=== PATIENT | male | born 1955 | race Asian ===

== ENCOUNTER 2020-09-02 06:19 | Outpatient (REF) | payer BC, SELFPAY | END 2020-09-02 06:20 | disposition home or self-care (01) | LOC: HO.LAB 06:19 | PROVIDERS: Visit Provider Internal Medicine | DX: Z20.828 Contact with and (suspected) exposure to other viral communicable diseases (principal) | CPT/HCPCS: 87635 ==

== ENCOUNTER 2020-09-13 12:48 | Outpatient (REF) | payer BC, SELFPAY | END 2020-09-13 12:49 | disposition home or self-care (01) | LOC: HO.HMGCLDS 12:48 | PROVIDERS: PCP Internal Medicine; Visit Provider Internal Medicine | DX: Z20.828 Contact with and (suspected) exposure to other viral communicable diseases (principal) | CPT/HCPCS: 87635 ==

== ENCOUNTER → 2021-05-01 13:12 | Outpatient (BNVA) | payer BC, SELFPAY | PROVIDERS: PCP Internal Medicine; Visit Provider Physician Assistant ==

== ENCOUNTER 2021-07-17 09:31 | Day surgery (SDC) | payer OTHER, BC, SELFPAY ==
--- NOTE | 2021-07-14 09:14 | HO.ANESPROP2 ---
HPI - Anesthesia Eval Consult details Narrative: 65yo M for Colonoscopy PMFSH Active Problems Active Problems: All Active Problems (Updated 07/11/21 @ 14:26 by Dafne Loja RN) Encounter for screening colonoscopy (Acute) Adenomatous colon polyp (Acute) Past Medical History Medical History Adenomatous colon polyp COVID-19 vaccine series completed Family History Family History Mother Colon cancer Surgical History Surgical History H/O colonoscopy Hx of rotator cuff surgery Social History Social History Household Members Other:: lives with Alcohol intake: current Alcohol intake frequency: holidays/special occasions only Patient Tobacco Use Status: Never used Tobacco Current occupational status: employed Meds Allergies Allergy/AdvReac Type Severity Reaction Status Date / Time No Known Allergies Allergy Verified 07/17/21 10:10 [No Known Allergies*] Exam Exam Date and Time: July 14, 2021 0914 Height,Weight and Vital Signs: Height 5 ft 6 in Assessment and Plan Assessment Anesthesia Assessment: Chart Reviewed
[2021-07-17 10:01] VITALS: BP 155/78; PULSE 48; RESP 16; TEMP 36.4; O2SAT 98
[2021-07-17 10:07] VITALS: BMI 21.7
--- NOTE | 2021-07-17 10:22 | MHC.SHP ---
Pre-Procedural Eval Section A Date of Service: 07/17/21 Section B Chief Complaint: Adenomatous colon polyp, Screening Details of Present Illness: mother with colon cancer Relevant Family History (Specify if Yes): Yes Relevant Social History: None Present Medications: see Short Stay Collaborative assessment Medical History: Significant History (Adenomatous colon polyp) History of Previous Operations: Relevant previous surgery/procedure and date(s) (H/O colonoscopy Hx of rotator cuff surgery) Allergies: Allergies Allergy/AdvReac Type Severity Reaction Status Date / Time No Known Allergies Allergy Verified 07/17/21 10:10 [No Known Allergies*] Review of Systems Sugical H&P ROS: Negative: Constitution, Cardiovascular, Respiratory, Neurological, Psychiatric, Hem-Onc, Allergic/Immunologic, Gastrointestinal, Genitourinary, Musculoskeletal, Integumentary, Endocrine and Eyes/Ears/Nose/Throat Exam Surgical H&P Exam: Normal: HEENT, Normal: Heart, Normal: Lungs, Normal: Extremities, Normal: Abdomen, Normal: Skin and Normal: Neurological Plan Diagnosis/Plan: Unchanged I have reviewed the history and physical and performed a pertinent physical examination on my patient. No changes have occurred unless specified.
[2021-07-17] MEDS: Lactated Ringers 1,000 ML 50 ML IVCONT (10:41)
--- NOTE | 2021-07-17 11:15 | P.BOP_ITS ---
Brief Operative Note Date of Service: 07/17/21 Pre-op diagnosis: colon screening Post-op diagnosis: same Procedure: see op note Surgeon: Janice Ramires MD Anesthesia: MAC Was an Adjunct Business Instructor used for this Procedure?: No Estimated blood loss (mL): 0 Condition: stable Disposition: PACU
--- NOTE | 2021-07-17 11:15 | W.PM.OPN ---
Operative Note Operative Note Date of Service: 07/17/21 Narrative: Operative Information Procedure Description: Colonoscopy COLONOSCOPY Instrument: Olympus variable stiffness pediatric scope 190L Colonoscopy Monitoring: Vital signs and clinical assessment, continuous EKG monitoring, Pulse oximetry, Carbon Dioxide monitoring and blood pressure monitoring were done throughout the procedure. Colon withdrawal time was 10 minutes. Procedure: The patient was placed in the left lateral decubitis position and pre-procedure medications were administered. After a digital rectal examination of the ano-rectum, the video colonoscope was inserted into the rectum and advanced through the colon to the cecum/TI. The colonoscope was slowly withdrawn in a retrograde panoramic fashion and the colon mucosa was carefully examined including a retroflexed view of the rectum. Findings and interventions are described below. Procedure Difficulty: Findings: Terminal Ileum-normal Cecum:normal Ascending Colon: x 3 sessile polyps 4-8 mm removed with forceps, few diverticula noted. Transverse Colon -x 1 sessile polyp 8-10 mm removed with cold snare, x 2 sessile polyps 2-3 mm removed with forceps Descending Colon:normal Sigmoid Colon: 7-8 mm sessile polyp removed with forceps Rectum: Retroflexion with small internal hemorrhoids, grade I Anorectum - normal Colon preparation: [place] Bowel Preparation Scale Right colon; 2 Transverse colon: 3 Left colon; 3 (0 = Unprepared colon segment with mucosa not seen due to solid stool that cannot be cleared. 1 = Portion of mucosa of the colon segment seen, but other areas of the colon segment not well seen due to staining, residual stool and/or opaque liquid. 2 = Minor amount of residual staining, small fragments of stool and/or opaque liquid, but mucosa of colon segment seen well. 3 = Entire mucosa of colon segment seen well with no residual staining, small fragments of stool or opaque liquid) Impression and Post Procedure Diagnosis: polyps internal hemorrhoids diverticular disease Plan: High fiber diet leaflet Avoid straining at stool, epsom salts and sitz bath, anusol supps or cream Repeat Colonoscopy in 3-5 years due to polyp burden or earlier if clinically indicated Above findings were reviewed with the patient and relevant handouts were provided if indicated.
--- NOTE | 2021-07-17 11:27 | HO.ANESPROP2 ---
PENDING SALE TO [facility] Active Problems Active Problems: All Active Problems (Updated 07/11/21 @ 14:26 by Dafne Loja RN) Encounter for screening colonoscopy (Acute) Adenomatous colon polyp (Acute) Past Medical History Medical History Adenomatous colon polyp COVID-19 vaccine series completed Family History Family History Mother Colon cancer Family history of problems with anesthesia: No Surgical History Surgical History H/O colonoscopy Hx of rotator cuff surgery History of Problems with Anesthesia: No Social History Social History Household Members Other:: lives with Alcohol intake: current Alcohol intake frequency: holidays/special occasions only Patient Tobacco Use Status: Never used Tobacco Use of substances other than those prescribed or required for medical reasons: No Are you DNR?: No Advance Directives: No Advance Directives Information Provided: No Advance Directives on File: No Recently lost weight without trying: No Eating poorly because of decreased appetite: No Nutrition Risks: No Nutritional Risk Current occupational status: employed Meds Allergies Allergy/AdvReac Type Severity Reaction Status Date / Time No Known Allergies Allergy Verified 07/17/21 10:10 [No Known Allergies*] Active Medications: Current Medications Generic Name Dose Route Start Last Admin Trade Name Freq PRN Reason Stop Dose Admin Lactated Ringer's 1,000 mls @ 50 mls/hr 07/17/21 10:45 07/17/21 10:41 Lr IVCONT 50 mls/hr .Q20H MARIA VICTORIA Administration Lactated Ringer's 1,000 mls @ 100 mls/hr 07/17/21 10:45 Lr IVCONT .Q10H MARIA VICTORIA Exam Exam Date and Time: July 17, 2021 1127 Height,Weight and Vital Signs: Height 5 ft 6 in Weight 61.235 kg Last Vital Signs Temp 97.6 F 07/17/21 10:01 Pulse 48 L 07/17/21 10:01 Resp 16 07/17/21 10:01 BP 155/78 H 07/17/21 10:01 Pulse Ox 98 07/17/21 10:01 Airway Mallampati Class: II TM Dist: >3cm Neck ROM: Full Assessment and Plan Assessment Anesthesia Assessment: Anesthesia Plan Discussed and Chart Reviewed Final Anesthetic Review Family History of Problems with Anesthesia: No History of Problems with Anesthesia: No NPO: Yes ASA Class: II Final Preanesthetic Review: No Changes in Pt Med Stat, Meds/Allgs Chart Reviewed, Consent Obtained/Reviewed and Anes Risks/Benef Reviewed Patient Risk: Low Procedure Risk: Low Assessment/Block/Sedation in SS: Assess/Block/Sedation-SS Anesthetic Plan Anesthetic Plan: MAC: Disposition: Standard PACU
[2021-07-17 11:59] VITALS: BP 134/78; PULSE 59; RESP 16; TEMP 37.2; O2SAT 99
[2021-07-17 12:13] VITALS: BP 152/71; PULSE 71; RESP 18; TEMP 36.9; O2SAT 98
--- NOTE | 2021-07-17 12:30 | HO.POSTANES ---
Post Anesthesia Evaluation Post Anesthesia Evaluation Vital Signs: Vital Signs Temp Pulse Resp BP Pulse Ox 07/17/21 12:13 98.4 F 71 18 152/71 H 98 07/17/21 11:59 98.9 F 59 16 134/78 99 07/17/21 10:01 97.6 F 48 L 16 155/78 H 98 Anesthesia: Monitored and TIVA Mental Status: Awake Pain Control: Satisfactory Nausea/Vomiting: None Hydration: Adequate Anesthesia-Related Issues: No Anes. Related Issues
== END 2021-07-17 12:44 | disposition home or self-care (01) ==
PROVIDERS: PCP Internal Medicine; Visit Provider Internal Medicine Gastroenterology
PROC: 0DJD8ZZ Inspection of Lower Intestinal Tract, Via Natural or Artificial Opening Endoscopic (ICD-10-PCS; CPT 45378; principal; 2021-07-17 11:20)
DX: Z12.11 Encounter for screening for malignant neoplasm of colon (principal); Z86.010 Personal history of colon polyps; Z80.0 Family history of malignant neoplasm of digestive organs; D12.2 Benign neoplasm of ascending colon; K63.5 Polyp of colon; K57.30 Diverticulosis of large intestine without perforation or abscess without bleeding; K64.0 First degree hemorrhoids
CPT/HCPCS: 45385; 45380; 88305

== ENCOUNTER → 2021-08-07 10:18 | Outpatient (BNVA) | payer OTHER, BC, SELFPAY | PROVIDERS: PCP Internal Medicine; Visit Provider Physician Assistant ==

== ENCOUNTER → 2023-03-28 13:51 | Outpatient (BNVA) | payer OTHER, BC, SELFPAY | PROVIDERS: PCP Internal Medicine; Visit Provider Internal Medicine | DX: I48.0 Paroxysmal atrial fibrillation (principal); I10 Essential (primary) hypertension; F11.90 Opioid use, unspecified, uncomplicated | CPT/HCPCS: 93005; 99202 ==

== ENCOUNTER → 2023-04-25 07:59 | Outpatient (REF) | payer OTHER, BC, SELFPAY ==
--- NOTE | 2023-04-25 08:02 | HM_ITS ---
Conclusion: 1. Patient was monitored for total period of 2 days and 22 hours 2. Baseline was normal sinus rhythm with average heart of 65 beats per minute 3. No significant pauses greater than 2.5 seconds noted 4. Frequent PACs with total burden of 1.6%, with 10 short runs of SVT with fastest at 146 beats per minute and longest at 8 beats 5. Frequent PVCs with total burden of 2.6% with 1 nonsustained VT of 4 beats at 138 beats per minute 6. Patient marked the recorder 18 times without reporting any symptoms correlating with isolated PVCs MTDD
--- NOTE | 2023-04-25 08:02 | CA_ITS ---
Transthoracic Echocardiogram Patient (Last, First, Middle): Gunnar Posada, Gender: Male Date of : 1955 Age: 67 Procedure Date: 04/25/2023 Procedure Type: Transthoracic Echocardiogram Location: OP Height: 167.64 cm Weight: 62.6 kg BSA: 1.71 m2 Heart Rate: bpm BP: 132 / 80 mmHg Wellness Health Coach: MAGALI Referring MD: Amos Valdes MD Endless Belt Finisher: Isidro Regan MD Symptoms: I48.0 - Paroxysmal atrial fibrillation Study Quality: Adequate ECG Rhythm: Sinus Conclusions: - 1. Normal LV systolic function with grade 1 diastolic dysfunction 2. Mildly dilated left atrium 3. Normal cardiac valvular Dopplers 4. Normal RV systolic pressure 5. No gross pericardial effusion Findings Left Ventricle Normal left ventricular size, thickness, and systolic function. The visually estimated ejection fraction is between 60-65%. Spectral Doppler is indicative of an impaired relaxation filling pattern. E/E prime ratio is <8, consistent with normal filling pressures. Evidence suggests grade I (mild) diastolic dysfunction. Peak GLS is -20.6%, within normal limits Right Ventricle Normal right ventricular cavity size and systolic function. Atria The left atrium is mildly dilated. There is a mobile atrial septum noted. Interatrial shunt cannot be excluded. The right atrium is likely dilated. Aortic Valve Normal aortic valve structure and function. There is no aortic valve stenosis. There is no aortic valve regurgitation. Mitral Valve Normal mitral valve structure and function. There is trace mitral valve regurgitation. There is no mitral valve stenosis. Pulmonic Valve The pulmonic valve is likely normal. Tricuspid Valve Normal tricuspid valve structure. There is trace tricuspid valve regurgitation. The right ventricular systolic pressure is normal. The right ventricular systolic pressure is 20 mmHg. Normal right atrial pressure. There is no evidence of pulmonary hypertension. Great Vessels All visible segments of the aorta are normal in size. The pulmonary artery was not well visualized. Venous The inferior vena cava is normal in size and collapses greater than 50% with inspiration. Pericardium/Pleural There is no evidence of pericardial effusion. Prior Study Comparison No prior study available for comparison. Measurements 2D Linear Measurements IVSd: 1.04 0.6-0.9/0.6-1.0 cm LVIDd: 4.65 3.9-5.3/4.2-5.9 cm LVIDd Index: 2.72 2.4-3.2/2.2-3.1 cm/m2 LVIDs: 3.23 2.0-3.6 cm LVPWd: 1.00 0.7-1.1 cm LA Diam: 3.60 2.7-3.8/3.0-4.0 cm LAIDs Index: 2.11 1.5-2.3 cm/m2 LV Mass: 206.41 67-162/88-224 g LV Mass Index: 120.71 43-95/49-115 g/m2 LVOT Diam: 2.10 3.0+(-)1.3 cm 2D Systolic Function EF 4C: 61.30 >55% EF 2C: 64.20 >55% EF BiP: 63.40 >55% Mitral Valve MV Pk E: 0.73 MV PK A: 0.70 MV Decel Time: 268.00 E/A: 1.00 E'Lateral: 10.30 E'Medial: 7.72 E/E' Med: 9.40 E/E' Lat: 7.10 PHT: 78.00 MVA PHT: 2.82 Decel [place]: 2.72 Aortic Valve AoV Pk Jose Alfredo: 1.29 AoV Mn Jose Alfredo: 0.92 AoV VTI: 0.34 AoV Pk Grad: 7.00 Aov Mn Grad: 4.00 KRISTYN Cont.VTI: 2.66 LVOT LVOT Pk Jose Alfredo: 1.12 LVOT Mn Jose Alfredo: 0.68 LVOT VTI: 0.26 LVOT Pk Grad: 5.00 LVOT Mn Grad: 2.00 LVOT Diam: 2.10 LVOT Area: 3.46 Diastolic Function MV Pk E: 0.73 MV Pk A: 0.70 E/A: 1.00 E'Medial: 7.72 E/E' Med: 9.40 E' Laterial: 10.30 E/E' Lat: 7.10 Right Ventricle TAPSE (mm): 2.67 TVS' Jose Alfredo: 12.90 Tricuspid Valve TR Pk Jose Alfredo: 2.07 TR Pk Grad: 17.00 RA Press: 3.00 RVSP: 20.00 Great Vessels Aorta Sinus of Valsalva: 3.25 2.0-3.[address] [place]: 2.57 1.7-3.4 cm Ao Asc: 3.30 2.1-3.4 cm Updated in Other Vendor System with Status of Final Isidro Regan MD electronically signed on 04/25/2023 4:32:11 PM with status of Final
== END ==
LOC: HO.CARD 07:59
PROVIDERS: PCP Internal Medicine; Visit Provider Internal Medicine
DX: I48.0 Paroxysmal atrial fibrillation (principal)
CPT/HCPCS: 93242; 93306; 93356

== ENCOUNTER 2023-06-25 14:56 | Outpatient (AMB) | payer OTHER, BC, SELFPAY ==
[2023-06-25 15:02] VITALS: BP 132/90; PULSE 55; BMI 22.8
--- NOTE | 2023-06-25 15:02 | A.OFFVIS_ITS ---
Intake Vital Signs 06/25/23 15:02 Height 5 ft 6 in Weight 141 lb 1.533 oz BMI 22.8 BP 132/90 H Blood Pressure Location Lt brachial Position Sitting Pulse 55 Intake Visit Reasons: follow up after holter Intake Note: follow up after holter Doctor Of Naturopathic Medicine Required: No Allergies No Known Allergies [No Known Allergies*] Allergy (Verified 06/25/23 15:06) Medication List - Last Reconciled 06/25/23 by Kanika Nguyen NP-C apixaban (Eliquis) 5 mg PO BID metoprolol tartrate 12.5 mg PO BID HPI follow up after holter HPI Details Gunnar is a 67-year-old male with past medical history of hypertension, alcoho use with new or finding of paroxysmal atrial fibrillation who recently underwent an echocardiogram and Holter monitor for further evaluation. He now presents for follow-up. Today he reports that at times he will feel palpitations with his heart but he is unclear if it is the AFib or not. He [facility]. He is not sure if he has had shortness of breath like that since then. He describes a squeezing type sensation in his left chest that occurs at various times. He is having difficulty describing this sensation but states that if he is doing exertional activity he just pushes through it and then the symptom will improve. Tells me that he just did a 7 [place] hike [place] and tolerated it without chest discomfort but does admit to some shortness of breath and lightheadedness. 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 He denies any limitations to his physical ability. He has been taking his meds as directed and denies any significant bleeding issues. He has a history of having multiple nose fractures in the past and has some mild epistaxis at times which is not unusual. [facility] Medical History Adenomatous colon polyp Alcohol use disorder COVID-19 vaccine series completed Essential hypertension Surgical History H/O colonoscopy Hx of rotator cuff surgery Family History Mother Colon cancer Social History Household Members Other:: lives with Alcohol intake: current Alcohol intake frequency: holidays/special occasions only Patient Tobacco Use Status: Never used Tobacco Current occupational status: employed Review of Systems Const All systems reviewed & are unremarkable except as noted in HPI and below ENT Reports dizziness Card Details: Squeezing type sensation in chest Denies chest pain, Denies chest pain at rest, Denies chest pain with activity, Denies rapid heart rate, Denies pedal edema, Denies edema, Denies leg edema, Denies lightheadedness, Denies palpitations, Denies dyspnea, Reports dyspnea on exertion and Denies orthopnea Resp Denies cough, Denies dyspnea and Reports dyspnea on exertion GI Denies hematochezia and Denies change in stool character Musc Denies abnormal gait, Reports limited range of motion, Reports muscle cramps, Denies muscle weakness, Denies numbness, Denies radiating pain into limb, Denies stiffness and Denies tingling Neuro Denies abnormal gait, Reports dizziness, Denies numbness and Denies tingling Endo Denies palpitations Physical Exam Vital Signs: Last Vital Signs Pulse 55 06/25/23 15:02 BP 132/90 H 06/25/23 15:02 BMI result Body Mass Index 22.8 Const General: cooperative, healthy appearing, comfortable and no acute distress Orientation/consciousness: patient oriented x3 Neck Neck: Yes normal visual inspection and Yes no JVD Resp Effort & Inspection: normal respiratory effort Auscultation: clear to auscultation bilaterally, no crackles, no rales, no rhonchi and no wheezes Cardio Jugular venous distension: no JVD Rate: regular rate Rhythm: regular rhythm Heart sounds: S1 normal heart sound present, S2 normal heart sound present, no gallops, no murmurs and no rubs Neuro General: patient oriented x3 Extrem General: Yes normal to inspection Psych Appearance: grossly normal Mental Status: mental status grossly normal Speech and movement: Normal speech and movement present Assessment & Plan Assessment & Plan (1) PAF (paroxysmal atrial fibrillation): Code(s): I48.0 - Paroxysmal atrial fibrillation Plan: Newer finding of atrial fibrillation on EKG at the [place] where he went for vikki rtness of breath. He was started on low-dose metoprolol and Eliquis. He was then seen in consultation here 03/2023. EKG at that time showed sinus bradycardia. Echocardiogram was done 04/25/2023 showing normal EF, grade 1 diastolic dysfunction, mild left atrial dilation, normal valves. A Holter monitor was done on 04/25 for 3 days showing sinus rhythm with average heart rate 65, frequent PACs 1.6% of time, brief SVT, longest 8 beats, frequent PVCs, 2.6% of time, brief an SVT, longest 4 beats. He did have symptoms marked which correlated with isolated PVCs. Pulse is regular on examination today. He is unclear if he has had recurrent AFib since the initial diagnosis. His heart rate runs on the slower side. Will hold on further titration of his metoprolol. Continue Eliquis without interruption. Diagnosis of paroxysmal atrial fibrillation discussed with him, stroke risk with AFib, need for medical management all reviewed. He describes a squeezing type sensation in his left chest which occurs periodically and seems more during activity. Will further evaluate his cardiac condition with a nuclear stress test to assess for ischemia. If he is in atrial fibrillation that day can change to a pharmacological study. Reviewed with him and he states understanding. Plan to call him with results. Cardiology office visit in 3 months for re-evaluation and will be sooner if stress test is abnormal. (2) Essential hypertension: Code(s): I10 - Essential (primary) hypertension Plan: Adequately controlled at present. Continue low-dose metoprolol. Will be further evaluated during stress test (3) Alcohol use disorder: Code(s): F10.90 - Alcohol use, unspecified, uncomplicated Plan: Patient has been informed that alcohol can increase his tendency to have atrial fibrillation. Reduction/cessation recommended. (4) Chest discomfort: Code(s): R07.89 - Other chest pain Orders: Orders CA stress test Today I48.0 - Paroxysmal atrial fibrillation, R07.89 - Other chest pain NM cardiolite stress test Today I48.0 - Paroxysmal atrial fibrillation, R07.89 - Other chest pain Coding Level of Care Code Est Pt Level 4 (47800) Diagnoses PAF (paroxysmal atrial fibrillation) I48.0 Essential hypertension I10 Alcohol use disorder F10.90 Chest discomfort R07.89 Time Spent (min) 28 Comment Chart review, documentation, interview, assessment
== END 2023-06-25 15:36 | disposition home or self-care (01) ==
PROVIDERS: PCP Internal Medicine; Referring Provider Internal Medicine; Visit Provider Nurse Practitioner Family
DX: I48.0 Paroxysmal atrial fibrillation (principal); I10 Essential (primary) hypertension; F10.90 Alcohol use, unspecified, uncomplicated; R07.89 Other chest pain
CPT/HCPCS: 99214

== ENCOUNTER → 2023-06-25 14:56 | Outpatient (BNVA) | payer OTHER, BC, SELFPAY | PROVIDERS: PCP Internal Medicine; Referring Provider Internal Medicine; Visit Provider Nurse Practitioner Family | DX: I48.0 Paroxysmal atrial fibrillation (principal); I10 Essential (primary) hypertension; R07.89 Other chest pain; F10.90 Alcohol use, unspecified, uncomplicated | CPT/HCPCS: 99212 ==

== ENCOUNTER → 2023-08-06 08:26 | Outpatient (REF) | payer OTHER, BC, SELFPAY ==
--- NOTE | ~2023-08-06 | NM_ITS ---
Exercise Myocardial perfusion study Indication: Chest pain with prior history of atrial fibrillation to evaluate for myocardial ischemia Technique: The patient was brought in for an exercise perfusion study on 08/06/2023. Patient performed exercise as per Yoan protocol and was injected 25 mCi of sestamibi was given intravenously one target HR was achieved. Images were obtained using the SPECT gamma camera interlaced with the gating device. Images were obtained in supine position. Resting perfusion study was performed on 08/12/2023. Patient was administered 25 mCi of sestamibi intravenously at rest. Images were then obtained in supine position. Images obtained with and without CT attenuation. Total DLP 74 mGy-cm Images were processed with the software and compared side to side in short axis, horizontal long axis and vertical long axis views. Findings: The stress perfusion study showed mildly to moderately reduced uptake in the basal inferior wall and minimally reduced uptake in the mid inferior wall of the LV myocardium. Remainder of the LV myocardium is normally perfused. Attenuation corrected images show normal uptake of radiotracer in all segments of LV myocardium. The gated study shows normal LV systolic function with calculated LVEF of 63%. LV cavity is normal in size. The gated study shows normal systolic wall thickening and contraction of all segments. There is no transient ischemic dilation. Resting study shows no change in perfusion pattern compared. Gating at rest reveals normal systolic wall motion with ejection fraction at 65%. The findings are consistent with normal myocardial perfusion. NM/NM cardiolite stress test Impression: 1. Normal myocardial perfusion 2. Gated LVEF is 63% 3. Transient ischemic dilatation not present Stress EKG is negative for ischemia
--- NOTE | 2023-08-06 08:29 | CA_ITS ---
Acquisition Time: 2023-08-06 08:38:12 Total Exercise Time: 00:14:00 Test Indications: abn ekg Medications: Protocol: ARABELLA Max HR: 139 BPM 90% of Pred: 153 BPM Max BP: 178/078 mmHG Max Work Load: 17.2 METS Exercise stress test exercise 14 min of Arabella protocol briefly achieving 90% MPHR and 15.5 METs, without anginal symptoms, with isolated PVCs and PACs, ventricular cuplet, with normotensive response to exercise, without EKG changes. Nuclear images pending. Test reviewed with Dr. Damian. Referred By: Kanika Nguyen Overread By: JASMYN BROWN
== END ==
LOC: HO.CARD 08:26
PROVIDERS: PCP Internal Medicine; Visit Provider Nurse Practitioner Family
DX: R07.89 Other chest pain (principal); I48.0 Paroxysmal atrial fibrillation
CPT/HCPCS: 78452; 93017; A9500

== ENCOUNTER → 2023-08-06 08:29 | Outpatient (BNV) | payer OTHER, BC, SELFPAY | PROVIDERS: PCP Internal Medicine; Visit Provider Internal Medicine | DX: I48.0 Paroxysmal atrial fibrillation (principal); R94.31 Abnormal electrocardiogram [ECG] [EKG] | CPT/HCPCS: 78452; 93016; 93018 ==

== ENCOUNTER 2024-08-28 10:56 | Emergency (ER) | payer OTHER, BC, SELFPAY ==
--- NOTE | ~2024-08-28 | XR_ITS ---
EXAMINATION: XR CHEST CLINICAL INFORMATION: Cough. Malaise. COMPARISON: None available. TECHNIQUE: 2 views of the chest (PA and lateral). FINDINGS: The lungs are well expanded. Nonspecific 1 cm opacity overlying the right midlung. There also appears to be a region of consolidation within the medial aspect of the right middle lobe. No additional focal consolidative process. No evidence of pleural effusion, pulmonary edema, or pneumothorax. The cardiomediastinal silhouette is within normal limits. No acute osseous abnormalities. XR/XR chest 2V IMPRESSION: 1. Focal consolidation within the medial aspect of the right middle lobe suspicious for pneumonia in the appropriate clinical setting. 2. Nonspecific 1 cm opacity overlying the right midlung. If clinically indicated, this may be better characterized with CT follow-up. Alternatively, follow-up radiograph after treatment may establish persistence/resolution of this abnormality. Electronically signed by: Tj Ramon DO 08/28/2024 02:26 PM EDT
[2024-08-28 10:57] VITALS: BP 143/76; PULSE 83; RESP 16; TEMP 37; O2SAT 98; BMI 22.1
[2024-08-28 11:13] LABS: MANUAL DIFF FLAG NO
[2024-08-28 11:15] LABS: Basophils Absolute Auto 0.1 X10*3/uL (0.0-0.2); Basophils Percent Auto 0.6 % (0-2); Eosinophils Absolute Auto 0.1 X10*3/uL (0.0-0.4); Eosinophils Percent Auto 1.1 % (0-4); Hematocrit 40.6 % (42.0-52.0); Hemoglobin 14.5 g/dl (14.0-18.0); Imm Gran Abs Auto 0.02 X10*3/uL (0.00-0.03); Imm Gran Pct Auto 0.2 % (0.0-0.4); Lymphocytes Absolute Auto 1.3 X10*3/uL (1.2-4.9); Lymphocytes Percent Auto 15.9 % (20-40); Mean Corpuscular HGB Conc 35.7 g/dl (31.0-36.0); Mean Corpuscular Hemoglobin 33.5 pg (27.0-33.0); Mean Corpuscular Volume 93.8 fL (80.0-98.0); Monocytes Absolute Auto 1.3 X10*3/uL (0.1-1.2); Monocytes Percent Auto 16.1 % (2-11); Neutrophils Absolute Auto 5.3 x10*3/uL (2.0-8.3); Neutrophils Percent Auto 66.1 % (45-73); Platelet Count 262 X10*3/uL (160-400); Red Blood Count 4.33 X10*6/uL (4.60-5.80); Red Cell Distribution Width 12.3 % (11.0-16.0); White Blood Count 8.1 X10*3/uL (4.8-10.8)
[2024-08-28 11:27] LABS: Anion Gap 11 (12-20); Blood Urea Nitrogen 9 mg/dL (9-16); Calcium 9.2 mg/dL (8.4-10.2); Carbon Dioxide 27 mmol/L (22-29); Chloride 101 mmol/L (96-108); Creatinine Clr Calc Pharmacy 72.2; Estimated Glomerular Filt Rate > 60; Glucose Random 126 mg/dL (60-115); Potassium 3.8 mmol/L (3.3-5.1); Sodium 135 mmol/L (135-145)
--- NOTE | 2024-08-28 11:51 | ED.GENADULT ---
HPI - General Adult General Chief complaint: General Medical Stated complaint: Black stool, chest congestion, headache History of Present Illness HPI narrative: LWCT Related Data Home Medications ?Medication ?Instructions ?Recorded ?Confirmed apixaban 5 mg tablet (Eliquis) 5 mg PO BID 03/28/23 06/25/23 metoprolol tartrate 25 mg tablet 12.5 mg PO BID 03/28/23 06/25/23 Allergies Allergy/AdvReac Type Severity Reaction Status Date / Time No Known Allergies Allergy Verified 08/28/24 10:58 [No Known Allergies*] [facility] Past Medical History Medical History Adenomatous colon polyp Alcohol use disorder COVID-19 vaccine series completed Essential hypertension Surgical History H/O colonoscopy Hx of rotator cuff surgery Family History Family History Mother Colon cancer Social History Social History Household Members Other:: lives with Alcohol intake: current Alcohol intake frequency: holidays/special occasions only Patient Tobacco Use Status: Never used Tobacco Advance Directives: No Advance Directives Information Provided: Yes Do you have a plan to hurt others: No Plan Current occupational status: employed Physical Exam ED Vital Signs: Vital Signs - 24 hr 08/28/24 10:57 Temperature 98.6 F Pulse Rate 83 Respiratory Rate 16 Blood Pressure 143/76 H Pulse Oximetry 98 Oxygen Delivery Method Room Air BMI result Body Mass Index 22.1 Course Course Course Narrative: This is an RME performed by Yodit Loredo CNP: Additional HPI, ROS, PE not included below will be deferred to primary provider. Patient is a 68-year-old male who presents to the emergency department for evaluation. He states that 5 days ago he was experiencing stomach upset, he took Pepto-Bismol for this, he has subsequently been experiencing black stools, he is not certain whether this began after taking the Pepto-Bismol or before. He is also experiencing malaise, body aches, intermittent headaches, chest congestion with a productive cough. Admits to a history of COPD but states he is not on any inhalers for this. He denies associated fevers or chills. He takes Eliquis for AFib and has been compliant Plan: Labs, serologies, XR Medical Decision Making Lab Data 08/28/24 11:06 08/28/24 11:06 Labs: Lab Results 08/28/24 Range/Units 11:06 WBC 8.1 (4.8-10.8) X10*3/uL RBC 4.33 L (4.60-5.80) X10*6/uL Hgb 14.5 (14.0-18.0) g/dl Hct 40.6 L (42.0-52.0) % MCV 93.8 (80.0-98.0) fL MCH 33.5 H (27.0-33.0) pg MCHC 35.7 (31.0-36.0) g/dl RDW 12.3 (11.0-16.0) % Plt Count 262 (160-400) X10*3/uL MPV 9.0 L (9.4-12.4) fL Immature Gran % (Auto) 0.2 (0.0-0.4) % Neut % (Auto) 66.1 (45-73) % Lymph % (Auto) 15.9 L (20-40) % [place] % (Auto) 16.1 H (2-11) % Eos % (Auto) 1.1 (0-4) % Baso % (Auto) 0.6 (0-2) % Lymph # (Auto) 1.3 (1.2-4.9) X10*3/uL [place] # (Auto) 1.3 H (0.1-1.2) X10*3/uL Eos # (Auto) 0.1 (0.0-0.4) X10*3/uL Baso # (Auto) 0.1 (0.0-0.2) X10*3/uL Abs Immat Gran (auto) 0.02 (0.00-0.03) X10*3/uL Absolute Neuts (auto) 5.3 (2.0-8.3) x10*3/uL Absolute Nucleated RBC 0.000 (0.0-0.012) X10*3/uL Nucleated RBC % (auto) 0.0 (0.0-0.2) /100WBC Sodium 135 (135-145) mmol/L Potassium 3.8 (3.3-5.1) mmol/L Chloride 101 (96-108) mmol/L Carbon Dioxide 27 (22-29) mmol/L Anion Gap 11 L (12-20) BUN 9 (9-16) mg/dL Creatinine 0.86 (0.5-1.4) mg/dL Estim Creat Clear Calc 72.2 Estimated GFR > 60 Random Glucose 126 H (60-115) mg/dL Calcium 9.2 (8.4-10.2) mg/dL Total Bilirubin 0.3 (0.0-1.0) mg/dL Direct Bilirubin 0.1 (0.0-0.5) mg/dL AST 20 (5-37) U/L ALT 13 (0-40) U/L Alkaline Phosphatase 85 (39-117) U/L Total Protein 7.2 (6.5-8.0) g/dL Albumin 3.8 (3.5-5.0) g/dL Lipase 47 (8-78) U/L Influenza Type A (PCR) NEGATIVE (Negative) Influenza Type B (PCR) NEGATIVE (Negative) RSV RNA Qual (PCR) NEGATIVE (Negative) SARS-CoV-2 RNA (RT-PCR) NEGATIVE (Negative) Discharge Plan Discharge Clinical Impression: Myalgia, Complaint of melena Patient Disposition: Left W/O Completing Treatment Prescriptions: No Action Eliquis 5 mg tablet 5 mg PO BID metoprolol tartrate 25 mg tablet 12.5 mg PO BID Discharge Date/Time: 08/28/24 14:33
[2024-08-28 12:10] LABS: Alanine Aminotransferase 13 U/L (0-40); Albumin Level 3.8 g/dL (3.5-5.0); Alkaline Phosphatase 85 U/L (39-117); Aspartate Amino Transferase 20 U/L (5-37); Bilirubin Direct 0.1 mg/dL (0.0-0.5); Bilirubin Total 0.3 mg/dL (0.0-1.0); Lipase 47 U/L (8-78); Total Protein 7.2 g/dL (6.5-8.0)
[2024-08-28 12:14] LABS: Influenza A PCR NEGATIVE (Negative); Influenza B PCR NEGATIVE (Negative); Resp Syncy Virus RNA Qual PCR NEGATIVE (Negative); SARS COV2 PCR INHOUSE NEGATIVE (Negative)
== END 2024-08-28 14:33 | disposition left against medical advice (07) ==
PROVIDERS: Physician Assistant Medical; Emergency Provider Emergency Medicine; PCP Internal Medicine
DX: R51.9 Headache, unspecified (principal); R53.81 Other malaise; R05.9 Cough, unspecified; I10 Essential (primary) hypertension; I48.0 Paroxysmal atrial fibrillation; Z79.01 Long term (current) use of anticoagulants; Z79.899 Other long term (current) drug therapy; Z03.818 Encounter for observation for suspected exposure to other biological agents ruled out
CPT/HCPCS: 0241U; 71046; 80048; 80076; 83690; 85025; 99281; 99283

== ENCOUNTER 2024-11-09 10:52 | Outpatient (AMB) | payer OTHER, BC, SELFPAY ==
--- OUTSIDE RECORDS SUMMARY | 2024-11-09 10:55 | XMS_ITS ---
Author Name [facility] [place] [facility] [place] Address [address] [place] [address] Care Team Providers Care Web Designer Name Role Phone LAVERN ETIENNE Primary Care Provider Unavailabl e Insurance Providers: All historical and current Section Date Range: From patient's date of to the date document was created. This section includes the names of all active insurance providers for the patient. Insurance Provider Type of Coverage Plan Name Start of Policy Coverage End of Policy Coverage Group Number Member ID Insurance Provider's Telephone Number Policy Colin's Name Patient's Relationship to Policy Colin ANTHEM BCBS [place] FEDERAL PREFERRED PROVIDER ORGANIZAT ION (PPO) STAND CONSUELO SELF + ONE Aug 13, 2020 [id number] [phone] SUGRUE,TO DD PATIENT ANTHEM BCBS CT FEDERAL PREFERRED PROVIDER ORGANIZAT ION (PPO) STAND CONSUELO SELF Nov 18, 2007 [id number] [phone] SUGRUE,TO DD PATIENT ANTHEM BCBS CT FEDERAL PREFERRED PROVIDER ORGANIZAT ION (PPO) STAND CONSUELO FAMIL Y Nov 30, 2000 105 [id number] [phone] SUGRUE,TO DD PATIENT BCBS [place] FEP PREFERRED PROVIDER ORGANIZAT ION (PPO) STAND CONSUELO SELF PLUS 1 Aug 13, 2020 106 [id number] SUGRUE,TO DD PATIENT [place] PREFERRED PROVIDER ORGANIZAT ION (PPO) STAND CONSUELO FAMIL Y Nov 30, 2000 105 [id number] [phone] SUGRUE,TO DD PATIENT [place] PREFERRED PROVIDER ORGANIZAT ION (PPO) STAND CONSUELO SELF+ ONE Aug 13, 2020 106 [id number] [phone] SUGRUE,TO DD PATIENT [place] PREFERRED PROVIDER ORGANIZAT ION (PPO) STAND CONSUELO FAMIL Y Nov 30, 2000 105 [id number] SUGRUE,TO DD PATIENT [place] DENTAL DENTAL INSURANCE STAND CONSUELO Aug 13, 2020 [id number] [phone] SUGRUE,TO DD PATIENT [place] FEP BCBS PRESCRIPT ION CAREM ARK FEPRX PLAN Aug 13, 2020 [id number] [phone] SUGRUE,TO DD PATIENT [place] FEPRX PLAN PRESCRIPT ION BCBS FEP Nov 18, 2010 [id number] SUGRUE,TO DD PATIENT [place] FEPRX PLAN PRESCRIPT ION CAREM ARK FEPRX Nov 18, 2010 [id number] SUGRUE,TO DD PATIENT [place] FEPRX PLAN PRESCRIPT ION BCBS FEP Nov 18, 2007 [id number] SUGRUE,TO DD PATIENT CAREMARK-F EP BCBS PRESCRIPT ION FEP CAREM ARK Nov 18, 2010 [id number] [phone] [place],TO DD PATIENT MEDICARE (WNR) MEDICARE (M) PART A Sep 18, 2020 PART A [id number] SUGKATEE,TO DD PATIENT MEDICARE (WNR) MEDICARE (M) PART A Sep 18, 2020 PART A [id number] [phone] SUGRUE,TO DD PATIENT MEDICARE (WNR) MEDICARE (M) PART A Sep 18, 2020 PART A [id number] [phone] [place],TO DD PATIENT [facility] DFEC WORKERS' COMPENSAT ION INSURANCE WORKE R'S COMP April 01, 2018 WORKER' S COMP [id number] ADAMA RAYGOZA DD PATIENT Selected Encounter This section includes the information on record at [place] for the Encounter. Date/Time Encounter Type Encounter Description Reason Pro vider Source Sep 18, 2024 01:26 PM Outpatient Encounter TELEPHONE MH IHE Encounter Template Text not used by [place] Plan of Treatment: Future Appointments (+ 6 months) and Future Tests (+/- 45 days) The Plan of Treatment section includes future care activities for the patient from all [place] treatmentfacilities. This section includes future appointments and future orders which are active, pending or scheduled. Future Appointments This section includes appointments that were scheduled to occur 6 months from the date of the Encounter, up to a maximum of 20 appointments. The data comes from all [place] treatment facilities. Appointment Date/Time Appointment Type Appointme nt Facility Name Nov 09, 2024 11:00 AM [facility] Nov 26, 2024 08:30 AM [facility] Feb 03, 2025 01:30 PM AMBULAT[facility] - [facility] Social History: Smoking Status (Most current) and Tobacco Use (All prior to encounter date) This section includes the most current, and the historical, smoking and tobacco- related health factors from the [place] facility where the Encounter took place. Current Smoking Status This section includes the most current smoking, or tobacco-related health factor, from the [place] facility where the Encounter took place. Date/Time Current Smoking Status Comment [facility] michelle May 26, 2024 02:00 PM VA-TOBACCO [facility] Tobacco Use History This section includes a history of the smoking, or tobacco-related health factors, that were collected on or before the date of the Encounter. The data comes from the [place] facility where the Encounter took place. Date/Time Smoking Status/Tobac co Use Comment Facility May 26, 2024 02:00 PM VA-TOBACCO QUIT 5 TO < 15 [facility] [place] [facility] March 20, 2023 03:00 PM VA-TOBACCO FORMER USER [facility] March 20, 2023 03:00 PM VA-TOBACCO QUIT 5 TO < 15 YRS [facility] [place] [facility] March 19, 2022 03:00 PM VA-TOBACCO FORMER USER [facility] [place] [facility] March 19, 2022 03:00 PM VA-TOBACCO QUIT 5 TO < 15 YRS [facility] [place] [facility] Feb 07, 2021 11:00 AM VA-TOBACCO FORMER USER [facility] [place] [facility] Feb 07, 2021 11:00 AM VA-TOBACCO QUIT 5 TO < 15 YRS [facility] [place] [facility] Feb 02, 2020 03:19 PM VA-TOBACCO FORMER USER [facility] [place] [facility] Feb 02, 2020 03:19 PM VA-TOBACCO QUIT 5 TO < 15 YRS [facility] [place] [facility] Sep 03, 2018 11:07 AM VA-TOBACCO NEVER USED [facility] [place] [facility] Oct 24, 2017 02:40 PM QUIT TOBACCO USE 1-7 YEARS AGO PT QUIT 2 YRS AGO [facility] [place] [facility] Nov 23, 2016 11:14 AM LIFETIME NON-TOBACCO USER [place] [facility] [place] [facility] Nov 23, 2016 11:14 AM QUIT TOBACCO USE 1-7 YEARS AGO [facility] [place] [facility] May 11, 2016 04:46 PM QUIT TOBACCO USE 1-7 YEARS AGO [facility] [place] [facility] Dec 09, 2015 09:56 AM V1-PT DECLINES [facility] [place] [facility] Dec 09, 2015 09:56 AM V1-PT THINKING ABOUT QUIT TOBACCO USE [facility] [place] [facility] May 25, 2015 01:26 PM QUIT TOBACCO USE IN PAST YEAR [facility] [place] [facility] Oct 05, 2014 01:34 PM V1-PT DECLINES TOBACCO CESSATION MEDS [facility] [place] [facility] Oct 05, 2014 01:34 PM V1-PT THINKING ABOUT QUIT TOBACCO USE [facility] [place] [facility] Aug 17, 2014 09:30 AM CURRENT SMOKER trys to reduce smoking [place] [facility] [place] [facility] Aug 17, 2014 09:30 AM V1-PT DECLINES REF TO TOBACCO CESS PRGM [facility] [place] [facility] Aug 17, 2014 09:30 AM V1-PT DECLINES TOBACCO CESSATION MEDS [facility] [place] [place] [facility] Aug 17, 2014 09:30 AM V1-PT THINKING ABOUT QUIT TOBACCO USE [facility] [place] [facility] Oct 31, 2012 12:52 PM QUIT TOBACCO USE 1-7 YEARS AGO [facility] [place] [facility] Nov 30, 2011 11:15 AM QUIT TOBACCO USE 1-7 YEARS AGO [facility] [place] [facility] Nov 21, 2010 10:56 AM QUIT TOBACCO USE [facility]ST [facility] Feb 02, 2010 10:09 AM CURRENT SMOKER 3 per day [place] [facility] Jan 13, 2010 12:22 PM V1-PT DECLINES REF TO TOBACCO CESS PR[facility] Jan 13, 2010 12:22 PM V1-PT DECLINES TOBACCO CESSATION MEDS [facility] Jan 13, 2010 12:22 PM V1-PT THINKING ABOUT QUIT [facility]ACCO [facility] [place] [facility] Aug 02, 2009 12:04 PM V1-PT DECLINES REF TO TOBACCO CESS PRGM [facility] Aug 02, 2009 12:04 PM V1-PT DECLINES TOBACCO CESSATION MEDS [facility] Aug 02, 2009 12:04 PM V1-PT THINKING ABOUT QUIT TOBACCO USE [facility] [place] [facility] Mar 04, 2009 09:03 AM CURRENT SMOKER 1 or 2 ppd [facility] [place] [facility] Feb 22, 2009 12:06 PM V1-PT DECLINES REF TO TOBACCO CESS PR[facility] [place] [facility] Feb 22, 2009 12:06 PM V1-PT READY TO QUIT TOBACCO USE [facility] [place] [facility] Sep 02, 2008 02:00 PM V1-PT DECLINES TOBACCO CESSATION MEDS [facility] Sep 02, 2008 02:00 PM V1-PT THINKING ABOUT QUIT TOBACCO USE [facility] [place] [facility] April 01, 2008 11:27 AM QUIT TOBACCO USE IN PAST YEAR [facility] Feb 26, 2008 04:05 PM V1-PT DECLINES TOBACCO CESSATION MEDS [facility] Feb 26, 2008 04:05 PM V1-PT NOT INTERESTED IN QUIT TOBACCO USE [facility] Nov 14, 2007 02:46 PM CURRENT SMOKER 3 cigarrettes a week/30 years [facility] Encounter Notes: All associated encounter notes This section contains the clinical notes associated to the Encounter. Date/Time Encounter Note(s) Provider Source Sep 18, 2024 01:26 PM MENTAL HEALTH NOTE : LOCAL TITLE: [facility] CC ASSIGNMENT STANDARD TITLE: MENTAL HEALTH NOTE DATE OF NOTE: SEP 18, 2024@13:26 ENTRY DATE: SEP 18, 2024@13:26:42 AUTHOR: JOVAN MERRILL COSIGNER: MARIANA MARTI URGENCY: STATUS: COMPLETED Mental Health Hop Weigher Assignment Unassignment The [place] no longer requires an TC assignment. The is being unassigned from: MHTC: MH Treatment Team: QUETA Puente MH Hop Weigher: BEATRIZ ANDRADE Office Phone: Analog Pager: Digital Pager: The unassignment of the TC was discussed with the , who verbally concurred with the unassignment. Information on next steps in the 's care was provided to the . [place] is being unassigned from an TC due to the following reason: [place] has been disengaged from [facility] mental health care for a period greater than two years and/or has failed to respond to mandated scheduling efforts. /marisa/ Jovan Garcia. FLORENCIA Merrill [facility] Surgical Services Tech Signed: 09/18/2024 13:26 /marisa/ MARIANA MARTI [facility] BEHAVIORAL HEALTH Cosigned: 09/18/2024 13:49 JOVAN MERRILL [facility]
--- OUTSIDE RECORDS SUMMARY | 2024-11-09 10:55 | XMS_ITS ---
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 Name Role Phone LAVERN ETIENNE Primary Care [...] SELF + ONE Aug 13, [phone] [id number] [phone] SUGRUE,TO DD PATIENT ANTHEM BCBS CT FEDERAL PREFERRED PROVIDER ORGANIZAT ION (PPO) STAND CONSUELO SELF Nov 18, 2007 [id number] [phone] SUGRUE,TO DD PATIENT ANTHEM BCBS CT FEDERAL PREFERRED PROVIDER ORGANIZAT ION (PPO) STAND CONSUELO FAMIL Y Nov 30, 2000 105 [id number] [phone] SUGRUE,TO DD PATIENT BCBS [place] FEP PREFERRED PROVIDER ORGANIZAT ION (PPO) STAND CONSUELO SELF PLUS 1 Aug 13, 2020 106 [id number] SUGRUE,TO DD PATIENT BCBS [place] FEP PREFERRED PROVIDER ORGANIZAT ION (PPO) STAND CONSUELO FAMIL Y Nov 30, 2000 105 [id number] [phone] SUGRUE,TO DD PATIENT [place] FEP PREFERRED PROVIDER ORGANIZAT ION (PPO) STAND CONSUELO SELF+ ONE Aug 13, 2020 106 [id number] [phone] SUGRUE,TO DD PATIENT [place] FEP PREFERRED PROVIDER ORGANIZAT ION (PPO) STAND CONSUELO FAMIL Y Nov 30, 2000 105 [id number] SUGRUE,TO DD PATIENT [place] FEP DENTAL DENTAL INSURANCE STAND CONSUELO Aug 13, 2020 [phone] [id number] [phone] SUGRUE,TO DD PATIENT CAREMARK FEP BCBS PRESCRIPT ION CAREM ARK FEPRX PLAN Aug 13, 2020 [id number] [phone] SUGRUE,TO DD PATIENT [place] FEPRX PLAN PRESCRIPT ION BCBS FEP Nov 18, 2010 [id number] SUGRUE,TO DD PATIENT [place] FEPRX PLAN PRESCRIPT ION CAREM ARK FEPRX Nov 18, 2010 [id number] SUGRUE,TO DD PATIENT [place] FEPRX PLAN PRESCRIPT ION BCBS FEP Nov 18, 2007 [id number] SUGRUE,TO DD PATIENT CAREMARK-F EP BCBS PRESCRIPT ION FEP CAREM ARK Nov 18, 2010 [id number] [phone] [place],TO DD PATIENT MEDICARE (WNR) MEDICARE (M) PART A Sep 18, 2020 PART A [id number] [phone] [place],TO DD PATIENT MEDICARE (WNR) MEDICARE (M) PART A Sep 18, 2020 PART A [id number] SUGRUE,TO DD PATIENT MEDICARE (WNR) MEDICARE (M) PART A Sep 18, 2020 PART A [id number] [phone] SUGKATEE,TO DD PATIENT [facility] DFEC WORKERS' COMPENSAT ION INSURANCE WORKE R'S COMP April 01, 2018 WORKER' S COMP [id number] ADAMA RAYGOZA DD PATIENT Selected Encounter This section includes the information on record at [place] for the Encounter. Date/Time Encounter Type Encounter Description Reason Pro vider Source Oct 06, 2024 04:25 PM Outpatient Encounter COMMUNITY CARE CONSULT IHE Encounter Template Text not used by [place] Plan of Treatment: Future Appointments (+ 6 months) and Future Tests (+/- 45 days) The Plan of Treatment section includes future care activities for the patient [facility] [place] [facility] This section includes future appointments and future orders which are active, pending or scheduled. Future Appointments This section includes appointments that were scheduled to occur 6 months from the date of the Encounter, up to a maximum of 20 appointments. The data comes from all [place] treatment facilities. Appointment Date/Time Appointment Type Appointme nt Facility Name Nov 09, 2024 11:00 AM AM[facility]ORY - NONE [place] [facility] Nov 26, 2024 08:30 AM [facility] - [facility]ICINE [facility] Feb 03, 2025 01:30 PM [facility]UL[facility] - [facility] Social History: Smoking Status (Most current) and Tobacco Use (All prior to encounter date) This section includes the most current, and the historical, smoking and tobacco- related health factors from the [place] facility where the Encounter took place. Current Smoking Status This section includes the most current smoking, or tobacco-related health factor, from the [place] facility where the Encounter took place. Date/Time Current Smoking Status Comment Mariluz martinez May 26, 2024 02:00 PM VA-TOBACCO [facility] Tobacco Use History This section includes a history of the smoking, or tobacco-related health factors, that were collected on or before the date of the Encounter. The data comes from the [place] facility where the Encounter took place. Date/Time Smoking Status/Tobac co Use Comment Facility May 26, 2024 02:00 PM VA-TOBACCO QUIT 5 TO < 15 YRS [place] [facility] [place] [facility] March 20, 2023 03:00 PM VA-TOBACCO FORMER USER [place] [facility] March 20, 2023 03:00 PM VA-TOBACCO QUIT 5 TO < 15 YRS [facility] [place] [facility] March 19, 2022 03:00 PM VA-TOBACCO FORMER USER [facility] [place] [facility] March 19, 2022 03:00 PM VA-TOBACCO QUIT 5 TO < 15 YRS [facility] [place] [facility] Feb 07, 2021 11:00 AM VA-TOBACCO FORMER USER [facility] [place] [facility] Feb 07, 2021 11:00 AM VA-TOBACCO QUIT 5 TO < 15 YRS [facility] [place] [facility] Feb 02, 2020 03:19 PM VA-TOBACCO FORMER USER [facility] [place] [facility] Feb 02, 2020 03:19 PM VA-TOBACCO QUIT 5 TO < 15 YRS [facility] [place] [facility] Sep 03, 2018 11:07 AM VA-TOBACCO NEVER USED [facility] [place] [facility] Oct 24, 2017 02:40 PM QUIT TOBACCO USE 1-7 YEARS AGO PT QUIT 2 YRS AGO [facility] [place] [facility] Nov 23, 2016 11:14 AM LIFETIME NON-TOBACCO USER [facility] [place] [facility] Nov 23, 2016 11:14 AM QUIT TOBACCO USE 1-7 YEARS AGO [facility] [place] [facility] May 11, 2016 04:46 PM QUIT TOBACCO USE 1-7 YEARS AGO [facility] [place] [facility] Dec 09, 2015 09:56 AM V1-PT DECLINES REF TO TOBACCO CESS PRGM [place] [facility] [place] [facility] Dec 09, 2015 09:56 AM V1-PT THINKING ABOUT QUIT TOBACCO USE [facility] [place] [facility] May 25, 2015 01:26 PM QUIT TOBACCO USE IN PAST YEAR [facility] [place] [facility] Oct 05, 2014 01:34 PM V1-PT DECLINES TOBACCO CESSATION MEDS [facility] [place] [facility] Oct 05, 2014 01:34 PM V1-PT THINKING ABOUT QUIT TOBACCO USE [facility] [place] [facility] Aug 17, 2014 09:30 AM CURRENT SMOKER trys to reduce smoking [place] [facility] [place] [facility] Aug 17, 2014 09:30 AM V1-PT DECLINES REF TO TOBACCO CESS PRGM [facility] [place] [facility] Aug 17, 2014 09:30 AM V1-PT DECLINES TOBACCO CESSATION MEDS [facility] [place] [facility] Aug 17, 2014 09:30 AM V1-PT THINKING ABOUT QUIT TOBACCO USE [facility] [place] [facility] Oct 31, 2012 12:52 PM QUIT TOBACCO USE 1-7 YEARS AGO [facility] [place] [facility] Nov 30, 2011 11:15 AM QUIT TOBACCO USE 1-7 YEARS AGO [facility] [place] [facility] Nov 21, 2010 10:56 AM QUIT TOBACCO USE IN PAST YEAR [place] [facility] [place] [facility] Feb 02, 2010 10:09 AM CURRENT SMOKER 3 per day [place] [facility] [place] [facility] Jan 13, 2010 12:22 PM V1-PT DECLINES [facility] Jan 13, 2010 12:22 PM V1-PT DECLINES TOBACCO CESSATION MEDS [facility] [place] [facility] Jan 13, 2010 12:22 PM V1-PT THINKING ABOUT QUIT [facility]ACCO [facility] [place] [facility] Aug 02, 2009 12:04 PM V1-PT DECLINES REF TO TOBACCO CESS [facility] [place] [facility] Aug 02, 2009 12:04 PM V1-PT DECLINES TOBACCO CESSATION MEDS [facility] Aug 02, 2009 12:04 PM V1-PT THINKING ABOUT QUIT TOBACCO USE [facility] [place] [facility] Mar 04, 2009 09:03 AM CURRENT SMOKER 1 or 2 ppd [facility] [place] [facility] Feb 22, 2009 12:06 PM V1-PT DECLINES REF TO TOBACCO CESS PRGM [facility] [place] [facility] Feb 22, 2009 12:06 PM V1-PT READY TO QUIT TOBACCO USE [facility] [place] [facility] Sep 02, 2008 02:00 PM V1-PT DECLINES TOBACCO CESSATION MEDS [facility] [place] [facility] Sep 02, 2008 02:00 PM V1-PT THINKING ABOUT QUIT TOBACCO USE [facility] [place] [facility] April 01, 2008 11:27 AM QUIT [facility] Feb 26, 2008 04:05 PM V1-PT DECLINES TOBACCO CESSATION MEDS [facility] Feb 26, 2008 04:05 PM V1-PT NOT INTERESTED IN QUIT TOBACCO USE [facility] Nov 14, 2007 02:46 PM CURRENT SMOKER 3 cigarrettes a week/30 years [facility] Encounter Notes: All associated encounter notes This section contains the clinical notes associated to the Encounter. Date/Time Encounter Note(s) Provider Source Oct 06, 2024 04:25 PM NONVA NOTE: [facility] TITLE: [facility] CARE COORD PLAN STANDARD TITLE: NONVA NOTE DATE OF NOTE: OCT 06, 2024@16:25 ENTRY DATE: OCT 06, 2024@16:25:17 AUTHOR: NEY SWEENEY EXP COSIGNER: URGENCY: STATUS: COMPLETED Emergency Notification Intake Date Presenting to the Facility: Aug Method of Contact: Notified from ECR worklist Notification ID: [id number] [facility] Referral #: [id number] [facility] Name: Hospital: [facility] Address: City: [place] State: [place] Zip Code: Phone : [facility] Facility Point of Contact: Name: Phone: Chief complaint: k92.1, r09.89 Primary Diagnosis: [id number] - Melena Disposition Discharged Date of discharge: Aug Discharge to Comment: ER Only /marisa/ NEY PELAYO Signed: 10/06/2024 16:28 Receipt Acknowledged By: * AWAITING SIGNATURE * CRISTIAN LINDA * AWAITING SIGNATURE * VIKTORIA BEAR * AWAITING SIGNATURE * MARK PARRA * AWAITING SIGNATURE * ELIZABETH BERRY DAWN MARIE [place]
--- OUTSIDE RECORDS SUMMARY | 2024-11-09 10:55 | XMS_ITS | Encounter Summary ---
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 Name Role Phone HIPOLITO HARDING Primary Care Provider Unavailabl e Insurance Providers: [...] SELF + ONE Aug 13, 2020 106 [id number] [phone] SUGRUE,TO DD PATIENT ANTHEM BCBS CT FEDERAL PREFERRED PROVIDER ORGANIZAT ION (PPO) STAND CONSUELO SELF Nov 18, 2007 [id number] [phone] SUGRUE,TO DD PATIENT ANTHEM BCBS CT FEDERAL PREFERRED PROVIDER ORGANIZAT ION (PPO) STAND CONSUELO FAMIL Y Nov 30, 2000 105 [id number] [phone] SUGRUE,TO DD PATIENT BCBS [place] FEP PREFERRED PROVIDER ORGANIZAT ION (PPO) STAND CONSUELO SELF PLUS 1 Aug 13, 2020 106 [id number] SUGRUE,TO DD PATIENT [place]BS [place] PREFERRED PROVIDER ORGANIZAT ION (PPO) STAND CONSUELO FAMIL Y Nov 30, 2000 105 [id number] SUGRUE,TO DD PATIENT [place] PREFERRED PROVIDER ORGANIZAT ION (PPO) STAND CONSUELO SELF+ ONE Aug 13, 2020 106 [id number] SUGRUE,TO DD PATIENT [place] PREFERRED PROVIDER ORGANIZAT ION (PPO) STAND CONSUELO FAMIL Y Nov 30, 2000 105 [id number] SUGRUE,TO DD PATIENT [place] DENTAL DENTAL INSURANCE STAND CONSUELO Aug 13, 2020 DENTAL [id number] SUGRUE,TO DD PATIENT [place] FEP BCBS PRESCRIPT ION CAREM ARK FEPRX PLAN Aug 13, 2020 [id number] SUGRUE,TO DD PATIENT [place] FEPRX PLAN PRESCRIPT ION BCBS FEP Nov 18, 2010 [id number] SUGRUE,TO DD PATIENT CAR[place]ARK FEPRX PLAN PRESCRIPT ION CAREM ARK FEPRX Nov 18, 2010 [id number] SUGRUE,TO DD PATIENT [place] FEPRX PLAN PRESCRIPT ION BCBS FEP Nov 18, 2007 [id number] SUGRUE,TO DD PATIENT CAREMARK-F EP BCBS PRESCRIPT ION FEP CAREM ARK Nov 18, 2010 [id number] SUGRUE,TO DD PATIENT MEDICARE (WNR) MEDICARE (M) PART A Sep 18, 2020 PART A [id number] SUGRUE,TO DD PATIENT MEDICARE (WNR) MEDICARE (M) PART A Sep 18, 2020 PART A [id number] SUGRUE,TO DD PATIENT MEDICARE (WNR) MEDICARE (M) PART A Sep 18, 2020 PART A [id number] SUGRUE,TO DD PATIENT US DEPART OF LABOR MED DFEC 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 Date/Time Encounter Type Encounter Description Reason Provider Source May 26, 2024 02:00 PM OFFICE O/P EST LOW 20 MIN PRIMARY CARE/MEDICINE ICD-10-CM L72.3 Sebaceous cyst HIPOLITO HARDING IH Encounter Template Text not used by ID Assessments - Encounter Diagnoses This section includes the primary and secondary diagnoses documented for the Encounter. Date/Time Primary/Secondary Diagnosis Diagnosis Name Provider Source Oct 10, 2024 06:26 AM PRIMARY Sebaceous cyst HIPOLITO HARDING [facility] Oct 10, 2024 06:26 AM SECONDARY Encounter for immunization [facility]ITO [facility]ARDING [facility] Plan of Treatment: Future Appointments (+ 6 months) and Future Tests (+/- 45 days) The Plan of Treatment section includes future care activities for the patient from all [facility]. This section includes future appointments and future orders which are active, pending or scheduled. Future Appointments This section includes appointments that were scheduled to occur 6 months from the date of the Encounter, up to a maximum of 20 appointments. The data comes from all [facility] facilities. Appointment Date/Time Appointment Type Appointme nt Facility Name Jun 25, 2024 09:30 AM AMBULATORY - MEDICINE ID [facility] [place] [facility] Jul 01, 2024 08:30 AM AMBULATORY - NONE ID [facility] [place] [facility] Sep 10, 2024 04:30 PM AMBULATORY - NONE ID [facility] [place] [facility] Nov 09, 2024 11:00 AM AMBULATORY - NONE ID [facility] [place] [facility] Nov 26, 2024 08:30 AM AMBULATORY - MEDICINE ID [facility] Active, Pending, and Scheduled Orders This section includes a listing of several types of active, pending, and scheduled orders, including clinic medications orders, diagnostic test orders, procedure orders and consult orders; where the start date of the order is 45 days before the date of the Encounter or 45 days after the date of theEncounter. The data comes from all ID treatment facilities. Test Date/Time Test Type Test Details Facility Name May 26, 2024 02:25 PM Consult Order COMMUNITY CARE-COLONOSCOPY SURVEILLANCE Cons [facility] Jul 04, 2024 12:00 AM Laboratory - Chemistry Order LIVER FUNCTION BLOOD (SST-SERUM) [facility] Jul 04, 2024 12:00 AM Laboratory - Chemistry Order BASIC METABOLIC PANEL (fasting) BLOOD (SST-SERUM) [facility] Jul 04, 2024 12:00 AM Laboratory - Chemistry Order LIPID PANEL FASTING BLOOD (SST-SERUM) [facility] Jul 04, 2024 12:00 AM Laboratory - Chemistry Order TSH BLOOD (SST-SERUM) [facility] Jul 04, 2024 12:00 AM Laboratory - Chemistry Order PSA BLOOD (SST-SERUM) [facility] Jul 04, 2024 12:00 AM Laboratory - Chemistry Order URINALYSIS CLEAN CATCH URINE [facility] Jul 04, 2024 12:00 AM Laboratory - Chemistry Order CBC AND DIFF (AUTO) BLOOD (LAV-BLOOD) [facility] Vital Signs: All taken on the encounter date This section contains inpatient and outpatient Vital Signs collected on the date of the Encounter. Date/Time Temperature Pulse Blood Pressure Respiratory Rate SP02 Pain Height Weight Body Mass Index Source May 26, 2024 01:56 PM 98.7 67 138/82 16 97 0 66.5 138 22 [facility] Immunizations: All administered on the encounter date This section contains immunizations associated to the Encounter. Immunization Series Date Issued Reaction Comments COVID-19 (MODERNA), MRNA, LN P-S, PF, 50 MCG/0.5 ML (AGES 12+ YEARS) 6 May 26, 2024 Social History: Smoking Status (Most current) and Tobacco Use (All prior to encounter date) This section includes the most current, and the historical, smoking and tobacco- related health factors from the ID facility where the Encounter took place. Current Smoking Status This section includes the most current smoking, or tobacco-related health factor, from the ID facility where the Encounter took place. Date/Time Current Smoking Status Comment Mariluz martinez May 26, 2024 02:00 PM VA-TOBACCO FORMER USER ID [facility] [place] [facility] Tobacco Use History This section includes a history of the smoking, or tobacco-related health factors, that were collected on or before the date of the Encounter. The data comes from the ID facility where the Encounter took place. Date/Time Smoking Status/Tobac co Use Comment [facility] May 26, 2024 02:00 PM VA-TOBACCO QUIT 5 TO < 15 YRS [facility] [place] [facility] March 20, 2023 03:00 PM VA-TOBACCO FORMER USER [facility] [place] [facility] March 20, 2023 03:00 PM VA-TOBACCO QUIT 5 TO < 15 YRS ID [facility] [place] [facility] March 19, 2022 03:00 PM VA-TOBACCO FORMER USER ID [facility] [place] [facility] March 19, 2022 03:00 PM VA-TOBACCO QUIT 5 TO < 15 YRS ID [facility] [place] [facility] Feb 07, 2021 11:00 AM VA-TOBACCO FORMER USER ID [facility] [place] [facility] Feb 07, 2021 11:00 AM VA-TOBACCO QUIT 5 TO < 15 YRS ID [facility] [place] [facility] Feb 02, 2020 03:19 PM VA-TOBACCO FORMER USER [facility] [place] [facility] Feb 02, 2020 03:19 PM VA-TOBACCO QUIT 5 TO < 15 YRS ID [facility] [place] [facility] Sep 03, 2018 11:07 AM VA-TOBACCO NEVER USED ID [facility] [place] [facility] Oct 24, 2017 02:40 PM QUIT TOBACCO USE 1-7 YEARS AGO PT QUIT 2 YRS AGO [facility] [place] [facility] Nov 23, 2016 11:14 AM LIFETIME NON-TOBACCO USER [facility] [place] [facility] Nov 23, 2016 11:14 AM QUIT TOBACCO USE 1-7 YEARS AGO [facility] [place] [facility] May 11, 2016 04:46 PM QUIT TOBACCO USE 1-7 YEARS AGO [facility] [place] [facility] Dec 09, 2015 09:56 AM V1-PT DECLINES REF TO TOBACCO CESS PRGM [facility] [place] [facility] Dec 09, 2015 09:56 AM V1-PT THINKING ABOUT QUIT TOBACCO USE [facility] [place] [facility] May 25, 2015 01:26 PM QUIT TOBACCO USE IN PAST YEAR [facility] [place] [facility] Oct 05, 2014 01:34 PM V1-PT DECLINES TOBACCO CESSATION MEDS [facility] [place] [facility] Oct 05, 2014 01:34 PM V1-PT THINKING ABOUT QUIT TOBACCO USE [facility] [place] [facility] Aug 17, 2014 09:30 AM CURRENT SMOKER trys to reduce smoking [facility] [place] [facility] Aug 17, 2014 09:30 AM V1-PT DECLINES REF TO TOBACCO CESS PRGM [facility] [place] [facility] Aug 17, 2014 09:30 AM V1-PT DECLINES TOBACCO CESSATION MEDS [facility] Aug 17, 2014 09:30 AM V1-PT THINKING ABOUT QUIT TOBACCO USE [facility] [place] [facility] Oct 31, 2012 12:52 PM QUIT TOBACCO USE 1-7 YEARS AGO [facility] [place] [facility] Nov 30, 2011 11:15 AM QUIT TOBACCO USE 1-7 YEARS AGO [facility] [place] [facility] Nov 21, 2010 10:56 AM QUIT TOBACCO USE IN PAST YEAR [facility] [place] [facility] Feb 02, 2010 10:09 AM CURRENT SMOKER 3 per day [facility] [place] [facility] Jan 13, 2010 12:22 PM V1-PT DECLINES REF TO TOBACCO CESS PRGM [facility] [place] [facility] Jan 13, 2010 12:22 PM V1-PT DECLINES TOBACCO CESSATION MEDS [facility] [place] [facility] Jan 13, 2010 12:22 PM V1-PT THINKING ABOUT QUIT TOBACCO USE [facility] [place] [facility] Aug 02, 2009 12:04 PM V1-PT DECLINES REF TO TOBACCO CESS PRGM ID [facility]TR [facility] [place] [facility] Aug 02, 2009 12:04 PM V1-PT DECLINES TOBACCO CESSATION MEDS [facility] [place] [facility] Aug 02, 2009 12:04 PM V1-PT THINKING ABOUT QUIT TOBACCO USE [facility] Mar 04, 2009 09:03 AM CURRENT SMOKER 1 or 2 ppd [facility] Feb 22, 2009 12:06 PM V1-PT DECLINES REF TO TOBACCO CESS PRGM [facility] Feb 22, 2009 12:06 PM V1-PT READY TO QUIT TOBACCO USE [facility] Sep 02, 2008 02:00 PM V1-PT DECLINES TOBACCO CESSATION MEDS [facility] Sep 02, 2008 02:00 PM V1-PT THINKING ABOUT QUIT TOBACCO USE [facility] April 01, 2008 11:27 AM QUIT TOBACCO USE IN PAST YEAR [facility] Feb 26, 2008 04:05 PM V1-PT DECLINES TOBACCO CESSATION MEDS [facility] Feb 26, 2008 04:05 PM V1-PT NOT INTERESTED IN QUIT TOBACCO USE [facility] Nov 14, 2007 02:46 PM CURRENT SMOKER 3 cigarrettes a week/30 years [facility] Encounter Notes: All associated encounter notes This section contains the clinical notes associated to the Encounter. Date/Time Encounter Note(s) Provider Source May 26, 2024 02:16 PM LETTERS: LOCAL TITLE: PATIENT LETTER (T) STANDARD TITLE: LETTERS DATE OF NOTE: MAY 26, 2024@14:16 ENTRY DATE: MAY 26, 2024@14:16:36 AUTHOR: HIPOLITO HARDING EXP COSIGNER: URGENCY: STATUS: COMPLETED DEPARTMENT OF [facility] Toll Free Number Primary Care Telephone Assistance can be reached at extension [phone] [facility] scheduling can be reached at extension [phone] [facility] scheduling can be reached at ext [phone] ELEAZAR RAYGOZA [address], [place], [address] May 26, 2024 To whom it may concern, This patient is presently under my medical care. For medical reasons, he will require time off from work. Please contact me if you have questions. Respectfully, Hipolito Harding MD Sincerely, Your Primary Care Team [facility] [address] [place] [address] [place] [address] [phone] [facility] [address] [place] [address] [place] [address] [phone] [facility] [address] [facility] [place] [address] [place] [address] [phone] HIPOLITO HARDING [facility] [place] [facility] May 26, 2024 02:12 PM PHYSICIAN NOTE: LOCAL TITLE: MD NOTE STANDARD TITLE: PHYSICIAN NOTE DATE OF NOTE: MAY 26, 2024@14:12 ENTRY DATE: MAY 26, 2024@14:12:55 AUTHOR: HIPOLITO HARDING EXP COSIGNER: URGENCY: STATUS: COMPLETED Patient Name: ELEAZAR RAYGOZA VITALS: Patient temperature: 98.7 F [37.1 C] (05/26/2024 13:56) Blood pressure: 138/82 (05/26/2024 13:56) Patient height: 66.5 in [168.9 cm] (05/26/2024 13:56) Patient weight: 138 lb [62.60 kg] (05/26/2024 13:56) Patient BMI: BMI: 22.0 Patient pulse: 67 (05/26/2024 13:56) Patient respiration: 16 (05/26/2024 13:56) Patient Pulse Oximetry: 97% (05/26/2024 13:56) Pain Ratin (05/26/2024 13:56) Active VA Medications: Active Outpatient Medications (including Supplies): Active Outpatient Medications Status 1) APIXABAN 5MG TAB TAKE ONE TABLET BY MOUTH EVERY 12 ACTIVE HOURS FOR PREVENTION OF BLOOD CLOTS 2) METOPROLOL TARTRATE 25MG TAB TAKE ONE-HALF TABLET BY ACTIVE MOUTH TWICE DAILY FOR BLOOD PRESSURE/HEART 3) SILDENAFIL CITRATE 100MG TAB TAKE ONE TABLET BY MOUTH ACTIVE NEEDED TAKE 1 HOUR PRIOR TO SEXUAL ACTIVITY Active Non-VA Medications Status 1) Non-VA ROBERT CAP/TAB 1 CAPSULE BY MOUTH ONCE DAILY ACTIVE 2) Non-VA MULTIVITAMIN/MINERALS CAP/TAB 1 TABLET BY ACTIVE MOUTH ONCE DAILY 3) Non-VA OTHER CAP/TAB CREATINE POWDER (OTC) BY MOUTH ACTIVE 4) Non-VA OTHER CAP/TAB TESTOSTERONE SUPPLEMENT BY MOUTH ACTIVE 5) Non-VA RESOURCE BENEPROTEIN POWDER,ORAL OTC BY MOUTH ACTIVE 8 Total Medications Remote Medications: No Active 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 There is no pain, numbness, bleeding or discharge Physical examination Well-developed well-nourished male in no acute distress 1 x 1 cm sebaceous cyst posterior cervical spine without erythema 05-15-2024 no-show labs Assessment and plan: 1. Sebaceous cyst does not require surgical removal Plan: Follow Follow-up 6 months clinic visit and lab Follow-up Pos Alcohol : Patient's AUDIT-C score was greater than or equal to 5; brief alcohol intervention is indicated. Shared concern that the patient may be drinking at unhealthy levels known to increase his/her risk of alcohol related health problems. Specifically the following were reviewed: High blood pressure, heart disease, liver disease, seizures, injury, medication interactions, depression, anxiety, insomnia, bleeding from the stomach, stroke, dementia, cancers The patient was advised/informed to drink within safe limits, which are no more than 2 drinks per day on average and no more than 4 drinks on any one day AND no more than 14 drinks per week. Will discuss again at next visit. The patient declines referral for alcohol use assessment or treatment at this time. Plan: rescreen annually. Medication Reconciliation: Outpatient: Has the patient been taking medications as documented in the EMLR? YES: The patient has been taking medications as documented in the EMLR. Essential Medication List for Review used to complete this medication reconciliation. INCLUDED IN THIS LIST: Alphabetical list of active outpatient prescriptions dispensed from this ID (local) and dispensed from another VA or DoD facility (remote) as well as inpatient orders (local, pending and active), local clinic medications, locally documented non-VA medications, and local prescriptions that have or been discontinued in the past 90 days. - All changes in medications, including all non-VA/Herbal/OTC medications were entered into CPRS. - If there were any medications the patient should no longer take, they were discontinued. - The patient/caregiver was instructed to update this list, discard old lists, and take this list to the next appointment, whether with a VA or non-VA provider. Follow Up Colonoscopy: Colonoscopy is due based on information available to this reminder. Colonoscopy consult has been ordered. See orders tab for details. /marisa/ Hipolito Harding MD Staff Physician Signed: 05/26/2024 14:31 HIPOLITO HARDING [facility] [place] [facility] May 26, 2024 02:00 PM PREVENTIVE MEDICIN E NURSING NOTE: LOCAL TITLE: CLINICAL REMINDERS/NURSING STANDARD TITLE: PREVENTIVE MEDICINE NURSING NOTE DATE OF NOTE: MAY 26, 2024@14:00 ENTRY DATE: MAY 26, 2024@14:00:28 AUTHOR: SKYLA PARR EXP COSIGNER: URGENCY: STATUS: COMPLETED CLINICAL REMINDERS/NURSING Has ADDENDA Advance Directive Screen MH AD: Patient has an up-to-date Advance Directive at an outside, non-va facility and was asked to forward a copy to his/her clinician. Comment: this was given the paperwork to return upon completion Depression Screening: Perform PHQ-2 A PHQ-2 screen was performed. The score was 2 which is a negative screen for depression. Over the past two weeks, how often have you been bothered by the following problems? 1. Little interest or pleasure in doing things Several days 2. Feeling down, depressed, or hopeless Several days Tobacco Use Screening: The patient is a former tobacco user. The patient quit five to less than fifteen years ago. Alcohol Use Screen (AUDIT-C): Alcohol Screen: SCREEN FOR ALCOHOL (AUDIT-C) An alcohol screening test (AUDIT-C) was positive (score=8). 1. How often did you have a drink containing alcohol in the past year? Consider a drink to be a 12 ounce can or bottle of regular beer, 8 ounces of malt liquor, a 5 ounce glass of table wine, or a 1.5 ounce shot of liquor (like scotch, gin, or vodka). Two to three times per week 2. How many drinks containing alcohol did you have on a typical day when you were drinking in the past year? Five or six drinks 3. How often did you have six or more drinks on one occasion in the past year? Weekly /marisa/ SKYLA PARR LPN LPN Signed: 05/26/2024 14:06 05/26/2024 ADDENDUM STATUS: COMPLETED COVID-19 Immunization: Moderna Monovalent (Spikevax) Administered: COVID-19 (MODERNA), MRNA, LNP-S, PF, 50 MCG/0.5 ML (AGES 12+ YEARS) Date Administered: May 26, 2024 14:00 Series: Series 6 Director Health: [employer] Lot: [id number] Exp Date: Sep 20, 2024 [facility]: [id number] Admin Route/Site: INTRAMUSCULAR/RIGHT DELTOID Dosage: 0.5mL Vaccine Information Statement(s): COVID-19 MRNA VACCINE (12+ YRS) VACCINE VIS Sep 05, 2023 ([facility]) Order By: Policy Administered By: Skyla Parr Vaccine administered without complications. /marisa/ SKYLA PARR LPN LPN Signed: 05/26/2024 14:29 SKYLA PARR [facility]
--- OUTSIDE RECORDS SUMMARY | 2024-11-09 10:55 | XMS_ITS | Encounter Summary ---
Author Name [facility] [place] [facility] [place] [facility] [facility] [place] Address [address] [place] [address] Care Team Providers Care Radiosonde Specialist Name Role Phone HIPOLITO HARDING Primary Care [...] SELF + ONE Aug 13, 2020 106 [id number] [phone] SUGRUE,TO DD PATIENT ANTHEM BCBS CT FEDERAL PREFERRED PROVIDER ORGANIZAT ION (PPO) STAND CONSUELO SELF Nov 18, 2007 104 [id number] [phone] SUGRUE,TO DD PATIENT ANTHEM BCBS CT FEDERAL PREFERRED PROVIDER ORGANIZAT ION (PPO) STAND CONSUELO FAMIL Y Nov 30, 2000 105 [id number] [phone] SUGRUE,TO DD PATIENT BCBS [place] FEP PREFERRED PROVIDER ORGANIZAT ION (PPO) STAND CONSUELO SELF PLUS 1 Aug 13, 2020 106 [id number] SUGRUE,TO DD PATIENT [place]BS [place] F[place] PREFERRED PROVIDER ORGANIZAT ION (PPO) STAND CONSUELO FAMIL Y Nov 30, 2000 105 [id number] [phone] SUGRUE,TO DD PATIENT [place] PREFERRED PROVIDER ORGANIZAT ION (PPO) STAND CONSUELO SELF+ ONE Aug 13, 2020 106 [id number] SUGRUE,TO DD PATIENT [place] PREFERRED PROVIDER ORGANIZAT ION (PPO) STAND CONSUELO FAMIL Y Nov 30, 2000 105 [id number] SUGRUE,TO DD PATIENT [place] F[place] DENTAL DENTAL INSURANCE STAND CONSUELO Aug 13, 2020 DENTAL [id number] [phone] SUGRUE,TO DD PATIENT CAREMARK FEP BCBS PRESCRIPT ION CAREM ARK FEPRX PLAN Aug 13, 2020 [id number] [phone] SUGRUE,TO DD PATIENT [place] FEPRX PLAN PRESCRIPT ION BCBS FEP Nov 18, 2010 [id number] SUGRUE,TO DD PATIENT CAR[place]ARK FEPRX PLAN PRESCRIPT ION CAREM ARK FEPRX Nov 18, 2010 [id number] SUGRUE,TO DD PATIENT [place] FEPRX PLAN PRESCRIPT ION BCBS FEP Nov 18, 2007 [id number] SUGRUE,TO DD PATIENT CAREMARK-F EP BCBS PRESCRIPT ION FEP CAREM ARK Nov 18, 2010 [id number] [phone] SUGKATEE,TO DD PATIENT MEDICARE (WNR) MEDICARE (M) PART A Sep 18, 2020 PART A [id number] [phone] SUGKATEE,TO DD PATIENT MEDICARE (WNR) MEDICARE (M) PART A Sep 18, 2020 PART A [id number] [phone] SUGRUE,TO DD PATIENT MEDICARE (WNR) MEDICARE (M) PART A Sep 18, 2020 PART A [id number] [phone] SUGKATEE,TO DD PATIENT [facility]MERLY [facility] DFEC WORKERS' COMPENSAT ION INSURANCE WORKE R'S COMP April 01, 2018 WORKER' S COMP [id number] ADAMA RAYGOZA DD PATIENT Selected Encounter This section includes the information on record at [place] for the Encounter. Date/Time Encounter Type Encounter Description Reason Provider Source Sep 10, 2024 04:30 PM Outpatient Encounter TELEPHONE TRIAGE ICD-10-CM M25.561 Pain in right knee ROSLYN GOMEZ IHE Encounter Template Text not used by [place] Assessments - Encounter Diagnoses This section includes the primary and secondary diagnoses documented for the Encounter. Date/Time Primary/Secondary Diagnosis Diagnosis Name Provider Source Sep 10, 2024 04:30 PM PRIMARY Pain in right knee MARIANGEL GOMEZA Carley [facility] Sep 10, 2024 04:30 PM SECONDARY Pain in left knee ROSLYN GOMEZ [facility] Plan of Treatment: Future Appointments (+ 6 months) and Future Tests (+/- 45 days) The Plan of Treatment section includes future care activities for the patient from all [place] treatmentfacilities. This section includes future appointments and future orders which are active, pending or scheduled. Future Appointments This section includes appointments that were scheduled to occur 6 months from the date of the Encounter, up to a maximum of 20 appointments. The data comes from all [place] treatment facilities. Appointment Date/Time Appointment Type Appointme nt Facility Name Nov 09, 2024 11:00 AM [facility] Nov 26, 2024 08:30 AM AMBULATORY - MEDICINE [facility] Feb 03, 2025 01:30 PM AMBULATORY - MEDICINE [facility] Social History: Smoking Status (Most current) and Tobacco Use (All prior to encounter date) This section includes the most current, and the historical, smoking and tobacco- related health factors from the [place] facility where the Encounter took place. Current Smoking Status This section includes the most current smoking, or tobacco-related health factor, from the [place] facility where the Encounter took place. Date/Time Current Smoking Status Comment Mariluz aguilera May 26, 2024 02:00 PM VA-TOBACCO FORMER USER [facility] Tobacco Use History This section includes a history of the smoking, or tobacco-related health factors, that were collected on or before the date of the Encounter. The data comes from the [place] facility where the Encounter took place. Date/Time Smoking Status/Tobac co Use Comment Facility May 26, 2024 02:00 PM VA-TOBACCO QUIT 5 TO < 15 YRS [facility] [place] [facility] March 20, 2023 03:00 PM VA-TOBACCO FORMER USER [facility] [place] [facility] March 20, 2023 03:00 PM VA-TOBACCO QUIT 5 TO < 15 YRS [facility] [place] [facility] March 19, 2022 03:00 PM VA-TOBACCO FORMER USER [facility] [place] [facility] March 19, 2022 03:00 PM VA-TOBACCO QUIT 5 TO < 15 YRS [facility] [place] [facility] Feb 07, 2021 11:00 AM VA-TOBACCO FORMER USER [facility] [place] [facility] Feb 07, 2021 11:00 AM VA-TOBACCO QUIT 5 TO < 15 YRS [facility] [place] [facility] Feb 02, 2020 03:19 PM VA-TOBACCO FORMER USER [facility] [place] [facility] Feb 02, 2020 03:19 PM VA-TOBACCO QUIT 5 TO < 15 YRS [facility] [place] [facility] Sep 03, 2018 11:07 AM VA-TOBACCO NEVER USED [facility] [place] [facility] Oct 24, 2017 02:40 PM QUIT TOBACCO USE 1-7 YEARS AGO PT QUIT 2 YRS AGO [facility] [place] [facility] Nov 23, 2016 11:14 AM LIFETIME NON-TOBACCO USER [facility] [place] [facility] Nov 23, 2016 11:14 AM QUIT TOBACCO USE 1-7 YEARS AGO [facility] [place] [facility] May 11, 2016 04:46 PM QUIT TOBACCO USE 1-7 YEARS AGO [facility] [place] [facility] Dec 09, 2015 09:56 AM V1-PT DECLINES REF TO TOBACCO CESS PRGM [facility] [place] [facility] Dec 09, 2015 09:56 AM V1-PT THINKING ABOUT QUIT TOBACCO USE [facility] [place] [facility] May 25, 2015 01:26 PM QUIT TOBACCO USE IN PAST YEAR [facility] [place] [place] [facility] Oct 05, 2014 01:34 PM V1-PT DECLINES TOBACCO CESSATION MEDS [facility] [place] [facility] Oct 05, 2014 01:34 PM V1-PT THINKING ABOUT QUIT TOBACCO USE [facility] [place] [facility] Aug 17, 2014 09:30 AM CURRENT SMOKER trys to reduce smoking [facility] [place] [facility] Aug 17, 2014 09:30 AM V1-PT DECLINES REF TO TOBACCO CESS PRGM [facility] [place] [facility] Aug 17, 2014 09:30 AM V1-PT DECLINES TOBACCO CESSATION MEDS [facility] [place] [facility] Aug 17, 2014 09:30 AM V1-PT THINKING ABOUT QUIT TOBACCO USE [facility] [place] [facility] Oct 31, 2012 12:52 PM QUIT TOBACCO USE 1-7 YEARS AGO [facility] [place] [facility] Nov 30, 2011 11:15 AM QUIT TOBACCO USE 1-7 YEARS AGO [facility] [place] [facility] Nov 21, 2010 10:56 AM QUIT TOBACCO USE IN PAST YEAR [facility] [place] [facility] Feb 02, 2010 10:09 AM CURRENT SMOKER 3 per day [facility] [place] [facility] Jan 13, 2010 12:22 PM V1-PT DECLINES REF TO TOBACCO CESS PRGM [facility] Jan 13, 2010 12:22 PM V1-PT DECLINES TOBACCO CESSATION MEDS [facility] [place] [place] [facility] Jan 13, 2010 12:22 PM V1-PT THINKING ABOUT QUIT [facility]AC[facility] [place] [facility] Aug 02, 2009 12:04 PM V1-PT DECLINES REF TO TOBACCO CESS PRGM [facility] [place] [facility] Aug 02, 2009 12:04 PM V1-PT DECLINES TOBACCO CESSATION MEDS [facility] [place] [facility] Aug 02, 2009 12:04 PM V1-PT THINKING ABOUT QUIT TOBACCO USE [facility] [place] [facility] Mar 04, 2009 09:03 AM CURRENT SMOKER 1 or 2 ppd [facility] [place] [facility] Feb 22, 2009 12:06 PM V1-PT DECLINES REF TO TOBACCO CESS PRGM [facility] Feb 22, 2009 12:06 PM V1-PT READY TO QUIT TOBACCO USE [facility] Sep 02, 2008 02:00 PM V1-PT DECLINES TOBACCO CESSATION MEDS [facility] MIGDALIAN [facility] Sep 02, 2008 02:00 PM V1-PT THINKING ABOUT QUIT TOBACCO [facility] April 01, 2008 11:27 AM QUIT TOBACCO USE IN PAST YEAR [facility] Feb 26, 2008 04:05 PM V1-PT DECLINES TOBACCO CESSATION MEDS [facility] MIGDALIAN [facility] Feb 26, 2008 04:05 PM V1-PT NOT INTERESTED IN QUIT TOBACCO USE [facility] Nov 14, 2007 02:46 PM CURRENT SMOKER 3 cigarrettes a week/30 years [facility] Encounter Notes: All associated encounter notes This section contains the clinical notes associated to the Encounter. Date/Time Encounter Note(s) Provider Source Sep 10, 2024 04:30 PM TELEHEALTH NOTE: LOCAL TITLE: TELE EMERGENCY CARE NOTE STANDARD TITLE: TELEHEALTH NOTE DATE OF NOTE: SEP 10, 2024@16:30 ENTRY DATE: SEP 10, 2024@16:30:46 AUTHOR: ROSYLN GOMEZ COSIGNER: URGENCY: STATUS: COMPLETED This is a tele-emergency care visit to address acute/urgent issues. Definitive care on chronic medical issues will be deferred to routine Primary Care appointment/provider. Consult Origin: Referral from the Clinical Contact Center/Call Center Type of Visit: Phone Visit: Visit conducted by telephone. Location/emergency number confirmed. Emergency contact information was obtained as follows: Patient's current address [address] [place] [id number] Patient's Phone Number:PATIENT PHONE - PHONE NUMBER [CELLULAR] - Primary NOK: CATHERINE RAYGOZA Relation: EXTENDED FAMILY M [address] [place], [place] [address] Secondary NOK: LUCHO RAYGOZA Relation: SISTER PLACIDO MUNIZ [place], [place] [address] CHIEF COMPLAINT: bilateral knee pain Subjective: L knee sore x 6 weeks inside of knee, swelling at times, not currently swollen. R knee sore x 6 weeks top/front- knee cap and on both sides of the knee. Not OTC medications at this time. Bending and stretching, light weigth excercies at the gym I go to - 5x per week, I have been doing the same workout for 15 years. Occupation is [employer] I walk alot, I have just been tolerating it Heat, bengay and cannibus rub - they all help - they don' t fix it but they make it more tolerable. Rates pain 6-7/10 aching constant pain Denies recent injuries or trauma Denies hx of knee injuries or surgeries Medications: blood thinner x 5 years, A-fib ACTIVE PROBLEMS: Code Description L30.9 Chronic dermatitis ([facility] [id number]) L72.3 Sebaceous cyst of skin ([facility] [id number]) Z79.01 Long-term current use of anticoagulant ([facility] [id number]) I48.91 Atrial fibrillation ([facility] [id number]) Z63.0 Partner relationship problem ([facility] [id number]) E78.00 Hypercholesterolemia ([facility] [id number]) G47.09 Insomnia ([facility] [id number]) R69. Deviated nasal septum ([facility] [id number]) I10. HTN - Hypertension ([facility] [id number]) F10.10 Alcohol Abuse ([facility] [id number]) R41.9 Cognitive disorder ([facility] [id number]) F31.75 Bipolar disorder in remission ([facility] [id number]) 473.9 Chronic sinusitis (ICD-9-CM 473.9) 840.4 Rotator cuff (capsule) sprain or strain (ICD-9-CM 840.4) F43.20 Adjustment disorder ([facility] [id number]) 302.72 Erectile Dysfunction (ICD-9-CM 302.72) 305.1 TOBACCO USE DISORDER (ICD-9-CM 305.1) ALLERGIES/ADR: Patient has answered NKA Active Outpatient Medications (including Supplies): SILDENAFIL CITRATE 100MG TAB TAKE ONE TABLET BY MOUTH ACTIVE NEEDED TAKE 1 HOUR PRIOR TO SEXUAL ACTIVITY Non-VA ROBERT CAP/TAB 1 CAPSULE BY MOUTH ONCE DAILY ACTIVE Non-VA MULTIVITAMIN/MINERALS CAP/TAB 1 TABLET BY MOUTH ACTIVE ONCE DAILY Non-VA OTHER CAP/TAB CREATINE POWDER (OTC) BY MOUTH ACTIVE Non-VA OTHER CAP/TAB TESTOSTERONE SUPPLEMENT BY MOUTH ACTIVE Non-VA RESOURCE BENEPROTEIN POWDER,ORAL OTC BY MOUTH ACTIVE Current medications reviewed with patient/caregiver and reconciliation of medications related to today's visit completed, including non-VA medications and discrepancies, if identified, were addressed. Medication changes and the importance of medication management were reviewed with the patient/caregiver today based on individual needs. Patient/caregiver acknowledged understanding of instructions as stated. Objective: Telephone: Unable to perform complete physical exam due to nature of tele-health visit. No active distress noted during encounter. Speaking in full, clear and complete sentences without having to stop to catch breath. No wheezing or shortness of breath noted during encounter. AO, recent memory intact, answering questions appropriately. Demonstrates good judgement and insight. MSK: Pt denies limited ROM, pain with ROM in both knees, denies swelling at this time, discoloration, redness, drainage, open wounds, deformity of either knee Reason for Referral: Musculoskeletal Assessment/Impression: Bilateral knee pain x 6 weeks. Pt utilizing heat, bengay and cannibus rub with temporary relief of symptoms. 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 Symptoms have not impacted workout other than to notice knee pain can be noticable but he completes work and recreational tasks despite symptoms. Plan: -Acetominophen 650mg every 6 hours for pain relief as needed, reviewed and discussed pros/cons and side effects with pt verbalizing understanding. -Discussed the importance of avoiding NSAIDS including but not limted to Motrin, advil, ibuprofen and aspirin due to taking Eliquis for A-Fib, pt verbalized understanding. -Continue current stretching and excercise regimen. -F/U with CCC or PCP in 4 weeks in pain does not improve, can consider physical therapy if symptoms do not improve. Issue resolved with Tele Urgent Care appointment Time spent in telephone/video visit: /es/ ROSLYN GOMEZ Signed: 09/10/2024 16:52 Receipt Acknowledged By: 09/11/2024 13:19 /es/ Ange Ruiz RN, BSN Primary Care 09/10/2024 16:53 /es/ Hipolito Harding MD Staff Physician ROSLYN GOMEZ [facility]
--- OUTSIDE RECORDS SUMMARY | 2024-11-09 10:55 | XMS_ITS | Encounter Summary ---
Author Name [facility] [facility] [place] Address [address] [place] [address] Care Team Providers Care Card Grinder Name Role Phone HIPOLITO HARDING Primary Care [...] SELF + ONE Aug 13, 2020 106 [id number] [phone] SUGRUE,TO DD PATIENT ANTHEM BCBS CT FEDERAL PREFERRED PROVIDER ORGANIZAT ION (PPO) STAND CONSUELO SELF Nov 18, 2007 104 [id number] [phone] SUGRUE,TO DD PATIENT ANTHEM BCBS CT FEDERAL PREFERRED PROVIDER ORGANIZAT ION (PPO) STAND CONSUELO FAMIL Y Nov 30, 2000 105 [id number] [phone] SUGRUE,TO DD PATIENT BCBS [place] FEP PREFERRED PROVIDER ORGANIZAT ION (PPO) STAND CONSUELO SELF PLUS 1 Aug 13, 2020 106 [id number] SUGRUE,TO DD PATIENT BCBS [place] F[place] PREFERRED PROVIDER ORGANIZAT ION (PPO) STAND CONSUELO FAMIL Y Nov 30, 2000 105 [id number] SUGRUE,TO DD PATIENT [place] PREFERRED PROVIDER ORGANIZAT ION (PPO) STAND CONSUELO SELF+ ONE Aug 13, 2020 106 [id number] SUGRUE,TO DD PATIENT [place] F[place] PREFERRED PROVIDER ORGANIZAT ION (PPO) STAND CONSUELO FAMIL Y Nov 30, 2000 105 [id number] SUGRUE,TO DD PATIENT [place] DENTAL DENTAL INSURANCE STAND CONSUELO Aug 13, 2020 DENTAL [id number] SUGRUE,TO DD PATIENT CAREMARK FEP BCBS PRESCRIPT ION CAREM ARK FEPRX PLAN Aug 13, 2020 [id number] SUGRUE,TO DD PATIENT [place] FEPRX PLAN PRESCRIPT ION BCBS FEP Nov 18, 2010 [id number] SUGRUE,TO DD PATIENT CAREMARK FEPRX PLAN PRESCRIPT ION CAREM ARK FEPRX Nov 18, 2010 [id number] SUGRUE,TO DD PATIENT [place] FEPRX PLAN PRESCRIPT ION BCBS FEP Nov 18, 2007 [id number] SUGRUE,TO DD PATIENT CAREMARK-F EP BCBS PRESCRIPT ION FEP CAREM ARK Nov 18, 2010 [id number] SUGRUE,TO DD PATIENT MEDICARE (WNR) MEDICARE (M) PART A Sep 18, 2020 PART A [id number] [phone] SUGRUE,TO DD PATIENT MEDICARE (WNR) MEDICARE (M) PART A Sep 18, 2020 PART A [id number] SUGRUE,TO DD PATIENT MEDICARE (WNR) MEDICARE (M) PART A Sep 18, 2020 PART A [id number] [phone] SUGRUE,TO DD PATIENT US DEPART OF LABOR MED DFEC WORKERS' COMPENSAT ION INSURANCE WORKE R'S COMP April 01, 2018 WORKER' S COMP [id number] ADAMA RAYGOZA DD PATIENT Selected Encounter This section includes the information on record at [place] for the Encounter. Date/Time Encounter Type Encounter Description Reason Pro vider Source Sep 12, 2024 09:49 AM Outpatient Encounter ADMIN PAT ACTIVTIES (MASNONCT) IHE Encounter Template Text not used by [place] Plan of Treatment: Future Appointments (+ 6 months) and Future Tests (+/- 45 days) The Plan of Treatment section includes future care activities for the patient from all [place] treatmentfacilities. This section includes future appointments and future orders which are active, pending or scheduled. Future Appointments This section includes appointments that were scheduled to occur 6 months from the date of the Encounter, up to a maximum of 20 appointments. The data comes from all [place] treatment facilities. Appointment Date/Time Appointment Type Appointme nt Facility Name Nov 09, 2024 11:00 AM [facility] Nov 26, 2024 08:30 AM [facility] Feb 03, 2025 01:30 PM [facility] Social History: Smoking Status (Most current) and Tobacco Use (All prior to encounter date) This section includes the most current, and the historical, smoking and tobacco- related health factors from the [place] facility where the Encounter took place. Current Smoking Status This section includes the most current smoking, or tobacco-related health factor, from the [place] facility where the Encounter took place. Date/Time Current Smoking Status Comment [facility] May 26, 2024 02:00 PM VA-TOBACCO [facility] Tobacco Use History This section includes a history of the smoking, or tobacco-related health factors, that were collected on or before the date of the Encounter. The data comes from the [place] facility where the Encounter took place. Date/Time Smoking Status/Tobac co Use Comment Facility May 26, 2024 02:00 PM [place]-TOBACCO QUIT 5 TO < 15 YRS [facility] March 20, 2023 03:00 PM VA-TOBACCO [facility] March 20, 2023 03:00 PM VA-TOBACCO QUIT 5 TO < 15 YRS [facility] [place] [facility] March 19, 2022 03:00 PM VA-TOBACCO FORMER USER [facility] [place] [place] [facility] March 19, 2022 03:00 PM VA-TOBACCO QUIT 5 TO < 15 YRS [facility] [place] [facility] Feb 07, 2021 11:00 AM VA-TOBACCO FORMER USER [facility] [place] [place] [facility] Feb 07, 2021 11:00 AM VA-TOBACCO QUIT 5 TO < 15 YRS [facility] [place] [facility] Feb 02, 2020 03:19 PM VA-TOBACCO FORMER USER [facility] [place] [facility] Feb 02, 2020 03:19 PM VA-TOBACCO QUIT 5 TO < 15 YRS [facility] [facility] Sep 03, 2018 11:07 AM VA-TOBACCO NEVER USED [place] [facility] [place] [facility] Oct 24, 2017 02:40 PM QUIT TOBACCO USE 1-7 YEARS AGO PT QUIT 2 YRS AGO [facility] [place] [place] [facility] Nov 23, 2016 11:14 AM LIFETIME NON-TOBACCO USER [place] [facility] [place] [facility] Nov 23, 2016 11:14 AM QUIT TOBACCO USE 1-7 YEARS AGO [facility] [place] [facility] May 11, 2016 04:46 PM QUIT TOBACCO USE 1-7 YEARS AGO [facility] [place] [facility] Dec 09, 2015 09:56 AM V1-PT DECLINES REF TO TOBACCO CESS PRGM [place] [facility] [place] [facility] Dec 09, 2015 09:56 AM V1-PT THINKING ABOUT QUIT TOBACCO USE [facility] [place] [facility] May 25, 2015 01:26 PM QUIT TOBACCO USE IN PAST YEAR [place] [facility] [place] [facility] Oct 05, 2014 01:34 PM V1-PT DECLINES TOBACCO CESSATION MEDS [facility] [place] [facility] Oct 05, 2014 01:34 PM V1-PT THINKING ABOUT QUIT TOBACCO USE [facility] [place] [facility] Aug 17, 2014 09:30 AM CURRENT SMOKER trys to reduce smoking [place] [facility] [place] [facility] Aug 17, 2014 09:30 AM V1-PT DECLINES REF TO TOBACCO CESS PRGM [facility] [place] [facility] Aug 17, 2014 09:30 AM V1-PT DECLINES TOBACCO CESSATION MEDS [facility] [place] [facility] Aug 17, 2014 09:30 AM V1-PT THINKING ABOUT QUIT TOBACCO USE [facility] [place] [facility] Oct 31, 2012 12:52 PM QUIT TOBACCO USE 1-7 YEARS AGO [facility] [place] [facility] Nov 30, 2011 11:15 AM QUIT TOBACCO USE 1-7 YEARS AGO [facility] [place] [facility] Nov 21, 2010 10:56 AM QUIT TOBACCO USE IN PAST YEAR [facility] [place] [facility] Feb 02, 2010 10:09 AM CURRENT SMOKER 3 per day [facility] [facility] Jan 13, 2010 12:22 PM V1-PT DECLINES REF TO TOBACCO CESS PRGM [place] [facility] [place] [facility] Jan 13, 2010 12:22 PM V1-PT DECLINES TOBACCO CESSATION MEDS [facility] [place] [facility] Jan 13, 2010 12:22 PM V1-PT THINKING ABOUT QUIT [facility]ACCO [facility] [place] [facility] Aug 02, 2009 12:04 PM V1-PT DECLINES REF TO TOBACCO CESS PRGM [facility] [place] [facility] Aug 02, 2009 12:04 PM V1-PT DECLINES TOBACCO CESSATION MEDS [facility] [place] [facility] Aug 02, 2009 12:04 PM V1-PT THINKING ABOUT QUIT TOBACCO USE [facility] [place] [facility] Mar 04, 2009 09:03 AM CURRENT SMOKER 1 or 2 ppd [facility] [facility] Feb 22, 2009 12:06 PM V1-PT DECLINES REF TO TOBACCO CESS PRGM [place] [facility] [place] [facility] Feb 22, 2009 12:06 PM V1-PT READY TO QUIT TOBACCO USE [facility] [place] [facility] Sep 02, 2008 02:00 PM V1-PT DECLINES TOBACCO CESSATION MEDS [facility] [place] [facility] Sep 02, 2008 02:00 PM V1-PT THINKING ABOUT QUIT TOBACCO USE [facility] [place] [facility] April 01, 2008 11:27 AM QUIT TOBACCO USE IN PAST YEAR [facility] Feb 26, 2008 04:05 PM V1-PT DECLINES TOBACCO CESSATION MEDS [facility] Feb 26, 2008 04:05 PM V1-PT NOT INTERESTED IN QUIT TOBACCO USE [facility] Nov 14, 2007 02:46 PM CURRENT SMOKER 3 cigarrettes a week/30 years [facility] Encounter Notes: All associated encounter notes This section contains the clinical notes associated to the Encounter. Date/Time Encounter Note(s) Provider Source Sep 12, 2024 09:49 AM ADMINISTRATIVE NOT E: LOCAL TITLE: CCC: SCHEDULING ADMINISTRATION STANDARD TITLE: ADMINISTRATIVE NOTE DATE OF NOTE: SEP 12, 2024@09:49 ENTRY DATE: SEP 12, 2024@09:49:30 AUTHOR: JEFERSON AN EXP COSIGNER: URGENCY: STATUS: COMPLETED CCC: SCHEDULING ADMINISTRATION Has ADDENDA DEMOGRAPHICS VERIFIED OTHER: PATIENT CALLED AND IS ASKING PACT MD TO PLACE NEW SCRIPTS FOR HIS MEDS THAT . PLEASE PLACE FOR MAILING: SILDENAFIL CITRATE 100MG TABS APIXABAN 5MG TABS METROPROLOL TARTRATE 25MG TABS PATIENT IS COMPLETELY OUT OF MEDICATIONS /marisa/ JEFERSON AN [facility] AMSA Signed: 09/12/2024 09:51 Receipt Acknowledged By: 09/14/2024 08:05 /marisa/ Ange Ruiz RN, BSN Primary Care 09/12/2024 16:51 /marisa/ Hipolito Harding MD Staff Physician 09/12/2024 ADDENDUM STATUS: COMPLETED Done. /marisa/ Hipolito Harding MD Staff Physician Signed: 09/12/2024 16:51 JEFERSON AN [facility]
--- OUTSIDE RECORDS SUMMARY | 2024-11-09 10:55 | XMS_ITS | Encounter Summary ---
Author Name [facility] [place] [facility] [place] Address [address] [place] [address] Care Team Providers Care Polysom Tech Name Role Phone LAVERN ETIENNE Primary Care [...] SELF + ONE Aug 13, [phone] [id number] [phone] SUGRUE,TO DD PATIENT ANTHEM BCBS CT FEDERAL PREFERRED PROVIDER ORGANIZAT ION (PPO) STAND CONSUELO SELF Nov 18, 2007 104 [id number] [phone] SUGRUE,TO DD PATIENT ANTHEM BCBS CT FEDERAL PREFERRED PROVIDER ORGANIZAT ION (PPO) STAND CONSUELO FAMIL Y Nov 30, 2000 105 [id number] [phone] SUGRUE,TO DD PATIENT BCBS [place] F[place] PREFERRED PROVIDER ORGANIZAT ION (PPO) STAND CONSUELO SELF PLUS 1 Aug 13, 2020 106 [id number] SUGRUE,TO DD PATIENT BCBS [place] FEP PREFERRED PROVIDER ORGANIZAT ION (PPO) STAND CONSUELO FAMIL Y Nov 30, 2000 105 [id number] [phone] SUGRUE,TO DD PATIENT [place] PREFERRED PROVIDER ORGANIZAT ION (PPO) STAND CONSUELO SELF+ ONE Aug 13, 2020 106 [id number] SUGRUE,TO DD PATIENT [place] PREFERRED PROVIDER ORGANIZAT ION (PPO) STAND CONSUELO FAMIL Y Nov 30, 2000 105 [id number] SUGRUE,TO DD PATIENT [place] DENTAL DENTAL INSURANCE STAND CONSUELO Aug 13, 2020 DENTAL [id number] SUGRUE,TO DD PATIENT [place] FEP BCBS PRESCRIPT ION CAREM ARK FEPRX PLAN Aug 13, 2020 [id number] SUGRUE,TO DD PATIENT [place] FEPRX PLAN PRESCRIPT ION BCBS FEP Nov 18, 2010 [id number] SUGRUE,TO DD PATIENT [place] FEPRX PLAN PRESCRIPT ION CAREM ARK FEPRX Nov 18, 2010 [id number] SUGRUE,TO DD PATIENT [place] FEPRX PLAN PRESCRIPT ION BCBS FEP Nov 18, 2007 [id number] SUGRUE,TO DD PATIENT CAREMARK-F EP BCBS PRESCRIPT ION FEP CAREM ARK Nov 18, 2010 [id number] SUGKATEE,TO DD PATIENT MEDICARE (WNR) MEDICARE (M) PART A Sep 18, 2020 PART A [id number] [phone] SUGRUE,TO DD PATIENT MEDICARE (WNR) MEDICARE (M) PART A Sep 18, 2020 PART A [id number] [phone] SUGRUE,TO DD PATIENT MEDICARE (WNR) MEDICARE (M) PART A Sep 18, 2020 PART A [id number] SUGKATEE,TO DD PATIENT [facility] DFEC WORKERS' COMPENSAT ION INSURANCE WORKE R'S COMP April 01, 2018 WORKER' S COMP [id number] ADAMA RAYGOZA DD PATIENT Selected Encounter This section includes the information on record at [place] for the Encounter. Date/Time Encounter Type Encounter Description Reason Pro vider Source Sep 30, 2024 08:12 AM Outpatient Encounter TELEPHONE TRIAGE IHE Encounter Template Text not used by [place] Plan of Treatment: Future Appointments (+ 6 months) and Future Tests (+/- 45 days) The Plan of Treatment section includes future care activities for the patient from all [place] treatmentfacilities. This section includes future appointments and future orders which are active, pending or scheduled. Future Appointments This section includes appointments that were scheduled to occur 6 months from the date of the Encounter, up to a maximum of 20 appointments. The data comes from all [place] treatment facilities. Appointment Date/Time Appointment Type Appointme nt Facility Name Nov 09, 2024 11:00 AM [facility] Nov 26, 2024 08:30 AM AMBULATORY - MEDICINE [facility] Feb 03, 2025 01:30 PM AMBULATORY - MEDICINE [facility] Social History: Smoking Status (Most current) and Tobacco Use (All prior to encounter date) This section includes the most current, and the historical, smoking and tobacco- related health factors from the [place] facility where the Encounter took place. Current Smoking Status This section includes the most current smoking, or tobacco-related health factor, from the [place] facility where the Encounter took place. Date/Time Current Smoking Status Comment [facility] michelle May 26, 2024 02:00 PM VA-TOBACCO [facility] Tobacco Use History This section includes a history of the smoking, or tobacco-related health factors, that were collected on or before the date of the Encounter. The data comes from the [place] facility where the Encounter took place. Date/Time Smoking Status/Tobac co Use Comment Facility May 26, 2024 02:00 PM VA-TOBACCO QUIT 5 TO < 15 YRS [facility] [place] [facility] March 20, 2023 03:00 PM VA-TOBACCO [facility] March 20, 2023 03:00 PM VA-TOBACCO QUIT 5 TO < 15 YRS [facility] [place] [place] [facility] March 19, 2022 03:00 PM VA-TOBACCO FORMER USER [facility] [place] [facility] March 19, 2022 03:00 PM VA-TOBACCO QUIT 5 TO < 15 YRS [facility] [place] [facility] Feb 07, 2021 11:00 AM VA-TOBACCO FORMER USER [facility] [place] [facility] Feb 07, 2021 11:00 AM VA-TOBACCO QUIT 5 TO < 15 YRS [facility] [place] [facility] Feb 02, 2020 03:19 PM VA-TOBACCO FORMER USER [facility] [place] [facility] Feb 02, 2020 03:19 PM VA-TOBACCO QUIT 5 TO < 15 YRS [facility] [place] [facility] Sep 03, 2018 11:07 AM VA-TOBACCO NEVER USED [facility] [place] [facility] Oct 24, 2017 02:40 PM QUIT TOBACCO USE 1-7 YEARS AGO PT QUIT 2 YRS AGO [facility] [place] [facility] Nov 23, 2016 11:14 AM LIFETIME NON-TOBACCO USER [place] [facility] [place] [facility] Nov 23, 2016 11:14 AM QUIT TOBACCO USE 1-7 YEARS AGO [facility] [place] [facility] May 11, 2016 04:46 PM QUIT TOBACCO USE 1-7 YEARS AGO [facility] [place] [facility] Dec 09, 2015 09:56 AM V1-PT DECLINES [facility] [facility] Dec 09, 2015 09:56 AM V1-PT THINKING ABOUT QUIT TOBACCO USE [facility] [place] [facility] May 25, 2015 01:26 PM QUIT TOBACCO USE IN PAST YEAR [facility] [place] [facility] Oct 05, 2014 01:34 PM V1-PT DECLINES TOBACCO CESSATION MEDS [facility] [place] [facility] Oct 05, 2014 01:34 PM V1-PT THINKING ABOUT QUIT TOBACCO USE [facility] [place] [facility] Aug 17, 2014 09:30 AM CURRENT SMOKER trys to reduce smoking [place] [facility] [place] [facility] Aug 17, 2014 09:30 AM V1-PT DECLINES REF TO TOBACCO CESS PRGM [facility] [place] [facility] Aug 17, 2014 09:30 AM V1-PT DECLINES TOBACCO CESSATION MEDS [facility] [place] [facility] Aug 17, 2014 09:30 AM V1-PT THINKING ABOUT QUIT TOBACCO USE [facility] [place] [facility] Oct 31, 2012 12:52 PM QUIT TOBACCO USE 1-7 YEARS AGO [facility] [place] [facility] Nov 30, 2011 11:15 AM QUIT TOBACCO USE 1-7 YEARS AGO [facility] [place] [facility] Nov 21, 2010 10:56 AM QUIT TOBACCO USE [facility] PAST [facility] Feb 02, 2010 10:09 AM CURRENT SMOKER 3 per day [place] [facility] [facility] Jan 13, 2010 12:22 PM V1-PT DECLINES REF TO TOBACCO CESS PRGM [facility] Jan 13, 2010 12:22 PM V1-PT DECLINES TOBACCO CESSATION MEDS [facility] Jan 13, 2010 12:22 PM V1-PT THINKING ABOUT QUIT [facility]ACCO [facility] [place] [facility] Aug 02, 2009 12:04 PM V1-PT DECLINES REF TO TOBACCO CESS PRGM [facility] Aug 02, 2009 12:04 PM V1-PT DECLINES TOBACCO CESSATION MEDS [facility] Aug 02, 2009 12:04 PM V1-PT THINKING ABOUT QUIT [facility]ACCO [facility] [place] [facility] Mar 04, 2009 09:03 AM CURRENT SMOKER 1 or 2 ppd [facility] [place] [facility] Feb 22, 2009 12:06 PM V1-PT DECLINES REF TO TOBACCO CESS PRGM [facility] [place] [facility] Feb 22, 2009 12:06 PM V1-PT READY TO QUIT TOBACCO USE [facility] [place] [facility] Sep 02, 2008 02:00 PM V1-PT DECLINES TOBACCO CESSATION MEDS [facility] Sep 02, 2008 02:00 PM V1-PT THINKING ABOUT QUIT TOBACCO USE [facility] [place] [facility] April 01, 2008 11:27 AM QUIT TOBACCO USE IN PAST YEAR [facility] Feb 26, 2008 04:05 PM V1-PT DECLINES TOBACCO CESSATION MEDS [facility] Feb 26, 2008 04:05 PM V1-PT NOT INTERESTED IN QUIT TOBACCO USE [facility] Nov 14, 2007 02:46 PM CURRENT SMOKER 3 cigarrettes a week/30 years [facility] Encounter Notes: All associated encounter notes This section contains the clinical notes associated to the Encounter. Date/Time Encounter Note(s) Provider Source Sep 30, 2024 08:13 AM RN PROGRESS NOTE: LOCAL TITLE: CCC: CLINICAL TRIAGE STANDARD TITLE: RN PROGRESS NOTE DATE OF NOTE: SEP 30, 2024@08:13:02 ENTRY DATE: SEP 30, 2024@08:13:02 AUTHOR: GUSTAVO LOCO EXP COSIGNER: URGENCY: STATUS: COMPLETED CCC: CLINICAL TRIAGE Has ADDENDA Patient Demographics Patient Name: ELEAZAR ROCHE JARET Patient Primary Address: [address] [place] [id number] Patient Primary Phone: [phone] Patient : 1955 Patient Age: 68 Caller/Recipient Relation to Patient: Self Emergency Contact: CATHERINE RAYGOZA Nursing Plan and Disposition Other course(s) of action Generated msg to PACT/Provider Provided guidance for worsening symptoms: *Caller/Patient* advised to call facilities [place] Clinical Contact Center or seek immediate medical attention for new or worsening symptoms Nurse Summary Nurse Summary: reports cough x 2 days. Denies SOB, CP. Triage explained/offered - vet politely declined. He states his granddaughter dx with whooping cough, given abx. He is with her daily, wondering if he should be on abx as well. Vet requests a return call to discuss. Advised of [facility] triage , available 10/06. Clinical Contact Center Codes Clinic/Location: V1 CWM PHONE CCC RN IMPORTANT: This note was created by [facility] staff. Please do not alert the staff member by adding them as a signer for future communications. Alerts are not monitored by this user. /marisa/ Gustavo Loco RN VISN 1 [facility] RN Signed: 09/30/2024 08:13 Receipt Acknowledged By: 10/01/2024 08:20 /marisa/ Ange Ruiz RN, BSN Primary Care 10/01/2024 10:32 /marisa/ CRISTIAN PARR LPN LPN 10/01/2024 ADDENDUM STATUS: COMPLETED spoke with , offered sick call. his tdap is up to date. He states he is not SOB and his cough isn't that bad. He will treat at home and if not better in a few days he will come to sik call. /marisa/ Ange Ruiz RN, BSN Primary Care Signed: 10/01/2024 08:19 GUSTAVO LOCO [facility]
--- OUTSIDE RECORDS SUMMARY | 2024-11-09 10:55 | XMS_ITS | Encounter Summary ---
Author Name [facility] [place] [facility] [place] [facility] [facility] [place] Address [address] [place] [address] Care Team Providers Care Shake Out Worker Name Role Phone LAVERN ETIENNE Primary Care [...] SELF + ONE Aug 13, [phone] [id number] [phone] SUGRUE,TO DD PATIENT ANTHEM BCBS CT FEDERAL PREFERRED PROVIDER ORGANIZAT ION (PPO) STAND CONSUELO SELF Nov 18, 2007 [id number] [phone] SUGRUE,TO DD PATIENT ANTHEM BCBS CT FEDERAL PREFERRED PROVIDER ORGANIZAT ION (PPO) STAND CONSUELO FAMIL Y Nov 30, 2000 105 [id number] [phone] SUGRUE,TO DD PATIENT [place] FEP PREFERRED PROVIDER ORGANIZAT ION (PPO) STAND CONSUELO SELF PLUS 1 Aug 13, 2020 [id number] SUGRUE,TO DD PATIENT [place] F[place] PREFERRED PROVIDER ORGANIZAT ION (PPO) STAND CONSUELO FAMIL Y Nov 30, 2000 105 [id number] [phone] SUGRUE,TO DD PATIENT [place] F[place] PREFERRED PROVIDER ORGANIZAT ION (PPO) STAND CONSUELO SELF+ ONE Aug 13, 2020 106 [id number] SUGRUE,TO DD PATIENT [place] F[place] PREFERRED PROVIDER ORGANIZAT ION (PPO) STAND CONSUELO FAMIL Y Nov 30, 2000 105 [id number] SUGRUE,TO DD PATIENT [place] FEP DENTAL DENTAL INSURANCE STAND CONSUELO Aug 13, 2020 DENTAL [id number] SUGRUE,TO DD PATIENT [place] FEP BCBS PRESCRIPT ION CAREM ARK FEPRX PLAN Aug 13, 2020 [id number] SUGRUE,TO DD PATIENT [place] FEPRX PLAN PRESCRIPT ION BCBS FEP Nov 18, 2010 [id number] SUGRUE,TO DD PATIENT [place] FEPRX PLAN PRESCRIPT ION CAREM ARK FEPRX Nov 18, 2010 [id number] SUGRUE,TO DD PATIENT [place] FEPRX PLAN PRESCRIPT ION BCBS FEP Nov 18, 2007 [id number] SUGRUE,TO DD PATIENT CAR[place]ARK-F EP BCBS PRESCRIPT ION FEP CAREM ARK Nov 18, 2010 [id number] SUGKATEE,TO DD PATIENT MEDICARE (WNR) MEDICARE (M) PART A Sep 18, 2020 PART A [id number] SUGRUE,TO DD PATIENT MEDICARE (WNR) MEDICARE (M) PART A Sep 18, 2020 PART A [id number] [phone] SUGRUE,TO DD PATIENT MEDICARE (WNR) MEDICARE (M) PART A Sep 18, 2020 PART A [id number] SUGRUE,TO DD PATIENT [facility] DFEC WORKERS' COMPENSAT ION INSURANCE WORKE R'S COMP April 01, 2018 WORKER' S COMP [id number] [phone] ADAMA RAYGOZA DD PATIENT Selected Encounter This section includes the information on record at [place] for the Encounter. Date/Time Encounter Type Encounter Description Reason Provider Source Jul 01, 2024 06:01 PM Outpatient Encounter DERMATOLOGY ICD-10-CM L82.1 Other seborrheic keratosis DEBORA JANSEN Wilner Encounter Template Text not used by [place] Assessments - Encounter Diagnoses This section includes the primary and secondary diagnoses documented for the Encounter. Date/Time Primary/Secondary Diagnosis Diagnosis Name Provider Source Jul 01, 2024 06:07 PM PRIMARY Other seborrheic keratosis [facility]DERJITDEBORA MOSESE [facility] Plan of Treatment: Future Appointments (+ 6 months) and Future Tests (+/- 45 days) The Plan of Treatment section includes future care activities for the patient from all [place] treatmentfacilities. This section includes future appointments and future orders which are active, pending or scheduled. Future Appointments This section includes appointments that were scheduled to occur 6 months from the date of the Encounter, up to a maximum of 20 appointments. The data comes from all [place] treatment facilities. Appointment Date/Time Appointment Type Appointme nt Facility Name Sep 10, 2024 04:30 PM AMBULATORY - NONE [facility] Nov 09, 2024 11:00 AM AMBULATORY - NONE [facility] Nov 26, 2024 08:30 AM AMBULATORY - MEDICINE [facility] Active, Pending, and Scheduled Orders This section includes a listing of several types of active, pending, and scheduled orders, including clinic medications orders, diagnostic test orders, procedure orders and consult orders; where the start date of the order is 45 days before the date of the Encounter or 45 days after the date of theEncounter. The data comes from all [place] treatment [facility]. Test Date/Time Test Type Test Details Facility Name May 26, 2024 02:25 PM Consult Order [facility]ONOSCOPY [facility] Cons Amplifier Mechanic's Choice [facility] Jul 04, 2024 12:00 AM Laboratory - Chemistry Order BASIC METABOLIC PANEL (fasting) BLOOD (SST-SERUM) SP [facility] Jul 04, 2024 12:00 AM Laboratory - Chemistry Order LIVER FUNCTION BLOOD (SST-SERUM) [facility] Jul 04, 2024 12:00 AM Laboratory - Chemistry Order LIPID PANEL FASTING BLOOD (SST-SERUM) [facility] Jul 04, 2024 12:00 AM Laboratory - Chemistry Order TSH BLOOD (SST-SERUM) [facility] Jul 04, 2024 12:00 AM Laboratory - Chemistry Order PSA BLOOD (SST-SERUM) [facility] Jul 04, 2024 12:00 AM Laboratory - Chemistry Order URINALYSIS CLEAN CATCH URINE [facility] Jul 04, 2024 12:00 AM Laboratory - Chemistry Order CBC AND DIFF (AUTO) BLOOD (LAV-BLOOD) [facility] Encounter Notes: All associated encounter notes This section contains the clinical notes associated to the Encounter. Date/Time Encounter Note(s) Provider Source Jul 01, 2024 06:01 PM TELEIMAGING REPORT : LOCAL TITLE: CONSULT-TELEDERMATOLOGY IMAGING REPORT STANDARD TITLE: TELEIMAGING REPORT DATE OF NOTE: JUL 01, 2024@18:01 ENTRY DATE: JUL 01, 2024@18:02:15 AUTHOR: DEBORA JANSEN EXP COSIGNER: URGENCY: STATUS: COMPLETED HISTORY: 68-year-old male with no history of skin cancer, no family history of melanoma with unknown duration of lesion of the scalp, lesion of the left wrist for as long as he can remember and unknown lesion of the head/neck. No previous biopsies or treatment of any of these lesions. OVERALL CONSULT/IMAGE QUALITY: Satisfactory with suggestions for improvement in Focus EXAM: Skin type II male witha) 0.5 cm dumont/brown waxy stuck on papule of the vertex scalpb) oblong 0.8 x 0.4 cm dumont waxy verrucous papule of the left wristc) waxy stuck on 1.5 x 2 cm brown papule of the vertex scalp IMPRESSION BASED ON IMAGES AND INFORMATION REVIEWED: PROBLEM A: Diagnosis: Seborrheic Keratosis PROBLEM B: Diagnosis: Seborrheic Keratosis PROBLEM C: Diagnosis: Seborrheic Keratosis RECOMMENDATIONS FOR REFERRING PROVIDER: PROBLEM A: Other recommendations: No treatment required benign lesion PROBLEM B: Skin Care recommendations: Benign no treatment required PROBLEM C: Additional Information: Benign no treatment required RECOMMENDED FOLLOW-UP: Follow up not required Cumulative time of review and management: 5 minutes or more /marisa/ Debora Jansen MD Dermatology Signed: 07/01/2024 18:07 DEBORA JANSEN [facility]
--- OUTSIDE RECORDS SUMMARY | 2024-11-09 10:55 | XMS_ITS | Continuity of Care Document ---
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 It does not include entries that were removed or entered in error. Problem Status Onset Date Problem Type Date of Resolution Comments Source Chronic dermatitis Active 2023 Condition Jun 25, 2024 Entered By: LAVERN ETIENNE Comment: Referred to dermatology [facility] Sebaceous cyst of skin Active 2023 Condition May 26, 2024 Entered By: LAVERN ETIENNE Comment: On his back [facility] [place] Atrial fibrillation Active 2022 Condition March 20, 2023 Entered By: LAVERN ETIENNE Comment: treated with anticoagulation [facility] Hypercholesterolemia (SCT 17263405) Active 2021 Condition March 19, 2022 Entered By: LAVERN ETIENNE Comment: treated with diet education [facility] Deviated nasal septum Active 2018 Condition Mar 06, 2019 Entered By: LAVERN ETIENNE Comment: referred for surgery [facility] HTN - Hypertension (SCT 23964592) Active 2017 Condition Sep 03, 2018 Entered By: LAVERN ETIENNE Comment: [facility] with [facility] Chronic sinusitis (ICD-9-CM 473.9) Active 2008 Condition [facility] Erectile Dysfunction Active 2006 Condition [facility] Rotator cuff (capsule) sprain or strain (ICD-9-CM 840.4) Active 2006 Condition [facility] Adjustment disorder (SNOMED CT 65473213) Active Condition Sep 16, 2008 Entered By: JUAN F NEW Comment: ReviewedMay 10, 2009 Entered By: JUAN F NEW Comment: ReviewedDec 11, 2011 Entered By: JUAN F NEW Comment: ReviewedMay 15, 2013 Entered By: JUAN F NEW Comment: ReviewedFeb 08, 2017 Entered By: JUAN F NEW Comment: Reviewed [facility] Alcohol Abuse (SCT 48572432) Active Condition [facility] Bipolar disorder in remission (SNOMED CT 63513628) Active Condition May 12, 2010 Entered By: JUAN F NEW Comment: ReviewedDec 11, 2011 Entered By: JUAN F NEW Comment: ReviewedMay 15, 2013 Entered By: JUAN F NEW Comment: ReviewedMay 11, 2016 Entered By: JOB WESTFALL MD Comment: updateFeb 08, 2017 Entered By: JUAN F NEW Comment: Reviewed [facility] Cognitive disorder Active Condition [facility] Deviated nasal septum (ICD-9-CM 470.) Active Condition [facility] Hypertrophy of nasal turbinates (ICD-9-CM 478.0) Active Condition [facility] Insomnia (SNOMED CT 003489122) Active Condition [facility] Long-term current use of anticoagulant Active Condition [facility] 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 Condition [facility] Partner relationship problem Active Condition [facility] TOBACCO USE DISORDER Active Condition May 15, 2013 Entered By: JUAN F NEW Comment: Reviewed [place] DEPRESSIVE DISORDER NEC Inactive Condition 09/11/2001 [place] Diagnosis: ICD-10-CM M25.561 Pain in right knee Active Diagnosis [facility] Diagnosis: ICD-10-CM L82.1 Other seborrheic keratosis Active Diagnosis [facility] Diagnosis: ICD-10-CM Z13.89 Encounter for screening for other disorder Active Diagnosis [facility] Diagnosis: ICD-10-CM L30.9 Dermatitis, unspecified Active Diagnosis [facility] Diagnosis: ICD-10-CM L72.3 Sebaceous cyst Active Diagnosis [facility] Diagnosis: ICD-10-CM Z46.0 Encounter for fit/adjst of spectacles and contact lenses Active Diagnosis [facility] Diagnosis: ICD-10-CM H25.813 Combined forms of age-related cataract, bilateral Active Diagnosis [facility] Diagnosis: ICD-10-CM Z23 Encounter for immunization Active Diagnosis [facility] Diagnosis: ICD-10-CM I10 Essential (primary) hypertension Active Diagnosis [facility] Diagnosis: ICD-10-CM I48.91 Unspecified atrial fibrillation Active Diagnosis [facility] Medications Combined list of outpatient medications from Department of Defense and Veterans Affairs facilities.Medications provided include 1) outpatient medications from the last 15 months, and 2) patient-reported medications. Medication Details Route Status Patient Instructions Prescription Expires Prescription Number Last Dispense Date Ordering Provider Order Date Order Qty Source APIXABAN 5MG TAB TAKE ONE TABLET BY MOUTH EVERY 12 HOURS FOR PREVENTI ON OF BLOOD CLOTS ORAL ACTIVE 09/13/2025 [id number] ANGELICA ETIENNE 2023 [facility] APIXABAN 5MG TAB TAKE ONE TABLET BY MOUTH EVERY 12 HOURS FOR PREVENTI ON OF BLOOD CLOTS ORAL DISCONT INUED 08/21/2024 [id number] 4 ANGELICA ETIENNE 2022 180 [facility] APIXABAN 5MG TAB TAKE ONE TABLET BY MOUTH EVERY 12 HOURS ORAL DISCONT INUED 03/20/2024 [id number] ANGELICA ETIENNE 2022 60 [facility] ROBERT CAP/TAB TAKE 1 CAPSULE BY MOUTH ONCE DAILY ORAL ACTIVE TWAN SAINI 2022 [facility] METOPROLOL TARTRATE 25MG TAB TAKE ONE-HALF TABLET BY MOUTH TWICE DAILY FOR BLOOD PRESSURE /HEART ORAL ACTIVE 09/13/2025 [id number] 4 [facility]NE 2023 [facility] METOPROLOL TARTRATE 25MG TAB TAKE ONE-HALF TABLET BY MOUTH TWICE DAILY FOR BLOOD PRESSURE /HEART ORAL DISCONT INUED 08/21/2024 [id number] ANGELICA ETIENNE D 2022 90 [facility] MULTIVITAMI NS W/MINERALS TAB TAKE ONE TABLET BY MOUTH ONCE DAILY ORAL ACTIVE TWAN SAINI A 2022 [place] OTHER CAP/TAB TAKE TESTOSTE JOSIE SUPPLEME NT BY MOUTH ORAL ACTIVE [facility]YN VASQUEZ [facility] RESOURCE BENEPROTEIN POWDER,ORAL TAKE OTC BY MOUTH ORAL ACTIVE [facility]OLYN VASQUEZ [facility] SILDENAFIL CITRATE 100MG TAB TAKE ONE TABLET BY MOUTH NEEDED TAKE 1 HOUR PRIOR TO SEXUAL ACTIVITY ORAL SUSPEND ED 09/13/2025 [id number] 5 ANGELICA ETIENNE D 2023 18 [facility] SILDENAFIL CITRATE 100MG TAB TAKE ONE TABLET BY MOUTH NEEDED TAKE 1 HOUR PRIOR TO SEXUAL ACTIVITY ORAL DISCONT INUED 09/11/2024 [id number] 4 ANGELICA ETIENNE D 2022 6 [facility] SILDENAFIL CITRATE 100MG TAB TAKE ONE TABLET BY MOUTH NEEDED TAKE 1 HOUR PRIOR TO SEXUAL ACTIVITY ORAL DISCONT INUED 10/18/2023 [id number] ANGELICA ETIENNE D 2021 6 [facility] Immunizations Combined list of available immunizations from the Department of Defense and Veterans Affairs facilities. Immunization Series Date Given Administered By Site Reaction Lot Number CVX Code Drug Heat Regulator Status Comments Source COVID-19 (MODERNA), MRNA, LNP-S, PF, 50 MCG/0.5 ML (AGES 12+ YEARS) 6 2023 TIMMY PARR RIGHT DELTO ID [id number] 312 complet ed [facility] RSV, BIVALENT, PROTEIN SUBUNIT RSVPREF, DILUENT RECONSTITUTED , 0.5 ML, PF 1 2023 TRISHA SCOTT E RIGHT DELTO ID [id number] 305 complet ed [facility] COVID-19 (MODERNA), MRNA, LNP-S, PF, 50 MCG/0.5 ML (AGES 12+ YEARS) 1 2023 TRISHA SCOTTER E LEFT DELTO ID [id number] 312 complet ed [facility] INFLUENZA, HIGH-DOSE, QUADRIVALENT 2023 TRISHA SCOTT E LEFT DELTO ID [id number] 197 complet ed [facility] PNEUMOCOCCAL CONJUGATE PCV20, POLYSACCHARID E [id number] CONJUGATE, ADJUVANT, PF 2022 CAROLA WAGNER M LEFT GLUTE US MEDIU S [id number] 216 complet ed [facility] INFLUENZA VACCINE, QUADRIVALENT, ADJUVANTED 2021 205 complet ed [facility] COVID-19 (MODERNA), MRNA, LNP-S, PF, 100 MCG/0.5ML DOSE OR 50 MCG/0.25ML DOSE 4 2021 207 complet ed MOD; [id number]; 2 [facility] COVID-19 (MODERNA), MRNA, LNP-S, PF, 100 MCG OR 50 MCG DOSE 3 2020 207 complet ed MOD; [id number]; 2 [facility] INFLUENZA VACCINE, QUADRIVALENT, ADJUVANTED 2020 205 complet ed [facility] ZOSTER RECOMBINANT 2 2020 187 complet ed [facility] PNEUMOCOCCAL POLYSACCHARID E PPV23 2020 33 complet ed [facility] ZOSTER RECOMBINANT 1 2020 187 complet ed [facility] COVID-19 (PFIZER), MRNA, LNP-S, PF, 30 MCG/0.3 ML DOSE 2 2020 208 complet ed PFR; [id number]; 1 [facility] COVID-19 (FlipGive), MRNA, LNP-S, PF, 30 MCG/0.3 ML DOSE 1 2020 208 complet ed PFR; [id number]; 1 [facility] INFLUENZA, UNSPECIFIED FORMULATION 2019 88 complet ed [facility] INFLUENZA, SEASONAL, INJECTABLE 2017 141 complet ed [facility] TD(ADULT) UNSPECIFIED FORMULATION 2017 139 complet ed [facility] FLU,3 YRS (HISTORICAL) 2016 88 complet ed [facility] ZOSTER (SHINGLES) (HISTORICAL) 2015 121 complet ed Proximal Right Arm [facility] FLU,3 YRS (HISTORICAL) 2015 88 complet ed [facility] FLU,3 YRS (HISTORICAL) 2014 88 complet ed [facility] FLU,3 YRS (HISTORICAL) 2013 88 complet ed Site: Left Deltoid [facility] FLU,3 YRS (HISTORICAL) 2012 88 complet ed [facility] FLU,3 YRS (HISTORICAL) 2010 88 complet ed [facility] FLU,3 YRS (HISTORICAL) 2010 88 complet ed [facility] NOVEL INFLUENZA-H1N 1-09, ALL FORMULATIONS 2009 128 complet ed [facility] FLU,3 YRS (HISTORICAL) 2008 88 complet ed [facility] FLU,3 YRS (HISTORICAL) 2007 88 complet ed Site: Left Deltoid (posterio r) [facility] PNEUMOCOCCAL, UNSPECIFIED FORMULATION 2007 109 complet ed [facility] TDAP 2007 115 complet ed Left Deltoid (anterior ) [facility] Results Combined list of recent chemistry, hematology and other laboratory results from Department of Defense and Veterans Affairs, ranging from 15 months to all on record, depending upon the facility. Order Name Results Value Reference Range Date Interpretation Specimen Comments Source TSH THYROTROPI N [UNITS/VOL UME] IN SERUM OR PLASMA 1.19 u[IU]/mL 0.35 - 5.00 01/13 Specimen Type: SERUM No comment entered. Ordering Provider: OLYA ETIENNE Report Released Date/Time: Jan 05, 2024 05:10 PM Reporting Lab: [facility] [place] [facility] [address] [facility] [address] Performing Lab: [facility] [place] [address] [address] [facility] [facility] PSA PROSTATE SPECIFIC AG [MASS/VOLU ME] IN SERUM OR PLASMA 1.21 ng/mL 0.00 - 4.00 01/13 Specimen Type: SERUM No comment entered. Ordering Provider: OLYA ETIENNE Report Released Date/Time: Jan 05, 2024 05:10 PM Reporting Lab: [facility] [place] [facility] [address] [facility] [address] Performing Lab: [facility] [place] [facility] [address] [facility] [address] [facility] [place] [facility] LIVER FUNCTION PROTEIN [MASS/VOLU ME] IN SERUM OR PLASMA 6.9 g/dL 6.0 - 8.3 01/13 Specimen Type: SERUM No comment entered. Ordering Provider: OLYA ETIENNE Report Released Date/Time: Jan 05, 2024 05:10 PM Reporting Lab: [facility] [place] [facility] [address] [facility] [address] Performing Lab: [facility] [place] [address] [address] [facility] [place] [facility] LIVER FUNCTION ALBUMIN [MASS/VOLU ME] IN SERUM OR PLASMA 3.8 g/dL 3.5 - 5.0 01/13 Specimen Type: SERUM No comment entered. Ordering Provider: OLYA ETIENNE Report Released Date/Time: Jan 05, 2024 05:10 PM Reporting Lab: [facility] [place] [facility] [address] [facility] [address] Performing Lab: [facility] [place] [facility] [address] [facility] [address] [facility] [place] [facility] LIVER FUNCTION ALKALINE PHOSPHATAS E [ENZYMATIC ACTIVITY/V OLUME] IN SERUM OR PLASMA 68 U/L 40 - 150 01/13 Specimen Type: SERUM No comment entered. Ordering Provider: OLYA ETIENNE Report Released Date/Time: Jan 05, 2024 05:10 PM Reporting Lab: [facility] [place] [address] [address] Performing Lab: [facility] [place] [address] [address] [facility] LIVER FUNCTION ASPARTATE AMINOTRANS FERASE [ENZYMATIC ACTIVITY/V OLUME] IN SERUM OR PLASMA 22 U/L 5 - 34 01/13 Specimen Type: SERUM No comment entered. Ordering Provider: OLYA ETIENNE Report Released Date/Time: Jan 05, 2024 05:10 PM Reporting Lab: [facility] [place] [address] [address] Performing Lab: [facility] [place] [address] [address] [facility] LIVER FUNCTION ALANINE AMINOTRANS FERASE [ENZYMATIC ACTIVITY/V OLUME] IN SERUM OR PLASMA 20 U/L 01/13 Specimen Type: SERUM No comment entered. Ordering Provider: OLYA ETIENNE Report Released Date/Time: Jan 05, 2024 05:10 PM Reporting Lab: [facility] [place] [address] [address] Performing Lab: [facility] [address] [facility] [address] [facility] LIVER FUNCTION BILIRUBIN. TOTAL [MASS/VOLU ME] IN SERUM OR PLASMA 0.7 mg/dL 0.2 - 1.2 01/13 Specimen Type: SERUM No comment entered. Ordering Provider: OLYA ETIENNE Report Released Date/Time: Jan 05, 2024 05:10 PM Reporting Lab: [facility] [place] [place] [facility] [address] [facility] [address] Performing Lab: [facility] [place] [place] [facility] [address] [facility] [address] [facility] [place] LIPID PANEL FASTING CHOLESTERO L [MASS/VOLU ME] IN SERUM OR PLASMA 191 mg/dL 01/13 Specimen Type: SERUM No comment entered. Ordering Provider: OLYA ETIENNE Report Released Date/Time: Jan 05, 2024 05:10 PM Reporting Lab: [facility] [place] [place] [facility] [address] [facility] [address] Performing Lab: [facility] [place] [place] [facility] [address] [facility] [address] [facility] [place] [facility] LIPID PANEL FASTING TRIGLYCERI DE [MASS/VOLU ME] IN SERUM OR PLASMA 49 mg/dL 0 - 150 01/13 Specimen Type: SERUM No comment entered. Ordering Provider: OLYA ETIENNE Report Released Date/Time: Jan 05, 2024 05:10 PM Reporting Lab: [facility] [place] [facility] [address] [facility] [address] Performing Lab: [facility] [place] [facility] [address] [facility] [address] [facility] [place] [facility] LIPID PANEL FASTING CHOLESTERO L IN LDL [MASS/VOLU ME] IN SERUM OR PLASMA BY CALCULATIO N 96 mg/dL 0 - 129 01/13 Specimen Type: SERUM No comment entered. Ordering Provider: OLYA ETIENNE Report Released Date/Time: Jan 05, 2024 05:10 PM Reporting Lab: [facility] [place] [facility] [address] [facility] [address] Performing Lab: [facility] [place] [facility] [address] [facility] [address] [facility] LIPID PANEL FASTING CHOLESTERO L.TOTAL/CH OLESTEROL IN HDL [MASS RATIO] IN SERUM OR PLASMA 2.2 01/13 Specimen Type: SERUM No comment entered. Ordering Provider: OLYA ETIENNE Report Released Date/Time: Jan 05, 2024 05:10 PM Reporting Lab: [facility] [place] [facility] [address] [facility] [address] Performing Lab: [facility] [address] [facility] [address] [facility] LIPID PANEL FASTING CHOLESTERO L IN HDL [MASS/VOLU ME] IN SERUM OR PLASMA 85 mg/dL 40 - 60 01/13 H Specimen Type: SERUM No comment entered. Ordering Provider: OLYA ETIENNE Report Released Date/Time: Jan 05, 2024 05:10 PM Reporting Lab: [facility] [place] [place] [facility] [address] [facility] [address] Performing Lab: [facility] [address] [facility] [address] [facility] BASIC METABOLI C PANEL (fasting ) UREA NITROGEN [MASS/VOLU ME] IN SERUM OR PLASMA 12 mg/dL 7 - 25 01/13 Specimen Type: SERUM No comment entered. Ordering Provider: OLYA ETIENNE Report Released Date/Time: Jan 05, 2024 05:10 PM Reporting Lab: [facility] [place] [facility] [address] [facility] [address] Performing Lab: [facility] [place] [facility] [address] [facility] [address] [facility] BASIC METABOLI C PANEL (fasting ) GLUCOSE [MASS/VOLU ME] IN SERUM OR PLASMA 104 mg/dL 65 - 100 01/13 H Specimen Type: SERUM No comment entered. Ordering Provider: OLYA ETIENNE Report Released Date/Time: Jan 05, 2024 05:10 PM Reporting Lab: [facility] [place] [facility] [address] [facility] [address] Performing Lab: [facility] [place] [facility] [address] [facility] [address] [facility] [place] [facility] BASIC METABOLI C PANEL (fasting ) SODIUM [MOLES/VOL UME] IN SERUM OR PLASMA 139 mmol/L 135 - 145 01/13 Specimen Type: SERUM No comment entered. Ordering Provider: OLYA ETIENNE Report Released Date/Time: Jan 05, 2024 05:10 PM Reporting Lab: [facility] [place] [facility] [address] [facility] [address] Performing Lab: [facility] [place] [facility] [address] [facility] [address] [facility] [place] [facility] BASIC METABOLI C PANEL (fasting ) POTASSIUM [MOLES/VOL UME] IN SERUM OR PLASMA 4.1 mmol/L 3.5 - 5.0 01/13 Specimen Type: SERUM No comment entered. Ordering Provider: OLYA ETIENNE Report Released Date/Time: Jan 05, 2024 05:10 PM Reporting Lab: [facility] [place] [facility] [address] [facility] [address] Performing Lab: [facility] [place] [facility] [address] [facility] [address] [facility] [place] [facility] BASIC METABOLI C PANEL (fasting ) CHLORIDE [MOLES/VOL UME] IN SERUM OR PLASMA 104 mmol/L 100 - 110 01/13 Specimen Type: SERUM No comment entered. Ordering Provider: OLYA ETIENNE Report Released Date/Time: Jan 05, 2024 05:10 PM Reporting Lab: [facility] [place] [facility] [address] [facility] [address] Performing Lab: [facility] [place] [facility] [address] [facility] [address] [facility] [place] [facility] BASIC METABOLI C PANEL (fasting ) CARBON DIOXIDE, TOTAL [MOLES/VOL UME] IN SERUM OR PLASMA 27 meq/L 20 - 30 01/13 Specimen Type: SERUM No comment entered. Ordering Provider: OLYA ETIENNE Report Released Date/Time: Jan 05, 2024 05:10 PM Reporting Lab: [facility] [address] [address] Performing Lab: [facility] [address] [address] [facility] BASIC METABOLI C PANEL (fasting ) CREATININE [MASS/VOLU ME] IN SERUM OR PLASMA 0.77 mg/dL 0.50 - 1.40 01/13 Specimen Type: SERUM No comment entered. Ordering Provider: OLYA ETIENNE Report Released Date/Time: Jan 05, 2024 05:10 PM Reporting Lab: [address] [address] Performing Lab: [address] [address] [employer] BASIC METABOLI C PANEL (fasting ) GLOMERULAR FILTRATION RATE/1.73 SQ M.PREDICTE D [VOLUME RATE/AREA] IN SERUM, PLASMA OR BLOOD BY CREATININE -BASED FORMULA (CKD-EPI 2020) >90mL/mi n 60 01/13 Specimen Type: SERUM No comment entered. Ordering Provider: OLYA ETIENNE Report Released Date/Time: Jan 05, 2024 05:10 PM Reporting Lab: [facility] [address] [address] Performing Lab: [facility] [address] [address] [employer] CBC AND DIFF (AUTO) LEUKOCYTES [#/VOLUME] IN BLOOD BY AUTOMATED COUNT 3.71 10*3/uL 4.50 - 11.00 01/13 L Specimen Type: BLOOD No comment entered. Ordering Provider: OLYA ETIENNE Report Released Date/Time: Jan 05, 2024 05:10 PM Reporting Lab: [facility] [place] [facility] [address] [facility] [address] Performing Lab: [facility] [place] [facility] [address] [facility] [address] [facility] CBC AND DIFF (AUTO) ERYTHROCYT ES [#/VOLUME] IN BLOOD BY AUTOMATED COUNT 4.24 10*6/uL 4.23 - 5.66 01/13 Specimen Type: BLOOD No comment entered. Ordering Provider: OLYA ETIENNE Report Released Date/Time: Jan 05, 2024 05:10 PM Reporting Lab: [facility] [place] [facility] [address] [facility] [address] Performing Lab: [facility] [place] [facility] [address] [facility] [address] [facility] [place] [facility] CBC AND DIFF (AUTO) HEMOGLOBIN [MASS/VOLU ME] IN BLOOD 13.8 g/dL 12.8 - 17 01/13 Specimen Type: BLOOD No comment entered. Ordering Provider: OLYA ETIENNE Report Released Date/Time: Jan 05, 2024 05:10 PM Reporting Lab: [facility] [place] [facility] [address] [facility] [address] Performing Lab: [facility] [place] [facility] [address] [facility] [address] [facility] [place] [facility] CBC AND DIFF (AUTO) HEMATOCRIT [VOLUME FRACTION] OF BLOOD BY AUTOMATED COUNT 39.9 39.2 - 50.4 01/13 Specimen Type: BLOOD No comment entered. Ordering Provider: OLYA ETIENNE Report Released Date/Time: Jan 05, 2024 05:10 PM Reporting Lab: [facility] [place] [facility] [address] [facility] [address] Performing Lab: [facility] [place] [facility] [address] [facility] [address] [facility] [place] [facility] CBC AND DIFF (AUTO) MCV [ENTITIC VOLUME] BY AUTOMATED COUNT 94.1 fL 82 - 99 01/13 Specimen Type: BLOOD No comment entered. Ordering Provider: OLYA ETIENNE Report Released Date/Time: Jan 05, 2024 05:10 PM Reporting Lab: [facility] [place] [facility] [address] [facility] [address] Performing Lab: [facility] [place] [facility] [address] [facility] [address] [facility] [place] [facility] CBC AND DIFF (AUTO) MCHC [MASS/VOLU ME] BY AUTOMATED COUNT 34.6 g/dL 30.8 - 35.1 01/13 Specimen Type: BLOOD No comment entered. Ordering Provider: OLYA ETIENNE Report Released Date/Time: Jan 05, 2024 05:10 PM Reporting Lab: [facility] [place] [facility] [address] [facility] [address] Performing Lab: [facility] [place] [facility] [address] [facility] [address] [facility] CBC AND DIFF (AUTO) PLATELETS [#/VOLUME] IN BLOOD BY AUTOMATED COUNT 247 10*3/uL 140 - 360 01/13 Specimen Type: BLOOD No comment entered. Ordering Provider: OLYA ETIENNE Report Released Date/Time: Jan 05, 2024 05:10 PM Reporting Lab: [facility] [place] [facility] [address] [facility] [address] Performing Lab: [facility] [place] [facility] [address] [facility] [address] [facility] CBC AND DIFF (AUTO) ERYTHROCYT E DISTRIBUTI ON WIDTH [RATIO] BY AUTOMATED COUNT 12.4 12.0 - 16.0 01/13 Specimen Type: BLOOD No comment entered. Ordering Provider: OLYA ETIENNE Report Released Date/Time: Jan 05, 2024 05:10 PM Reporting Lab: [facility] [place] [facility] [address] [facility] [address] Performing Lab: [facility] [place] [facility] [address] [facility] [address] [facility] CBC AND DIFF (AUTO) MONOCYTES [#/VOLUME] IN BLOOD BY AUTOMATED COUNT 0.55 10*3/uL 0.30 - 1.10 01/13 Specimen Type: BLOOD No comment entered. Ordering Provider: OLYA ETIENNE Report Released Date/Time: Jan 05, 2024 05:10 PM Reporting Lab: [facility] [place] [facility] [address] [facility] [address] Performing Lab: [facility] [place] [address] [address] [facility] [place] [facility] CBC AND DIFF (AUTO) MCH [ENTITIC MASS] BY AUTOMATED COUNT 32.5 pg 26.2 - 32.6 01/13 Specimen Type: BLOOD No comment entered. Ordering Provider: OLYA ETIENNE Report Released Date/Time: Jan 05, 2024 05:10 PM Reporting Lab: [facility] [place] [address] [address] Performing Lab: [facility] [place] [address] [address] [facility] [place] [facility] CBC AND DIFF (AUTO) NEUTROPHIL S/100 LEUKOCYTES IN BLOOD BY AUTOMATED COUNT 45.6 43.7 - 75.8 01/13 Specimen Type: BLOOD No comment entered. Ordering Provider: OLYA ETIENNE Report Released Date/Time: Jan 05, 2024 05:10 PM Reporting Lab: [facility] [place] [address] [address] Performing Lab[facility] [place] [address] [address] [facility] [place] [facility] CBC AND DIFF (AUTO) LYMPHOCYTE S/100 LEUKOCYTES IN BLOOD BY AUTOMATED COUNT 35.6 14.0 - 42.3 01/13 Specimen Type: BLOOD No comment entered. Ordering Provider: OLYA ETIENNE Report Released Date/Time: Jan 05, 2024 05:10 PM Reporting Lab: [facility] [place] [address] [address] Performing Lab: [facility] [place] [address] [address] [facility] CBC AND DIFF (AUTO) MONOCYTES/ 100 LEUKOCYTES IN BLOOD BY AUTOMATED COUNT 14.8 5.1 - 13.7 01/13 H Specimen Type: BLOOD No comment entered. Ordering Provider: OLYA ETIENNE Report Released Date/Time: Jan 05, 2024 05:10 PM Reporting Lab: [facility] [place] [facility] [address] [place] [phone] Performing Lab: [facility] [place] [facility] [address] [facility] [address] [facility] CBC AND DIFF (AUTO) EOSINOPHIL S/100 LEUKOCYTES IN BLOOD BY AUTOMATED COUNT 2.7 0.4 - 6.8 01/13 Specimen Type: BLOOD No comment entered. Ordering Provider: OLYA ETIENNE Report Released Date/Time: Jan 05, 2024 05:10 PM Reporting Lab: [facility] [place] [facility] [address] [place] [phone] Performing Lab: [facility] [place] [facility] [address] [place] [phone] [facility] CBC AND DIFF (AUTO) BASOPHILS/ 100 LEUKOCYTES IN BLOOD BY AUTOMATED COUNT 1.3 0.1 - 2.0 01/13 Specimen Type: BLOOD No comment entered. Ordering Provider: OLYA ETIENNE Report Released Date/Time: Jan 05, 2024 05:10 PM Reporting Lab: [facility] [place] [facility] [address] [place] [phone] Performing Lab: [facility] [place] [facility] [address] [place] [phone] [facility] CBC AND DIFF (AUTO) NEUTROPHIL S [#/VOLUME] IN BLOOD BY AUTOMATED COUNT 1.69 10*3/uL 2.20 - 7.60 01/13 L Specimen Type: BLOOD No comment entered. Ordering Provider: OLYA ETIENNE Report Released Date/Time: Jan 05, 2024 05:10 PM Reporting Lab: [facility] [place] [facility] [address] [place] [phone] Performing Lab: [facility] [place] [facility] [address] [facility] [address] [facility] [place] [facility] CBC AND DIFF (AUTO) LYMPHOCYTE S [#/VOLUME] IN BLOOD BY AUTOMATED COUNT 1.32 10*3/uL 1.00 - 3.20 01/13 Specimen Type: BLOOD No comment entered. Ordering Provider: OLYA ETIENNE Report Released Date/Time: Jan 05, 2024 05:10 PM Reporting Lab: [facility] [place] [facility] [address] [facility] [address] Performing Lab: [facility] [place] [address] [address] [facility] [place] [facility] CBC AND DIFF (AUTO) EOSINOPHIL S [#/VOLUME] IN BLOOD BY AUTOMATED COUNT 0.10 10*3/uL 0.03 - 0.44 01/13 Specimen Type: BLOOD No comment entered. Ordering Provider: OLYA ETIENNE Report Released Date/Time: Jan 05, 2024 05:10 PM Reporting Lab: [facility] [place] [address] [address] Performing Lab: [facility] [place] [address] [address] [facility] [place] [facility] CBC AND DIFF (AUTO) BASOPHILS [#/VOLUME] IN BLOOD BY AUTOMATED COUNT 0.05 10*3/uL 0.01 - 0.13 01/13 Specimen Type: BLOOD No comment entered. Ordering Provider: OLYA ETIENNE Report Released Date/Time: Jan 05, 2024 05:10 PM Reporting Lab: [facility] [place] [address] [address] Performing Lab: [facility] [place] [address] [address] [facility] [place] [facility] CBC AND DIFF (AUTO) IMMATURE GRANULOCYT ES/100 LEUKOCYTES IN BLOOD BY AUTOMATED COUNT 0.0 0.0 - 0.7 01/13 Specimen Type: BLOOD No comment entered. Ordering Provider: OLYA ETIENNE Report Released Date/Time: Jan 05, 2024 05:10 PM Reporting Lab: [facility] [place] [facility] [address] [facility] [address] Performing Lab: [facility] [place] [facility] [address] [facility] [address] [facility] [place] CBC AND DIFF (AUTO) IMMATURE GRANULOCYT ES [#/VOLUME] IN BLOOD 0.00 10*3/uL 0.00 - 0.06 01/13 Specimen Type: BLOOD No comment entered. Ordering Provider: OLYA ETIENNE Report Released Date/Time: Jan 05, 2024 05:10 PM Reporting Lab: [facility] [place] [facility] [address] [facility] [address] Performing Lab: [facility] [place] [address] [address] [facility] [place] [facility] URINALYS IS CLEAN CATCH COLOR OF URINE Yellow 01/13 Specimen Type: URINE Comment: If Glucose = >500 and Ketones are positive, please alert the Physician. Ordering Provider: OLYA ETIENNE Report Released Date/Time: Jan 05, 2024 05:10 PM Reporting Lab: [facility] [place] [facility] [address] [facility] [address] Performing Lab: [facility] [place] [address] [address] [facility] [place] [facility] URINALYS IS CLEAN CATCH APPEARANCE OF URINE Clear 01/13 Specimen Type: URINE Comment: If Glucose = >500 and Ketones are positive, please alert the Physician. Ordering Provider: OLYA ETIENNE Report Released Date/Time: Jan 05, 2024 05:10 PM Reporting Lab: [facility] [place] [facility] [address] [facility] [address] Performing Lab: [facility] [place] [address] [address] [facility] [place] [facility] URINALYS IS CLEAN CATCH GLUCOSE [MASS/VOLU ME] IN URINE NEGATIVE mg/dL 01/13 Specimen Type: URINE Comment: If Glucose = >500 and Ketones are positive, please alert the Physician. Ordering Provider: OLYA ETIENNE Report Released Date/Time: Jan 05, 2024 05:10 PM Reporting Lab: [facility] [place] [facility] [address] [facility] [address] Performing Lab: [facility] [place] [facility] [address] [facility] [address] [facility] [place] [facility] URINALYS IS CLEAN CATCH KETONES [MASS/VOLU ME] IN URINE BY TEST STRIP NEGATIVE mg/dL 01/13 Specimen Type: URINE Comment: If Glucose = >500 and Ketones are positive, please alert the Physician. Ordering Provider: OLYA ETIENNE Report Released Date/Time: Jan 05, 2024 05:10 PM Reporting Lab: [facility] [place] [address] [address] Performing Lab: [facility] [place] [facility] [address] [facility] [address] [facility] [place] [facility] URINALYS IS CLEAN CATCH ERYTHROCYT ES [PRESENCE] IN URINE SEDIMENT BY LIGHT MICROSCOPY NEGATIVE mg/dL 01/13 Specimen Type: URINE Comment: If Glucose = >500 and Ketones are positive, please alert the Physician. Ordering Provider: OYLA ETIENNE Report Released Date/Time: Jan 05, 2024 05:10 PM Reporting Lab: [facility] [place] [facility] [address] [facility] [address] Performing Lab: [facility] [place] [facility] [address] [facility] [address] [facility] [place] URINALYS IS CLEAN CATCH PROTEIN [MASS/VOLU ME] IN URINE BY TEST STRIP NEGATIVE mg/dL 01/13 Specimen Type: URINE Comment: If Glucose = >500 and Ketones are positive, please alert the Physician. Ordering Provider: OLYA ETIENNE Report Released Date/Time: Jan 05, 2024 05:10 PM Reporting Lab: [facility] [place] [facility] [address] [facility] [address] Performing Lab: [facility] [place] [facility] [address] [facility] [address] [facility] [place] [facility] URINALYS IS CLEAN CATCH NITRITE [PRESENCE] IN URINE NEGATIVE mg/dL 01/13 Specimen Type: URINE Comment: If Glucose = >500 and Ketones are positive, please alert the Physician. Ordering Provider: OLYA ETIENNE Report Released Date/Time: Jan 05, 2024 05:10 PM Reporting Lab: [facility] [place] [facility] [address] [facility] [address] Performing Lab: [facility] [place] [facility] [address] [facility] [address] [facility] [place] URINALYS IS CLEAN CATCH BILIRUBIN. TOTAL [PRESENCE] IN URINE NEGATIVE mg/dL 01/13 Specimen Type: URINE Comment: If Glucose = >500 and Ketones are positive, please alert the Physician. Ordering Provider: OLYA ETIENNE Report Released Date/Time: Jan 05, 2024 05:10 PM Reporting Lab: [facility] [place] [facility] [address] [facility] [address] Performing Lab: [facility] [place] [facility] [address] [facility] [address] [facility] [place] [facility] URINALYS IS CLEAN CATCH SPECIFIC GRAVITY OF URINE BY REFRACTOME TRY 1.022 1.016 - 1.022 01/13 Specimen Type: URINE Comment: If Glucose = >500 and Ketones are positive, please alert the Physician. Ordering Provider: OLYA ETIENNE Report Released Date/Time: Jan 05, 2024 05:10 PM Reporting Lab: [facility] [place] [facility] [address] [facility] [address] Performing Lab: [facility] [place] [facility] [address] [facility] [address] [facility] [place] [facility] URINALYS IS CLEAN CATCH PH OF URINE BY TEST STRIP 6.5 5.0 - 9.0 01/13 Specimen Type: URINE Comment: If Glucose = >500 and Ketones are positive, please alert the Physician. Ordering Provider: OLYA ETIENNE Report Released Date/Time: Jan 05, 2024 05:10 PM Reporting Lab: [facility] [place] [address] [address] Performing Lab: [facility]ERRHIGHL[facility]ENTERN [facility]ITALUSE[address] [address] [facility] [place] [facility] URINALYS IS CLEAN CATCH UROBILINOG EN [MASS/VOLU ME] IN URINE BY TEST STRIP <2.0mg/d L <2.0 - 2.0 01/13 Specimen Type: URINE Comment: If Glucose = >500 and Ketones are positive, please alert the Physician. Ordering Provider: OLYA ETIENNE Report Released Date/Time: Jan 05, 2024 05:10 PM Reporting Lab: [facility] MASSUSE[address] [address] Performing Lab: [facility]ERRRED [facility] HOSPITALTRN [facility]ITALUSE[address] [address] [facility]N [facility] HOSPITALUSE [facility] URINALYS IS CLEAN CATCH LEUKOCYTE ESTERASE [PRESENCE] IN URINE BY TEST STRIP NEGATIVE 01/13 Specimen Type: URINE Comment: If Glucose = >500 and Ketones are positive, please alert the Physician. Ordering Provider: OLYA ETIENNE Report Released Date/Time: Jan 05, 2024 05:10 PM Reporting Lab: [facility] CENTERN [address]SUSE[address] [address] Performing Lab: [facility]ERRRED [facility] HOSPITALTRN [facility]USE[address] [address] [facility]ERN [place] [facility] TSH THYROTROPI N [UNITS/VOL UME] IN SERUM OR PLASMA 1.11 u[IU]/mL 0.35 - 5.00 03/19 Specimen Type: SERUM No comment entered. Ordering Provider: OLYA ETIENNE Report Released Date/Time: Mar 08, 2023 09:50 PM Reporting Lab: [facility]ERR[facility]ERN [facility]ITALUSE[address] [address] Performing Lab: [facility] [place] [facility] [address] [facility] [address] [facility] [place] [facility] LIPID PANEL FASTING CHOLESTERO L [MASS/VOLU ME] IN SERUM OR PLASMA 173 mg/dL 7 - 199 03/19 Specimen Type: SERUM No comment entered. Ordering Provider: OLYA ETIENNE Report Released Date/Time: Mar 08, 2023 09:50 PM Reporting Lab: [facility] [place] [facility] [address] [facility] [address] Performing Lab: [facility] [place] [facility] [address] [facility] [address] [facility]RL [facility]ITALUSE [facility] LIPID PANEL FASTING TRIGLYCERI DE [MASS/VOLU ME] IN SERUM OR PLASMA 45 mg/dL 0 - 150 03/19 Specimen Type: SERUM No comment entered. Ordering Provider: OLYA ETIENNE Report Released Date/Time: Mar 08, 2023 09:50 PM Reporting Lab: [facility] [place] [facility] [address] [facility] [address] Performing Lab: [facility] [place] [facility] [address] [facility] [address] [facility]RL W[facility]N [facility]USE [facility] LIPID PANEL FASTING CHOLESTERO L IN LDL [MASS/VOLU ME] IN SERUM OR PLASMA BY CALCULATIO N 76 mg/dL 0 - 129 03/19 Specimen Type: SERUM No comment entered. Ordering Provider: OLYA ETIENNE Report Released Date/Time: Mar 08, 2023 09:50 PM Reporting Lab: [facility] [place] [facility] [address] [facility] [address] Performing Lab: [facility] [place] [address] [address] [facility] [place] [facility] LIPID PANEL FASTING CHOLESTERO L.TOTAL/CH OLESTEROL IN HDL [MASS RATIO] IN SERUM OR PLASMA 2.0 03/19 Specimen Type: SERUM No comment entered. Ordering Provider: OLYA ETIENNE Report Released Date/Time: Mar 08, 2023 09:50 PM Reporting Lab: [facility] [place] [facility] [address] [facility] [address] Performing Lab: [facility] [place] [facility] [address] [facility] [address] [facility] [place] [facility] LIPID PANEL FASTING CHOLESTERO L IN HDL [MASS/VOLU ME] IN SERUM OR PLASMA 88 mg/dL 40 - 60 03/19 H Specimen Type: SERUM No comment entered. Ordering Provider: OLYA ETIENNE Report Released Date/Time: Mar 08, 2023 09:50 PM Reporting Lab: [facility] [place] [facility] [address] [facility] [address] Performing Lab: [facility] [place] [facility] [address] [facility] [address] [facility] [place] [facility] LIVER FUNCTION PROTEIN [MASS/VOLU ME] IN SERUM OR PLASMA 6.8 g/dL 6.0 - 8.3 03/19 Specimen Type: SERUM No comment entered. Ordering Provider: OLYA ETIENNE Report Released Date/Time: Mar 08, 2023 09:50 PM Reporting Lab: [facility] [place] [facility] [address] [facility] [address] Performing Lab: [facility] [place] [facility] [address] [facility] [address] [facility] [place] [facility] LIVER FUNCTION ALBUMIN [MASS/VOLU ME] IN SERUM OR PLASMA 3.6 g/dL 3.5 - 5.0 03/19 Specimen Type: SERUM No comment entered. Ordering Provider: OLYA ETIENNE Report Released Date/Time: Mar 08, 2023 09:50 PM Reporting Lab: [facility] [place] [facility] [address] [facility] [address] Performing Lab: [facility] [place] [facility] [address] [facility] [address] [facility] [place] [facility] LIVER FUNCTION ALKALINE PHOSPHATAS E [ENZYMATIC ACTIVITY/V OLUME] IN SERUM OR PLASMA 68 U/L 40 - 150 03/19 Specimen Type: SERUM No comment entered. Ordering Provider: OLYA ETIENNE Report Released Date/Time: Mar 08, 2023 09:50 PM Reporting Lab: [facility] [place] [facility] [address] [facility] [address] Performing Lab: [facility] [place] [facility] [address] [facility] [address] [facility] [place] [facility] LIVER FUNCTION ASPARTATE AMINOTRANS FERASE [ENZYMATIC ACTIVITY/V OLUME] IN SERUM OR PLASMA 22 U/L 5 - 34 03/19 Specimen Type: SERUM No comment entered. Ordering Provider: OLYA ETIENNE Report Released Date/Time: Mar 08, 2023 09:50 PM Reporting Lab: [facility] [place] [facility] [address] [facility] [address] Performing Lab: [facility] [place] [facility] [address] [facility] [address] [facility] [place] [facility] LIVER FUNCTION ALANINE AMINOTRANS FERASE [ENZYMATIC ACTIVITY/V OLUME] IN SERUM OR PLASMA 18 U/L 6 - 55 03/19 Specimen Type: SERUM No comment entered. Ordering Provider: OLYA ETIENNE Report Released Date/Time: Mar 08, 2023 09:50 PM Reporting Lab: [facility] [place] [facility] [address] [facility] [address] Performing Lab: [facility] [place] [facility] [address] [facility] [address] [facility] [place] [facility] LIVER FUNCTION BILIRUBIN. TOTAL [MASS/VOLU ME] IN SERUM OR PLASMA 0.4 mg/dL 0.2 - 1.2 03/19 Specimen Type: SERUM No comment entered. Ordering Provider: OLYA ETIENNE Report Released Date/Time: Mar 08, 2023 09:50 PM Reporting Lab: [facility] [place] [facility] [address] [facility] [address] Performing Lab: [facility] [place] [address] [address] [facility] [place] [facility] Vital Signs Combined list of inpatient and outpatient Vital Signs from Department of Defense and Veterans Affairs, ranging from 12 months to all on record, depending upon the facility. Vital Sign Value Date Comments Source SYSTOLIC BLOOD PRESSURE 153 06/25/20 24 09:25:56 [facility] [place] [facility] DIASTOLIC BLOOD PRESSURE 76 024 09:25:56 [facility] [place] [facility] PULSE OXIMETRY 99 06/25/2024 09:25:56 [facility] [place] WEIGHT 141.7 06/25/2024 09:25:56 [facility] [place] BMI 22kg/m2 06/25/2024 09:25:56 [facility] [place] [facility] PAIN 0 06/25/2024 09:25:56 [facility] [place] [facility] HEIGHT 67 06/25/2024 09:25:56 [facility] [place] [facility] TEMPERATURE 97.8 06/25/2024 09:25:56 [facility] [place] [facility] PULSE 59 06/25/2024 09:25:56 [facility] [place] [facility] RESPIRATION 16 06/25/2024 09:25:56 [facility] [place] [facility] SYSTOLIC BLOOD PRESSURE 138 05/26/20 24 13:56:07 [facility] [place] [facility] DIASTOLIC BLOOD PRESSURE 82 024 13:56:07 [facility] [place] [facility] PULSE OXIMETRY 97 05/26/2024 13:56:07 [facility] [place] [facility] WEIGHT 138 05/26/2024 13:56:07 [facility] [place] [facility] BMI 22kg/m2 05/26/2024 13:56:07 [facility] [place] [facility] PAIN 0 05/26/2024 13:56:07 [facility] [place] [facility] HEIGHT 66.5 05/26/2024 13:56:07 [facility] [place] [facility] TEMPERATURE 98.7 05/26/2024 13:56:07 [facility] [place] [facility] PULSE 67 05/26/2024 13:56:07 [facility] [place] [facility] RESPIRATION 16 05/26/2024 13:56:07 [facility] [place] [facility] SYSTOLIC BLOOD PRESSURE 146 01/13/20 24 09:07:05 [facility] [place] [facility] DIASTOLIC BLOOD PRESSURE 100 024 09:07:05 [facility] PULSE OXIMETRY 100 01/13/2024 09:07:05 [facility] WEIGHT 141 01/13/2024 09[facility]07:05 [facility] BMI 23kg/m2 01/13/2024 09:07:05 [facility] PAIN 0 01/13/2024 09:07:05 [facility] TEMPERATURE 97.7 01/13/2024 09:07:05 [facility] PULSE 50 01/13/2024 09[facility]07:05 [facility] RESPIRATION 16 01/13/2024 09:07:05 [facility] Encounters Combined list of: 1) Encounters from [facility] facilities going back up to thelast 18 months. 2) Encounters from the Department of Defense facilities going back up to 280 months. Location Location Details Encounter Type Encounter Number Reason For Visit Attending Provider ADM Date DC Date Status Disposition Source [facility] Outpatient Encounter [id number] 05/25 [facility] Outpatient [facility]counter [id number] 06/25 [facility] Out[facility]counter [id number] 07/01 [facility] Out[facility]counter [id number] 07/04 [facility] OFFICE O/P EST LOW 20-29 MIN [id number] Diagnos is: ICD-10- CM I48.91 Unspeci fied atrial fibrill ation<b r/> [address]LE[address] 07/09 [facility] Out[facility]counter [id number] 07/30 [facility] Out[facility]counter [id number] 08/06 [facility] Out[facility]counter [id number] 08/15 [facility] Out[facility]counter [id number] 08/22 [facility] Out[facility]counter [id number] 09/04 [facility]counter [id number] 09/10 [facility]counter [id number] 09/11 [facility] [facility] En[facility] [id number] 10/28 [facility] En[facility] [id number] 10/29 [facility] Encounter [id number] 01/09 [facility] OFFICE O/P EST LOW 20 MIN [id number] Diagnos is: ICD-10- CM I10 Essenti al (primar y) hyperte nsion<b r/> COLEEN ETIENNE RD D 01/13 [facility] OFF/OP EST MAY X REQ PHY/QHP [id number] Diagnos is: ICD-10- CM Z23 Encount er for immuniz ation<b r/> COLEEN ETIENNE RD D 01/13 [facility] COMPRE [place] 1/ [id number] Diagnos is: ICD-10- CM H25.813 Combine d forms of age-rel ated catarac t, bilater al
MERHAR,DELROY H B 01/28 [facility] FIT SPECTACLES MONOFOCAL [id number] Diagnos is: ICD-10- CM Z46.0 Encount er for fit/adj st of spectac les and contact lenses< br/> MERHAR,DELROY H B 02/02 [facility] Encounter [id number] 04/17 [facility] Encounter [id number] 04/17 [facility] Encounter [id number] 05/18 [facility] Encounter [id number] 05/26 [facility] OFFICE O/P EST LOW 20 MIN [id number] Diagnos is: ICD-10- CM 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
COLEEN ETIENNE RD D 05/26 [facility] En[facility] [id number] 06/08 [facility] En[facility] [id number] 1.06/08 [facility] OFFICE O/P EST SF 10 MIN [id number] Diagnos is: ICD-10- CM L30.9 Dermati tis, unspeci fied
COLEEN ETIENNE RD D 06/25 [facility] UNLISTED SPEC DERM SVC/PX [id number] Diagnos is: ICD-10- CM Z13.89 Encount er for screeni ng for other disorde r
MINESH MANN ICA A 07/01 [facility] Outpatient Encounter [id number] Diagnos is: ICD-10- CM L82.1 Other seborrh eic keratos is
NILAY JANSEN 07/01 [facility] Outpatient Encounter [id number] 07/05 [facility] Encounter [id number] 07/07 [facility] Encounter [id number] 07/09 [facility] Encounter [id number] 08/28 [facility] Encounter [id number] 1.08/28 [facility] Out[facility] Encounter [id number]/[id number] [facility] Out[facility] Encounter [id number] 09/09 [facility] Out[facility] Encounter [id number] Diagnos is: ICD-10- CM M25.561 Pain in right knee
SILVERIO GOMEZ JOAQUIN L 09/10 [facility] Encounter [id number] 1.09/12 [facility] Out[facility] Encounter [id number] 09/18 [facility] Out[facility] Encounter [id number] 09/30 [facility] Encounter [id number] 10/06 [facility] [place] Social History Combined list of available smoking, tobacco, and other social history from Department of Defense and Veterans Affairs facilities. Social History Type Response Date Comment Source Tobacco smoking status NHIS VA-TOBACCO FORMER USER 05/26/2024 [facility] [place] [facility] History of tobacco use VT-TOBACCO QUIT 5 TO < 15 YRS 05/26/2024 [facility] [place] [facility] History of tobacco use VT-TOBACCO FORMER USER 03/20/2023 [facility] [place] [facility] History of tobacco use VT-TOBACCO FORMER USER 03/19/2022 [facility] [place] [facility] History of tobacco use VT-TOBACCO FORMER USER 02/07/2021 [facility] [place] [facility] History of tobacco use VT-TOBACCO FORMER USER 02/02/2020 [facility] [place] [facility] [place] History of tobacco use QUIT TOBACCO USE 1-7 YEARS AGO 10/24/2017 PT QUIT 2 YRS AGO [facility] [place] [facility] History of tobacco use LIFETIME NON-TOBACCO USER 11/23/2016 [facility] [place] [facility] History of tobacco use QUIT TOBACCO USE 1-7 YEARS AGO 05/11/2016 [facility] [place] [facility] History of tobacco use V1-PT THINKING ABOUT QUIT TOBACCO USE 12/09/2015 [facility] [place] [facility] History of tobacco use QUIT TOBACCO USE IN PAST YEAR 05/25/2015 [facility] [place] [facility] History of tobacco use V1-PT DECLINES TOBACCO CESSATION MEDS 10/05/2014 [facility] [place] [facility] History of tobacco use CURRENT SMOKER 08/17/2014 trys to reduce smoking [facility] [place] [facility] History of tobacco use QUIT TOBACCO USE 1-7 YEARS AGO 10/31/2012 [facility] [place] [facility] History of tobacco use QUIT TOBACCO USE 1-7 YEARS AGO 11/30/2011 [facility] [place] [facility] History of tobacco use QUIT TOBACCO USE IN PAST YEAR 11/21/2010 [facility] History of tobacco use CURRENT SMOKER 02/02/2010 3 per day [facility] [place] [facility] History of tobacco use V1-PT DECLINES TOBACCO CESSATION MEDS 01/13/2010 [facility] [place] [facility] History of tobacco use V1-PT DECLINES TOBACCO CESSATION MEDS 08/02/2009 [facility] [place] History of tobacco use CURRENT SMOKER 03/04/2009 1 or 2 ppd [facility] [place] History of tobacco use V1-PT READY TO QUIT TOBACCO USE 02/22/2009 [facility] [place] History of tobacco use V1-PT DECLINES TOBACCO CESSATION MEDS 09/02/2008 [facility] [place] [facility] History of tobacco use QUIT TOBACCO USE IN PAST YEAR 04/01/2008 [facility] [place] [facility] History of tobacco use V1-PT DECLINES TOBACCO CESSATION MEDS 02/26/2008 [facility] [place] [facility] History of tobacco use CURRENT SMOKER 11/14/2007 3 cigarrettes a week/30 years [facility] Plan of Care List of future care activities from Department of Veterans Affairs facilities. Additional future care activities may be listed in the Assessment and Plan section. Date/Time Care Activity Care Activity Detail Facili ty 11/09/2024 AMBULATORY - NONE [facility] [place] [facility] 11/26/2024 AMBULATORY - MEDICINE [facility] [place] [facility] 02/03/2025 AMBULATORY - MEDICINE [facility]
--- OUTSIDE RECORDS SUMMARY | 2024-11-09 10:55 | XMS_ITS | Encounter Summary ---
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 Role Phone LAVERN ETIENNE Primary Care [...] SELF + ONE Aug 13, [phone] [id number] [phone] SUGRUE,TO DD PATIENT ANTHEM BCBS CT FEDERAL PREFERRED PROVIDER ORGANIZAT ION (PPO) STAND CONSUELO SELF Nov 18, 2007 [id number] [phone] SUGRUE,TO DD PATIENT ANTHEM BCBS CT FEDERAL PREFERRED PROVIDER ORGANIZAT ION (PPO) STAND CONSUELO FAMIL Y Nov 30, 2000 105 [id number] [phone] SUGRUE,TO DD PATIENT BCBS [place] FEP PREFERRED PROVIDER ORGANIZAT ION (PPO) STAND CONSUELO SELF PLUS 1 Aug 13, 2020 106 [id number] SUGRUE,TO DD PATIENT BCBS [place] FEP PREFERRED PROVIDER ORGANIZAT ION (PPO) STAND CONSUELO FAMIL Y Nov 30, 2000 105 [id number] [phone] SUGRUE,TO DD PATIENT [place] PREFERRED PROVIDER ORGANIZAT ION (PPO) STAND CONSUELO SELF+ ONE Aug 13, 2020 106 [id number] SUGRUE,TO DD PATIENT [place] PREFERRED PROVIDER ORGANIZAT ION (PPO) STAND CONSUELO FAMIL Y Nov 30, 2000 105 [id number] SUGRUE,TO DD PATIENT [place] DENTAL DENTAL INSURANCE STAND CONSUELO Aug 13, 2020 DENTAL [id number] [phone] SUGRUE,TO DD PATIENT [place] FEP BCBS PRESCRIPT ION CAREM ARK FEPRX PLAN Aug 13, 2020 [id number] [phone] SUGRUE,TO DD PATIENT [place] FEPRX PLAN PRESCRIPT ION BCBS FEP Nov 18, 2010 [id number] SUGRUE,TO DD PATIENT [place] FEPRX PLAN PRESCRIPT ION CAREM ARK FEPRX Nov 18, 2010 [id number] SUGRUE,TO DD PATIENT [place] FEPRX PLAN PRESCRIPT ION BCBS FEP Nov 18, 2007 [id number] SUGRUE,TO DD PATIENT CAREMARK-F EP BCBS PRESCRIPT ION FEP CAREM ARK Nov 18, 2010 [id number] [phone] SUGKATEE,TO DD PATIENT MEDICARE (WNR) MEDICARE (M) PART A Sep 18, 2020 PART A [id number] SUGKATEE,TO DD PATIENT MEDICARE (WNR) MEDICARE (M) PART A Sep 18, 2020 PART A [id number] SUGRUE,TO DD PATIENT MEDICARE (WNR) MEDICARE (M) PART A Sep 18, 2020 PART A [id number] SUGKATEE,TO DD PATIENT [facility] 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 Date/Time Encounter Type Encounter Description Reason Pro vider Source Sep 09, 2024 01:24 PM Outpatient Encounter TELEPHONE TRIAGE IHE Encounter Template Text not used by [facility] Plan of Treatment: Future Appointments (+ 6 months) and Future Tests (+/- 45 days) The Plan of Treatment section includes future care activities for the patient from all [place] treatmentfacilities. This section includes future appointments and future orders which are active, pending or scheduled. Future Appointments This section includes appointments that were scheduled to occur 6 months from the date of the Encounter, up to a maximum of 20 appointments. The data comes from all [place] treatment facilities. Appointment Date/Time Appointment Type Appointme nt Facility Name Sep 10, 2024 04:30 PM AMBULATORY - NONE [place] [facility] [place] [facility] Nov 09, 2024 11:00 AM AMBULATORY - NONE [place] [facility] [place] [facility] Nov 26, 2024 08:30 AM AMBULATORY - MEDICINE [facility] [place] [facility] Feb 03, 2025 01:30 PM [facility] [place] [facility] Social History: Smoking Status (Most current) and Tobacco Use (All prior to encounter date) This section includes the most current, and the historical, smoking and tobacco- related health factors from the [place] facility where the Encounter took place. Current Smoking Status This section includes the most current smoking, or tobacco-related health factor, from the [place] facility where the Encounter took place. Date/Time Current Smoking Status Comment [facility] May 26, 2024 02:00 PM [facility]-TO[facility]ACCO [facility] [place] [facility] Tobacco Use History This section includes a history of the smoking, or tobacco-related health factors, that were collected on or before the date of the Encounter. The data comes from the [place] facility where the Encounter took place. Date/Time Smoking Status/Tobac co Use Comment Facility May 26, 2024 02:00 PM VA-TOBACCO QUIT 5 TO < 15 YRS [place] [facility] March 20, 2023 03:00 PM VA-TOBACCO FORMER USER [facility] [place] [facility] March 20, 2023 03:00 PM VA-TOBACCO QUIT 5 TO < 15 YRS [facility] [place] [facility] March 19, 2022 03:00 PM VA-TOBACCO FORMER USER [facility] [place] [facility] March 19, 2022 03:00 PM VA-TOBACCO QUIT 5 TO < 15 YRS [facility] [place] [facility] Feb 07, 2021 11:00 AM VA-TOBACCO FORMER USER [facility] [place] [facility] Feb 07, 2021 11:00 AM VA-TOBACCO QUIT 5 TO < 15 YRS [facility] [place] [facility] Feb 02, 2020 03:19 PM VA-TOBACCO FORMER USER [facility] [place] [facility] Feb 02, 2020 03:19 PM VA-TOBACCO QUIT 5 TO < 15 YRS [facility] [place] [facility] Sep 03, 2018 11:07 AM VA-TOBACCO NEVER USED [place] [facility] [place] [facility] Oct 24, 2017 02:40 PM QUIT TOBACCO USE 1-7 YEARS AGO PT QUIT 2 YRS AGO [facility] [place] [facility] Nov 23, 2016 11:14 AM LIFETIME NON-TOBACCO USER [facility] [place] [facility] Nov 23, 2016 11:14 AM QUIT TOBACCO USE 1-7 YEARS AGO [facility] [place] [facility] May 11, 2016 04:46 PM QUIT TOBACCO USE 1-7 YEARS AGO [facility] [place] [facility] Dec 09, 2015 09:56 AM V1-PT DECLINES REF TO TOBACCO CESS PRGM [facility] [place] [facility] Dec 09, 2015 09:56 AM V1-PT THINKING ABOUT QUIT TOBACCO USE [facility] [place] [facility] May 25, 2015 01:26 PM QUIT TOBACCO USE IN PAST YEAR [facility] [place] [facility] Oct 05, 2014 01:34 PM V1-PT DECLINES TOBACCO CESSATION MEDS [facility] [place] [facility] Oct 05, 2014 01:34 PM V1-PT THINKING ABOUT QUIT TOBACCO USE [facility] [place] [facility] Aug 17, 2014 09:30 AM CURRENT SMOKER trys to reduce smoking [facility] [place] [facility] Aug 17, 2014 09:30 AM V1-PT DECLINES REF TO TOBACCO CESS [facility] [place] Aug 17, 2014 09:30 AM V1-PT DECLINES TOBACCO CESSATION MEDS [facility] [place] [facility] Aug 17, 2014 09:30 AM V1-PT THINKING ABOUT QUIT TOBACCO USE [facility] [place] [facility] Oct 31, 2012 12:52 PM QUIT TOBACCO USE 1-7 YEARS AGO [facility] [place] [facility] Nov 30, 2011 11:15 AM QUIT TOBACCO USE 1-7 YEARS AGO [facility] [place] [facility] Nov 21, 2010 10:56 AM QUIT TOBACCO USE IN PAST YEAR [facility] Feb 02, 2010 10:09 AM CURRENT SMOKER 3 per day [facility] Jan 13, 2010 12:22 PM V1-PT DECLINES REF TO TOBACCO CESS PRGM [facility] Jan 13, 2010 12:22 PM V1-PT DECLINES TOBACCO CESSATION MEDS [facility] Jan 13, 2010 12:22 PM V1-PT THINKING ABOUT QUIT TOBACCO USE [facility] [place] [facility] Aug 02, 2009 12:04 PM V1-PT DECLINES REF TO TOBACCO CESS PRGM [facility] Aug 02, 2009 12:04 PM V1-PT DECLINES TOBACCO CESSATION MEDS [facility] Aug 02, 2009 12:04 PM V1-PT THINKING ABOUT QUIT TOBACCO USE [facility] [place] [facility] Mar 04, 2009 09:03 AM CURRENT SMOKER 1 or 2 ppd [facility] [place] [facility] Feb 22, 2009 12:06 PM V1-PT DECLINES REF TO TOBACCO CESS PRGM [facility] Feb 22, 2009 12:06 PM V1-PT READY TO QUIT TOBACCO USE [facility] [place] [facility] Sep 02, 2008 02:00 PM V1-PT DECLINES TOBACCO CESSATION MEDS [facility] Sep 02, 2008 02:00 PM V1-PT THINKING ABOUT QUIT TOBACCO USE [facility] April 01, 2008 11:27 AM QUIT TOBACCO USE IN PAST YEAR [facility] Feb 26, 2008 04:05 PM V1-PT DECLINES TOBACCO CESSATION MEDS [facility] Feb 26, 2008 04:05 PM V1-PT NOT INTERESTED IN QUIT TOBACCO USE [facility] Nov 14, 2007 02:46 PM CURRENT SMOKER 3 cigarrettes a week/30 years [facility] Encounter Notes: All associated encounter notes This section contains the clinical notes associated to the Encounter. Date/Time Encounter Note(s) Provider Source Sep 09, 2024 01:24 PM RN PROGRESS NOTE: LOCAL TITLE: [facility]: CLINICAL TRIAGE STANDARD TITLE: RN PROGRESS NOTE DATE OF NOTE: SEP 09, 2024@13:24:20 ENTRY DATE: SEP 09, 2024@13:24:20 AUTHOR: SHAY GARCIA COSIGNER: URGENCY: STATUS: COMPLETED Patient Demographics Patient Name: ELEAZAR RAYGOZA Patient Primary Address: [address] [place] [id number] Patient Primary Phone: [phone] Patient : 1955 Patient Age: 68 Caller/Recipient Relation to Patient: Self Emergency Contact: CATHERINE JARET Triage Summary Conducted triage/discussed symptoms Pain Score: 6 (Moderate to Severe Pain) Utilized the Triage Tool: Yes Chief Complaint: Knee Pain (one knee) System WHEN: Within 3 Days Nurse's Recommendation / WHEN: Within 3 Days System WHERE: Clinic Nurse's Recommendation / WHERE: Clinic/[facility] Patient Disposition Patient/Caregiver agrees to plan of care: Yes Patient WHERE: Clinic/[facility] Patient WHEN: Within 3 days Nursing Plan and Disposition Referred for [facility] Virtual Clinic Visit Transferred patient to Sched & Admin-VCV Other course(s) of action Generated msg to PACT/Provider Provided guidance for worsening symptoms: *Caller/Patient* advised to call facilities [place] Clinical Contact Center or seek immediate medical attention for new or worsening symptoms Nurse Summary Nurse Summary: Vet stated, For 6 weeks, pain in L knee. I tried stretch, swimming, otc pain ointments, etc but doesn't helps. Hurts to bend. It's just sore & didn't do anything specific. 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 I can walk; it's just a nagging pain every so often. This makes no sense to me why do I need an appt if I'm just trying to get an xray . Vet offered no further c/o & in NAD. R: Vet agrees w/appt w/TELE with [facility]. Modality: Vet declined video. Appt timeframe: w/in 3 days, Appt Reason: L knee pain x 6 weeks. Successful transfer to [facility], to make appt w/[facility]. Opt# 2: F2F w/PCP. Opt# 3 local . *[facility] Clinical Contact Center ph# , available 10/06. View alerted 2 Pact Team members/Nurse/s PER VISN 1 Protocol. Clinical Contact Center Codes Clinic/Location: [facility] PHONE [facility] RN Decision Support System Output: Triage Complete Triage Date: 09/09/2024, 01:14 PM Triage Note: Decision Support Tool Used: [employer] Phone Triage Sat, 09 Sep 2024 17:11:53 +0000 [facility] Demographics 68 y/o Male Results CC: Knee Pain (one knee) Software suggested: Within 3 Days Software suggested follow-up location: Clinic, consider [facility] care Values and Measures Duration of CC: 6 Weeks Positive Responses HPI: joint stiffness, worse in the morning HPI: knee pain, duration longer than 1 week HPI: knee pain, duration longer than 2 hours HPI: knee pain, moderate to severe HPI: knee pain, worsening VS: temperature not taken Negative Responses Denies: HPI: joint pain, worse in the morning Denies: HPI: knee injury, within past 2 days Denies: HPI: knee pain, severe Denies: HPI: knee swelling, with knee pain Denies: HPI: leg swelling, localized below the painful knee Denies: HPI: lymph node pain, lymph node swelling, inguinal Denies: HPI: red streaks, from a spot on the knee Denies: HPI: skin erythema, knee Denies: HPI: skin lump, swollen, painful, over the knee Denies: HPI: skin swelling, knee, worsening Denies: HPI: skin tenderness, knee, worsening Denies: HPI: unable to walk Denies: PMH: gout Denies: PMH: osteoarthritis Denies: PMH: rheumatoid arthritis Denies: PSH: knee surgery, within past week IMPORTANT: This note was created by [facility] Clinical Contact Center staff. Please do not alert the staff member by adding them as a signer for future communications. Alerts are not monitored by this user. /marisa/ SHAY FALCON 1 [facility] [employer] Signed: 09/09/2024 13:24 Receipt Acknowledged By: 09/10/2024 08:50 /es/ Ange Ruiz RN, BSN Primary Care 09/10/2024 13:21 /es/ GREGORY MELO LPN, KERRI LYNN [facility]
[2024-11-09 10:56] VITALS: BP 132/82; PULSE 60; O2SAT 97; BMI 22.3
--- NOTE | 2024-11-09 10:56 | A.OFFVIS_ITS ---
Vital Signs 11/09/24 10:56 Height 5 ft 6 in Weight 138 lb 0.15 oz BMI 22.3 BP 132/82 Blood Pressure Location Rt brachial Position Sitting Pulse 60 Pulse Source Pulse Oximeter Pulse Oximetry (%) 97 Oxygen Delivery Method Room Air Intake Visit Reasons: Colonoscopy screening Intake Note: NEW PATIENT Gunnar presents in office today for a scheduled colo scrn Prior hx of colo/egd? W/ TH in 2020 Meds and Allergies reviewed? Y Any significant concerns or questions? Pt has significant cardiac hx. Pharmacy verified? [facility] Medical Doctor Md/Medical Director Required: No Allergies No Known Allergies [No Known Allergies*] Allergy (Verified 11/09/24 10:56) HPI HPI Colonoscopy screening: Details: LAST VISIT WITH RAZA ARREGUIN 08/07/2021 Diagnosis A.? Colon, sigmoid, polypectomy:? Hyperplastic mucosal polyp. B.? Colon, ascending, polypectomies:? - Tubular adenomas (two); no high grade dysplasia or carcinoma seen. - Colonic mucosa with mild surface hyperplastic changes. C.? Colon, transverse, polypectomies:? Colonic mucosa with mild surface hyperplastic changes. Impression and Post Procedure Diagnosis: polyps internal hemorrhoids diverticular disease Plan: High fiber diet leaflet Avoid straining at stool, epsom salts and sitz bath, anusol supps or cream Repeat Colonoscopy in 3-5 years due to polyp burden or earlier if clinically indicated TODAY'S VISIT 69 y ear old? male with past medical history of hypertension, PAF, diverticulosis of the colon, tubular adenoma is here today for pre colonoscopy screening.? ?This is his first colonoscopy screening.? Last colonoscopy was in 2020 ascending colon tubular adenoma. Patient denies any gastrointestinal symptoms in the past or at present.? Denies history of difficulty with sedation or anesthesia in the past.? Negative for history of sleep apnea.? Denies any history of cardiac, renal, pulmonary, or hepatic disease.?? No history of infectious? diseases like hepatitis A, B, C, HIV or tuberculosis.? Patient is on Eliquis. History of AFib. Last stress test was done in July of 2023 and that was normal. Will send message to cardiology for risk stratification and clearance on went to stop Eliquis. [facility] Medical History Alcohol use disorder Essential hypertension COVID-19 vaccine series completed Adenomatous colon polyp Surgical History Hx of rotator cuff surgery H/O colonoscopy Family History Mother Colon cancer Social History Household Members Other:: lives with Alcohol intake: current Alcohol intake frequency: holidays/special occasions only Patient Tobacco Use Status: Never used Tobacco Current occupational status: employed Review of Systems Const Denies weight gain and Denies weight loss ENT Reports no additional complaints, Denies dysphagia and Denies odynophagia Card Reports no additional complaints Resp Reports no additional complaints GI Denies abdominal pain, Denies belching, Denies melena, Denies bloating, Denies change in bowel habits, Denies dysphagia, Denies excessive flatus, Denies dyspepsia, Denies heartburn, Denies diarrhea, Denies loose stools, Denies nausea, Denies odynophagia and Denies vomiting Reports no additional complaints Musc Reports no additional complaints Neuro Reports no additional complaints Psych Reports no additional complaints Endo Reports no additional complaints Physical Exam Vital Signs: Last Vital Signs Pulse 60 11/09/24 10:56 BP 132/82 11/09/24 10:56 Pulse Ox 97 11/09/24 10:56 Oxygen Delivery Method Room Air 11/09/24 10:56 BMI result Body Mass Index 22.3 Const General: healthy appearing, no acute distress and well developed Nutritional Appearance: well nourished Orientation/consciousness: patient oriented x3 Resp Effort & Inspection: normal respiratory effort, able to speak in complete sentences, no tracheal deviation and symmetric chest movement Auscultation: clear to auscultation bilaterally Cardio Rate: regular rate GI Inspection: Yes normal to inspection and No distended Palpation (GI): Soft to palpation, not firm, nontender and No hepatosplenomegaly present Auscultation: normal bowel sounds General: Yes no CVA tenderness Back/Spine/Pelvis Back: no CVA tenderness Skin General skin exam: elasticity normal, turgor normal and dry skin Neuro General: patient oriented x3 Psych Appearance: grossly normal Mental Status: mental status grossly normal Assessment & Plan Assessment & Plan (1) Encounter for screening colonoscopy: Code(s): Z12.11 - Encounter for screening for malignant neoplasm of colon Category: Medical (2) Diverticulosis of colon: Code(s): K57.30 - Diverticulosis of large intestine without perforation or abscess without bleeding Category: Medical (3) Adenomatous colon polyp: Code(s): D12.6 - Benign neoplasm of colon, unspecified Category: Medical Qualifiers: Colon location: ascending Qualified Code(s): D12.2 - Benign neoplasm of ascending colon Plan Patient denies any GI, cardiac or respiratory symptoms.? Denies any issues with anesthesia in the past.? Denies any history of sleep apnea.? No history infectious diseases in the past or present.? Patient is on Eliquis. Will ask Cardiology for risk stratification and wHEN to stop Eliquis. Patient had normal stress test in 2022.? Family history of colorectal cancer. Patient's mom was diagnosed with colorectal cancer at age 69. ? Patient denies melena, hematochezia, unintentional weight loss or ribbon like stools.? Discussed at length the pre-procedure,? prep, diet & medications as well as what to expect prior, during and after the procedure.?? Stressed the importance of good bowel prep.? Recommended the use of Vaseline or Calmoseptine OTC & baby wipes with bowel movements to promote comfort.? ?Patient verbalizes understanding and agrees to plan of care.? He was given the opportunity to ask questions and all questions answered.? We will see him after the procedure.? Medications: New bisacodyl (Dulcolax (bisacodyl)) take 4 tabs at noon the day before your colonoscopy 20 mg (4 x 5 mg) PO ONCE 4 tabs 0RF 1 day Z12.11 - Encounter for screening for malignant neoplasm of colon polyethylene glycol 3350 (Miralax) As directed by gastroenterology department at [facility] 238 grams PO ONCE 238 grams 0RF Z12.11 - Encounter for screening for malignant edgard plasm of colon Coding Level of Care Code New Pt Level 3 (28489) Diagnoses Encounter for screening colonoscopy Z12.11 Diverticulosis of colon K57.30 Adenomatous polyp of ascending colon D12.2 Colon location: ascending Time Spent (min) 40 Comment 30 minutes spent with patient and additional 10 minutes spent reviewing his records
--- OUTSIDE RECORDS SUMMARY | 2024-11-09 10:56 | XMS_ITS ---
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 Name Role Phone HIPOLITO HARDING Primary Care [...] SELF + ONE Aug 13, [phone] [id number] [phone] SUGRUE,TO DD PATIENT ANTHEM BCBS CT FEDERAL PREFERRED PROVIDER ORGANIZAT ION (PPO) STAND CONSUELO SELF Nov 18, 2007 104 [id number] [phone] SUGRUE,TO DD PATIENT ANTHEM BCBS CT FEDERAL PREFERRED PROVIDER ORGANIZAT ION (PPO) STAND CONSUELO FAMIL Y Nov 30, 2000 105 [id number] [phone] SUGRUE,TO DD PATIENT BCBS [place] FEP PREFERRED PROVIDER ORGANIZAT ION (PPO) STAND CONSUELO SELF PLUS 1 Aug 13, 2020 106 [id number] SUGRUE,TO DD PATIENT BCBS [place] F[place] PREFERRED PROVIDER ORGANIZAT ION (PPO) STAND CONSUELO FAMIL Y Nov 30, 2000 105 [id number] SUGRUE,TO DD PATIENT [place] PREFERRED PROVIDER ORGANIZAT ION (PPO) STAND CONSUELO SELF+ ONE Aug 13, 2020 106 [id number] SUGRUE,TO DD PATIENT [place] F[place] PREFERRED PROVIDER ORGANIZAT ION (PPO) STAND CONSUELO FAMIL Y Nov 30, 2000 105 [id number] [phone] SUGRUE,TO DD PATIENT [place] FEP DENTAL DENTAL INSURANCE STAND CONSUELO Aug 13, 2020 DENTAL [id number] SUGRUE,TO DD PATIENT [place] FEP BCBS PRESCRIPT ION CAREM ARK FEPRX PLAN Aug 13, 2020 [id number] SUGRUE,TO DD PATIENT [place] FEPRX PLAN PRESCRIPT ION BCBS FEP Nov 18, 2010 [id number] SUGRUE,TO DD PATIENT [place] FEPRX PLAN PRESCRIPT ION CAREM ARK FEPRX Nov 18, 2010 [id number] SUGRUE,TO DD PATIENT [place] FEPRX PLAN PRESCRIPT ION BCBS FEP Nov 18, 2007 [id number] SUGRUE,TO DD PATIENT [place]-F EP BCBS PRESCRIPT ION FEP CAREM ARK Nov 18, 2010 [id number] [phone] SUGKATEE,TO DD PATIENT MEDICARE (WNR) MEDICARE (M) PART A Sep 18, 2020 PART A [id number] SUGRUE,TO DD PATIENT MEDICARE (WNR) MEDICARE (M) PART A Sep 18, 2020 PART A [id number] [phone] [id number] SUGRUE,TO DD PATIENT MEDICARE (WNR) MEDICARE (M) PART A Sep 18, 2020 PART A [id number] SUGRUE,TO DD PATIENT [facility] DFEC WORKERS' COMPENSAT ION INSURANCE WORKE R'S COMP April 01, 2018 WORKER' S COMP [id number] ADAMA RAYGOZA DD PATIENT Selected Encounter This section includes the information on record at [place] for the Encounter. Date/Time Encounter Type Encounter Description Reason Pro vider Source Jul 09, 2024 02:43 PM Outpatient Encounter PRIMARY CARE/MEDICINE IHE Encounter Template Text not used by [place] Plan of Treatment: Future Appointments (+ 6 months) and Future Tests (+/- 45 days) The Plan of Treatment section includes future care activities for the patient from all [place] treatmentfacilities. This section includes future appointments and future orders which are active, pending or scheduled. Future Appointments This section includes appointments that were scheduled to occur 6 months from the date of the Encounter, up to a maximum of 20 appointments. The data comes from all [place] treatment facilities. Appointment Date/Time Appointment Type Appointme nt Facility Name Sep 10, 2024 04:30 PM AMB[facility] NONE [facility] Nov 09, 2024 11:00 AM [facility]UL[facility] NONE [facility] Nov 26, 2024 08:30 AM AMBUL[facility]INE [facility] Active, Pending, and Scheduled Orders This section includes a listing of several types of active, pending, and scheduled orders, including clinic medications orders, diagnostic test orders, procedure orders and consult orders; where the start date of the order is 45 days before the date of the Encounter or 45 days after the date of theEncounter. The data comes from all [place] treatment [facility]. Test Date/Time Test Type Test Details Facility Name May 26, 2024 02:25 PM Consult Order COMMUNITY CARE-COLONOSCOPY SURVEILLANCE Cons Wood Heel Flap Inserter's Choice [facility] Jul 04, 2024 12:00 AM Laboratory - Chemistry Order BASIC METABOLIC PANEL (fasting) BLOOD (S[facility]SERUM) [facility] Jul 04, 2024 12:00 AM Laboratory - Chemistry Order LIVER FUNCTION BLOOD (SST[facility]SERUM) [facility] Jul 04, 2024 12:00 AM Laboratory - Chemistry Order LIPID PANEL FASTING BLOOD (SST-SERUM) [facility] Jul 04, 2024 12:00 AM Laboratory - Chemistry Order TSH BLOOD (SST-SERUM) [place] [facility] [place] [facility] Jul 04, 2024 12:00 AM Laboratory - Chemistry Order PSA BLOOD (SST-SERUM) [facility] [place] [facility] [place] [facility] Jul 04, 2024 12:00 AM Laboratory - Chemistry Order URINALYSIS CLEAN CATCH URINE [facility] [place] [facility] Jul 04, 2024 12:00 AM Laboratory - Chemistry Order CBC AND DIFF (AUTO) BLOOD (LAV-BLOOD) [facility] Social History: Smoking Status (Most current) and Tobacco Use (All prior to encounter date) This section includes the most current, and the historical, smoking and tobacco- related health factors from the [place] facility where the Encounter took place. Current Smoking Status This section includes the most current smoking, or tobacco-related health factor, from the [place] facility where the Encounter took place. Date/Time Current Smoking Status Comment [facility] May 26, 2024 02:00 PM VA-TOBACCO FORMER USER [place] [facility] Tobacco Use History This section includes a history of the smoking, or tobacco-related health factors, that were collected on or before the date of the Encounter. The data comes from the [place] facility where the Encounter took place. Date/Time Smoking Status/Tobac co Use Comment Facility May 26, 2024 02:00 PM VA-TOBACCO QUIT 5 TO < 15 YRS [facility] [place] [facility] March 20, 2023 03:00 PM VA-TOBACCO FORMER USER [facility] [place] [facility] March 20, 2023 03:00 PM VA-TOBACCO QUIT 5 TO < 15 YRS [facility] [place] [facility] March 19, 2022 03:00 PM VA-TOBACCO FORMER USER [facility] [place] [facility] March 19, 2022 03:00 PM VA-TOBACCO QUIT 5 TO < 15 YRS [facility] [place] [facility] Feb 07, 2021 11:00 AM VA-TOBACCO FORMER USER [facility] [place] [facility] Feb 07, 2021 11:00 AM VA-TOBACCO QUIT 5 TO < 15 YRS [facility] [place] [facility] Feb 02, 2020 03:19 PM VA-TOBACCO FORMER USER [place] [facility] [place] [facility] Feb 02, 2020 03:19 PM VA-TOBACCO QUIT 5 TO < 15 YRS [place] [facility] [place] [facility] Sep 03, 2018 11:07 AM VA-TOBACCO NEVER USED [place] [facility] [place] [facility] Oct 24, 2017 02:40 PM QUIT TOBACCO USE 1-7 YEARS AGO PT QUIT 2 YRS AGO [facility] [place] [facility] Nov 23, 2016 11:14 AM LIFETIME NON-TOBACCO USER [place] [facility] [place] [facility] Nov 23, 2016 11:14 AM QUIT TOBACCO USE 1-7 YEARS AGO [place] [facility] [place] [facility] May 11, 2016 04:46 PM QUIT TOBACCO USE 1-7 YEARS AGO [facility] [place] [facility] Dec 09, 2015 09:56 AM V1-PT DECLINES REF TO TOBACCO CESS PRGM [place] [facility] [place] [facility] Dec 09, 2015 09:56 AM V1-PT THINKING ABOUT QUIT TOBACCO USE [facility] [place] [facility] May 25, 2015 01:26 PM QUIT TOBACCO USE IN PAST YEAR [place] [facility] [place] [facility] Oct 05, 2014 01:34 PM V1-PT DECLINES TOBACCO CESSATION MEDS [place] [facility] [place] [facility] Oct 05, 2014 01:34 PM V1-PT THINKING ABOUT QUIT TOBACCO USE [place] [facility] [place] [facility] Aug 17, 2014 09:30 AM CURRENT SMOKER trys to reduce smoking [place] [facility] [place] [facility] Aug 17, 2014 09:30 AM V1-PT DECLINES REF TO TOBACCO CESS PRGM [place] [facility] [place] [facility] Aug 17, 2014 09:30 AM V1-PT DECLINES TOBACCO CESSATION MEDS [place] [facility] [place] [facility] Aug 17, 2014 09:30 AM V1-PT THINKING ABOUT QUIT TOBACCO USE [place] [facility] [place] [facility] Oct 31, 2012 12:52 PM QUIT TOBACCO USE 1-7 YEARS AGO [facility] [place] [facility] Nov 30, 2011 11:15 AM QUIT TOBACCO USE 1-7 YEARS AGO [place] [facility] [place] [facility] Nov 21, 2010 10:56 AM QUIT TOBACCO USE IN PAST YEAR [facility] [place] [facility] Feb 02, 2010 10:09 AM CURRENT SMOKER 3 per day [facility] [place] [facility] Jan 13, 2010 12:22 PM V1-PT DECLINES REF TO TOBACCO CESS PRGM [facility] [place] [facility] Jan 13, 2010 12:22 PM V1-PT DECLINES TOBACCO CESSATION MEDS [facility] [place] [facility] Jan 13, 2010 12:22 PM V1-PT THINKING ABOUT QUIT TOBACCO USE [facility] [place] [facility] Aug 02, 2009 12:04 PM V1-PT DECLINES REF TO TOBACCO CESS PRGM [facility] Aug 02, 2009 12:04 PM V1-PT DECLINES TOBACCO CESSATION MEDS [place] [facility] Aug 02, 2009 12:04 PM V1-PT THINKING ABOUT QUIT TOBACCO USE [facility] Mar 04, 2009 09:03 AM CURRENT SMOKER 1 or 2 ppd [facility] Feb 22, 2009 12:06 PM V1-PT DECLINES REF TO TOBACCO CESS PRGM [facility] Feb 22, 2009 12:06 PM V1-PT READY TO QUIT TOBACCO USE [facility] [place] [facility] Sep 02, 2008 02:00 PM V1-PT DECLINES TOBACCO CESSATION MEDS [facility] Sep 02, 2008 02:00 PM V1-PT THINKING ABOUT QUIT TOBACCO USE [facility] [place] [facility] April 01, 2008 11:27 AM QUIT TOBACCO USE IN PAST YEAR [facility] [place] [facility] Feb 26, 2008 04:05 PM V1-PT DECLINES TOBACCO CESSATION MEDS [facility] Feb 26, 2008 04:05 PM V1-PT NOT INTERESTED IN QUIT TOBACCO USE [facility] [place] [facility] Nov 14, 2007 02:46 PM CURRENT SMOKER 3 cigarrettes a week/30 years [facility] Encounter Notes: All associated encounter notes This section contains the clinical notes associated to the Encounter. Date/Time Encounter Note(s) Provider Source Jul 09, 2024 02:43 PM ADMINISTRATIVE NOTE: LOCAL TITLE: ADMINISTRATIVE NOTE STANDARD TITLE: ADMINISTRATIVE NOTE DATE OF NOTE: JUL 09, 2024@14:43 ENTRY DATE: JUL 09, 2024@14:43:19 AUTHOR: ARMIDA RAZO EXP COSIGNER: URGENCY: STATUS: COMPLETED SPOKE WITH GITA ON THE TELEPHONE AND HE IS TRYING TO FIND OUT THE RESULTS OF HIS RECENT CANCER SCREENING RESULTS FROM DERMATOLOGY,PLEASE REACH OUT TO AT PROVIDED CALL BACK # . /marisa/ ARMIDA PELAYO Signed: 07/09/2024 14:49 Receipt Acknowledged By: 07/09/2024 15:04 /es/ Ange Ruiz RN, BSN Primary Care 07/09/2024 15:02 /es/ Hipolito Harding MD Staff Physician ARMIDA RAZO [facility]
--- OUTSIDE RECORDS SUMMARY | 2024-11-09 10:56 | XMS_ITS | Encounter Summary ---
Author Name [facility] [facility] [place] [facility] [place] Address [address] [place] [address] Care Team Providers Care Probation Supervisor Name Role Phone LAVERN ETIENNE Primary Care [...] SELF + ONE Aug 13, [phone] [id number] [phone] SUGRUE,TO DD PATIENT ANTHEM BCBS CT FEDERAL PREFERRED PROVIDER ORGANIZAT ION (PPO) STAND CONSUELO SELF Nov 18, 2007 104 [id number] [phone] SUGRUE,TO DD PATIENT ANTHEM BCBS CT FEDERAL PREFERRED PROVIDER ORGANIZAT ION (PPO) STAND CONSUELO FAMIL Y Nov 30, 2000 105 [id number] [phone] SUGRUE,TO DD PATIENT BCBS [place] FEP PREFERRED PROVIDER ORGANIZAT ION (PPO) STAND CONSUELO SELF PLUS 1 Aug 13, 2020 106 [id number] SUGRUE,TO DD PATIENT BCBS [place] F[place] PREFERRED PROVIDER ORGANIZAT ION (PPO) STAND CONSUELO FAMIL Y Nov 30, 2000 105 [id number] [phone] SUGRUE,TO DD PATIENT [place] PREFERRED PROVIDER ORGANIZAT ION (PPO) STAND CONSUELO SELF+ ONE Aug 13, 2020 106 [id number] SUGRUE,TO DD PATIENT [place] PREFERRED PROVIDER ORGANIZAT ION (PPO) STAND CONSUELO FAMIL Y Nov 30, 2000 105 [id number] SUGRUE,TO DD PATIENT [place] F[place] DENTAL DENTAL INSURANCE STAND CONSUELO Aug 13, 2020 DENTAL [id number] SUGRUE,TO DD PATIENT [place] FEP BCBS PRESCRIPT ION CAREM ARK FEPRX PLAN Aug 13, 2020 [id number] [phone] SUGRUE,TO DD PATIENT [place] FEPRX PLAN PRESCRIPT ION BCBS FEP Nov 18, 2010 [id number] SUGRUE,TO DD PATIENT [place] FEPRX PLAN PRESCRIPT ION CAREM ARK FEPRX Nov 18, 2010 [id number] SUGRUE,TO DD PATIENT [place] FEPRX PLAN PRESCRIPT ION BCBS FEP Nov 18, 2007 [id number] SUGRUE,TO DD PATIENT CAREMARK-F EP BCBS PRESCRIPT ION FEP CAREM ARK Nov 18, 2010 [id number] [phone] SUGKATEE,TO DD PATIENT MEDICARE (WNR) MEDICARE (M) PART A Sep 18, 2020 PART A [id number] SUGRUE,TO DD PATIENT MEDICARE (WNR) MEDICARE (M) PART A Sep 18, 2020 PART A [id number] SUGRUE,TO DD PATIENT MEDICARE (WNR) MEDICARE (M) PART A Sep 18, 2020 PART A [id number] SUGKATEE,TO DD PATIENT [facility] DFEC WORKERS' COMPENSAT ION INSURANCE WORKE R'S COMP April 01, 2018 WORKER' S COMP [id number] ADAMA RAYGOZA DD PATIENT Selected Encounter This section includes the information on record at [place] for the Encounter. Date/Time Encounter Type Encounter Description Reason Pro vider Source Jun 08, 2024 12:01 PM Outpatient Encounter TELEPHONE TRIAGE IHE Encounter Template Text not used by [place] Plan of Treatment: Future Appointments (+ 6 [...] 25, 2024 09:30 AM AM[place]UL[place] [facility] Jul 01, 2024 08:30 AM AM[place]UL[place] NONE [place] [facility] Sep 10, 2024 04:30 PM AMBULATORY - NONE [place] [facility] [place] [facility] Nov 09, 2024 11:00 AM [facility] [place] [facility] Nov 26, 2024 08:30 AM AMBULATORY - MEDICINE [facility] Active, Pending, and Scheduled Orders This section includes a listing of several types of active, pending, and scheduled orders, including clinic medications orders, diagnostic test orders, procedure orders and consult orders; where the start date of the order is 45 days before the date of the Encounter or 45 days after the date of theEncounter. The data comes from all [facility]. Test Date/Time Test Type Test Details Facility Name May 26, 2024 02:25 PM Consult Order COMMUNITY CARE-COLONOSCOPY SURVEILLANCE Cons Commercial Specialist's Choice [place] [facility] Jul 04, 2024 12:00 AM Laboratory - Chemistry Order BASIC METABOLIC PANEL (fasting) BLOOD (SST-SERUM) [facility] Jul 04, 2024 12:00 AM Laboratory - Chemistry Order LIVER FUNCTION BLOOD (SST-SERUM) [facility] [place] [facility] Jul 04, 2024 12:00 AM Laboratory - Chemistry Order LIPID PANEL FASTING BLOOD (SST-SERUM) [facility] [place] [facility] Jul 04, 2024 12:00 AM Laboratory - Chemistry Order TSH BLOOD (SST-SERUM) [facility] [place] [facility] Jul 04, 2024 12:00 AM Laboratory - Chemistry Order PSA BLOOD (SST-SERUM) [facility] Jul 04, 2024 12:00 AM Laboratory - Chemistry Order URINALYSIS CLEAN CATCH URINE [facility] [place] [facility] Jul 04, 2024 12:00 AM Laboratory - Chemistry Order CBC AND DIFF (AUTO) BLOOD (LAV-BLOOD) [facility] Social History: Smoking Status (Most [...] took place. Date/Time Current Smoking Status Comment [facility] May 26, 2024 02:00 PM VA-TOBACCO FOR[facility]ER [facility] Tobacco Use History This section includes a history of the smoking, or tobacco-related health factors, that were collected on or before the date of the Encounter. The data comes from the [place] facility where the Encounter took place. Date/Time Smoking Status/Tobac co Use Comment Facility May 26, 2024 02:00 PM VA-TOBACCO QUIT 5 TO < 15 YRS [facility] [place] [facility] March 20, 2023 03:00 PM VA-TOBACCO FORMER USER [facility] [place] [facility] March 20, 2023 03:00 PM VA-TOBACCO QUIT 5 TO < 15 YRS [facility] [place] [facility] March 19, 2022 03:00 PM VA-TOBACCO FORMER USER [facility] [place] [facility] March 19, 2022 03:00 PM VA-TOBACCO QUIT 5 TO < 15 YRS [place] [facility] [place] [facility] Feb 07, 2021 11:00 AM VA-TOBACCO FORMER USER [facility] [place] [facility] Feb 07, 2021 11:00 AM VA-TOBACCO QUIT 5 TO < 15 YRS [place] [facility] [place] [facility] Feb 02, 2020 03:19 PM VA-TOBACCO FORMER USER [facility] [place] [facility] Feb 02, 2020 03:19 PM VA-TOBACCO QUIT 5 TO < 15 YRS [place] [facility] [place] [facility] Sep 03, 2018 11:07 AM VA-TOBACCO NEVER USED [place] [facility] [place] [facility] Oct 24, 2017 02:40 PM QUIT TOBACCO USE 1-7 YEARS AGO PT QUIT 2 YRS AGO [facility] [place] [facility] Nov 23, 2016 11:14 AM LIFETIME NON-TOBACCO USER [place] [facility] [place] [facility] Nov 23, 2016 11:14 AM QUIT TOBACCO USE 1-7 YEARS AGO [place] [facility] [facility] May 11, 2016 04:46 PM QUIT TOBACCO USE 1-7 YEARS AGO [place] [facility] [facility] Dec 09, 2015 09:56 AM V1-PT DECLINES REF TO TOBACCO CESS PRGM [place] [facility] [place] [facility] Dec 09, 2015 09:56 AM V1-PT THINKING ABOUT QUIT TOBACCO USE [facility] [place] [facility] May 25, 2015 01:26 PM QUIT TOBACCO USE IN PAST YEAR [facility] [place] [facility] Oct 05, 2014 01:34 PM V1-PT DECLINES TOBACCO CESSATION MEDS [facility] [place] [facility] Oct 05, 2014 01:34 PM V1-PT THINKING ABOUT QUIT TOBACCO USE [facility] [place] [facility] Aug 17, 2014 09:30 AM CURRENT SMOKER trys to reduce smoking [place] [facility] [place] [facility] Aug 17, 2014 09:30 AM V1-PT DECLINES REF TO TOBACCO CESS PRGM [facility] [place] [facility] Aug 17, 2014 09:30 AM V1-PT DECLINES TOBACCO CESSATION MEDS [facility] [place] [facility] Aug 17, 2014 09:30 AM V1-PT THINKING ABOUT QUIT TOBACCO USE [facility] [place] [facility] Oct 31, 2012 12:52 PM QUIT TOBACCO USE 1-7 YEARS AGO [facility] [place] [facility] Nov 30, 2011 11:15 AM QUIT TOBACCO USE 1-7 YEARS AGO [place] [facility] [facility] [facility] Nov 21, 2010 10:56 AM QUIT TOBACCO USE IN PAST YEAR [place] [facility] [facility] Feb 02, 2010 10:09 AM CURRENT SMOKER 3 per day [facility] [place] [facility] Jan 13, 2010 12:22 PM V1-PT DECLINES REF TO TOBACCO CESS PRGM [place] [facility] [facility] [facility] Jan 13, 2010 12:22 PM V1-PT DECLINES TOBACCO CESSATION MEDS [facility] [place] [facility] Jan 13, 2010 12:22 PM V1-PT THINKING ABOUT QUIT TOBACCO USE [place] [facility] [facility] [facility] Aug 02, 2009 12:04 PM V1-PT DECLINES REF TO TOBACCO CESS PR[facility] [place] [facility] Aug 02, 2009 12:04 PM V1-PT DECLINES TOBACCO CESSATION MEDS [facility] [place] [place] [facility] Aug 02, 2009 12:04 PM V1-PT THINKING ABOUT QUIT TOBACCO USE [facility] [place] [facility] Mar 04, 2009 09:03 AM CURRENT SMOKER 1 or 2 ppd [facility] [place] [facility] Feb 22, 2009 12:06 PM V1-PT DECLINES REF TO TOBACCO CESS PRGM [facility] [place] [facility] Feb 22, 2009 12:06 PM V1-PT READY TO QUIT TOBACCO USE [facility] [place] [facility] Sep 02, 2008 02:00 PM V1-PT DECLINES TOBACCO CESSATION MEDS [facility] [place] [facility] Sep 02, 2008 02:00 PM V1-PT THINKING ABOUT QUIT TOBACCO USE [facility] [place] [facility] April 01, 2008 11:27 AM QUIT TOBACCO USE IN PAST YEAR [facility] [place] [facility] Feb 26, 2008 04:05 PM V1-PT DECLINES TOBACCO CESSATION MEDS [place] [facility] [facility] [facility] Feb 26, 2008 04:05 PM V1-PT NOT INTERESTED IN QUIT TOBACCO USE [facility] [place] [facility] Nov 14, 2007 02:46 PM CURRENT SMOKER 3 cigarrettes a week/30 years [place] [facility] [place] [facility] Encounter Notes: All associated encounter notes This section contains the clinical notes associated to the Encounter. Date/Time Encounter Note(s) Provider Source Jun 08, 2024 12:01 PM RN PROGRESS NOTE: LOCAL TITLE: CCC: CLINICAL TRIAGE STANDARD TITLE: RN PROGRESS NOTE DATE OF NOTE: JUN 08, 2024@12:01:51 ENTRY DATE: JUN 08, 2024@12:01:51 AUTHOR: SAÚL MOORE COSIGNER: URGENCY: STATUS: COMPLETED Patient Demographics Patient Name: ELEAZAR RAYGOZA Patient Primary [address]: [address] [place] [id number] Patient Primary Phone: [phone] Patient : 1955 Patient Age: 68 Caller/Recipient Relation to Patient: Self Emergency Contact: CATHERINE SALOWilner Triage Summary Conducted triage/discussed symptoms Pain Score: 0 (No Pain) Utilized the Triage Tool: Yes Chief Complaint: Skin Lesion System WHEN: Self-care Nurse's Recommendation / WHEN: Within 2 Weeks System WHERE: Home Nurse's Recommendation / WHERE: Clinic/[facility] Patient Disposition Patient/Caregiver agrees to plan of care: Yes Patient WHERE: Clinic/[facility] Patient WHEN: Within 2 weeks Nursing Plan and Disposition Referred for [facility] Virtual Clinic Visit Transferred patient to Sched & Admin-VCV Referred Patient for In-Person Appt Transferred patient to Sched & Admin-Apt Other course(s) of action Generated msg to PACT/Provider Provided guidance for worsening symptoms: *Caller/Patient* advised to call facilities [place] Clinical Contact Center or seek immediate medical attention for new or worsening symptoms Nurse Summary Nurse Summary: skin lesion on scalp reports a friend spotted a skin lesion on scalp today, was able to see scalp due to recent short haircut. unknow how long lesion has been present, denies pain, uncertain size, shape or color. denies fever, denies drainage Plan: [facility] recommendation: medical eval w/in 2 weeks in agreement with [facility] RN recommendations. Message sent to 's PACT team via CPRS/CRM, View alerted 2 Pact Team members/Nurse/s PER VISN 1 Protocol for f/u. Caller/ verbalizes understanding of the information provided. Advised caller/[place] that a note will be forwarded to the provider and/or the rn long term care for review, further recommendations, and/or follow-up. Advised of 24 hour availability of clinical call center at [phone] to answer questions, address concerns & to provide assistance in navigating healthcare for veterans. Given strict ED precautions to immediately seek treatment should their condition worsen, new signs or symptoms develop, or with any other emergent matters Modality: Warm conference call with [facility] for scheduling Verbalizes understanding to seek care in Urgent Care or Emergency Department should symptoms worsen before their appointment time. Clinical Contact Center Codes Clinic/Location: V1 CWM PHONE CCC RN [facility] Triage Complete Triage Date: 06/08/2024, 11:51 AM Triage Note: Phone Triage 08 Jun 2024 15:50:59 +0000 [facility] Demographics 68 y/o Male Results CC: Skin Lesion Software suggested: Self-care Software suggested follow-up location: Home, consider virtual care Values and Measures Duration of CC: 1 Days Positive Responses VS: temperature not taken Negative Responses Denies: HPI: firm skin lump, on margin of eyelid Denies: HPI: mole or skin growth, bleeding Denies: HPI: mole or skin growth, change in color Denies: HPI: mole or skin growth, change in shape Denies: HPI: mole, enlarging Denies: HPI: new mole or skin growth, within past 3 months Denies: HPI: painful skin lump, firm, erythematous, on margin of eyelid Denies: HPI: rash, pink, patchy, round with raised edges Denies: HPI: skin erythema, around skin lump or bump Denies: HPI: skin lump or bump, worsening for more than 1 week Denies: HPI: skin lump or papule, duration longer than 1 month Denies: HPI: skin papules, kothari, hand or plantar foot Denies: HPI: skin papules, pearly, face or neck or armpits or arms or hands or genital Denies: HPI: skin papules, pustular /es/ SAÚL MOORE RN [id number] [facility] Signed: 06/08/2024 12:02 Receipt Acknowledged By: 06/08/2024 13:10 /es/ Ange Ruiz RN, BSN Primary Care 06/08/2024 14:06 /es/ CRISTIAN PARR, HAND STRAIGHTENER SAÚL MOREIRA MILADIS AQUINO [facility]
--- OUTSIDE RECORDS SUMMARY | 2024-11-09 10:56 | XMS_ITS | Encounter Summary ---
Author Name [facility] [place] [facility] [place] Address [address] [place] [address] Care Team Providers Care Take Out Waiter Name Role Phone LAVERN ETIENNE Primary Care [...] SELF + ONE Aug 13, 2020 106 [id number] [phone] SUGRUE,TO DD PATIENT ANTHEM BCBS CT FEDERAL PREFERRED PROVIDER ORGANIZAT ION (PPO) STAND CONSUELO SELF Nov 18, 2007 104 [id number] [phone] SUGRUE,TO DD PATIENT ANTHEM BCBS CT FEDERAL PREFERRED PROVIDER ORGANIZAT ION (PPO) STAND CONSUELO FAMIL Y Nov 30, 2000 105 [id number] [phone] SUGRUE,TO DD PATIENT BCBS [place] FEP PREFERRED PROVIDER ORGANIZAT ION (PPO) STAND CONSUELO SELF PLUS 1 Aug 13, 2020 106 [id number] SUGRUE,TO DD PATIENT BCBS [place] FEP PREFERRED PROVIDER ORGANIZAT ION (PPO) STAND CONSUELO FAMIL Y Nov 30, 2000 105 [id number] [phone] SUGRUE,TO DD PATIENT [place] FEP PREFERRED PROVIDER ORGANIZAT ION (PPO) STAND CONSUELO SELF+ ONE Aug 13, 2020 106 [id number] SUGRUE,TO DD PATIENT [place] FEP PREFERRED PROVIDER ORGANIZAT ION (PPO) STAND CONSUELO FAMIL Y Nov 30, 2000 105 [id number] SUGRUE,TO DD PATIENT [place] FEP DENTAL DENTAL INSURANCE STAND CONSUELO Aug 13, 2020 DENTAL [id number] [phone] SUGRUE,TO DD PATIENT CAREMARK FEP BCBS PRESCRIPT ION CAREM ARK FEPRX PLAN Aug 13, 2020 [id number] [phone] SUGRUE,TO DD PATIENT [place] FEPRX PLAN PRESCRIPT ION BCBS FEP Nov 18, 2010 [id number] SUGRUE,TO DD PATIENT [place]ARK FEPRX PLAN PRESCRIPT ION CAREM ARK FEPRX Nov 18, 2010 [id number] SUGRUE,TO DD PATIENT [place] FEPRX PLAN PRESCRIPT ION BCBS FEP Nov 18, 2007 [id number] SUGRUE,TO DD PATIENT CAREMARK-F EP BCBS PRESCRIPT ION FEP CAREM ARK Nov 18, 2010 [id number] [phone] [place]GKATE[place],TO DD PATIENT MEDICARE (WNR) MEDICARE (M) PART A Sep 18, 2020 PART A [id number] SUGKATEE,TO DD PATIENT MEDICARE (WNR) MEDICARE (M) PART A Sep 18, 2020 PART A [id number] [phone] SUGRUE,TO DD PATIENT MEDICARE (WNR) MEDICARE (M) PART A Sep 18, 2020 PART A [id number] [phone] SUGKATE[place],TO DD PATIENT [facility] DFEC WORKERS' COMPENSAT ION INSURANCE WORKE R'S COMP April 01, 2018 WORKER' S COMP [id number] ADAMA RAYGOZA DD PATIENT Selected Encounter This section includes the information on record at [place] for the Encounter. Date/Time Encounter Type Encounter Description Reason Pro vider Source Aug 28, 2024 12:00 AM Outpatient Encounter EVENT (HISTORICAL) IHE Encounter Template Text not used by [place] Plan of Treatment: Future Appointments (+ 6 months) and Future Tests (+/- 45 days) The Plan of Treatment section includes future care activities for the patient from all [place] treatmentfacilities. This section includes future appointments and future orders which are active, pending or scheduled. Future Appointments This section includes appointments that were scheduled to occur 6 months from the date of the Encounter, up to a maximum of 20 appointments. The data comes from all [place] treatment facilities. Appointment Date/Time Appointment Type Appointme nt Facility Name Sep 10, 2024 04:30 PM AMBULATORY - NONE [facility] [place] [facility] Nov 09, 2024 11:00 AM AMBULATORY - NONE [facility] [facility] Nov 26, 2024 08:30 AM AM[facility]ATORY - [facility] Feb 03, 2025 01:30 PM [facility] Social History: Smoking Status (Most current) and Tobacco Use (All prior to encounter date) This section includes the most current, and the historical, smoking and tobacco- related health factors from the [place] facility where the Encounter took place. Current Smoking Status This section includes the most current smoking, or tobacco-related health factor, from the [place] facility where the Encounter took place. Date/Time Current Smoking Status Comment [facility] it May 26, 2024 02:00 PM [facility]ACCO [facility] Tobacco Use History This section includes a history of the smoking, or tobacco-related health factors, that were collected on or before the date of the Encounter. The data comes from the [place] facility where the Encounter took place. Date/Time Smoking Status/Tobac co Use Comment Facility May 26, 2024 02:00 PM VA-TOBACCO QUIT 5 TO < 15 YRS [facility] March 20, 2023 03:00 PM VA-TOBACCO FORMER USER [facility] March 20, 2023 03:00 PM VA-TOBACCO QUIT 5 TO < 15 YRS [facility] March 19, 2022 03:00 PM VA-TOBACCO FORMER USER [facility] March 19, 2022 03:00 PM VA-TOBACCO QUIT 5 TO < 15 YRS [facility] [place] [facility] Feb 07, 2021 11:00 AM VA-TOBACCO FORMER USER [facility] [place] Feb 07, 2021 11:00 AM VA-TOBACCO QUIT 5 TO < 15 YRS [facility] Feb 02, 2020 03:19 PM VA-TOBACCO FORMER USER [facility] [place] Feb 02, 2020 03:19 PM VA-TOBACCO QUIT 5 TO < 15 YRS [facility] Sep 03, 2018 11:07 AM VA-TOBACCO NEVER USED [facility] [place] [facility] Oct 24, 2017 02:40 PM QUIT TOBACCO USE 1-7 YEARS AGO PT QUIT 2 YRS AGO [facility] [place] [facility] Nov 23, 2016 11:14 AM LIFETIME NON-TOBACCO USER [facility] Nov 23, 2016 11:14 AM QUIT TOBACCO USE 1-7 YEARS AGO [facility] May 11, 2016 04:46 PM QUIT TOBACCO USE 1-7 YEARS AGO [facility] Dec 09, 2015 09:56 AM V1-PT DECLINES REF TO TOBACCO CESS PRGM [facility] [place] Dec 09, 2015 09:56 AM V1-PT THINKING ABOUT QUIT TOBACCO USE [facility] May 25, 2015 01:26 PM QUIT TOBACCO USE IN PAST YEAR [facility] [place] [facility] Oct 05, 2014 01:34 PM V1-PT DECLINES TOBACCO CESSATION MEDS [facility] [place] [facility] Oct 05, 2014 01:34 PM V1-PT THINKING ABOUT QUIT [facility]ACCO [facility] [place] Aug 17, 2014 09:30 AM CURRENT SMOKER trys to reduce smoking [place] [facility] Aug 17, 2014 09:30 AM V1-PT DECLINES REF TO TOBACCO CESS PRGM [facility] Aug 17, 2014 09:30 AM V1-PT DECLINES TOBACCO CESSATION MEDS [facility] Aug 17, 2014 09:30 AM V1-PT THINKING ABOUT QUIT TOBACCO USE [facility] Oct 31, 2012 12:52 PM QUIT TOBACCO USE 1-7 YEARS AGO [facility] [place] [facility] Nov 30, 2011 11:15 AM QUIT TOBACCO USE 1-7 YEARS AGO [facility] Nov 21, 2010 10:56 AM QUIT TOBACCO USE IN PAST YEAR [facility] Feb 02, 2010 10:09 AM CURRENT SMOKER 3 per day [facility] Jan 13, 2010 12:22 PM V1-PT DECLINES REF TO TOBACCO CESS PRGM [facility] Jan 13, 2010 12:22 PM V1-PT DECLINES TOBACCO CESSATION MEDS [facility] Jan 13, 2010 12:22 PM V1-PT THINKING ABOUT QUIT TOBACCO USE [facility] Aug 02, 2009 12:04 PM V1-PT DECLINES REF TO TOBACCO CESS PRGM [facility] Aug 02, 2009 12:04 PM V1-PT DECLINES TOBACCO CESSATION MEDS [facility] Aug 02, 2009 12:04 PM V1-PT THINKING ABOUT QUIT TOBACCO USE [facility] [place] [facility] Mar 04, 2009 09:03 AM CURRENT SMOKER 1 or 2 ppd [place] [facility] Feb 22, 2009 12:06 PM V1-PT DECLINES REF TO TOBACCO CESS PRGM [facility] Feb 22, 2009 12:06 PM V1-PT READY TO QUIT TOBACCO [facility] Sep 02, 2008 02:00 PM V1-PT DECLINES TOBACCO CESSATION MEDS [facility] Sep 02, 2008 02:00 PM V1-PT THINKING ABOUT QUIT TOBACCO USE [facility] April 01, 2008 11:27 AM QUIT TOBACCO USE IN PAST YEAR [facility] Feb 26, 2008 04:05 PM V1-PT DECLINES TOBACCO CESSATION MEDS [facility] Feb 26, 2008 04:05 PM V1-PT NOT INTERESTED IN QUIT TOBACCO USE [facility] Nov 14, 2007 02:46 PM CURRENT SMOKER 3 cigarrettes a week/30 years [facility] Encounter Notes: All associated encounter notes This section contains the clinical notes associated to the Encounter. Date/Time Encounter Note(s) Provider Source Aug 28, 2024 12:00 AM NONVA NOTE: LOCAL TITLE: NON-VA HOSPITALIZATIONS/ER STANDARD TITLE: NONVA NOTE DATE OF NOTE: AUG 28, 2024 ENTRY DATE: SEP 29, 2024@13:48:08 AUTHOR: JANKI MANN EXP COSIGNER: URGENCY: STATUS: COMPLETED VistA Imaging - Scanned Document SCANNED DOCUMENT SIGNATURE NOT REQUIRED Electronically Filed: 09/29/2024 by: JANKI MANN DOMESTIC TRAVEL CONSULTANT JANKI MANN [facility]
--- OUTSIDE RECORDS SUMMARY | 2024-11-09 10:56 | XMS_ITS ---
Author Name [facility] [place] [facility] [place] [facility] [place] Address [address] [place] [address] Care Team Providers Care Solution Coordinator Name Role Phone HIPOLITO HARDING Primary Care [...] SELF + ONE Aug 13, [phone] [id number] [phone] SUGRUE,TO DD PATIENT ANTHEM BCBS CT FEDERAL PREFERRED PROVIDER ORGANIZAT ION (PPO) STAND CONSUELO SELF Nov 18, 2007 104 [id number] [phone] SUGRUE,TO DD PATIENT ANTHEM BCBS CT FEDERAL PREFERRED PROVIDER ORGANIZAT ION (PPO) STAND CONSUELO FAMIL Y Nov 30, 2000 105 [id number] [phone] SUGRUE,TO DD PATIENT BCBS [place] FEP PREFERRED PROVIDER ORGANIZAT ION (PPO) STAND CONSUELO SELF PLUS 1 Aug 13, 2020 106 [id number] SUGRUE,TO DD PATIENT BCBS [place] FEP PREFERRED PROVIDER ORGANIZAT ION (PPO) STAND CONSUELO FAMIL Y Nov 30, 2000 105 [id number] SUGRUE,TO DD PATIENT [place]BS [place] FEP PREFERRED PROVIDER ORGANIZAT ION (PPO) STAND CONSUELO SELF+ ONE Aug 13, 2020 106 [id number] SUGRUE,TO DD PATIENT [place] FEP PREFERRED PROVIDER ORGANIZAT ION (PPO) STAND CONSUELO FAMIL Y Nov 30, 2000 105 [id number] SUGRUE,TO DD PATIENT [place] FEP DENTAL DENTAL INSURANCE STAND CONSUELO Aug 13, 2020 DENTAL [id number] SUGRUE,TO DD PATIENT CAR[place] FEP BCBS PRESCRIPT ION CAREM ARK FEPRX PLAN Aug 13, 2020 [id number] SUGRUE,TO DD PATIENT [place] FEPRX PLAN PRESCRIPT ION BCBS FEP Nov 18, 2010 [id number] SUGRUE,TO DD PATIENT CAREMARK FEPRX PLAN PRESCRIPT ION CAREM ARK FEPRX Nov 18, 2010 [id number] SUGRUE,TO DD PATIENT [place] FEPRX PLAN PRESCRIPT ION BCBS FEP Nov 18, 2007 [id number] SUGRUE,TO DD PATIENT CAREMARK-F EP BCBS PRESCRIPT ION FEP CAREM ARK Nov 18, 2010 [id number] SUGRUE,TO DD PATIENT MEDICARE (WNR) MEDICARE (M) PART A Sep 18, 2020 PART A [id number] [phone] SUGRUE,TO DD PATIENT MEDICARE (WNR) MEDICARE (M) PART A Sep 18, 2020 PART A [id number] SUGRUE,TO DD PATIENT MEDICARE (WNR) MEDICARE (M) PART A Sep 18, 2020 PART A [id number] [phone] SUGRUE,TO DD PATIENT US DEPART OF LABOR MED DFEC WORKERS' COMPENSAT ION INSURANCE WORKE R'S COMP April 01, 2018 WORKER' S COMP [id number] ADAMA RAYGOZA DD PATIENT Selected Encounter This section includes the information on record at [place] for the Encounter. Date/Time Encounter Type Encounter Description Reason Provider Source Jun 25, 2024 09:30 AM OFFICE O/P EST SF 10 MIN PRIMARY CARE/MEDICINE ICD-10-CM L30.9 Dermatitis, unspecified HIPOLITO HARDING IHWilner Encounter Template Text not used by [place] Assessments - Encounter Diagnoses This section includes the primary and secondary diagnoses documented for the Encounter. Date/Time Primary/Secondary Diagnosis Diagnosis Name Provider Source Jul 07, 2024 11:12 AM PRIMARY Dermatitis, unspecified [facility]ARD[facility] Plan of Treatment: Future Appointments (+ 6 months) and Future Tests (+/- 45 days) The Plan of Treatment section includes future care activities for the patient from all [place] treatmentfacilities. This section includes future appointments and future orders which are active, pending or scheduled. Future Appointments This section includes appointments that were scheduled to occur 6 months from the date of the Encounter, up to a maximum of 20 appointments. The data comes from all [place] treatment facilities. Appointment Date/Time Appointment Type Appointme nt Facility Name Jul 01, 2024 08:30 AM AMBULATORY - NONE [place] [facility] [place] [facility] Sep 10, 2024 04:30 PM AMBULATORY - NONE [place] [facility] [place] [facility] Nov 09, 2024 11:00 AM AMBULATORY - NONE [place] [facility] [place] [facility] Nov 26, 2024 08:30 AM AM[place]AT[facility] [place] [facility] [facility] Active, Pending, and Scheduled Orders This section includes a listing of several types of active, pending, and scheduled orders, including clinic medications orders, diagnostic test orders, procedure orders and consult orders; where the start date of the order is 45 days before the date of the Encounter or 45 days after the date of theEncounter. The data comes from all [place] treatment facilities. Test Date/Time Test Type Test Details Facility Name May 26, 2024 02:25 PM Consult Order COMMUNITY CARE-COLONOSCOPY SURVEILLANCE Cons Siphon Operator's Choice [place] [facility] Jul 04, 2024 12:00 AM Laboratory - Chemistry Order BASIC METABOLIC PANEL (fasting) BLOOD (SST-SERUM) [facility] Jul 04, 2024 12:00 AM Laboratory - Chemistry Order LIVER FUNCTION BLOOD (SST-SERUM) [facility] Jul 04, 2024 12:00 AM Laboratory - Chemistry Order LIPID PANEL FASTING BLOOD (SST-SERUM) [facility] Jul 04, 2024 12:00 AM Laboratory - Chemistry Order PSA BLOOD (SST-SERUM) [facility] Jul 04, 2024 12:00 AM Laboratory - Chemistry Order TSH BLOOD (SST-SERUM) [facility] Jul 04, 2024 12:00 AM Laboratory - Chemistry Order URINALYSIS CLEAN CATCH URINE [facility] Jul 04, 2024 12:00 AM Laboratory - Chemistry Order CBC AND DIFF (AUTO) BLOOD (LAV-BLOOD) [facility] Vital Signs: All taken on the encounter date This section contains inpatient and outpatient Vital Signs collected on the date of the Encounter. Date/Time Temperature Pulse Blood Pressure Respiratory Rate SP02 Pain Height Weight Body Mass Index Source Jun 25, 2024 09:56 AM 134/80 [facility] Jun 25, 2024 09:25 AM 97.8 59 153/76 16 99 0 67 141.7 22 [facility] Social History: Smoking Status (Most current) and Tobacco Use (All prior to encounter date) This section includes the most current, and the historical, smoking and tobacco- related health factors from the [place] facility where the Encounter took place. Current Smoking Status This section includes the most current smoking, or tobacco-related health factor, from the [place] facility where the Encounter took place. Date/Time Current Smoking Status Comment Facil ity May 26, 2024 02:00 PM VA-TOBACCO FORMER USER [facility] Tobacco Use History This section includes a history of the smoking, or tobacco-related health factors, that were collected on or before the date of the Encounter. The data comes from the [place] facility where the Encounter took place. Date/Time Smoking Status/Tobac co Use Comment Facility May 26, 2024 02:00 PM VA-TOBACCO QUIT 5 TO < 15 YRS [facility] [place] [facility] March 20, 2023 03:00 PM VA-TOBACCO FORMER USER [facility] [place] [facility] March 20, 2023 03:00 PM VA-TOBACCO QUIT 5 TO < 15 YRS [facility] [place] [facility] March 19, 2022 03:00 PM VA-TOBACCO FORMER USER [facility] [place] [facility] March 19, 2022 03:00 PM VA-TOBACCO QUIT 5 TO < 15 YRS [facility] [place] [facility] Feb 07, 2021 11:00 AM VA-TOBACCO FORMER USER [facility] [place] [facility] Feb 07, 2021 11:00 AM VA-TOBACCO QUIT 5 TO < 15 YRS [facility] [place] [facility] Feb 02, 2020 03:19 PM VA-TOBACCO FORMER USER [facility] [place] [facility] Feb 02, 2020 03:19 PM VA-TOBACCO QUIT 5 TO < 15 YRS [facility] [place] [facility] Sep 03, 2018 11:07 AM VA-TOBACCO NEVER USED [facility] [place] [facility] Oct 24, 2017 02:40 PM QUIT TOBACCO USE 1-7 YEARS AGO PT QUIT 2 YRS AGO [facility] [place] [facility] Nov 23, 2016 11:14 AM LIFETIME NON-TOBACCO USER [facility] [place] [facility] Nov 23, 2016 11:14 AM QUIT TOBACCO USE 1-7 YEARS AGO [facility] [place] [facility] May 11, 2016 04:46 PM QUIT TOBACCO USE 1-7 YEARS AGO [facility] [place] [facility] Dec 09, 2015 09:56 AM V1-PT DECLINES REF TO TOBACCO CESS PRGM [facility] [place] [facility] Dec 09, 2015 09:56 AM V1-PT THINKING ABOUT QUIT TOBACCO USE [facility] [place] [facility] May 25, 2015 01:26 PM QUIT TOBACCO USE IN PAST YEAR [facility] [place] [facility] Oct 05, 2014 01:34 PM V1-PT DECLINES TOBACCO CESSATION MEDS [facility] [place] [facility] Oct 05, 2014 01:34 PM V1-PT THINKING ABOUT QUIT TOBACCO USE [facility] [place] [facility] Aug 17, 2014 09:30 AM CURRENT SMOKER trys to reduce smoking [facility] [place] [facility] Aug 17, 2014 09:30 AM V1-PT DECLINES REF TO TOBACCO [facility]ESS [facility] [place] [facility] Aug 17, 2014 09:30 AM V1-PT DECLINES TOBACCO CESSATION MEDS [facility] [place] [facility] Aug 17, 2014 09:30 AM V1-PT THINKING ABOUT QUIT TOBACCO [facility] [place] [facility] Oct 31, 2012 12:52 PM QUIT TOBACCO USE 1-7 YEARS AGO [facility] Nov 30, 2011 11:15 AM QUIT TOBACCO USE 1-7 YEARS AGO [facility] [place] [place] [facility] Nov 21, 2010 10:56 AM QUIT TOBACCO USE IN PAST YEAR [facility] [place] [place] [facility] Feb 02, 2010 10:09 AM CURRENT SMOKER 3 per day [facility] [place] [facility] Jan 13, 2010 12:22 PM V1-PT DECLINES REF TO TOBACCO CESS PRGM [facility] Jan 13, 2010 12:22 PM V1-PT DECLINES TOBACCO CESSATION MEDS [facility] Jan 13, 2010 12:22 PM V1-PT THINKING ABOUT QUIT TOBACCO USE [facility] [place] [facility] Aug 02, 2009 12:04 PM V1-PT DECLINES REF TO TOBACCO CESS PRGM [facility] [place] [facility] Aug 02, 2009 12:04 PM V1-PT DECLINES TOBACCO CESSATION MEDS [facility] [place] [facility] Aug 02, 2009 12:04 PM V1-PT THINKING ABOUT QUIT TOBACCO USE [facility] [place] [facility] Mar 04, 2009 09:03 AM CURRENT SMOKER 1 or 2 ppd [facility] [place] [facility] Feb 22, 2009 12:06 PM V1-PT DECLINES REF TO TOBACCO CESS PRGM [facility] Feb 22, 2009 12:06 PM V1-PT READY TO QUIT TOBACCO USE [facility] Sep 02, 2008 02:00 PM V1-PT DECLINES [facility] Sep 02, 2008 02:00 PM V1-PT THINKING ABOUT QUIT TOBACCO USE [facility] April 01, 2008 11:27 AM QUIT TOBACCO USE IN PAST YEAR [facility] Feb 26, 2008 04:05 PM V1-PT DECLINES TOBACCO CESSATION MEDS [facility] Feb 26, 2008 04:05 PM V1-PT NOT INTERESTED IN QUIT TOBACCO USE [facility] Nov 14, 2007 02:46 PM CURRENT SMOKER 3 cigarrettes a week/30 years [facility] Encounter Notes: All associated encounter notes This section contains the clinical notes associated to the Encounter. Date/Time Encounter Note(s) Provider Source Jun 25, 2024 09:56 AM PHYSICIAN NOTE: LOCAL TITLE: MD NOTE STANDARD TITLE: PHYSICIAN NOTE DATE OF NOTE: JUN 25, 2024@09:56 ENTRY DATE: JUN 25, 2024@09:56:27 AUTHOR: HIPOLITO HARDING EXP COSIGNER: URGENCY: STATUS: COMPLETED Patient Name: ELEAZAR RAYGOZA VITALS: Patient temperature: 97.8 F [36.6 C] (06/25/2024 09:25) Blood pressure: 134/80 (06/25/2024 09:56) Patient height: 67 in [170.2 cm] (06/25/2024 09:25) Patient weight: 141.7 lb [64.27 kg] (06/25/2024 09:25) Patient BMI: BMI: 22.2 Patient pulse: 59 (06/25/2024 09:25) Patient respiration: 16 (06/25/2024 09:25) Patient Pulse Oximetry: 99% (06/25/2024 09:25) Pain Ratin (06/25/2024 09:25) Active [facility] Medications: Active Outpatient Medications (including [...] No Active 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 No pain, itching, bleeding or other symptoms. no personal or family history of skin cancer. Physical examination Well-developed well-nourished male no acute distress 1 x 1 cm pigmented lesion apex scalp with irregular borders 0.5 x 0.5 cm pigmented lesion volar left wrist with smooth borders Assessment and plan: 1. Skin lesions: Possible melanoma Plan: Dermatology referral KATHY Already set for follow-up 11-26-24 Medication Reconciliation: Outpatient: Has the patient been taking medications as documented in the EMLR? YES: The patient has been taking medications as documented in the EMLR. Essential Medication List for Review used to complete this medication reconciliation. INCLUDED IN THIS LIST: Alphabetical list of active outpatient prescriptions dispensed from this [place] (local) and dispensed from another [place] or [place] facility (remote) as well as [...] whether with a VA or non-VA provider. /marisa/ Hipolito Harding MD Staff Physician Signed: 06/25/2024 09:59 HIPOLITO HARDING [facility] Jun 25, 2024 09:30 AM PREVENTIVE MEDICIN E NURSING NOTE: LOCAL TITLE: CLINICAL REMINDERS/NURSING STANDARD TITLE: PREVENTIVE MEDICINE NURSING NOTE DATE OF NOTE: JUN 25, 2024@09:30 ENTRY DATE: JUN 25, 2024@09:30:36 AUTHOR: CRISTIAN PARR EXP COSIGNER: URGENCY: STATUS: COMPLETED (Optional) Whole Health Documentation: What matters the most to you? What motivates you to be healthy? (MAP) Response: to have the freedom to do the things that I love to do /parish PARR LPN LPN Signed: 06/25/2024 09:32 CRISTIAN PARR [facility]
--- OUTSIDE RECORDS SUMMARY | 2024-11-09 10:56 | XMS_ITS | Encounter Summary ---
Author Name [facility] [place] Organization [facility] [place] Address [address] [place] [address] Care Team Providers Care Clothing Cutter Name Role Phone LAVERN ETIENNE Primary Care [...] SELF + ONE Aug 13, 2020 106 [id number] [phone] SUGRUE,TO DD PATIENT ANTHEM BCBS CT FEDERAL PREFERRED PROVIDER ORGANIZAT ION (PPO) STAND CONSUELO SELF Nov 18, 2007 104 [id number] [phone] SUGRUE,TO DD PATIENT ANTHEM BCBS CT FEDERAL PREFERRED PROVIDER ORGANIZAT ION (PPO) STAND CONSUELO FAMIL Y Nov 30, 2000 105 [id number] [phone] SUGRUE,TO DD PATIENT BCBS [place] F[place] PREFERRED PROVIDER ORGANIZAT ION (PPO) STAND CONSUELO SELF PLUS 1 Aug 13, 2020 [id number] SUGRUE,TO DD PATIENT BCBS [place] FEP PREFERRED PROVIDER ORGANIZAT ION (PPO) STAND CONSUELO FAMIL Y Nov 30, 2000 105 [id number] SUGRUE,TO DD PATIENT [place] PREFERRED PROVIDER ORGANIZAT ION (PPO) STAND CONSUELO SELF+ ONE Aug 13, 2020 106 [id number] [phone] SUGRUE,TO DD PATIENT [place] F[place] PREFERRED PROVIDER ORGANIZAT ION (PPO) STAND CONSUELO FAMIL Y Nov 30, 2000 105 [id number] [phone] SUGRUE,TO DD PATIENT [place] DENTAL DENTAL INSURANCE STAND CONSUELO Aug 13, 2020 DENTAL [id number] SUGRUE,TO DD PATIENT CAREMARK FEP BCBS PRESCRIPT ION CAREM ARK FEPRX PLAN Aug 13, 2020 [id number] SUGRUE,TO DD PATIENT [place]ARK FEPRX PLAN PRESCRIPT ION BCBS FEP Nov 18, 2010 [id number] SUGRUE,TO DD PATIENT CAREMARK FEPRX PLAN PRESCRIPT ION CAREM ARK FEPRX Nov 18, 2010 [id number] SUGRUE,TO DD PATIENT [place] FEPRX PLAN PRESCRIPT ION BCBS FEP Nov 18, 2007 [id number] SUGRUE,TO DD PATIENT CAREMARK-F EP BCBS PRESCRIPT ION FEP CAREM ARK Nov 18, 2010 [id number] SUGKATEE,TO DD PATIENT MEDICARE (WNR) MEDICARE (M) PART A Sep 18, 2020 PART A [id number] [phone] SUGRUE,TO DD PATIENT MEDICARE (WNR) MEDICARE (M) PART A Sep 18, 2020 PART A [id number] SUGRUE,TO DD PATIENT MEDICARE (WNR) MEDICARE (M) PART A Sep 18, 2020 PART A [id number] SUGRUE,TO DD PATIENT [facility] DFEC WORKERS' COMPENSAT ION INSURANCE WORKE R'S COMP April 01, 2018 WORKER' S COMP [id number] ADAMA RAYGOZA DD PATIENT Selected Encounter This section includes the information on record at [place] for the Encounter. Date/Time Encounter Type Encounter Description Reason Pro vider Source May 26, 2024 12:00 AM Outpatient Encounter EVENT (HISTORICAL) IHE Encounter Template Text not used by [place] Plan of Treatment: Future Appointments (+ 6 months) and Future Tests (+/- 45 days) The Plan of Treatment section includes future care activities for the patient from all [place] treatmentfacilities. This section includes future appointments and future orders which are active, pending or scheduled. Future Appointments This section includes appointments that were scheduled to occur 6 months from the date of the Encounter, up to a maximum of 20 appointments. The data comes from all [place] treatment [facility]. Appointment Date/Time Appointment Type Appointme nt Facility Name Jun 25, 2024 09:30 AM [facility] Jul 01, 2024 08:30 AM [facility] Sep 10, 2024 04:30 PM [facility] Nov 09, 2024 11:00 AM [facility] Nov 26, 2024 08:30 AM [facility] - [facility] Active, Pending, and Scheduled Orders This section includes a listing of several types of active, pending, and scheduled orders, including clinic medications orders, diagnostic test orders, procedure orders and consult orders; where the start date of the order is 45 days before the date of the Encounter or 45 days after the date of theEncounter. The data comes from all [facility]. Test Date/Time Test Type Test Details Facility Name May 26, 2024 02:25 PM Consult Order COMMUNITY CARE-COLONOSCOPY SURVEILLANCE Cons Form Setter Helper's Choice [facility] W[facility] Jul 04, 2024 12:00 AM Laboratory - Chemistry Order BASIC METABOLIC PANEL (fasting) BLOOD (SST[facility]SERUM) [facility] Jul 04, 2024 12:00 AM Laboratory - Chemistry Order LIVER FUNCTION BLOOD (SST-SERUM) [facility] Jul 04, 2024 12:00 AM Laboratory - Chemistry Order LIPID PANEL FASTING BLOOD (SST-SERUM) [facility] Jul 04, 2024 12:00 AM Laboratory - Chemistry Order TSH BLOOD (SST-SERUM) [facility] Jul 04, 2024 12:00 AM Laboratory - Chemistry Order PSA BLOOD (SST-SERUM) [facility] Jul 04, 2024 12:00 AM Laboratory - Chemistry Order URINALYSIS CLEAN CATCH URINE [facility] Jul 04, 2024 12:00 AM Laboratory - Chemistry Order CBC AND DIFF (AUTO) BLOOD (LAV-BLOOD) [facility] Vital Signs: All taken on the encounter date This section contains inpatient and outpatient Vital Signs collected on the date of the Encounter. Date/Time Temperature Pulse Blood Pressure Respiratory Rate SP02 Pain Height Weight Body Mass Index Source May 26, 2024 01:56 PM 98.7 67 138/82 16 97 0 66.5 138 22 [facility] Social History: Smoking Status (Most current) and Tobacco Use (All prior to encounter date) This section includes the most current, and the historical, smoking and tobacco- related health factors from the [place] facility where the Encounter took place. Current Smoking Status This section includes the most current smoking, or tobacco-related health factor, from the [place] facility where the Encounter took place. Date/Time Current Smoking Status Comment [facility] May 26, 2024 02:00 PM VA-TOBACCO FORMER USER [facility] Tobacco Use History This section includes a history of the smoking, or tobacco-related health factors, that were collected on or before the date of the Encounter. The data comes from the [place] facility where the Encounter took place. Date/Time Smoking Status/Tobac co Use Comment Facility May 26, 2024 02:00 PM VA-TOBACCO QUIT 5 TO < 15 YRS [facility] March 20, 2023 03:00 PM VA-TOBACCO FOR[facility] March 20, 2023 03:00 PM VA-TOBACCO QUIT 5 TO < 15 [facility] March 19, 2022 03:00 PM VA-TOBACCO FORMER USER [facility] [place] [facility] March 19, 2022 03:00 PM VA-TOBACCO QUIT 5 TO < 15 YRS [facility] [place] [facility] Feb 07, 2021 11:00 AM VA-TOBACCO FORMER USER [facility] [place] [facility] Feb 07, 2021 11:00 AM VA-TOBACCO QUIT 5 TO < 15 YRS [facility] [place] [facility] Feb 02, 2020 03:19 PM VA-TOBACCO FORMER USER [facility] [place] [facility] Feb 02, 2020 03:19 PM VA-TOBACCO QUIT 5 TO < 15 YRS [facility] [place] [facility] Sep 03, 2018 11:07 AM VA-TOBACCO NEVER USED [facility] [place] [facility] Oct 24, 2017 02:40 PM QUIT TOBACCO USE 1-7 YEARS AGO PT QUIT 2 YRS AGO [facility] [place] [facility] Nov 23, 2016 11:14 AM LIFETIME NON-TOBACCO USER [facility] [place] [facility] Nov 23, 2016 11:14 AM QUIT TOBACCO USE 1-7 YEARS AGO [facility] [place] [facility] May 11, 2016 04:46 PM QUIT TOBACCO USE 1-7 YEARS AGO [facility] [place] [facility] Dec 09, 2015 09:56 AM V1-PT DECLINES REF TO TOBACCO CESS PRGM [facility] [place] [facility] Dec 09, 2015 09:56 AM V1-PT THINKING ABOUT QUIT TOBACCO USE [facility] [place] [facility] May 25, 2015 01:26 PM QUIT TOBACCO USE IN PAST YEAR [facility] [place] [facility] Oct 05, 2014 01:34 PM V1-PT DECLINES TOBACCO CESSATION MEDS [facility] [place] [facility] Oct 05, 2014 01:34 PM V1-PT THINKING ABOUT QUIT TOBACCO USE [facility] [place] [facility] Aug 17, 2014 09:30 AM CURRENT SMOKER trys to reduce smoking [facility] [place] [facility] Aug 17, 2014 09:30 AM V1-PT DECLINES REF TO TOBACCO CESS PRGM [facility] [place] [facility] Aug 17, 2014 09:30 AM V1-PT DECLINES TOBACCO CESSATION MEDS [facility] [place] [facility] Aug 17, 2014 09:30 AM V1-PT THINKING ABOUT QUIT TOBACCO USE [facility] [place] [facility] Oct 31, 2012 12:52 PM QUIT TOBACCO USE 1-7 YEARS AGO [facility] [place] [facility] Nov 30, 2011 11:15 AM QUIT TOBACCO USE 1-7 YEARS AGO [facility] [place] [facility] Nov 21, 2010 10:56 AM QUIT TOBACCO USE IN PAST YEAR [facility] [place] [facility] Feb 02, 2010 10:09 AM CURRENT SMOKER 3 per day [facility] [place] [facility] Jan 13, 2010 12:22 PM V1-PT DECLINES REF TO TOBACCO CESS [facility] [place] [facility] Jan 13, 2010 12:22 PM V1-PT DECLINES TOBACCO CESSATION MEDS [facility] [place] [facility] Jan 13, 2010 12:22 PM V1-PT THINKING ABOUT QUIT [facility]ACCO [facility] [place] [facility] Aug 02, 2009 12:04 PM V1-PT DECLINES REF TO TOBACCO CESS PRGM [facility] [place] [facility] Aug 02, 2009 12:04 PM V1-PT DECLINES TOBACCO CESSATION MEDS [facility] [place] [facility] Aug 02, 2009 12:04 PM V1-PT THINKING ABOUT QUIT [facility]ACCO [facility] [place] [facility] Mar 04, 2009 09:03 AM CURRENT SMOKER 1 or 2 ppd [facility] [place] [facility] Feb 22, 2009 12:06 PM V1-PT DECLINES REF TO TOBACCO CESS PRGM [facility] [facility] Feb 22, 2009 12:06 PM V1-PT READY TO QUIT TOBACCO USE [facility] [facility] Sep 02, 2008 02:00 PM V1-PT DECLINES TOBACCO CESSATION MEDS [facility] [place] [facility] Sep 02, 2008 02:00 PM V1-PT THINKING ABOUT QUIT [facility]AC[facility] [place] [facility] April 01, 2008 11:27 AM QUIT TOBACCO USE IN PAST YEAR [facility] Feb 26, 2008 04:05 PM V1-PT DECLINES TOBACCO CESSATION MEDS [facility] Feb 26, 2008 04:05 PM V1-PT NOT INTERESTED IN QUIT TOBACCO USE [facility] Nov 14, 2007 02:46 PM CURRENT SMOKER 3 cigarrettes a week/30 years [facility]
--- OUTSIDE RECORDS SUMMARY | 2024-11-09 10:56 | XMS_ITS | Encounter Summary ---
Author Name [facility] [place] [facility] [place] Address [address] [place] [address] Care Team Providers Care Payroll Associate Name Role Phone LAVERN ETIENNE Primary Care [...] SELF + ONE Aug 13, 2020 106 [id number] [phone] SUGRUE,TO DD PATIENT ANTHEM BCBS CT FEDERAL PREFERRED PROVIDER ORGANIZAT ION (PPO) STAND CONSUELO SELF Nov 18, 2007 104 [id number] [phone] SUGRUE,TO DD PATIENT ANTHEM BCBS CT FEDERAL PREFERRED PROVIDER ORGANIZAT ION (PPO) STAND CONSUELO FAMIL Y Nov 30, 2000 105 [id number] [phone] SUGRUE,TO DD PATIENT BCBS [place] FEP PREFERRED PROVIDER ORGANIZAT ION (PPO) STAND CONSUELO SELF PLUS 1 Aug 13, 2020 106 [id number] SUGRUE,TO DD PATIENT BCBS [place] FEP PREFERRED PROVIDER ORGANIZAT ION (PPO) STAND CONSUELO FAMIL Y Nov 30, 2000 105 [id number] SUGRUE,TO DD PATIENT [place] PREFERRED PROVIDER ORGANIZAT ION (PPO) STAND CONSUELO SELF+ ONE Aug 13, 2020 106 [id number] SUGRUE,TO DD PATIENT [place] PREFERRED PROVIDER ORGANIZAT ION (PPO) STAND CONSUELO FAMIL Y Nov 30, 2000 105 [id number] SUGRUE,TO DD PATIENT [place] DENTAL DENTAL INSURANCE STAND CONSUELO Aug 13, 2020 DENTAL [id number] SUGRUE,TO DD PATIENT [place] FEP BCBS PRESCRIPT ION CAREM ARK FEPRX PLAN Aug 13, 2020 [id number] SUGRUE,TO DD PATIENT [place] FEPRX PLAN PRESCRIPT ION BCBS FEP Nov 18, 2010 [id number] SUGRUE,TO DD PATIENT CAR[place]ARK FEPRX PLAN PRESCRIPT ION CAREM ARK FEPRX Nov 18, 2010 [id number] SUGRUE,TO DD PATIENT CAR[place]ARK FEPRX PLAN PRESCRIPT ION BCBS FEP Nov 18, 2007 [id number] SUGRUE,TO DD PATIENT CAREMARK-F EP BCBS PRESCRIPT ION FEP CAREM ARK Nov 18, 2010 [id number] SUGRUE,TO DD PATIENT MEDICARE (WNR) MEDICARE (M) PART A Sep 18, 2020 PART A [id number] SUGRUE,TO DD PATIENT MEDICARE (WNR) MEDICARE (M) PART A Sep 18, 2020 PART A [id number] SUGRUE,TO DD PATIENT MEDICARE (WNR) MEDICARE (M) PART A Sep 18, 2020 PART A [id number] SUGRUE,TO DD PATIENT [facility] DFEC WORKERS' COMPENSAT ION INSURANCE WORKE R'S COMP April 01, 2018 WORKER' S COMP [phone] Topher ADAMA RAYGOZA DD PATIENT Selected Encounter This section includes the information on record at [place] for the Encounter. Date/Time Encounter Type Encounter Description Reason Pro vider Source Sep 03, 2024 01:53 PM Outpatient Encounter ADMIN PAT ACTIVTIES (MASNONCT) IHE Encounter Template Text not used by [place] Plan of Treatment: Future Appointments (+ 6 months) and Future Tests (+/- 45 days) The Plan of Treatment section includes future care activities for the patient from all [place] treatmentfacilities. This section includes future appointments and future orders which are active, pending or scheduled. Future Appointments This section includes appointments that were scheduled to occur 6 months from the date of the Encounter, up to a maximum of 20 appointments. The data comes from all [place] treatment facilities. Appointment Date/Time Appointment Type Appointme nt Facility Name Sep 10, 2024 04:30 PM [facility] Nov 09, 2024 11:00 AM [facility] Nov 26, 2024 08:30 AM [facility] Feb 03, 2025 01:30 PM AMBULATORY - MEDICINE [facility] Social History: Smoking Status (Most current) and Tobacco Use (All prior to encounter date) This section includes the most current, and the historical, smoking and tobacco- related health factors from the [place] facility where the Encounter took place. Current Smoking Status This section includes the most current smoking, or tobacco-related health factor, from the [place] facility where the Encounter took place. Date/Time Current Smoking Status Comment [facility] May 26, 2024 02:00 PM VA-TOBACCO FORMER USER [facility] Tobacco Use History This section includes a history of the smoking, or tobacco-related health factors, that were collected on or before the date of the Encounter. The data comes from the [place] facility where the Encounter took place. Date/Time Smoking Status/Tobac co Use Comment Facility May 26, 2024 02:00 PM [place]-TOBACCO QUIT 5 TO < 15 [facility] March 20, 2023 03:00 PM VA-TOBACCO FORMER USER [facility] [place] [facility] March 20, 2023 03:00 PM VA-TOBACCO QUIT 5 TO < 15 YRS [facility] [place] [facility] March 19, 2022 03:00 PM VA-TOBACCO FORMER USER [facility] [place] [facility] March 19, 2022 03:00 PM VA-TOBACCO QUIT 5 TO < 15 YRS [facility] [place] [facility] Feb 07, 2021 11:00 AM VA-TOBACCO FORMER USER [facility] [place] [facility] Feb 07, 2021 11:00 AM VA-TOBACCO QUIT 5 TO < 15 YRS [facility] [place] [facility] Feb 02, 2020 03:19 PM VA-TOBACCO FORMER USER [facility] [place] [facility] Feb 02, 2020 03:19 PM VA-TOBACCO QUIT 5 TO < 15 YRS [facility] [place] [facility] Sep 03, 2018 11:07 AM VA-TOBACCO NEVER USED [facility] [place] [facility] Oct 24, 2017 02:40 PM QUIT TOBACCO USE 1-7 YEARS AGO PT QUIT 2 YRS AGO [facility] [place] [facility] Nov 23, 2016 11:14 AM LIFETIME NON-TOBACCO USER [facility] [place] [facility] Nov 23, 2016 11:14 AM QUIT TOBACCO USE 1-7 YEARS AGO [facility] [place] [facility] May 11, 2016 04:46 PM QUIT TOBACCO USE 1-7 YEARS AGO [facility] [place] [facility] Dec 09, 2015 09:56 AM V1-PT DECLINES REF TO TOBACCO CESS PRGM [facility] [place] [facility] Dec 09, 2015 09:56 AM V1-PT THINKING ABOUT QUIT TOBACCO USE [facility] [place] [facility] May 25, 2015 01:26 PM QUIT TOBACCO USE IN PAST YEAR [facility] [place] [facility] Oct 05, 2014 01:34 PM V1-PT DECLINES TOBACCO CESSATION MEDS [facility] [place] [facility] Oct 05, 2014 01:34 PM V1-PT THINKING ABOUT QUIT TOBACCO USE [facility] [place] [facility] Aug 17, 2014 09:30 AM CURRENT SMOKER trys to reduce smoking [facility] [place] [facility] Aug 17, 2014 09:30 AM V1-PT DECLINES REF TO TOBACCO CESS PRGM [facility] [place] [facility] Aug 17, 2014 09:30 AM V1-PT DECLINES TOBACCO CESSATION MEDS [facility] [place] [facility] Aug 17, 2014 09:30 AM V1-PT THINKING ABOUT QUIT TOBACCO USE [facility] [place] [facility] Oct 31, 2012 12:52 PM QUIT TOBACCO USE 1-7 YEARS AGO [facility] [place] [facility] Nov 30, 2011 11:15 AM QUIT TOBACCO USE 1-7 YEARS AGO [facility] [place] [facility] Nov 21, 2010 10:56 AM QUIT TOBACCO USE IN PAST YEAR [facility] [place] [facility] Feb 02, 2010 10:09 AM CURRENT SMOKER 3 per day [facility] [place] [facility] Jan 13, 2010 12:22 PM V1-PT DECLINES REF TO TOBACCO CESS PRGM [facility] [place] [facility] Jan 13, 2010 12:22 PM V1-PT DECLINES TOBACCO CESSATION MEDS [facility] [place] [facility] Jan 13, 2010 12:22 PM V1-PT THINKING ABOUT QUIT TOBACCO USE [facility] [place] [facility] Aug 02, 2009 12:04 PM V1-PT DECLINES RE[facility]BACCO [facility]ESS [facility] Aug 02, 2009 12:04 PM V1-PT DECLINES TOBACCO CESSATION MEDS [facility] [place] [facility] Aug 02, 2009 12:04 PM V1-PT THINKING ABOUT QUIT TOBACCO USE [facility] [place] [facility] Mar 04, 2009 09:03 AM CURRENT SMOKER 1 or 2 ppd [facility] [place] [facility] Feb 22, 2009 12:06 PM V1-PT DECLINES REF TO TOBACCO CESS PRGM [facility] [place] [facility] Feb 22, 2009 12:06 PM V1-PT READY TO QUIT TOBACCO USE [facility] [place] [facility] Sep 02, 2008 02:00 PM V1-PT DECLINES TOBACCO CESSATION MEDS [facility] [place] [facility] Sep 02, 2008 02:00 PM V1-PT THINKING ABOUT QUIT TOBACCO USE [facility] April 01, 2008 11:27 AM QUIT TOBACCO USE IN PAST YEAR [facility] Feb 26, 2008 04:05 PM V1-PT DECLINES TOBACCO CESSATION MEDS [facility] Feb 26, 2008 04:05 PM V1-PT NOT INTERESTED IN QUIT TOBACCO USE [facility] Nov 14, 2007 02:46 PM CURRENT SMOKER 3 cigarrettes a week/30 years [facility] Encounter Notes: All associated encounter notes This section contains the clinical notes associated to the Encounter. Date/Time Encounter Note(s) Provider Source Sep 03, 2024 02:10 PM ADDENDUM: LOCAL TITLE: Addendum STANDARD TITLE: ADDENDUM DATE OF NOTE: SEP 03, 2024@14:10:01 ENTRY DATE: SEP 03, 2024@14:10:02 AUTHOR: ANGE RUIZ COSIGNER: URGENCY: STATUS: COMPLETED please schedule. piero moore/ Ange Ruiz RN, BSN Primary Care Signed: 09/03/2024 14:10 Receipt Acknowledged By: 09/03/2024 15:25 /es/ MONIKA PELAYO --- Original Document --- 09/03/24 CCC: SCHEDULING ADMINISTRATION: Patient Demographics Patient Name: ELEAZAR RAYGOZA Patient Primary Phone: [phone] Patient Primary Address: [address] [place] [address] [place] [address] Patient : 1955 Patient Age: 68 Caller/Recipient Relation to Patient: Self Administrative Administrative Note Reason: Other Administrative Note Comments: [place] states he has been sick for 10 days and would like his PCP to call him so he can schedule an appt, 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 [place] can be reached at [phone]. IMPORTANT: This note was created by [facility] Clinical Contact Center staff. Please do not alert the staff member by adding them as a signer for future communications. Alerts are not monitored by this user. /marisa/ NO CABRERA V1 [facility] AMSA Signed: 09/03/2024 13:53 Receipt Acknowledged By: 09/03/2024 14:10 /marisa/ Ange Ruiz RN, BSN Primary Care * AWAITING SIGNATURE * CRISTIAN PARR 09/03/2024 ADDENDUM STATUS: UNSIGNED You may not VIEW this UNSIGNED Addendum. ANGE RUIZ [facility] Sep 03, 2024 01:53 PM ADMINISTRATIVE NOT E: LOCAL TITLE: CCC: SCHEDULING ADMINISTRATION STANDARD TITLE: ADMINISTRATIVE NOTE DATE OF NOTE: SEP 03, 2024@13:53:17 ENTRY DATE: SEP 03, 2024@13:53:18 AUTHOR: NO CABRERA EXP COSIGNER: URGENCY: STATUS: COMPLETED CCC: SCHEDULING ADMINISTRATION Has ADDENDA Patient Demographics Patient Name: ELEAZAR RAYGOZA Patient Primary Phone: [phone] Patient Primary Address: [address] [place] [id number] Patient : 1955 Patient Age: 68 Caller/Recipient Relation to Patient: Self Administrative Administrative Note Reason: Other Administrative Note Comments: [place] states he has been sick for 10 days and would like his PCP to call him so he can schedule an appt, 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 [place] can be reached at [phone]. IMPORTANT: This note was created by [facility] Clinical Contact Center staff. Please do not alert the staff member by adding them as a signer for future communications. Alerts are not monitored by this user. /marisa/ NO CABRERA V1 [facility] AMSA Signed: 09/03/2024 13:53 Receipt Acknowledged By: 09/03/2024 14:10 /parish Ruiz RN, BSN Primary Care 09/04/2024 07:20 /marisa/ CRISTIAN PARR LPN LPN 09/03/2024 ADDENDUM STATUS: COMPLETED please schedule. piero ricardo /es/ Ange Ruiz RN, BSN Primary Care Signed: 09/03/2024 14:10 Receipt Acknowledged By: 09/03/2024 15:25 /es/ MONIKA PELAYO 09/03/2024 ADDENDUM STATUS: COMPLETED AMSA spoke with and informed that PCP is not available at this time for an appointment. Supervisor [employer] informs [place] of Sick Call hours and will come in for an evaluation. /es/ MONIKA PELAYO Signed: 09/03/2024 15:27 NO CABRERA [place] [facility]
--- OUTSIDE RECORDS SUMMARY | 2024-11-09 10:56 | XMS_ITS | Encounter Summary ---
Author Name [facility] Organization [facility] Address [address] [place] [address] Care Team Providers Care Preparation Supervisor Canning Name Role Phone HIPOLITO HARDING Primary Care [...] SELF + ONE Aug 13, [phone] [id number] [phone] SUGRUE,TO DD PATIENT ANTHEM BCBS CT FEDERAL PREFERRED PROVIDER ORGANIZAT ION (PPO) STAND CONSUELO SELF Nov 18, 2007 104 [id number] [phone] SUGRUE,TO DD PATIENT ANTHEM BCBS CT FEDERAL PREFERRED PROVIDER ORGANIZAT ION (PPO) STAND CONSUELO FAMIL Y Nov 30, 2000 105 [id number] [phone] SUGRUE,TO DD PATIENT BCBS [place] FEP PREFERRED PROVIDER ORGANIZAT ION (PPO) STAND CONSUELO SELF PLUS 1 Aug 13, 2020 106 [id number] SUGRUE,TO DD PATIENT BCBS [place] FEP PREFERRED PROVIDER ORGANIZAT ION (PPO) STAND CONSUELO FAMIL Y Nov 30, 2000 105 [id number] [phone] SUGRUE,TO DD PATIENT [place] PREFERRED PROVIDER ORGANIZAT ION (PPO) STAND CONSUELO SELF+ ONE Aug 13, 2020 106 [id number] SUGRUE,TO DD PATIENT [place] PREFERRED PROVIDER ORGANIZAT ION (PPO) STAND CONSUELO FAMIL Y Nov 30, 2000 105 [id number] SUGRUE,TO DD PATIENT [place] F[place] DENTAL DENTAL INSURANCE STAND CONSUELO Aug 13, 2020 DENTAL [id number] [phone] SUGRUE,TO DD PATIENT CAREMARK FEP BCBS PRESCRIPT ION CAREM ARK FEPRX PLAN Aug 13, 2020 [id number] [phone] SUGRUE,TO DD PATIENT CAREMARK FEPRX PLAN PRESCRIPT ION BCBS FEP Nov 18, 2010 [id number] SUGRUE,TO DD PATIENT CAREMARK FEPRX PLAN PRESCRIPT ION CAREM ARK FEPRX Nov 18, 2010 [id number] SUGRUE,TO DD PATIENT CAREMARK FEPRX PLAN PRESCRIPT ION BCBS FEP Nov 18, 2007 [id number] SUGRUE,TO DD PATIENT CAREMARK-F EP BCBS PRESCRIPT ION FEP CAREM ARK Nov 18, 2010 [id number] [phone] SUGKATEE,TO DD PATIENT MEDICARE (WNR) MEDICARE (M) PART A Sep 18, 2020 PART A [id number] [phone] SUGKATEE,TO DD PATIENT MEDICARE (WNR) MEDICARE (M) PART A Sep 18, 2020 PART A [id number] SUGRUE,TO DD PATIENT MEDICARE (WNR) MEDICARE (M) PART A Sep 18, 2020 PART A [id number] [phone] SUGKATEE,TO DD PATIENT [facility] [place] [place] DFEC WORKERS' COMPENSAT ION INSURANCE WORKE R'S COMP April 01, 2018 WORKER' S COMP [id number] ADAMA RAYGOZA DD PATIENT Selected Encounter This section includes the information on record at [place] for the Encounter. Date/Time Encounter Type Encounter Description Reason Pro vider Source Jul 05, 2024 10:13 PM Outpatient Encounter PRIMARY CARE/MEDICINE IHE Encounter Template Text not used by [place] Plan of Treatment: Future Appointments (+ 6 months) and Future Tests (+/- 45 days) The Plan of Treatment section includes future care activities for the patient from all [place] treatmentfacilities. This section includes future appointments and future orders which are active, pending or scheduled. Future Appointments This section includes appointments that were scheduled to occur 6 months from the date of the Encounter, up to a maximum of 20 appointments. The data comes from all [place] treatment facilities. Appointment Date/Time Appointment Type Appointme nt Facility Name Sep 10, 2024 04:30 PM [facility] NONE [facility] Nov 09, 2024 11:00 AM AMBULATORY - NONE [facility] Nov 26, 2024 08:30 AM AMBULATORY - MEDICINE [facility] Active, Pending, and Scheduled Orders This section includes a listing of several types of active, pending, and scheduled orders, including clinic medications orders, diagnostic test orders, procedure orders and consult orders; where the start date of the order is 45 days before the date of the Encounter or 45 days after the date of theEncounter. The data comes from all [place] treatment facilities. Test Date/Time Test Type Test Details Facility Name May 26, 2024 02:25 PM Consult Order COMMUNITY CARE-COLONOSCOPY SURVEILLANCE Cons Sensory Scientist's Choice [facility] Jul 04, 2024 12:00 AM Laboratory - Chemistry Order LIVER FUNCTION BLOOD (SST-SERUM) [facility] Jul 04, 2024 12:00 AM Laboratory - Chemistry Order BASIC METABOLIC PANEL (fasting) BLOOD (SST-SERUM) [facility] Jul 04, 2024 12:00 AM Laboratory - Chemistry Order LIPID PANEL FASTING BLOOD (SST-SERUM) [facility] Jul 04, 2024 12:00 AM Laboratory - Chemistry Order PSA BLOOD (SST-SERUM) [place] [facility] [place] [facility] Jul 04, 2024 12:00 AM Laboratory - Chemistry Order URINALYSIS CLEAN CATCH URINE [facility] [place] [facility] Jul 04, 2024 12:00 AM Laboratory - Chemistry Order TSH BLOOD (SST-SERUM) [facility] [place] [facility] Jul 04, 2024 12:00 AM Laboratory - Chemistry Order CBC AND DIFF (AUTO) BLOOD (LAV-BLOOD) [facility] Social History: Smoking Status (Most current) and Tobacco Use (All prior to encounter date) This section includes the most current, and the historical, smoking and tobacco- related health factors from the [place] facility where the Encounter took place. Current Smoking Status This section includes the most current smoking, or tobacco-related health factor, from the [place] facility where the Encounter took place. Date/Time Current Smoking Status Comment [facility] May 26, 2024 02:00 PM VA-TOBACCO FORMER USER [facility] Tobacco Use History This section includes a history of the smoking, or tobacco-related health factors, that were collected on or before the date of the Encounter. The data comes from the [place] facility where the Encounter took place. Date/Time Smoking Status/Tobac co Use Comment Facility May 26, 2024 02:00 PM VA-TOBACCO QUIT 5 TO < 15 YRS [facility] [place] [facility] March 20, 2023 03:00 PM VA-TOBACCO FORMER USER [facility] [place] [facility] March 20, 2023 03:00 PM VA-TOBACCO QUIT 5 TO < 15 YRS [facility] [place] [facility] March 19, 2022 03:00 PM VA-TOBACCO FORMER USER [facility] [place] [facility] March 19, 2022 03:00 PM VA-TOBACCO QUIT 5 TO < 15 YRS [facility] [place] [facility] Feb 07, 2021 11:00 AM VA-TOBACCO FORMER USER [facility] [place] [facility] Feb 07, 2021 11:00 AM VA-TOBACCO QUIT 5 TO < 15 YRS [facility] [place] [facility] Feb 02, 2020 03:19 PM VA-TOBACCO FORMER USER [facility] [place] [facility] Feb 02, 2020 03:19 PM VA-TOBACCO QUIT 5 TO < 15 YRS [facility] [place] [facility] Sep 03, 2018 11:07 AM VA-TOBACCO NEVER USED [facility] [place] [facility] Oct 24, 2017 02:40 PM QUIT TOBACCO USE 1-7 YEARS AGO PT QUIT 2 YRS AGO [facility] [place] [facility] Nov 23, 2016 11:14 AM LIFETIME NON-TOBACCO USER [facility] [place] [facility] Nov 23, 2016 11:14 AM QUIT TOBACCO USE 1-7 YEARS AGO [facility] [place] [facility] May 11, 2016 04:46 PM QUIT TOBACCO USE 1-7 YEARS AGO [facility] [place] [facility] Dec 09, 2015 09:56 AM V1-PT DECLINES REF TO TOBACCO CESS PRGM [facility] [place] [facility] Dec 09, 2015 09:56 AM V1-PT THINKING ABOUT QUIT TOBACCO USE [facility] [place] [facility] May 25, 2015 01:26 PM QUIT TOBACCO USE IN PAST YEAR [facility] [place] [facility] Oct 05, 2014 01:34 PM V1-PT DECLINES TOBACCO CESSATION MEDS [facility] [place] [facility] Oct 05, 2014 01:34 PM V1-PT THINKING ABOUT QUIT TOBACCO USE [facility] [place] [facility] Aug 17, 2014 09:30 AM CURRENT SMOKER trys to reduce smoking [facility] [place] [facility] Aug 17, 2014 09:30 AM V1-PT DECLINES REF TO TOBACCO CESS PRGM [facility] [place] [facility] Aug 17, 2014 09:30 AM V1-PT DECLINES TOBACCO CESSATION MEDS [facility] [place] [facility] Aug 17, 2014 09:30 AM V1-PT THINKING ABOUT QUIT TOBACCO USE [facility] [place] [facility] Oct 31, 2012 12:52 PM QUIT TOBACCO USE 1-7 YEARS AGO [facility] [place] [facility] Nov 30, 2011 11:15 AM QUIT TOBACCO USE 1-7 YEARS AGO [facility] [place] [facility] Nov 21, 2010 10:56 AM QUIT TOBACCO USE [facility]ST [facility] [place] [facility] Feb 02, 2010 10:09 AM CURRENT SMOKER 3 per day [facility] [place] [facility] Jan 13, 2010 12:22 PM V1-PT DECLINES REF TO TOBACCO CESS PRGM [facility] [place] [facility] Jan 13, 2010 12:22 PM V1-PT DECLINES TOBACCO CESSATION MEDS [facility] [place] [facility] Jan 13, 2010 12:22 PM V1-PT THINKING ABOUT QUIT TOBACCO USE [facility] [place] [facility] Aug 02, 2009 12:04 PM V1-PT DECLINES REF TO TOBACCO CESS PRGM [facility] Aug 02, 2009 12:04 PM V1-PT DECLINES TOBACCO CESSATION MEDS [facility] Aug 02, 2009 12:04 PM V1-PT THINKING ABOUT QUIT TOBACCO USE [facility] [place] [facility] Mar 04, 2009 09:03 AM CURRENT SMOKER 1 or 2 ppd [facility] Feb 22, 2009 12:06 PM V1-PT DECLINES REF TO TOBACCO CESS PRGM [facility] Feb 22, 2009 12:06 PM V1-PT READY TO QUIT TOBACCO USE [facility] [place] [facility] Sep 02, 2008 02:00 PM V1-PT DECLINES TOBACCO CESSATION MEDS [facility] Sep 02, 2008 02:00 PM V1-PT THINKING ABOUT QUIT TOBACCO USE [facility] [place] [facility] April 01, 2008 11:27 AM QUIT TOBACCO USE IN PAST YEAR [facility] [place] [facility] Feb 26, 2008 04:05 PM V1-PT DECLINES TOBACCO CESSATION MEDS [facility] Feb 26, 2008 04:05 PM V1-PT NOT INTERESTED IN QUIT TOBACCO USE [facility] [place] [facility] Nov 14, 2007 02:46 PM CURRENT SMOKER 3 cigarrettes a week/30 years [facility] Encounter Notes: All associated encounter notes This section contains the clinical notes associated to the Encounter. Date/Time Encounter Note(s) Provider Source Jul 05, 2024 10:14 PM LETTERS: LOCAL TITLE: PATIENT LETTER (T) STANDARD TITLE: LETTERS DATE OF NOTE: JUL 05, 2024@22:14 ENTRY DATE: JUL 05, 2024@22:14:08 AUTHOR: HIPOLITO HARDING EXP COSIGNER: URGENCY: STATUS: COMPLETED PATIENT LETTER (T) Has ADDENDA DEPARTMENT OF [facility] Toll Free Number Primary Care Telephone Assistance can be reached at extension [phone] [facility] scheduling can be reached at extension [phone] [facility] scheduling can be reached at ext [phone] ELEZAAR RAYGOZA [address], [place], [address] July 05, 2024 Dear , Please find enclosed a copy of recent dermatology consult. The lesions on the scalp and left wrist are seborrheic keratosis. This is not cancer or infection. It requires no treatment. Please contact me if you have questions. Respectfully, Hipolito Harding MD 07/09/2024 ADDENDUM STATUS: COMPLETED read patient letter to vet. He was very happy /es/ Ange Ruiz RN, BSN Primary Care Signed: 07/09/2024 15:03 Sincerely, Your Primary Care Team [facility] [address] [phone] [place] [address] [facility] [address] [place] [address] [place] [address] [facility] [address] [facility],[address] Floor [address] [place] [phone] [place] [address] HIPOLITO HARDING [facility]
--- OUTSIDE RECORDS SUMMARY | 2024-11-09 10:56 | XMS_ITS | Encounter Summary ---
Author Name [facility] Address [address] [place] [address] Care Team Providers Care Campus Security Officer Name Role Phone LAVERN HARDING Primary Care Provider Unavailabl e Insurance [...] SELF + ONE Aug 13, 2020 [id number] [phone] SUGRUE,TO DD PATIENT ANTHEM BCBS CT FEDERAL PREFERRED PROVIDER ORGANIZAT ION (PPO) STAND CONSUELO SELF Nov 18, 2007 104 [id number] [phone] SUGRUE,TO DD PATIENT ANTHEM BCBS CT FEDERAL PREFERRED PROVIDER ORGANIZAT ION (PPO) STAND CONSUELO FAMIL Y Nov 30, 2000 105 [id number] [phone] SUGRUE,TO DD PATIENT BCBS [place] FEP PREFERRED PROVIDER ORGANIZAT ION (PPO) STAND CONSUELO SELF PLUS 1 Aug 13, 2020 [id number] SUGRUE,TO DD PATIENT [place] PREFERRED PROVIDER ORGANIZAT ION (PPO) STAND CONSUELO FAMIL Y Nov 30, 2000 105 [id number] SUGRUE,TO DD PATIENT [place] PREFERRED PROVIDER ORGANIZAT ION (PPO) STAND CONSUELO SELF+ ONE Aug 13, 2020 106 [id number] SUGRUE,TO DD PATIENT [place] PREFERRED PROVIDER ORGANIZAT ION (PPO) STAND CONSUELO FAMIL Y Nov 30, 2000 105 [id number] SUGRUE,TO DD PATIENT [place] DENTAL DENTAL INSURANCE STAND CONSUELO Aug 13, 2020 [id number] SUGRUE,TO DD PATIENT [place] FEP BCBS PRESCRIPT ION CAREM ARK FEPRX PLAN Aug 13, 2020 [id number] SUGRUE,TO DD PATIENT [place] FEPRX PLAN PRESCRIPT ION BCBS FEP Nov 18, 2010 [id number] SUGRUE,TO DD PATIENT [place] FEPRX PLAN PRESCRIPT ION CAREM ARK FEPRX Nov 18, 2010 [id number] SUGRUE,TO DD PATIENT [place] FEPRX PLAN PRESCRIPT ION BCBS FEP Nov 18, 2007 [id number] SUGRUE,TO DD PATIENT [place]-F EP BCBS PRESCRIPT ION FEP CAREM ARK Nov 18, 2010 [id number] SUGRUE,TO DD PATIENT MEDICARE (WNR) MEDICARE (M) PART A Sep 18, 2020 PART A [id number] SUGRUE,TO DD PATIENT MEDICARE (WNR) MEDICARE (M) PART A Sep 18, 2020 PART A [id number] SUGRUE,TO DD PATIENT MEDICARE (WNR) MEDICARE (M) PART A Sep 18, 2020 PART A [id number] [phone] SUGRUE,TO DD PATIENT US DEPART OF LABOR MED DFEC WORKERS' COMPENSAT ION INSURANCE WORKE R'S COMP April 01, 2018 WORKER' S COMP [id number] ADAMA RAYGOZA DD PATIENT Selected Encounter This section includes the information on record at [place] for the Encounter. Date/Time Encounter Type Encounter Description Reason Provider Source Jul 01, 2024 08:30 AM UNLISTED SPEC DERM SVC/PX DERMATOLOGY ICD-10-CM Z13.89 Encounter for screening for other disorder DENI MANN [facility] Encounter Template Text not used by [place] Assessments - Encounter Diagnoses This section includes the primary and secondary diagnoses documented for the Encounter. Date/Time Primary/Secondary Diagnosis Diagnosis Name Provider Source Jul 27, 2024 07:53 AM PRIMARY Encounter for screening for other disorder DENI MANN [facility] Plan of Treatment: Future Appointments (+ 6 months) and Future Tests (+/- 45 days) The Plan of Treatment section includes future care activities for the patient from all [place] treatmentfacilities. This section includes future appointments and future orders which are active, pending or scheduled. Future Appointments This section includes appointments that were scheduled to occur 6 months from the date of the Encounter, up to a maximum of 20 appointments. The data comes from all [place] treatment facilities. Appointment Date/Time Appointment Type Appointme nt Facility Name Sep 10, 2024 04:30 PM AMB[facility]ORY [facility] NONE [facility] Nov 09, 2024 11:00 AM AMBUL[facility]ORY [facility] NONE [facility] Nov 26, 2024 08:30 AM AMBULATORY - MEDICINE [facility] Active, Pending, and Scheduled Orders This section includes a listing of several types of active, pending, and scheduled orders, including clinic medications orders, diagnostic test orders, procedure orders and consult orders; where the start date of the order is 45 days before the date of the Encounter or 45 days after the date of theEncounter. The data comes from all [place] treatment facilities. Test Date/Time Test Type Test Details Facility Name May 26, 2024 02:25 PM Consult Order COMMUNITY CARE-COLONOSCOPY SURVEILLANCE Cons Trade Clerk's Choice [facility] Jul 04, 2024 12:00 AM Laboratory - Chemistry Order BASIC METABOLIC PANEL (fasting) BLOOD (SST-SERUM) [facility] [place] [facility] Jul 04, 2024 12:00 AM Laboratory - Chemistry Order LIVER FUNCTION BLOOD (SST-SERUM) [facility] Jul 04, 2024 12:00 AM Laboratory - Chemistry Order LIPID PANEL FASTING BLOOD (SST-SERUM) [facility] Jul 04, 2024 12:00 AM Laboratory - Chemistry Order TSH BLOOD (SST-SERUM) [facility] Jul 04, 2024 12:00 AM Laboratory - Chemistry Order PSA BLOOD (SST-SERUM) [facility] Jul 04, 2024 12:00 AM Laboratory - Chemistry Order URINALYSIS CLEAN CATCH URINE [facility] Jul 04, 2024 12:00 AM Laboratory - Chemistry Order CBC AND DIFF (AUTO) BLOOD (LAV-BLOOD) [facility] Social History: Smoking Status (Most current) and Tobacco Use (All prior to encounter date) This section includes the most current, and the historical, smoking and tobacco- related health factors from the [place] facility where the Encounter took place. Current Smoking Status This section includes the most current smoking, or tobacco-related health factor, from the [place] facility where the Encounter took place. Date/Time Current Smoking Status Comment [facility] May 26, 2024 02:00 PM VA-TOBACCO FORMER USER [facility] Tobacco Use History This section includes a history of the smoking, or tobacco-related health factors, that were collected on or before the date of the Encounter. The data comes from the [place] facility where the Encounter took place. Date/Time Smoking Status/Tobac co Use Comment Facility May 26, 2024 02:00 PM VA-TOBACCO QUIT 5 TO < 15 YRS [facility] [place] [facility] March 20, 2023 03:00 PM VA-TOBACCO FORMER USER [facility] [place] [facility] March 20, 2023 03:00 PM VA-TOBACCO QUIT 5 TO < 15 YRS [facility] March 19, 2022 03:00 PM VA-TOBACCO FORMER USER [facility] March 19, 2022 03:00 PM VA-TOBACCO QUIT 5 TO < 15 YRS [facility] [place] [facility] Feb 07, 2021 11:00 AM VA-TOBACCO FORMER USER [facility] [place] [facility] Feb 07, 2021 11:00 AM VA-TOBACCO QUIT 5 TO < 15 YRS [facility] [place] [facility] Feb 02, 2020 03:19 PM VA-TOBACCO FORMER USER [facility] [place] [facility] Feb 02, 2020 03:19 PM VA-TOBACCO QUIT 5 TO < 15 YRS [facility] [place] [facility] Sep 03, 2018 11:07 AM VA-TOBACCO NEVER USED [facility] [place] [facility] Oct 24, 2017 02:40 PM QUIT TOBACCO USE 1-7 YEARS AGO PT QUIT 2 YRS AGO [facility] [place] [facility] Nov 23, 2016 11:14 AM LIFETIME NON-TOBACCO USER [facility] [place] [facility] Nov 23, 2016 11:14 AM QUIT TOBACCO USE 1-7 YEARS AGO [facility] [place] [facility] May 11, 2016 04:46 PM QUIT TOBACCO USE 1-7 YEARS AGO [facility] [place] [facility] Dec 09, 2015 09:56 AM V1-PT DECLINES REF TO TOBACCO CESS PRGM [facility] [place] [facility] Dec 09, 2015 09:56 AM V1-PT THINKING ABOUT QUIT TOBACCO USE [facility] [place] [facility] May 25, 2015 01:26 PM QUIT TOBACCO USE IN PAST YEAR [facility] [place] [facility] Oct 05, 2014 01:34 PM V1-PT DECLINES TOBACCO CESSATION MEDS [facility] [place] [facility] Oct 05, 2014 01:34 PM V1-PT THINKING ABOUT QUIT TOBACCO USE [facility] [place] [facility] Aug 17, 2014 09:30 AM CURRENT SMOKER trys to reduce smoking [facility] [place] [facility] Aug 17, 2014 09:30 AM V1-PT DECLINES REF TO TOBACCO CESS PRGM [facility] [place] [facility] Aug 17, 2014 09:30 AM V1-PT DECLINES TOBACCO CESSATION MEDS [facility] [place] [facility] Aug 17, 2014 09:30 AM V1-PT THINKING ABOUT QUIT TOBACCO USE [facility] [place] [facility] Oct 31, 2012 12:52 PM QUIT TOBACCO USE 1-7 YEARS AGO [facility] [place] [facility] Nov 30, 2011 11:15 AM QUIT TOBACCO USE 1-7 YEARS AGO [facility] [place] [facility] Nov 21, 2010 10:56 AM QUIT TOBACCO USE IN PAST YEAR [facility] [place] [facility] Feb 02, 2010 10:09 AM CURRENT SMOKER 3 per day [facility] [place] [facility] Jan 13, 2010 12:22 PM V1-PT DECLINES REF TO TOBACCO CESS PRGM [facility] [place] [facility] Jan 13, 2010 12:22 PM V1-PT DECLINES TOBACCO CESSATION MEDS [facility] [place] [facility] Jan 13, 2010 12:22 PM V1-PT THINKING ABOUT QUIT TOBACCO USE [facility] [place] [facility] Aug 02, 2009 12:04 PM V1-PT DECLINES REF TO TOBACCO CESS PRGM [facility] [place] [facility] Aug 02, 2009 12:04 PM V1-PT DECLINES TOBACCO CESSATION MEDS [facility] [place] [facility] Aug 02, 2009 12:04 PM V1-PT THINKING ABOUT QUIT [facility]BACCO [facility] [place] [facility] Mar 04, 2009 09:03 AM CURRENT SMOKER 1 or 2 ppd [facility] [place] [facility] Feb 22, 2009 12:06 PM V1-PT DECLINES REF TO TOBACCO CESS PRGM [facility] [place] [facility] Feb 22, 2009 12:06 PM V1-PT READY TO QUIT TOBACCO USE [facility] [place] [facility] Sep 02, 2008 02:00 PM V1-PT DECLINES TOBACCO CESSATION MEDS [facility] [place] [facility] Sep 02, 2008 02:00 PM V1-PT THINKING ABOUT QUIT TOBACCO USE [facility] [place] [facility] April 01, 2008 11:27 AM QUIT TOBACCO USE IN PAST YEAR [facility] [place] [facility] Feb 26, 2008 04:05 PM V1-PT DECLINES TOBACCO CESSATION MEDS [facility] Feb 26, 2008 04:05 PM V1-PT NOT INTERESTED IN QUIT TOBACCO USE [facility] Nov 14, 2007 02:46 PM CURRENT SMOKER 3 cigarrettes a week/30 years [facility] Encounter Notes: All associated encounter notes This section contains the clinical notes associated to the Encounter. Date/Time Encounter Note(s) Provider Source Jul 02, 2024 08:31 AM TELEHEALTH NOTE: LOCAL TITLE: TELEHEALTH NOTE STANDARD TITLE: TELEHEALTH NOTE DATE OF NOTE: JUL 02, 2024@08:31 ENTRY DATE: JUL 02, 2024@08:31:54 AUTHOR: DENI MANN EXP COSIGNER: URGENCY: STATUS: COMPLETED Provided below are the results from pts telederm imaging reading. Ordering Provider is responsible to give pt the results and prescribe any treatments, recommendations or consult to dermatology for a face to face etc. REMOTE RESULTS ATTILA Document from: [facility] Associated on: Jul 01, 2024@18:07:41 LOCAL TITLE: CONSULT-TELEDERMATOLOGY IMAGING REPORT STANDARD TITLE: [...] Debora Jansen MD Dermatology Signed: 07/01/2024 18:07 * END OF REMOTE RESULTS /marisa/ DENI MANN TELEHEALTH CLINICAL IRRIGATOR OVERHEAD Signed: 07/02/2024 08:33 Receipt Acknowledged By: 07/05/2024 22:16 /marisa/ Lavern Harding MD Staff Physician DENI MANN [facility] [place] [facility] Jul 01, 2024 08:32 AM TELEHEALTH CONSULT : LOCAL TITLE: CONSULT REPORT/TELEDERMATOLOGY IMAGING REQUEST STANDARD TITLE: TELEHEALTH CONSULT DATE OF NOTE: JUL 01, 2024@08:32 ENTRY DATE: JUL 01, 2024@08:32:16 AUTHOR: DENI MANN EXP COSIGNER: URGENCY: STATUS: COMPLETED Teledermatology Consult Request The patient was educated regarding the Teledermatology process at this encounter. Comment: Patient educated on telederm process and verbalizes understanding Patient DOES consent to have images taken, viewed, and interpreted using the Teledermatology process. This consult addresses: A new condition Images were acquired: In clinic HISTORY: Prior skin history: None reported Have you had a skin cancer before? None Reported Patient reports no family history of melanoma. Taking new med/supplements: None reported Immunosuppression history: None reported Other significant history: None reported Chief Complaint: Possible melanoma on scalp and left wrist PROBLEM A LOCATION(S): Head/Neck Scalp DURATION: unsure SYMPTOMS: No Symptoms CHANGES: unsure TREATMENT: No BIOPSY: No PROBLEM B: LOCATION(S): Upper Extremity Left Wrist DURATION: as long as I can remember SYMPTOMS: No Symptoms CHANGES: None TREATMENT: No BIOPSY: No PROBLEM B: LOCATION(S): Head/Neck DURATION: Unsure SYMPTOMS: No Symptoms CHANGES: None TREATMENT: No BIOPSY: No Dredge Master's comments: Imaged per providers direction and facility protocol /marisa/ DENI MANN TELEHEALTH CLINICAL IRRIGATOR OVERHEAD Signed: 07/01/2024 09:05 DENI MANN [facility]
--- OUTSIDE RECORDS SUMMARY | 2024-11-09 10:56 | XMS_ITS | Encounter Summary ---
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 Name Role Phone LAVERN ETIENNE Primary [...] SELF + ONE Aug 13, [phone] [id number] [phone] SUGRUE,TO DD PATIENT ANTHEM BCBS CT FEDERAL PREFERRED PROVIDER ORGANIZAT ION (PPO) STAND CONSUELO SELF Nov 18, 2007 [id number] [phone] SUGRUE,TO DD PATIENT ANTHEM BCBS CT FEDERAL PREFERRED PROVIDER ORGANIZAT ION (PPO) STAND CONSUELO FAMIL Y Nov 30, 2000 105 [id number] [phone] SUGRUE,TO DD PATIENT BCBS [place] FEP PREFERRED PROVIDER ORGANIZAT ION (PPO) STAND CONSUELO SELF PLUS 1 Aug 13, 2020 106 [id number] SUGRUE,TO DD PATIENT BCBS [place] F[place] PREFERRED PROVIDER ORGANIZAT ION (PPO) STAND CONSUELO FAMIL Y Nov 30, 2000 105 [id number] [phone] SUGRUE,TO DD PATIENT [place] PREFERRED PROVIDER ORGANIZAT ION (PPO) STAND CONSUELO SELF+ ONE Aug 13, 2020 106 [id number] SUGRUE,TO DD PATIENT [place] F[place] PREFERRED PROVIDER ORGANIZAT ION (PPO) STAND CONSUELO FAMIL Y Nov 30, 2000 105 [id number] SUGRUE,TO DD PATIENT [place] F[place] DENTAL DENTAL INSURANCE STAND CONSUELO Aug 13, 2020 DENTAL [id number] [phone] SUGRUE,TO DD PATIENT CAR[place] FEP BCBS PRESCRIPT ION CAREM ARK FEPRX PLAN Aug 13, 2020 [id number] [phone] SUGRUE,TO DD PATIENT [place] FEPRX PLAN PRESCRIPT ION BCBS FEP Nov 18, 2010 [id number] SUGRUE,TO DD PATIENT CAREMARK FEPRX PLAN PRESCRIPT ION CAREM ARK FEPRX Nov 18, 2010 [id number] SUGRUE,TO DD PATIENT [place] FEPRX PLAN PRESCRIPT ION BCBS FEP Nov 18, 2007 [id number] SUGRUE,TO DD PATIENT CAREMARK-F EP BCBS PRESCRIPT ION FEP CAREM ARK Nov 18, 2010 [id number] [phone] SUGKATEE,TO DD PATIENT MEDICARE (WNR) MEDICARE (M) PART A Sep 18, 2020 PART A [id number] SUGKATEE,TO DD PATIENT MEDICARE (WNR) MEDICARE (M) PART A Sep 18, 2020 PART A [id number] SUGRUE,TO DD PATIENT MEDICARE (WNR) MEDICARE (M) PART A Sep 18, 2020 PART A [id number] SUGKATEE,TO DD PATIENT [facility] DFEC WORKERS' COMPENSAT ION INSURANCE WORKE R'S COMP April 01, 2018 WORKER' S COMP [id number] [phone] ADAMA RAYGOZA DD PATIENT Selected Encounter This section includes the information on record at [place] for the Encounter. Date/Time Encounter Type Encounter Description Reason Pro vider Source Aug 28, 2024 08:11 AM Outpatient Encounter TELEPHONE TRIAGE IHE Encounter Template Text not used by [facility] Plan of Treatment: Future Appointments (+ 6 months) and Future Tests (+/- 45 days) The Plan of Treatment section includes future care activities for the patient from all [place] treatmentfacilities. This section includes future appointments and future orders which are active, pending or scheduled. Future Appointments This section includes appointments that were scheduled to occur 6 months from the date of the Encounter, up to a maximum of 20 appointments. The data comes from all [place] treatment facilities. Appointment Date/Time Appointment Type Appointme nt Facility Name Sep 10, 2024 04:30 PM AMBULATORY - NONE [place] [facility] [place] [facility] Nov 09, 2024 11:00 AM AMBULATORY - NONE [place] [facility] [place] [facility] Nov 26, 2024 08:30 AM AMBULATORY - MEDICINE [facility] [place] [facility] Feb 03, 2025 01:30 PM [facility] [place] [facility] Social History: Smoking Status (Most current) and Tobacco Use (All prior to encounter date) This section includes the most current, and the historical, smoking and tobacco- related health factors from the [place] facility where the Encounter took place. Current Smoking Status This section includes the most current smoking, or tobacco-related health factor, from the [place] facility where the Encounter took place. Date/Time Current Smoking Status Comment [facility] May 26, 2024 02:00 PM VA-TOBACCO [facility] [place] [facility] Tobacco Use History This section includes a history of the smoking, or tobacco-related health factors, that were collected on or before the date of the Encounter. The data comes from the [place] facility where the Encounter took place. Date/Time Smoking Status/Tobac co Use Comment Facility May 26, 2024 02:00 PM VA-TOBACCO QUIT 5 TO < 15 YRS [facility] March 20, 2023 03:00 PM VA-TOBACCO FORMER USER [facility] [place] [facility] March 20, 2023 03:00 PM VA-TOBACCO QUIT 5 TO < 15 YRS [facility] [place] [facility] March 19, 2022 03:00 PM VA-TOBACCO FORMER USER [facility] [place] [facility] March 19, 2022 03:00 PM VA-TOBACCO QUIT 5 TO < 15 YRS [facility] [place] [facility] Feb 07, 2021 11:00 AM VA-TOBACCO FORMER USER [facility] [place] [facility] Feb 07, 2021 11:00 AM VA-TOBACCO QUIT 5 TO < 15 YRS [facility] [place] [facility] Feb 02, 2020 03:19 PM VA-TOBACCO FORMER USER [facility] [place] [facility] Feb 02, 2020 03:19 PM VA-TOBACCO QUIT 5 TO < 15 YRS [facility] [place] [facility] Sep 03, 2018 11:07 AM VA-TOBACCO NEVER USED [place] [facility] [place] [facility] Oct 24, 2017 02:40 PM QUIT TOBACCO USE 1-7 YEARS AGO PT QUIT 2 YRS AGO [facility] [place] [facility] Nov 23, 2016 11:14 AM LIFETIME NON-TOBACCO USER [facility] [place] [facility] Nov 23, 2016 11:14 AM QUIT TOBACCO USE 1-7 YEARS AGO [facility] [place] [facility] May 11, 2016 04:46 PM QUIT TOBACCO USE 1-7 YEARS AGO [facility] [place] [facility] Dec 09, 2015 09:56 AM V1-PT DECLINES REF TO TOBACCO CESS PRGM [facility] [place] [facility] Dec 09, 2015 09:56 AM V1-PT THINKING ABOUT QUIT TOBACCO USE [facility] [place] [facility] May 25, 2015 01:26 PM QUIT TOBACCO USE IN PAST YEAR [facility] [place] [facility] Oct 05, 2014 01:34 PM V1-PT DECLINES TOBACCO CESSATION MEDS [facility] [place] [facility] Oct 05, 2014 01:34 PM V1-PT THINKING ABOUT QUIT TOBACCO USE [facility] [place] [facility] Aug 17, 2014 09:30 AM CURRENT SMOKER trys to reduce smoking [facility] [place] [facility] Aug 17, 2014 09:30 AM V1-PT DECLINES REF TO TOBACCO CESS [facility] [place] [facility] Aug 17, 2014 09:30 AM V1-PT DECLINES TOBACCO CESSATION MEDS [facility] [place] [facility] Aug 17, 2014 09:30 AM V1-PT THINKING ABOUT QUIT [facility]BACCO [facility] [place] [facility] Oct 31, 2012 12:52 PM QUIT TOBACCO USE 1-7 YEARS AGO [facility] [place] [facility] Nov 30, 2011 11:15 AM QUIT TOBACCO USE 1-7 YEARS AGO [facility] [place] [facility] Nov 21, 2010 10:56 AM QUIT TOBACCO USE [facility] PAST YEAR [facility] Feb 02, 2010 10:09 AM CURRENT SMOKER 3 per day [facility] Jan 13, 2010 12:22 PM V1-PT DECLINES REF TO TOBACCO CESS PRGM [facility] Jan 13, 2010 12:22 PM V1-PT DECLINES TOBACCO CESSATION MEDS [facility] Jan 13, 2010 12:22 PM V1-PT THINKING ABOUT QUIT TOBACCO USE [facility] [place] [place] [facility] Aug 02, 2009 12:04 PM V1-PT DECLINES REF TO TOBACCO CESS PRGM [facility] Aug 02, 2009 12:04 PM V1-PT DECLINES TOBACCO CESSATION MEDS [facility] Aug 02, 2009 12:04 PM V1-PT THINKING ABOUT QUIT TOBACCO USE [facility] [place] [facility] Mar 04, 2009 09:03 AM CURRENT SMOKER 1 or 2 ppd [facility] [place] [facility] Feb 22, 2009 12:06 PM V1-PT DECLINES REF TO TOBACCO CESS PRGM [facility] Feb 22, 2009 12:06 PM V1-PT READY TO QUIT TOBACCO USE [facility] [place] [facility] Sep 02, 2008 02:00 PM V1-PT DECLINES TOBACCO CESSATION MEDS [facility] Sep 02, 2008 02:00 PM V1-PT THINKING ABOUT QUIT TOBACCO USE [facility] April 01, 2008 11:27 AM QUIT TOBACCO USE IN PAST YEAR [facility] Feb 26, 2008 04:05 PM V1-PT DECLINES TOBACCO CESSATION MEDS [facility] Feb 26, 2008 04:05 PM V1-PT NOT INTERESTED IN QUIT TOBACCO USE [facility] Nov 14, 2007 02:46 PM CURRENT SMOKER 3 cigarrettes a week/30 years [facility] Encounter Notes: All associated encounter notes This section contains the clinical notes associated to the Encounter. Date/Time Encounter Note(s) Provider Source Aug 28, 2024 08:12 AM RN PROGRESS NOTE: [facility] TITLE: [facility]: CLINICAL TRIAGE STANDARD TITLE: RN PROGRESS NOTE DATE OF NOTE: AUG 28, 2024@08:12:04 ENTRY DATE: AUG 28, 2024@08:12:04 AUTHOR: MARTITA SALMERON COSIGNER: URGENCY: STATUS: COMPLETED Patient Demographics Patient Name: ELEAZAR RAYGOZA Patient Primary [address] [address] [place] [id number] Patient Primary Phone: [phone] Patient : 1955 Patient Age: 68 Current Location: home Call Back Number: [phone] Caller/Recipient Relation to Patient: Self Emergency Contact: CATHERINE RAYGOZA Triage Summary Conducted triage/discussed symptoms Pain Score: 0 (No Pain) Utilized the Triage Tool: Yes Chief Complaint: Black Stool System WHEN: Now Nurse's Recommendation / WHEN: Now System WHERE: Emergency department Nurse's Recommendation / WHERE: ED Other Nurse's Other / WHERE: [facility] Patient Disposition Patient/Caregiver agrees to plan of care: Yes Patient WHERE: ED Other Other - Patient Where Disposition: [facility] Patient WHEN: Now Patient is Urgent or Emergent Nursing Plan and Disposition Referred patient to higher level of care Instructed to go to Emergency Room (ER) Nurse Summary Nurse Summary: Vet reports 4 days of black stool with headache and body aches. Clinical Contact Center Codes Clinic/Location: V1 [facility] PHONE [facility] RN Decision Support System Output: Triage Complete Triage Date: 08/28/2024, 08:09 AM Triage Note: Decision Support Tool Used: [employer] Phone Triage 28 Aug 2024 12:08:35 +0000 [facility] Demographics 68 y/o Male Results CC: Black Stool Software suggested: Now Software suggested follow-up location: Emergency department Values and Measures Duration of CC: 4 Days Positive Responses HPI: melena, more than 3 episodes HPI: melena, within past 2 days VS: BP not taken VS: pulse not taken Negative Responses Denies: HPI: chest pain, onset after the bleeding Denies: HPI: dyspnea Denies: HPI: syncope Denies: HPI: vomiting IMPORTANT: This note was created by [facility] Clinical Contact Center staff. Please do not alert the staff member by adding them as a signer for future communications. Alerts are not monitored by this user. /marisa/ MARTITA SALMERON RN, MSN Signed: 08/28/2024 08:12 Receipt Acknowledged By: 08/28/2024 08:31 /marisa/ Ange Ruiz RN, BSN Primary Care 08/28/2024 15:33 /marisa/ GREGORY MELO LPN, [facility]
--- OUTSIDE RECORDS SUMMARY | 2024-11-09 10:56 | XMS_ITS | Encounter Summary ---
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 Role Phone LAVERN ETIENNE [...] SELF + ONE Aug 13, 2020 106 [id number] [phone] SUGRUE,TO DD PATIENT ANTHEM BCBS CT FEDERAL PREFERRED PROVIDER ORGANIZAT ION (PPO) STAND CONSUELO SELF Nov 18, 2007 104 [id number] [phone] SUGRUE,TO DD PATIENT ANTHEM BCBS CT FEDERAL PREFERRED PROVIDER ORGANIZAT ION (PPO) STAND CONSUELO FAMIL Y Nov 30, 2000 105 [id number] [phone] SUGRUE,TO DD PATIENT BCBS [place] F[place] PREFERRED PROVIDER ORGANIZAT ION (PPO) STAND CONSUELO SELF PLUS 1 Aug 13, 2020 106 [id number] SUGRUE,TO DD PATIENT BCBS [place] F[place] PREFERRED PROVIDER ORGANIZAT ION (PPO) STAND CONSUELO FAMIL Y Nov 30, 2000 105 [id number] SUGRUE,TO DD PATIENT [place] PREFERRED PROVIDER ORGANIZAT ION (PPO) STAND CONSUELO SELF+ ONE Aug 13, 2020 106 [id number] 74 SUGRUE,TO DD PATIENT [place] PREFERRED PROVIDER ORGANIZAT ION (PPO) STAND CONSUELO FAMIL Y Nov 30, 2000 105 [id number] SUGRUE,TO DD PATIENT [place] DENTAL DENTAL INSURANCE STAND CONSU[place]O Aug 13, 2020 DENTAL [id number] SUGRUE,TO DD PATIENT CAREMARK FEP BCBS PRESCRIPT ION CAREM ARK FEPRX PLAN Aug 13, 2020 [id number] SUGRUE,TO DD PATIENT [place] FEPRX PLAN PRESCRIPT ION BCBS FEP Nov 18, 2010 [id number] SUGRUE,TO DD PATIENT CAREMARK FEPRX PLAN PRESCRIPT ION CAREM ARK FEPRX Nov 18, 2010 [id number] SUGRUE,TO DD PATIENT [place] FEPRX PLAN PRESCRIPT ION BCBS FEP Nov 18, 2007 [id number] SUGRUE,TO DD PATIENT CAREMARK-F EP BCBS PRESCRIPT ION FEP CAREM ARK Nov 18, 2010 [id number] SUGRUE,TO DD PATIENT MEDICARE (WNR) MEDICARE (M) PART A Sep 18, 2020 PART A [id number] SUGRUE,TO DD PATIENT MEDICARE (WNR) MEDICARE (M) PART A Sep 18, 2020 PART A [id number] [phone] SUGRUE,TO DD PATIENT MEDICARE (WNR) MEDICARE (M) PART A Sep 18, 2020 PART A [id number] [phone] SUGRUE,TO DD PATIENT US DEPART OF LABOR MED DFEC WORKERS' COMPENSAT ION INSURANCE WORKE R'S COMP April 01, 2018 WORKER' S COMP [id number] Topher ADAMA RAYGOZA DD PATIENT Selected Encounter This section includes the information on record at CT for the Encounter. Date/Time Encounter Type Encounter Description Reason Pro vider Source April 17, 2024 05:55 PM Outpatient Encounter ADMIN PAT ACTIVTIES (MASNONCT) IHE Encounter Template Text not used by CT Plan of Treatment: Future Appointments (+ 6 months) and Future Tests (+/- 45 days) The Plan of Treatment section includes future care activities for the patient from all [place] [facility] This section includes future appointments and future orders which are active, pending or scheduled. Future Appointments This section includes appointments that were scheduled to occur 6 months from the date of the Encounter, up to a maximum of 20 appointments. The data comes from all [facility]. Appointment Date/Time Appointment Type Appointme nt Facility Name May 26, 2024 02:00 PM [facility]BUL[facility] Jun 25, 2024 09:30 AM AMBULATORY - MEDICINE [facility] Jul 01, 2024 08:30 AM [facility] Sep 10, 2024 04:30 PM AMBULATORY - NONE [facility] Active, Pending, and Scheduled Orders This section includes a listing of several types of active, pending, and scheduled orders, including clinic medications orders, diagnostic test orders, procedure orders and consult orders; where the start date of the order is 45 days before the date of the Encounter or 45 days after the date of theEncounter. The data comes from all [facility]. Test Date/Time Test Type Test Details Facility Name May 26, 2024 02:25 PM Consult Order COMMUNITY CARE-COLONOSCOPY SURVEILLANCE Cons Returned Goods Repairer's Choice [facility] Social History: Smoking Status (Most current) and Tobacco Use (All prior to encounter date) This section includes the most current, and the historical, smoking and tobacco- related health factors from the [place] facility where the Encounter took place. Current Smoking Status This section includes the most current smoking, or tobacco-related health factor, from the [place] facility where the Encounter took place. Date/Time Current Smoking Status Comment Facil ity March 20, 2023 03:00 PM VA-TOBACCO FORMER USER [facility] Tobacco Use History This section includes a history of the smoking, or tobacco-related health factors, that were collected on or before the date of the Encounter. The data comes from the [place] facility where the Encounter took place. Date/Time Smoking Status/Tobac co Use Comment Facility March 20, 2023 03:00 PM VA-TOBACCO QUIT 5 TO < [address] [facility] [place] [facility] March 19, 2022 03:00 PM VA-TOBACCO FORMER USER [facility] [place] [facility] March 19, 2022 03:00 PM VA-TOBACCO QUIT 5 TO < [address] [facility] [place] [facility] Feb 07, 2021 11:00 AM VA-TOBACCO FORMER USER [facility] [place] [facility] Feb 07, 2021 11:00 AM VA-TOBACCO QUIT 5 TO < [address] [facility] [facility] Feb 02, 2020 03:19 PM VA-TOBACCO FORMER USER CT [facility] [place] [facility] Feb 02, 2020 03:19 PM VA-TOBACCO QUIT 5 TO < [address] [facility] [place] [facility] Sep 03, 2018 11:07 AM VA-TOBACCO NEVER USED CT CN[facility] [place] [facility] Oct 24, 2017 02:40 PM QUIT TOBACCO USE 1-7 YEARS AGO PT QUIT [address] [facility] [place] [facility] Nov 23, 2016 11:14 AM LIFETIME NON-TOBACCO USER CT [facility] [place] [facility] Nov 23, 2016 11:14 AM QUIT TOBACCO USE 1-[address] [facility] [place] [facility] May 11, 2016 04:46 PM QUIT TOBACCO USE 1-[address] [facility] [place] [facility] Dec 09, 2015 09:56 AM V1-PT DECLINES REF TO TOBACCO CESS PRGM CT CNTRL [place] [place] [facility] Dec 09, 2015 09:56 AM V1-PT THINKING ABOUT QUIT TOBACCO USE CT CNTR [facility] [place] [facility] May 25, 2015 01:26 PM QUIT TOBACCO USE IN PAST YEAR CT [facility]TR [facility] [place] [facility] Oct 05, 2014 01:34 PM V1-PT DECLINES TOBACCO CESSATION MEDS [facility] [place] [facility] Oct 05, 2014 01:34 PM V1-PT THINKING ABOUT QUIT TOBACCO USE [facility] [place] [facility] Aug 17, 2014 09:30 AM CURRENT SMOKER trys to reduce smoking [facility] [place] [facility] Aug 17, 2014 09:30 AM V1-PT DECLINES REF TO TOBACCO CESS PRGM [facility] [place] [facility] Aug 17, 2014 09:30 AM V1-PT DECLINES TOBACCO CESSATION MEDS [facility] [place] [facility] Aug 17, 2014 09:30 AM V1-PT THINKING ABOUT QUIT TOBACCO USE [facility] [place] [facility] Oct 31, 2012 12:52 PM QUIT TOBACCO USE 1-7 YEARS AGO [facility] [place] [facility] Nov 30, 2011 11:15 AM QUIT TOBACCO USE 1-7 YEARS AGO [facility] [place] [facility] Nov 21, 2010 10:56 AM QUIT TOBACCO USE IN PAST YEAR [facility] [place] [facility] Feb 02, 2010 10:09 AM CURRENT SMOKER 3 per day [facility] [place] [facility] Jan 13, 2010 12:22 PM V1-PT DECLINES REF TO TOBACCO CESS PRGM [facility] [place] [facility] Jan 13, 2010 12:22 PM V1-PT DECLINES TOBACCO CESSATION MEDS [facility] [place] [facility] Jan 13, 2010 12:22 PM V1-PT THINKING ABOUT QUIT TOBACCO USE [facility] [place] [facility] Aug 02, 2009 12:04 PM V1-PT DECLINES REF TO TOBACCO CESS PRGM [facility] [place] [facility] Aug 02, 2009 12:04 PM V1-PT DECLINES TOBACCO CESSATION MEDS [facility] [place] [facility] Aug 02, 2009 12:04 PM V1-PT THINKING ABOUT QUIT TOBACCO USE [facility] [place] [facility] Mar 04, 2009 09:03 AM CURRENT SMOKER 1 or 2 ppd [facility] [place] [facility] Feb 22, 2009 12:06 PM V1-PT DECLINES REF TO TOBACCO CESS PRGM [facility] [place] [facility] Feb 22, 2009 12:06 PM V1-PT READY TO QUIT TOBACCO USE [facility] Sep 02, 2008 02:00 PM V1-PT [facility]CL[facility]ES [facility] Sep 02, 2008 02:00 PM V1-PT THINKING ABOUT QUIT TOBACCO USE [facility] April 01, 2008 11:27 AM QUIT TOBACCO USE IN PAST YEAR [facility] Feb 26, 2008 04:05 PM V1-PT DECLINES TOBACCO CESSATION MEDS [facility] Feb 26, 2008 04:05 PM V1-PT NOT INTERESTED IN QUIT TOBACCO USE [facility] Nov 14, 2007 02:46 PM CURRENT SMOKER 3 cigarrettes a week/30 years [facility] Encounter Notes: All associated encounter notes This section contains the clinical notes associated to the Encounter. Date/Time Encounter Note(s) Provider Source Apr 20, 2024 08:20 AM ADDENDUM: LOCAL TITLE: Addendum STANDARD TITLE: ADDENDUM DATE OF NOTE: APR 20, 2024@08:20:13 ENTRY DATE: APR 20, 2024@08:20:14 AUTHOR: ANGE RUIZ COSIGNER: URGENCY: STATUS: COMPLETED please schedule next available. thank you. /parish Ruiz RN, BSN Primary Care Signed: 04/20/2024 08:20 Receipt Acknowledged By: 04/20/2024 08:31 /marisa/ DAVIS PAULA ADVANCED CHEMISTRY TECHNICIAN === --- Original Document --- 04/17/24 [facility]: SCHEDULING ADMINISTRATION: PER [facility] USABILITY ARCHITECT ERMELINDA NEEDS AN APPT WITHIN 3 DAYS FOR PRIMARY CARE FOR LUMP ON BACK. HYDRO OPERATOR IS UNABLE TO MARIA VICTORIA APPT WITH PCP DUE TO AVALIBILTY. PLEASE CALL FOR APPT. /marisa/ JACOB RILEY v2 [facility] AMSA Signed: 04/17/2024 17:59 Receipt Acknowledged By: 04/20/2024 08:21 /marisa/ Ange Ruiz RN, BSN Primary Care * AWAITING SIGNATURE * MONIKA ENRIQUEZ 04/20/2024 ADDENDUM STATUS: UNSIGNED You may not VIEW this UNSIGNED Addendum. ANGE RUIZ [facility] April 17, 2024 05:55 PM ADMINISTRATIVE NOTE: LOCAL TITLE: [facility]: SCHEDULING ADMINISTRATION STANDARD TITLE: ADMINISTRATIVE NOTE DATE OF NOTE: APRIL 17, 2024@17:55 ENTRY DATE: APRIL 17, 2024@17:55:38 AUTHOR: SAYDA RILEY EXP COSIGNER: URGENCY: STATUS: COMPLETED [facility]: SCHEDULING ADMINISTRATION Has ADDENDA PER [facility] USABILITY ARCHITECTKRISTAN DE LA ROSA NEEDS AN APPT WITHIN 3 DAYS FOR PRIMARY CARE FOR LUMP ON BACK. HYDRO OPERATOR IS UNABLE TO MARIA VICTORIA APPT WITH PCP DUE TO AVALIBILTY. PLEASE CALL FOR APPT. /marisa/ JACOB RILEY v2 [facility] AMSA Signed: 04/17/2024 17:59 Receipt Acknowledged By: 04/20/2024 08:21 /marisa/ Ange Ruiz RN, BSN Primary Care 04/20/2024 08:32 /marisa/ DAVIS PAULA ADVANCED CHEMISTRY TECHNICIAN for MONIKA ENRIQUEZ 04/20/2024 ADDENDUM STATUS: COMPLETED please schedule next available. thank you. /parish Ruiz RN, BSN Primary Care Signed: 04/20/2024 08:20 Receipt Acknowledged By: 04/20/2024 08:31 /marisa/ DAVIS PAULA ADVANCED CHEMISTRY TECHNICIAN 04/20/2024 ADDENDUM STATUS: COMPLETED Financial Services Counselor spoke to , scheduled apt April. /marisa/ DAVIS PAULA ADVANCED CHEMISTRY TECHNICIAN Signed: 04/20/2024 08:32 SAYDA RILEY [facility]
--- OUTSIDE RECORDS SUMMARY | 2024-11-09 10:56 | XMS_ITS ---
Author Name Department of Vetera Affairs ([place] Organization [facility] of [place] Address [address] [place] [address] Care Team Providers Care Job Printer Name Role Phone LAVERN ETIENNE Primary Care [...] SELF + ONE Aug 13, 2020 106 [id number] [phone] SUGRUE,TO DD PATIENT ANTHEM BCBS CT FEDERAL PREFERRED PROVIDER ORGANIZAT ION (PPO) STAND CONSUELO SELF Nov 18, 2007 104 [id number] [phone] SUGRUE,TO DD PATIENT ANTHEM BCBS CT FEDERAL PREFERRED PROVIDER ORGANIZAT ION (PPO) STAND CONSUELO FAMIL Y Nov 30, 2000 105 [id number] [phone] SUGRUE,TO DD PATIENT BCBS [place] F[place] PREFERRED PROVIDER ORGANIZAT ION (PPO) STAND CONSUELO SELF PLUS 1 Aug 13, 2020 106 [id number] SUGRUE,TO DD PATIENT BCBS [place] PREFERRED PROVIDER ORGANIZAT ION (PPO) STAND CONSUELO FAMIL Y Nov 30, 2000 105 [id number] SUGRUE,TO DD PATIENT [place] PREFERRED PROVIDER ORGANIZAT ION (PPO) STAND CONSUELO SELF+ ONE Aug 13, 2020 106 [id number] SUGRUE,TO DD PATIENT [place] PREFERRED PROVIDER ORGANIZAT ION (PPO) STAND CONSUELO FAMIL Y Nov 30, 2000 105 [id number] SUGRUE,TO DD PATIENT [place] DENTAL DENTAL INSURANCE STAND CONSUELO Aug 13, 2020 DENTAL [id number] SUGRUE,TO DD PATIENT [place] FEP BCBS PRESCRIPT ION CAREM ARK FEPRX PLAN Aug 13, 2020 [id number] SUGRUE,TO DD PATIENT [place] FEPRX PLAN PRESCRIPT ION BCBS FEP Nov 18, 2010 [id number] SUGRUE,TO DD PATIENT [place] FEPRX PLAN PRESCRIPT ION CAREM ARK FEPRX Nov 18, 2010 [id number] SUGRUE,TO DD PATIENT [place] FEPRX PLAN PRESCRIPT ION BCBS FEP Nov 18, 2007 [id number] SUGRUE,TO DD PATIENT CAREMARK-F EP BCBS PRESCRIPT ION FEP CAREM ARK Nov 18, 2010 [id number] SUGKATEE,TO DD PATIENT MEDICARE (WNR) MEDICARE (M) PART A Sep 18, 2020 PART A [id number] SUGKATEE,TO DD PATIENT MEDICARE (WNR) MEDICARE (M) PART A Sep 18, 2020 PART A [id number] SUGRUE,TO DD PATIENT MEDICARE (WNR) MEDICARE (M) PART A Sep 18, 2020 PART A [id number] SUGKATEE,TO DD PATIENT [facility] DFEC WORKERS' COMPENSAT ION INSURANCE WORKE R'S COMP April 01, 2018 WORKER' S COMP [id number] ADAMA RAYGOZA DD PATIENT Selected Encounter This section includes the information on record at [place] for the Encounter. Date/Time Encounter Type Encounter Description Reason Pro vider Source May 18, 2024 11:27 AM Outpatient Encounter PRIMARY CARE/MEDICINE IHE Encounter Template Text not used by [place] Plan of Treatment: Future Appointments (+ 6 months) and Future Tests (+/- 45 days) The Plan of Treatment section includes future care activities for the patient from all [place] [facility] [place]. This section includes future appointments and future orders which are active, pending or scheduled. Future Appointments This section includes appointments that were scheduled to occur 6 months from the date of the Encounter, up to a maximum of 20 appointments. The data comes from all [facility]. Appointment Date/Time Appointment Type Appointme nt Facility Name May 26, 2024 02:00 PM AMBULATORY - MEDICINE [place] C [facility] [place] [facility] Jun 25, 2024 09:30 AM AMBULATORY - MEDICINE [place] C [facility]L [place] [facility] Jul 01, 2024 08:30 AM AMBULATORY - NONE [place] [facility] [place] [facility] Sep 10, 2024 04:30 PM AMBULATORY - NONE [place] [facility] [place] [facility] Nov 09, 2024 11:00 AM AMBULATORY - NONE [facility] Active, Pending, and Scheduled Orders This section includes a listing of several types of active, pending, and scheduled orders, including clinic medications orders, diagnostic test orders, procedure orders and consult orders; where the start date of the order is 45 days before the date of the Encounter or 45 days after the date of theEncounter. The data comes from all [facility]. Test Date/Time Test Type Test Details Facility Name May 26, 2024 02:25 PM Consult Order COMMUNITY CARE-COLONOSCOPY SURVEILLANCE Cons Diamond Expert's Choice [place] CN[facility] [facility] Social History: Smoking Status (Most current) and Tobacco Use (All prior to encounter date) This section includes the most current, and the historical, smoking and tobacco- related health factors from the [place] facility where the Encounter took place. Current Smoking Status This section includes the most current smoking, or tobacco-related health factor, from the [place] facility where the Encounter took place. Date/Time Current Smoking Status Comment Facil it March 20, 2023 03:00 PM VA-TOBACCO FORMER USER [place] CNTR [facility] [facility] Tobacco Use History This section includes a history of the smoking, or tobacco-related health factors, that were collected on or before the date of the Encounter. The data comes from the [place] facility where the Encounter took place. Date/Time Smoking Status/Tobac co Use Comment Facility March 20, 2023 03:00 PM VA-TOBACCO QUIT 5 TO < 15 YRS [place] [facility] [facility] March 19, 2022 03:00 PM VA-TOBACCO FORMER USER [place] [facility] [facility] March 19, 2022 03:00 PM VA-TOBACCO QUIT 5 TO < 15 YRS [place] [facility] [place] [facility] Feb 07, 2021 11:00 AM VA-TOBACCO FORMER USER PR [facility] [facility] Feb 07, 2021 11:00 AM VA-TOBACCO QUIT 5 TO < 15 YRS [place] [facility] [facility] Feb 02, 2020 03:19 PM VA-TOBACCO FORMER USER PR [facility] [facility] Feb 02, 2020 03:19 PM VA-TOBACCO QUIT 5 TO < 15 YRS PR [facility] [facility] Sep 03, 2018 11:07 AM VA-TOBACCO NEVER USED PR [facility] [facility] Oct 24, 2017 02:40 PM QUIT TOBACCO USE 1-7 YEARS AGO PT QUIT 2 YRS AGO PR [facility] [place] [facility] Nov 23, 2016 11:14 AM LIFETIME NON-TOBACCO USER PR [facility] [place] [facility] Nov 23, 2016 11:14 AM QUIT TOBACCO USE 1-7 YEARS AGO PR [facility] [facility] May 11, 2016 04:46 PM QUIT TOBACCO USE 1-7 YEARS AGO PR [facility] [place] [facility] Dec 09, 2015 09:56 AM V1-PT DECLINES REF TO TOBACCO CESS PRGM PR [facility]L [place] [facility] Dec 09, 2015 09:56 AM V1-PT THINKING ABOUT QUIT TOBACCO USE PR [facility]TR [place] [facility] May 25, 2015 01:26 PM QUIT TOBACCO USE IN PAST YEAR PR [facility]TR [place] [facility] Oct 05, 2014 01:34 PM V1-PT DECLINES TOBACCO CESSATION MEDS [facility] [place] [facility] Oct 05, 2014 01:34 PM V1-PT THINKING ABOUT QUIT TOBACCO USE [facility] [place] [facility] Aug 17, 2014 09:30 AM CURRENT SMOKER trys to reduce [facility] [place] [facility] Aug 17, 2014 09:30 AM V1-PT DECLINES REF TO TOBACCO CESS PRGM [facility] [place] [facility] Aug 17, 2014 09:30 AM V1-PT DECLINES TOBACCO CESSATION MEDS [facility] [place] [facility] Aug 17, 2014 09:30 AM V1-PT THINKING ABOUT QUIT [facility]ACCO [facility] [place] [facility] Oct 31, 2012 12:52 PM QUIT TOBACCO USE 1-7 YEARS AGO [facility] Nov 30, 2011 11:15 AM QUIT TOBACCO USE 1-7 YEARS AGO [facility] [place] [facility] Nov 21, 2010 10:56 AM QUIT TOBACCO USE IN PAST YEAR [facility] [place] [facility] Feb 02, 2010 10:09 AM CURRENT SMOKER 3 per day [facility] [place] [facility] Jan 13, 2010 12:22 PM V1-PT DECLINES REF TO TOBACCO CESS PR[facility] Jan 13, 2010 12:22 PM V1-PT DECLINES TOBACCO CESSATION MEDS [facility] Jan 13, 2010 12:22 PM V1-PT THINKING ABOUT QUIT TOBACCO USE [facility] [place] [facility] Aug 02, 2009 12:04 PM V1-PT DECLINES REF TO TOBACCO CESS [facility] [place] [facility] Aug 02, 2009 12:04 PM V1-PT DECLINES TOBACCO CESSATION MEDS [facility] [place] [facility] Aug 02, 2009 12:04 PM V1-PT THINKING ABOUT QUIT TOBACCO USE [facility] [place] [facility] Mar 04, 2009 09:03 AM CURRENT SMOKER 1 or 2 ppd PR CNTR [facility] [facility] Feb 22, 2009 12:06 PM V1-PT DECLINES REF TO TOBACCO CESS PRGM [facility] Feb 22, 2009 12:06 PM V1-PT READY TO QUIT TOBACCO USE [facility] Sep 02, 2008 02:00 PM V1-PT DECLINES TOBACCO CESSATION MEDS [facility] Sep 02, 2008 02:00 PM V1-PT THINKING ABOUT QUIT TOBACCO USE [facility] April 01, 2008 11:27 AM QUIT TOBACCO USE IN PAST YEAR [facility] Feb 26, 2008 04:05 PM V1-PT DECLINES TOBACCO CESSATION MEDS [facility] Feb 26, 2008 04:05 PM V1-PT NOT INTERESTED IN QUIT TOBACCO USE [facility] Nov 14, 2007 02:46 PM CURRENT SMOKER 3 cigarrettes a week/30 years [facility] Encounter Notes: All associated encounter notes This section contains the clinical notes associated to the Encounter. Date/Time Encounter Note(s) Provider Source May 18, 2024 11:27 AM ADMINISTRATIVE NOTE: LOCAL TITLE: ADMINISTRATIVE NOTE STANDARD TITLE: ADMINISTRATIVE NOTE DATE OF NOTE: MAY 18, 2024@11:27 ENTRY DATE: MAY 18, 2024@11:27:46 AUTHOR: MONIKA ENRIQUEZ EXP COSIGNER: URGENCY: STATUS: COMPLETED Reminder call for your upcoming Primary Care Appointment and the need for preparations prior to your upcoming appt. [ ] Location in [address] [X] Fasting labs [ ] Lab work within 30 days [ ] Urine [ ] No Preparation Action taken: [ ] Called , left voice message [ ] Called , unable to leave voice mail [X] Spoke to /insurance healthcare representative to remind them of upcoming appt/preparations Upcoming Appointments: 05/26/2024 14:00 CWM/NO/PACT 2 07/13/2024 09:00 CWM/NO/PACT 2 02/02/2025 15:30 CWM/NO/OPTOMETRY/MERHAR /es/ MONIKA ENRIQUEZ AMSA Signed: 05/18/2024 11:27 MONIKA ENRIQUEZ [facility]
--- OUTSIDE RECORDS SUMMARY | 2024-11-09 10:56 | XMS_ITS | Encounter Summary ---
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 Name Role Phone LAVERN ETIENNE Primary [...] SELF + ONE Aug 13, [phone] [id number] [phone] SUGRUE,TO DD PATIENT ANTHEM BCBS CT FEDERAL PREFERRED PROVIDER ORGANIZAT ION (PPO) STAND CONSUELO SELF Nov 18, 2007 104 [id number] [phone] SUGRUE,TO DD PATIENT ANTHEM BCBS CT FEDERAL PREFERRED PROVIDER ORGANIZAT ION (PPO) STAND CONSUELO FAMIL Y Nov 30, 2000 105 [id number] [phone] SUGRUE,TO DD PATIENT BCBS [place] FEP PREFERRED PROVIDER ORGANIZAT ION (PPO) STAND CONSUELO SELF PLUS 1 Aug 13, 2020 106 [id number] SUGRUE,TO DD PATIENT BCBS [place] FEP PREFERRED PROVIDER ORGANIZAT ION (PPO) STAND CONSUELO FAMIL Y Nov 30, 2000 105 [id number] SUGRUE,TO DD PATIENT [place] F[place] PREFERRED PROVIDER ORGANIZAT ION (PPO) STAND CONSUELO SELF+ ONE Aug 13, 2020 106 [id number] SUGRUE,TO DD PATIENT [place] F[place] PREFERRED PROVIDER ORGANIZAT ION (PPO) STAND CONSUELO FAMIL Y Nov 30, 2000 105 [id number] SUGRUE,TO DD PATIENT [place] FEP DENTAL DENTAL INSURANCE STAND CONSUELO Aug 13, 2020 DENTAL [id number] SUGRUE,TO DD PATIENT [place] FEP BCBS PRESCRIPT ION CAREM ARK FEPRX PLAN Aug 13, 2020 [id number] SUGRUE,TO DD PATIENT [place] FEPRX PLAN PRESCRIPT ION BCBS FEP Nov 18, 2010 [id number] SUGRUE,TO DD PATIENT [place]ARK FEPRX PLAN PRESCRIPT ION CAREM ARK FEPRX Nov 18, 2010 [id number] SUGRUE,TO DD PATIENT [place] FEPRX PLAN PRESCRIPT ION BCBS FEP Nov 18, 2007 [id number] SUGRUE,TO DD PATIENT CAREMARK-F EP BCBS PRESCRIPT ION FEP CAREM ARK Nov 18, 2010 [id number] SUGRUE,TO DD PATIENT MEDICARE (WNR) MEDICARE (M) PART A Sep 18, 2020 PART A [id number] [phone] SUGRUE,TO DD PATIENT MEDICARE (WNR) MEDICARE (M) PART A Sep 18, 2020 PART A [id number] SUGRUE,TO DD PATIENT MEDICARE (WNR) MEDICARE (M) PART A Sep 18, 2020 PART A [id number] [phone] SUGRUE,TO DD PATIENT US DEPART OF LABOR MED DFEC WORKERS' COMPENSAT ION INSURANCE WORKE R'S COMP April 01, 2018 WORKER' S COMP [id number] [phone] ADAMA RAYGOZA DD PATIENT Selected Encounter This section includes the information on record at [place] for the Encounter. Date/Time Encounter Type Encounter Description Reason Pro vider Source Jun 08, 2024 11:59 AM Outpatient Encounter ADMIN PAT ACTIVTIES (MASNONCT) IHE Encounter Template Text not used by [place] Plan of Treatment: Future Appointments (+ 6 months) and Future Tests (+/- 45 days) The Plan of Treatment section includes future care activities for the [facility] [place] [facility] This section includes future appointments and future orders which are active, pending or scheduled. Future Appointments This section includes appointments that were scheduled to occur 6 months from the date of the Encounter, up to a maximum of 20 appointments. The data comes from all [facility]. Appointment Date/Time Appointment Type Appointme nt Facility Name Jun 25, 2024 09:30 AM AMBULATORY - MEDICINE [facility] Jul 01, 2024 08:30 AM [facility] Sep 10, 2024 04:30 PM [facility] Nov 09, 2024 11:00 AM [facility] Nov 26, 2024 08:30 AM AMBULATORY - MEDICINE [facility] Active, Pending, and Scheduled Orders This section includes a listing of several types of active, pending, and scheduled orders, including clinic medications orders, diagnostic test orders, procedure orders and consult orders; where the start date of the order is 45 days before the date of the Encounter or 45 days after the date of theEncounter. The data comes from all [facility]. Test Date/Time Test Type Test Details Facility Name May 26, 2024 02:25 PM Consult Order COMMUNITY CARE-COLONOSCOPY [place] Cons Etiology Teacher's Choice [facility] Jul 04, 2024 12:00 AM Laboratory - Chemistry Order BASIC METABOLIC PANEL (fasting) BLOOD (SST-SERUM) [facility] Jul 04, 2024 12:00 AM Laboratory - Chemistry Order LIVER FUNCTION BLOOD (SST-SERUM) [facility] [place] [facility] Jul 04, 2024 12:00 AM Laboratory - Chemistry Order LIPID PANEL FASTING BLOOD (SST-SERUM) [facility] [place] [facility] Jul 04, 2024 12:00 AM Laboratory - Chemistry Order TSH BLOOD ([facility]SERUM) [facility] Jul 04, 2024 12:00 AM Laboratory - Chemistry Order PSA BLOOD (SST-SERUM) [facility] Jul 04, 2024 12:00 AM Laboratory - Chemistry Order URINALYSIS CLEAN CATCH URINE [facility] Jul 04, 2024 12:00 AM Laboratory - Chemistry Order CBC AND DIFF (AUTO) BLOOD (LAV[facility]BLOOD) [facility] Social History: Smoking Status (Most current) and Tobacco Use (All prior to encounter date) This section includes the most current, and the historical, smoking and tobacco- related health factors from the [place] facility where the Encounter took place. Current Smoking Status This section includes the most current smoking, or tobacco-related health factor, from the [place] facility where the Encounter took place. Date/Time Current Smoking Status Comment [facility] May 26, 2024 02:00 PM VA-TOBACCO FORMER USER [facility] Tobacco Use History This section includes a history of the smoking, or tobacco-related health factors, that were collected on or before the date of the Encounter. The data comes from the [place] facility where the Encounter took place. Date/Time Smoking Status/Tobac co Use Comment Facility May 26, 2024 02:00 PM VA-TOBACCO QUIT 5 TO < 15 YRS [place] [facility] [place] [facility] March 20, 2023 03:00 PM VA-TOBACCO FORMER USER [place] [facility] [place] [facility] March 20, 2023 03:00 PM VA-TOBACCO QUIT 5 TO < 15 YRS [facility] [place] [facility] March 19, 2022 03:00 PM VA-TOBACCO FORMER USER [place] [facility] [place] [facility] March 19, 2022 03:00 PM VA-TOBACCO QUIT 5 TO < 15 YRS [facility] [place] [facility] Feb 07, 2021 11:00 AM VA-TOBACCO FORMER USER [facility] [place] [facility] Feb 07, 2021 11:00 AM VA-TOBACCO QUIT 5 TO < 15 YRS [facility] [place] [facility] Feb 02, 2020 03:19 PM VA-TOBACCO FORMER USER [facility] [place] [facility] Feb 02, 2020 03:19 PM VA-TOBACCO QUIT 5 TO < 15 YRS [facility] [place] [facility] Sep 03, 2018 11:07 AM VA-TOBACCO NEVER USED [facility] [place] [facility] Oct 24, 2017 02:40 PM QUIT TOBACCO USE 1-7 YEARS AGO PT QUIT 2 YRS AGO [facility] [place] [facility] Nov 23, 2016 11:14 AM LIFETIME NON-TOBACCO USER [facility] [place] [facility] Nov 23, 2016 11:14 AM QUIT TOBACCO USE 1-7 YEARS AGO [facility] [place] [facility] May 11, 2016 04:46 PM QUIT TOBACCO USE 1-7 YEARS AGO [facility] [place] [facility] Dec 09, 2015 09:56 AM V1-PT DECLINES REF TO TOBACCO CESS PRGM [facility] [place] [facility] Dec 09, 2015 09:56 AM V1-PT THINKING ABOUT QUIT TOBACCO USE [facility] [place] [facility] May 25, 2015 01:26 PM QUIT TOBACCO USE IN PAST YEAR [facility] [place] [facility] Oct 05, 2014 01:34 PM V1-PT DECLINES TOBACCO CESSATION MEDS [facility] [place] [facility] Oct 05, 2014 01:34 PM V1-PT THINKING ABOUT QUIT TOBACCO USE [facility] [place] [facility] Aug 17, 2014 09:30 AM CURRENT SMOKER trys to reduce smoking [facility] [place] [facility] Aug 17, 2014 09:30 AM V1-PT DECLINES REF TO TOBACCO CESS PRGM [facility] [place] [facility] Aug 17, 2014 09:30 AM V1-PT DECLINES TOBACCO CESSATION MEDS [facility] [place] [facility] Aug 17, 2014 09:30 AM V1-PT THINKING ABOUT QUIT TOBACCO USE [facility] [place] [facility] Oct 31, 2012 12:52 PM QUIT TOBACCO USE 1-7 YEARS AGO [facility] [place] [facility] Nov 30, 2011 11:15 AM QUIT TOBACCO USE 1-7 YEARS AGO [facility] [place] [facility] Nov 21, 2010 10:56 AM QUIT TOBACCO USE IN PAST YEAR [facility] [place] [facility] Feb 02, 2010 10:09 AM CURRENT SMOKER 3 per day [facility] [place] [facility] Jan 13, 2010 12:22 PM V1-PT DECLINES REF TO TOBACCO CESS PRGM [facility] [place] [facility] Jan 13, 2010 12:22 PM V1-PT DECLINES TOBACCO CESSATION MEDS [facility] [place] [facility] Jan 13, 2010 12:22 PM V1-PT THINKING ABOUT QUIT TOBACCO USE [facility] [place] [facility] Aug 02, 2009 12:04 PM V1-PT DECLINES REF TO TOBACCO CESS PRGM [facility] [place] [facility] Aug 02, 2009 12:04 PM V1-PT DECLINES TOBACCO CESSATION MEDS [facility] [place] [facility] Aug 02, 2009 12:04 PM V1-PT THINKING ABOUT QUIT TOBACCO [facility] [place] [facility] Mar 04, 2009 09:03 AM CURRENT SMOKER 1 or 2 ppd [facility] [place] [facility] Feb 22, 2009 12:06 PM V1-PT DECLINES REF TO TOBACCO CESS PRGM [facility] [place] [facility] Feb 22, 2009 12:06 PM V1-PT READY TO QUIT TOBACCO USE [facility] [place] [facility] Sep 02, 2008 02:00 PM V1-PT DECLINES TOBACCO CESSATION MEDS [facility] [place] [facility] Sep 02, 2008 02:00 PM V1-PT THINKING ABOUT QUIT TOBACCO USE [facility] [place] [facility] April 01, 2008 11:27 AM QUIT TOBACCO USE IN PAST YEAR [facility] [place] [facility] Feb 26, 2008 04:05 PM V1-PT DECLINES TOBACCO CESSATION MEDS [facility] [place] [facility] Feb 26, 2008 04:05 PM V1-PT NOT INTERESTED IN QUIT TOBACCO USE [facility] [place] [facility] Nov 14, 2007 02:46 PM CURRENT SMOKER 3 cigarrettes a week/30 years [facility] Encounter Notes: All associated encounter notes This section contains the clinical notes associated to the Encounter. Date/Time Encounter Note(s) Provider Source Jun 08, 2024 01:09 PM ADDENDUM: LOCAL TITLE: Addendum STANDARD TITLE: ADDENDUM DATE OF NOTE: JUN 08, 2024@13:09:39 ENTRY DATE: JUN 08, 2024@13:09:40 AUTHOR: ANGE RUIZ EXP COSIGNER: URGENCY: STATUS: COMPLETED Pat, please give him next available. thank you. /es/ Ange Ruiz RN, BSN Primary Care Signed: 06/08/2024 13:09 Receipt Acknowledged By: 06/08/2024 13:43 /es/ MONIKA ENRIQUEZ AMSA === --- Original Document --- 06/08/24 CCC: SCHEDULING ADMINISTRATION: Patient Demographics Patient Name: ELEAZAR RAYGOZA Patient Primary Phone: [phone] Patient Primary Address: [address] [place] [id number] Patient : 1955 Patient Age: 68 Caller/Recipient Relation to Patient: Self Scheduling Cannot Complete Scheduling Action Reason: No Appointment Available Requested Service(s): Primary Care Scheduling Note Reason: Cannot Complete Appointment Request Scheduling Note Comments: per Triage F2F with pact within 2 weeks for skin lesion on scalp, 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 ANGE RUIZ [facility] [place] [facility] Jun 08, 2024 11:59 AM ADMINISTRATIVE NOTE: LOCAL TITLE: CCC: SCHEDULING ADMINISTRATION STANDARD TITLE: ADMINISTRATIVE NOTE DATE OF NOTE: JUN 08, 2024@11:59:54 ENTRY DATE: JUN 08, 2024@11:59:55 AUTHOR: MORENA HARTLEY COSIGNER: URGENCY: STATUS: COMPLETED CCC: SCHEDULING ADMINISTRATION Has ADDENDA Patient Demographics Patient Name: ELEAZAR RAYGOZA Patient Primary Phone: [phone] Patient Primary Address: [address] [place] [id number] Patient : 1955 Patient Age: 68 Caller/Recipient Relation to Patient: Self Scheduling Cannot Complete Scheduling Action Reason: No Appointment Available Requested Service(s): Primary Care Scheduling Note Reason: Cannot Complete Appointment Request Scheduling Note Comments: per Triage F2F with pact within 2 weeks for skin lesion on scalp, 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 thank you. /marisa/ Ange Ruiz RN, BSN Primary Care Signed: 06/08/2024 13:09 Receipt Acknowledged By: 06/08/2024 13:43 /marisa/ MONIKA PELAYO 06/08/2024 ADDENDUM STATUS: COMPLETED AMSA spoke with [place]. [place] is scheduled for 06/25/24 at 9:30am. /marisa/ MONIKA ENRIQUEZ AMSA Signed: 06/08/2024 13:43 MORENA HARTLEY [place] [facility] [place] [facility]
--- OUTSIDE RECORDS SUMMARY | 2024-11-09 10:56 | XMS_ITS | Encounter Summary ---
Author Name [facility] [place] [facility] [place] [facility] [place] Address [address] [place] [address] Care Team Providers Care Certified Drug Counselor Name Role Phone HIPOLITO HARDING Primary Care [...] SELF + ONE Aug 13, 2020 106 [id number] [phone] SUGRUE,TO DD PATIENT ANTHEM BCBS CT FEDERAL PREFERRED PROVIDER ORGANIZAT ION (PPO) STAND CONSUELO SELF Nov 18, 2007 104 [id number] [phone] SUGRUE,TO DD PATIENT ANTHEM BCBS CT FEDERAL PREFERRED PROVIDER ORGANIZAT ION (PPO) STAND CONSUELO FAMIL Y Nov 30, 2000 105 [id number] [phone] SUGRUE,TO DD PATIENT BCBS [place] FEP PREFERRED PROVIDER ORGANIZAT ION (PPO) STAND CONSUELO SELF PLUS 1 Aug 13, 2020 106 [id number] SUGRUE,TO DD PATIENT BCBS [place] F[place] PREFERRED PROVIDER ORGANIZAT ION (PPO) STAND CONSUELO FAMIL Y Nov 30, 2000 105 [id number] SUGRUE,TO DD PATIENT [place] F[place] PREFERRED PROVIDER ORGANIZAT ION (PPO) STAND CONSUELO SELF+ ONE Aug 13, 2020 106 [id number] SUGRUE,TO DD PATIENT [place] F[place] PREFERRED PROVIDER ORGANIZAT ION (PPO) STAND CONSUELO FAMIL Y Nov 30, 2000 105 [id number] SUGRUE,TO DD PATIENT [place] FEP DENTAL DENTAL INSURANCE STAND CONSUELO Aug 13, 2020 DENTAL [id number] SUGRUE,TO DD PATIENT [place] FEP BCBS PRESCRIPT ION CAREM ARK FEPRX PLAN Aug 13, 2020 [id number] SUGRUE,TO DD PATIENT [place] FEPRX PLAN PRESCRIPT ION BCBS FEP Nov 18, 2010 [id number] SUGRUE,TO DD PATIENT [place] FEPRX PLAN PRESCRIPT ION CAREM ARK FEPRX Nov 18, 2010 [id number] SUGRUE,TO DD PATIENT [place] FEPRX PLAN PRESCRIPT ION BCBS FEP Nov 18, 2007 [id number] SUGRUE,TO DD PATIENT CAR[place]ARK-F EP BCBS PRESCRIPT ION FEP CAREM ARK Nov 18, 2010 [id number] SUGRUE,TO DD PATIENT MEDICARE (WNR) MEDICARE (M) PART A Sep 18, 2020 PART A [id number] SUGRUE,TO DD PATIENT MEDICARE (WNR) MEDICARE (M) PART A Sep 18, 2020 PART A [id number] SUGRUE,TO DD PATIENT MEDICARE (WNR) MEDICARE (M) PART A Sep 18, 2020 PART A [id number] SUGRUE,TO DD PATIENT US DEPART OF LABOR MED [facility] 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 Date/Time Encounter Type Encounter Description Reason Pro vider Source Jul 07, 2024 01:13 PM Outpatient Encounter ADMIN PAT ACTIVTIES (MASNONCT) IHE Encounter Template Text not used by [place] Plan of Treatment: Future Appointments (+ 6 months) and Future Tests (+/- 45 days) The Plan of Treatment section includes future care activities for the patient from all [place] treatmentfacilities. This section includes future appointments and future orders which are active, pending or scheduled. Future Appointments This section includes appointments that were scheduled to occur 6 months from the date of the Encounter, up to a maximum of 20 appointments. The data comes from all [facility] facilities. Appointment Date/Time Appointment Type Appointme nt Facility Name Sep 10, 2024 04:30 PM AMBULATORY - NONE [facility] Nov 09, 2024 11:00 AM AMBULATORY - NONE [facility] Nov 26, 2024 08:30 AM AMBULATORY - MEDICINE [facility] Active, Pending, and Scheduled Orders This section includes a listing of several types of active, pending, and scheduled orders, including clinic medications orders, diagnostic test orders, procedure orders and consult orders; where the start date of the order is 45 days before the date of the Encounter or 45 days after the date of theEncounter. The data comes from all [facility]. 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 [facility] Jul 04, 2024 12:00 AM Laboratory - Chemistry Order BASIC METABOLIC PANEL (fasting) BLOOD (SST-SERUM) [facility] Jul 04, 2024 12:00 AM Laboratory - Chemistry Order LIVER FUNCTION BLOOD (SST-SERUM) [facility] Jul 04, 2024 12:00 AM Laboratory - Chemistry Order LIPID PANEL FASTING BLOOD (SST-SERUM) [facility] Jul 04, 2024 12:00 AM Laboratory - Chemistry Order TSH BLOOD (SST-SERUM) [facility] [place] [facility] Jul 04, 2024 12:00 AM Laboratory - Chemistry Order PSA BLOOD (SST-SERUM) [facility] [place] [facility] Jul 04, 2024 12:00 AM Laboratory - Chemistry Order URINALYSIS CLEAN CATCH URINE [facility] [place] [facility] Jul 04, 2024 12:00 AM Laboratory - Chemistry Order CBC AND DIFF (AUTO) [facility]LO[facility] ([facility] Social History: Smoking Status (Most current) and Tobacco Use (All prior to encounter date) This section includes the most current, and the historical, smoking and tobacco- related health factors from the [place] facility where the Encounter took place. Current Smoking Status This section includes the most current smoking, or tobacco-related health factor, from the [place] facility where the Encounter took place. Date/Time Current Smoking Status Comment [facility] May 26, 2024 02:00 PM VA-TOBACCO FORMER USER [place] [facility] Tobacco Use History This section includes a history of the smoking, or tobacco-related health factors, that were collected on or before the date of the Encounter. The data comes from the [place] facility where the Encounter took place. Date/Time Smoking Status/Tobac co Use Comment Facility May 26, 2024 02:00 PM VA-TOBACCO QUIT 5 TO < 15 YRS [facility] [place] [facility] March 20, 2023 03:00 PM VA-TOBACCO FORMER USER [facility] [place] [facility] March 20, 2023 03:00 PM VA-TOBACCO QUIT 5 TO < 15 YRS [facility] [place] [facility] March 19, 2022 03:00 PM VA-TOBACCO FORMER USER [facility] [place] [facility] March 19, 2022 03:00 PM VA-TOBACCO QUIT 5 TO < 15 YRS [facility] [place] [facility] Feb 07, 2021 11:00 AM VA-TOBACCO FORMER USER [facility] [place] [facility] Feb 07, 2021 11:00 AM VA-TOBACCO QUIT 5 TO < 15 YRS [facility] [place] [facility] Feb 02, 2020 03:19 PM VA-TOBACCO FORMER USER [facility] [place] [facility] Feb 02, 2020 03:19 PM VA-TOBACCO QUIT 5 TO < 15 YRS [place] [facility] [place] [facility] Sep 03, 2018 11:07 AM VA-TOBACCO NEVER USED [place] [facility] [place] [facility] Oct 24, 2017 02:40 PM QUIT TOBACCO USE 1-7 YEARS AGO PT QUIT 2 YRS AGO [facility] [place] [facility] Nov 23, 2016 11:14 AM LIFETIME NON-TOBACCO USER [facility] [place] [facility] Nov 23, 2016 11:14 AM QUIT TOBACCO USE 1-7 YEARS AGO [place] [facility] [place] [facility] May 11, 2016 04:46 PM QUIT TOBACCO USE 1-7 YEARS AGO [facility] [place] [facility] Dec 09, 2015 09:56 AM V1-PT DECLINES REF TO TOBACCO CESS PRGM [place] [facility] [place] [facility] Dec 09, 2015 09:56 AM V1-PT THINKING ABOUT QUIT TOBACCO USE [facility] [place] [facility] May 25, 2015 01:26 PM QUIT TOBACCO USE IN PAST YEAR [facility] [place] [facility] Oct 05, 2014 01:34 PM V1-PT DECLINES TOBACCO CESSATION MEDS [facility] [place] [facility] Oct 05, 2014 01:34 PM V1-PT THINKING ABOUT QUIT TOBACCO USE [place] [facility] [place] [facility] Aug 17, 2014 09:30 AM CURRENT SMOKER trys to reduce smoking [facility] [place] [facility] Aug 17, 2014 09:30 AM V1-PT DECLINES REF TO TOBACCO CESS PRGM [facility] [place] [facility] Aug 17, 2014 09:30 AM V1-PT DECLINES TOBACCO CESSATION MEDS [facility] [place] [facility] Aug 17, 2014 09:30 AM V1-PT THINKING ABOUT QUIT TOBACCO USE [facility] [place] [facility] Oct 31, 2012 12:52 PM QUIT TOBACCO USE 1-7 YEARS AGO [facility] [place] [facility] Nov 30, 2011 11:15 AM QUIT TOBACCO USE 1-7 YEARS AGO [facility] [place] [facility] Nov 21, 2010 10:56 AM QUIT TOBACCO USE [facility]ST [facility] [place] [facility] Feb 02, 2010 10:09 AM CURRENT SMOKER 3 per day [facility] [place] [facility] Jan 13, 2010 12:22 PM V1-PT DECLINES REF TO TOBACCO CESS PRGM [facility] [place] [facility] Jan 13, 2010 12:22 PM V1-PT DECLINES TOBACCO CESSATION MEDS [facility] [place] [facility] Jan 13, 2010 12:22 PM V1-PT THINKING ABOUT QUIT TOBACCO USE [facility] [place] [facility] Aug 02, 2009 12:04 PM V1-PT DECLINES REF TO TOBACCO CESS PRGM [place] [facility] [place] [facility] Aug 02, 2009 12:04 PM V1-PT DECLINES TOBACCO CESSATION [facility] Aug 02, 2009 12:04 PM V1-PT THINKING ABOUT QUIT [facility]ACCO [facility] [place] [facility] Mar 04, 2009 09:03 AM CURRENT SMOKER 1 or 2 ppd [place] [facility] [place] [facility] Feb 22, 2009 12:06 PM V1-PT DECLINES REF TO TOBACCO CESS [facility] Feb 22, 2009 12:06 PM V1-PT READY TO QUIT TOBACCO [facility] [place] [facility] Sep 02, 2008 02:00 PM V1-PT DECLINES TOBACCO CESSATION MED[facility] [place] [facility] Sep 02, 2008 02:00 PM V1-PT THINKING ABOUT QUIT TOBACCO USE [place] [facility] [place] [facility] April 01, 2008 11:27 AM QUIT TOBACCO USE IN PAST YEAR [place] [facility] [place] [facility] Feb 26, 2008 04:05 PM V1-PT DECLINES TOBACCO CESSATION MEDS [facility] Feb 26, 2008 04:05 PM V1-PT NOT INTERESTED IN QUIT TOBACCO USE [facility] [place] [facility] Nov 14, 2007 02:46 PM CURRENT SMOKER 3 cigarrettes a week/30 [address] [facility] Encounter Notes: All associated encounter notes This section contains the clinical notes associated to the Encounter. Date/Time Encounter Note(s) Provider Source Jul 07, 2024 05:57 PM ADDENDUM: LOCAL TITLE: Addendum STANDARD TITLE: ADDENDUM DATE OF NOTE: JUL 07, 2024@17:57:15 ENTRY DATE: JUL 07, 2024@17:57:16 AUTHOR: HIPOLITO HARDING COSIGNER: URGENCY: STATUS: COMPLETED Please advise patient to see patient letter 07-05-2024. /marisa/ Hipolito Harding MD Staff Physician Signed: 07/07/2024 17:57 Receipt Acknowledged By: 07/09/2024 09:16 /marisa/ Ange Ruiz RN, BSN Primary Care === --- Original Document --- 07/07/24 CCC: SCHEDULING ADMINISTRATION: Patient Demographics Patient Name: ELEAZAR RAYGOZA Patient Primary Phone: [phone] Patient Primary Address: [address] [place] [address] Patient : 1955 Patient Age: 68 Caller/Recipient Relation to Patient: Self Administrative Administrative Note Reason: Lab / Imaging Results Administrative Note Comments: CHECKING STATUS OF RESULTS FOR DERMATOLOGY PICTURES THAT WERE SENT TO PRIMARY CARE. WOULD LIKE A CALL BACK. PLEASE ASSIST. IMPORTANT: This note was created by [facility] Clinical Contact Center staff. Please do not alert the staff member by adding them as a signer for future communications. Alerts are not monitored by this user. /marisa/ RAF GARCIA Signed: 07/07/2024 13:14 Receipt Acknowledged By: 07/07/2024 13:53 /marisa/ Ange Ruiz RN, BSAve Primary Care 07/07/2024 14:10 /es/ CRISTIAN PARR LPN LPN 07/07/2024 ADDENDUM STATUS: COMPLETED please review. thank you /parish Ruiz RN, BSN Primary Care Signed: 07/07/2024 13:53 Receipt Acknowledged By: * AWAITING SIGNATURE * DUKE HARDING Carley 07/07/2024 ADDENDUM STATUS: COMPLETED AMSA correcting PCP information on this alert. /es/ MONIKA ENRIQUEZ AMSA Signed: 07/07/2024 14:22 Receipt Acknowledged By: 07/07/2024 17:58 /marisa/ Hipolito Harding MD Staff Physician HIPOLITO HARDING [place] [facility] [place] [facility] Jul 07, 2024 02:22 PM ADDENDUM: LOCAL TITLE: Addendum STANDARD TITLE: ADDENDUM DATE OF NOTE: JUL 07, 2024@14:22:22 ENTRY DATE: JUL 07, 2024@14:22:23 AUTHOR: MONIKA ENRIQUEZ EXP COSIGNER: URGENCY: STATUS: COMPLETED AMSA correcting PCP information on this alert. /marisa/ MONIKA ENRIQUEZ AMSA Signed: 07/07/2024 14:22 Receipt Acknowledged By: 07/07/2024 17:58 /marisa/ Hipolito Harding MD Staff Physician === --- Original Document --- 07/07/24 CCC: SCHEDULING ADMINISTRATION: Patient Demographics Patient Name: ELEAZAR RAYGOZA Patient Primary Phone: [phone] Patient Primary [address]: [address] [place] [id number] Patient : 1955 Patient Age: 68 Caller/Recipient Relation to Patient: Self Administrative Administrative Note Reason: Lab / Imaging Results Administrative Note Comments: CHECKING STATUS OF RESULTS FOR DERMATOLOGY PICTURES THAT WERE SENT TO PRIMARY CARE. WOULD LIKE A CALL BACK. PLEASE ASSIST. IMPORTANT: This note was created by [facility] Clinical Contact Center staff. Please do not alert the staff member by adding them as a signer for future communications. Alerts are not monitored by this user. /es/ RAF GARCIA Signed: 07/07/2024 13:14 Receipt Acknowledged By: 07/07/2024 13:53 /marisa/ Ange Ruiz RN, BSN Primary Care 07/07/2024 14:10 /marisa/ CRISTIAN PARR LPN LPN 07/07/2024 ADDENDUM STATUS: COMPLETED please review. thank you /parish Ruiz RN, BSN Primary Care Signed: 07/07/2024 13:53 Receipt Acknowledged By: * AWAITING SIGNATURE * DUKE HARDING 07/07/2024 ADDENDUM STATUS: COMPLETED Please advise patient to see patient letter 07-05-2024. /marisa/ Hipolito Harding MD Staff Physician Signed: 07/07/2024 17:57 Receipt Acknowledged By: * AWAITING SIGNATURE * ANGE RUIZ PATRICIA [facility] [place] [facility] Jul 07, 2024 01:14 PM ADMINISTRATIVE NOTE: LOCAL TITLE: CCC: SCHEDULING ADMINISTRATION STANDARD TITLE: ADMINISTRATIVE NOTE DATE OF NOTE: JUL 07, 2024@13:14:01 ENTRY DATE: JUL 07, 2024@13:14:02 AUTHOR: RAF GARCIA EXP COSIGNER: URGENCY: STATUS: COMPLETED CCC: SCHEDULING ADMINISTRATION Has ADDENDA Patient Demographics Patient Name: ELEAZAR RAYGOZA Patient Primary Phone: [phone] Patient Primary [address]: [address] [place] [id number] Patient : 1955 Patient Age: 68 Caller/Recipient Relation to Patient: Self Administrative Administrative Note Reason: Lab / Imaging Results Administrative Note Comments: CHECKING STATUS OF RESULTS FOR DERMATOLOGY PICTURES THAT WERE SENT TO PRIMARY CARE. WOULD LIKE A CALL BACK. PLEASE ASSIST. IMPORTANT: This note was created by [facility] Clinical Contact Center staff. Please do not alert the staff member by adding them as a signer for future communications. Alerts are not monitored by this user. /marisa/ RAF GARCIA Signed: 07/07/2024 13:14 Receipt Acknowledged By: 07/07/2024 13:53 /marisa/ Ange Ruiz RN, BSN Primary Care 07/07/2024 14:10 /marisa/ CRISTIAN PARR LPN LPN 07/07/2024 ADDENDUM STATUS: COMPLETED please review. thank you /es/ Ange Ruiz RN, BSN Primary Care Signed: 07/07/2024 13:53 Receipt Acknowledged By: * AWAITING SIGNATURE * DUKE HARDING 07/07/2024 ADDENDUM STATUS: COMPLETED AMSA correcting PCP information on this alert. /es/ MONIKA ENRIQUEZ AMSA Signed: 07/07/2024 14:22 Receipt Acknowledged By: 07/07/2024 17:58 /es/ Hipolito Harding MD Staff Physician 07/07/2024 ADDENDUM STATUS: COMPLETED Please advise patient to see patient letter 07-05-2024. /es/ Hipolito Harding MD Staff Physician Signed: 07/07/2024 17:57 Receipt Acknowledged By: * AWAITING SIGNATURE * [facility]
--- OUTSIDE RECORDS SUMMARY | 2024-11-09 10:57 | XMS_ITS ---
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 Name Role Phone HIPOLITO HARDING Primary Care [...] SELF + ONE Aug 13, 2020 [id number] [phone] SUGRUE,TO DD PATIENT ANTHEM BCBS CT FEDERAL PREFERRED PROVIDER ORGANIZAT ION (PPO) STAND CONSUELO SELF Nov 18, 2007 [id number] [phone] SUGRUE,TO DD PATIENT ANTHEM BCBS CT FEDERAL PREFERRED PROVIDER ORGANIZAT ION (PPO) STAND CONSUELO FAMIL Y Nov 30, 2000 105 [id number] [phone] SUGRUE,TO DD PATIENT BCBS [place] FEP PREFERRED PROVIDER ORGANIZAT ION (PPO) STAND CONSUELO SELF PLUS 1 Aug 13, 2020 106 [id number] SUGRUE,TO DD PATIENT BCBS [place] F[place] PREFERRED PROVIDER ORGANIZAT ION (PPO) STAND CONSUELO FAMIL Y Nov 30, 2000 105 [id number] SUGRUE,TO DD PATIENT [place] PREFERRED PROVIDER ORGANIZAT ION (PPO) STAND CONSUELO SELF+ ONE Aug 13, 2020 106 [id number] SUGRUE,TO DD PATIENT [place] PREFERRED PROVIDER ORGANIZAT ION (PPO) STAND CONSUELO FAMIL Y Nov 30, 2000 105 [id number] SUGRUE,TO DD PATIENT [place] DENTAL DENTAL INSURANCE STAND CONSUELO Aug 13, 2020 DENTAL [id number] SUGRUE,TO DD PATIENT [place] FEP BCBS PRESCRIPT ION CAREM ARK FEPRX PLAN Aug 13, 2020 [id number] SUGRUE,TO DD PATIENT [place] FEPRX PLAN PRESCRIPT ION BCBS FEP Nov 18, 2010 [id number] SUGRUE,TO DD PATIENT CAR[place]ARK FEPRX PLAN PRESCRIPT ION CAREM ARK FEPRX Nov 18, 2010 [id number] SUGRUE,TO DD PATIENT [place] FEPRX PLAN PRESCRIPT ION BCBS FEP Nov 18, 2007 [id number] SUGRUE,TO DD PATIENT CAREMARK-F EP BCBS PRESCRIPT ION FEP CAREM ARK Nov 18, 2010 [id number] SUGRUE,TO DD PATIENT MEDICARE (WNR) MEDICARE (M) PART A Sep 18, 2020 PART A [id number] SUGRUE,TO DD PATIENT MEDICARE (WNR) MEDICARE (M) PART A Sep 18, 2020 PART A [id number] SUGRUE,TO DD PATIENT MEDICARE (WNR) MEDICARE (M) PART A Sep 18, 2020 PART A [id number] SUGRUE,TO DD PATIENT US DEPART OF LABOR MED DFEC WORKERS' COMPENSAT ION INSURANCE WORKE R'S COMP April 01, 2018 WORKER' S COMP [id number] ADAMA RAYGOZA DD PATIENT Selected Encounter This section includes the information on record at [place] for the Encounter. Date/Time Encounter Type Encounter Description Reason Provider Source Jan 13, 2024 09:00 AM OFFICE O/P EST LOW 20 MIN PRIMARY CARE/MEDICINE ICD-10-CM I10 Essential (primary) hypertension HIPOLITO HARDING IHE Encounter Template Text not used by [place] Assessments - Encounter Diagnoses This section includes the primary and secondary diagnoses documented for the Encounter. Date/Time Primary/Secondary Diagnosis Diagnosis Name Provider Source Jan 24, 2024 12:50 PM PRIMARY Essential (primary) hypertension HIPOLITO HARDING [facility] Jan 24, 2024 12:50 PM SECONDARY Encounter for immunization TRISHA SCOTT [facility] Plan of Treatment: Future Appointments (+ [...] Date/Time Appointment Type Appointme nt Facility Name Jan 29, 2024 09:30 AM AMBULATORY - MEDICINE [facility] May 26, 2024 02:00 PM AMBULATORY - [facility] Jun 25, 2024 09:30 AM AMBULAT[facility] - MEDICINE [facility] Jul 01, 2024 08:30 AM AMBULATORY - NONE [facility] Lab Results: +/- 30 days of the encounter This section includes the Chemistry and Hematology Lab Results on record with [place] for the patient. Radiology Reports and Pathology Reports are provided separately, in subsequent sections. Lab Results This section contains the Chemistry/Hematology Results that were resulted 30 days before or 30 daysafter the date of the Encounter. Date/Time Source Result Type Result - Unit Interpretation Reference Range Comment Jan 13, 2024 07:54 AM [facility] PSA Specimen Type: SERUM No comment entered. Ordering Provider: HIPOLITO HARDING Report Released Date/Time: Jan 05, 2024 05:10 PM Reporting [facility] [address] [facility] [facility] [address] Performing Lab: [facility] [address] [address] PSA 1.21 ng/mL 0.00-4.00 Jan 13, 2024 07:54 AM [facility] TSH Specimen Type: SERUM No comment entered. Ordering Provider: HIPOLITO HARDING Report Released Date/Time: Jan 05, 2024 05:10 PM [facility] [address] [address] Performing Lab: [facility] [address] TSH 1.19 u[IU]/mL 0.35-5.00 Jan 13, 2024 07:54 AM [facility] LIVER FUNCTION Specimen Type: SERUM No comment entered. Ordering Provider: HIPOLITO HARDING Report Released Date/Time: Jan 05, 2024 05:10 PM Reporting [facility] [address] [address] Performing [facility]: [facility] [address] [address] PROTEIN,TOTAL 6.9 g/dL 6.0-8.3 ALBUMIN 3.8 g/dL 3.5-5.0 ALKALINE PHOSPHATASE 68 U/L 40-150 AST 22 U/L 5-34 ALT 20 U/L BILIRUBIN, TOTAL 0.7 mg/dL 0.2-1.2 Jan 13, 2024 07:54 AM [facility] BASIC METABOLIC PANEL (fasting) Specimen Type: SERUM No comment entered. Ordering Provider: HIPOLITO HARDING Report Released Date/Time: Jan 05, 2024 05:10 PM Reporting Lab: [facility] [address] [address] Performing Lab: [facility] [address] [facility] [address] UREA NITROGEN 12 mg/dL 7-25 GLUCOSE 104 mg/dL H 65-100 SODIUM 139 mmol/L 135-145 POTASSIUM 4.1 mmol/L 3.5-5.0 CHLORIDE 104 mmol/L 100-110 CO2 27 meq/L 20-30 CREATININE, Serum 0.77 mg/dL 0.50-1.40 eGFR(CKD-EPI 2020) >90 mL/min >60 Jan 13, 2024 07:54 AM [facility] LIPID PANEL FASTING Specimen Type: SERUM No comment entered. Ordering Provider: HIPOLITO HARDING Report Released Date/Time: Jan 05, 2024 05:10 PM Reporting Lab: [address] [address] Performing Lab: [address] [address] CHOLESTEROL 191 mg/dL TRIGLYCERIDE 49 mg/dL 0-150 LDL calculated 96 mg/dL 0-129 CHOL/HDL 2.2 HDL CHOLESTEROL 85 mg/dL H 40-60 Jan 13, 2024 07:54 AM [facility] CBC AND DIFF (AUTO) Specimen Type: BLOOD No comment entered. Ordering Provider: HIPOLITO HARDING Report Released Date/Time: Jan 05, 2024 05:10 PM Reporting Lab: [address] [address] Performing Lab: [address] [address] WBC 3.71 10*3/uL L 4.50-11.00 RBC 4.24 10*6/uL 4.23-5.66 HGB 13.8 g/dL 12.8-17 HCT 39.9 39.2-50.4 MCV 94.1 fL 82-99 MCHC 34.6 g/dL 30.8-35.1 PLT 247 10*3/uL 140-360 RDW-CV 12.4 12.0-16.0 [place], Abs 0.55 10*3/uL 0.30-1.10 MCH 32.5 pg 26.2-32.6 Neut % 45.6 43.7-75.8 Lymph % 35.6 14.0-42.3 [place] % 14.8 H 5.1-13.7 Eos % 2.7 0.4-6.8 Baso % 1.3 0.1-2.0 Neut, Abs 1.69 10*3/uL L 2.20-7.60 Lymph, Abs 1.32 10*3/uL 1.00-3.20 Eos, Abs 0.10 10*3/uL 0.03-0.44 Baso, Abs 0.05 10*3/uL 0.01-0.13 Immature Gran % 0.0 0.0-0.7 Immature Gran, Abs 0.00 10*3/uL 0.00-0.06 Jan 13, 2024 07:54 AM [facility] URINALYSIS CLEAN CATCH Specimen Type: URINE Comment: If Glucose = >500 and Ketones are positive, please alert the Physician. Ordering Provider: HIPOLITO HARDING Report Released Date/Time: Jan 05, 2024 05:10 PM Reporting Lab: [address] [address] Performing Lab: [address] [address] UA COLOR Yellow Yellow UA APPEARANCE Clear Clear UA GLUCOSE NEGATIVE mg/dL Negative UA KETONES NEGATIVE mg/dL Negative UA BLOOD NEGATIVE mg/dL Negative UA PROTEIN NEGATIVE mg/dL Negative UA NITRITE NEGATIVE mg/dL Negative UA BILIRUBIN NEGATIVE mg/dL Negative UA SPECIFIC GRAVITY 1.022 1.016-1.022 UA pH 6.5 5.0-9.0 UA UROBILINOGEN <2.0 mg/dL <2.0 UA LEUKOCYTE NEGATIVE Negative Vital Signs: All taken on the encounter date This section contains inpatient and outpatient Vital Signs collected on the date of the Encounter. Date/Time Temperature Pulse Blood Pressure Respiratory Rate SP02 Pain Height Weight Body Mass Index Source Jan 13, 2024 09:28 AM 132/80 [facility] [employer] [facility] Jan 13, 2024 09:07 AM 97.7 50 146/100 16 100 0 141 23 [facility] Immunizations: All administered on the encounter date This section contains immunizations associated to the Encounter. Immunization Series Date Issued Reaction Comments COVID-19 (MODERNA), MRNA, LN P-S, PF, 50 MCG/0.5 ML (AGES 12+ YEARS) 1 Jan 13, 2024 INFLUENZA, HIGH-DOSE, QUADRIVALENT Jan 13, 2024 Social History: Smoking Status (Most current) [...] took place. Date/Time Current Smoking Status Comment [facility] March 20, 2023 03:00 PM VA-TOBACCO FORMER USER [place] [facility] [place] [facility] Tobacco Use History This section includes a history of the smoking, or tobacco-related health factors, that were collected on or before the date of the Encounter. The data comes from the [place] facility where the Encounter took place. Date/Time Smoking Status/Tobac co Use Comment [facility] March 20, 2023 03:00 PM VA-TOBACCO QUIT 5 TO < 15 YRS [facility] [place] [facility] March 19, 2022 03:00 PM VA-TOBACCO FORMER USER [facility] [place] [facility] March 19, 2022 03:00 PM VA-TOBACCO QUIT 5 TO < 15 YRS [facility] [place] [facility] Feb 07, 2021 11:00 AM VA-TOBACCO FORMER USER [facility] [place] [facility] Feb 07, 2021 11:00 AM VA-TOBACCO QUIT 5 TO < 15 YRS [facility] [place] [facility] Feb 02, 2020 03:19 PM VA-TOBACCO FORMER USER [facility] [place] [facility] Feb 02, 2020 03:19 PM VA-TOBACCO QUIT 5 TO < 15 YRS [facility] [place] [facility] Sep 03, 2018 11:07 AM VA-TOBACCO NEVER USED [facility] [place] [facility] Oct 24, 2017 02:40 PM QUIT TOBACCO USE 1-7 YEARS AGO PT QUIT 2 YRS AGO [facility] [place] [facility] Nov 23, 2016 11:14 AM LIFETIME NON-TOBACCO USER [place] [facility] [place] [facility] Nov 23, 2016 11:14 AM QUIT TOBACCO USE 1-7 YEARS AGO [facility] [place] [facility] May 11, 2016 04:46 PM QUIT TOBACCO USE 1-7 YEARS AGO [facility] [place] [facility] Dec 09, 2015 09:56 AM V1-PT DECLINES REF TO TOBACCO CESS PRGM [facility] [place] [facility] Dec 09, 2015 09:56 AM V1-PT THINKING ABOUT QUIT TOBACCO USE [facility] [place] [facility] May 25, 2015 01:26 PM QUIT TOBACCO USE IN PAST YEAR [facility] [place] [facility] Oct 05, 2014 01:34 PM V1-PT DECLINES TOBACCO CESSATION MEDS [facility] [place] [facility] Oct 05, 2014 01:34 PM V1-PT THINKING ABOUT QUIT [facility]AC[facility] [place] [facility] Aug 17, 2014 09:30 AM CURRENT SMOKER trys to reduce smoking [facility] [place] [facility] Aug 17, 2014 09:30 AM V1-PT DECLINES REF TO TOBACCO CESS PRGM [facility] [place] [facility] Aug 17, 2014 09:30 AM V1-PT DECLINES TOBACCO CESSATION MEDS [facility] [place] [facility] Aug 17, 2014 09:30 AM V1-PT THINKING ABOUT QUIT TOBACCO USE [facility] [place] [facility] Oct 31, 2012 12:52 PM QUIT TOBACCO USE 1-7 YEARS AGO [facility] [place] [facility] Nov 30, 2011 11:15 AM QUIT TOBACCO USE 1-7 YEARS AGO [facility] [place] [facility] Nov 21, 2010 10:56 AM QUIT TOBACCO USE IN PAST YEAR [facility] [place] [facility] Feb 02, 2010 10:09 AM CURRENT SMOKER 3 per day [facility] [place] [facility] Jan 13, 2010 12:22 PM V1-PT DECLINES REF TO TOBACCO CESS PRGM [facility] [place] [facility] Jan 13, 2010 12:22 PM V1-PT DECLINES TOBACCO CESSATION MEDS [facility] [place] [facility] Jan 13, 2010 12:22 PM V1-PT THINKING ABOUT QUIT TOBACCO USE [facility] Aug 02, 2009 12:04 PM V1-PT DECLINES REF TO TOBACCO CESS PRGM [facility] Aug 02, 2009 12:04 PM V1-PT DECLINES [facility]AC[facility] Aug 02, 2009 12:04 PM V1-PT THINKING ABOUT QUIT TOBACCO USE [facility] Mar 04, 2009 09:03 AM CURRENT SMOKER 1 or 2 ppd [facility] Feb 22, 2009 12:06 PM V1-PT DECLINES REF TO TOBACCO CESS PRGM [facility] Feb 22, 2009 12:06 PM V1-PT READY TO QUIT TOBACCO USE [facility] Sep 02, 2008 02:00 PM V1-PT DECLINES TOBACCO CESSATION MEDS [facility] Sep 02, 2008 02:00 PM V1-PT THINKING ABOUT QUIT TOBACCO USE [facility] April 01, 2008 11:27 AM QUIT TOBACCO USE IN PAST YEAR [facility] Feb 26, 2008 04:05 PM V1-PT DECLINES TOBACCO CESSATION MEDS [facility] Feb 26, 2008 04:05 PM V1-PT NOT INTERESTED IN QUIT TOBACCO USE [facility] Nov 14, 2007 02:46 PM CURRENT SMOKER 3 cigarrettes a week/30 years [facility] Encounter Notes: All associated encounter notes This section contains the clinical notes associated to the Encounter. Date/Time Encounter Note(s) Provider Source Jan 13, 2024 05:31 PM LETTERS: LOCAL TITLE: PATIENT LETTER (T) STANDARD TITLE: LETTERS DATE OF NOTE: JAN 13, 2024@17:31 ENTRY DATE: JAN 13, 2024@17:31:52 AUTHOR: HIPOLITO HARDING COSIGNER: URGENCY: STATUS: COMPLETED [facility] Toll Free Number Primary Care Telephone Assistance can be reached at extension [phone] [facility] scheduling can be reached at extension [phone] [facility] scheduling can be reached at ext [phone] ELEAZAR MELCHOR JARET [address], [place], [address] January 13, 2024 Dear [place], Please find enclosed a copy of recent testing. The following tests were normal: Red blood cell count, platelets, TSH thyroid, PSA prostate, liver enzymes, kidney enzymes, cholesterol, urine. I am pleased with these test results. Please contact me if you have questions. Respectfully, Hipolito Harding MD Sincerely, Your Primary Care Team [facility] [address] [address] [place] [address] [phone] [facility] [address] [place] [address] [place] [address] [phone] [facility] [address] [facility] [facility] [address] [place] [address] [place] [address] HIPOLITO HARDING [facility] [place] [facility] Jan 13, 2024 09:29 AM PHYSICIAN NOTE: LOCAL TITLE: NOTE STANDARD TITLE: PHYSICIAN NOTE DATE OF NOTE: JAN 13, 2024@09:29 ENTRY DATE: JAN 13, 2024@09:29:08 AUTHOR: HIPOLITO HARDING EXP COSIGNER: URGENCY: STATUS: COMPLETED Patient Name: ELEAZAR RAYGOZA MELCHOR VITALS: Patient temperature: 97.7 F [36.5 C] (01/13/2024 09:07) Blood pressure: 132/80 (01/13/2024 09:28) Patient height: 66 in [167.6 cm] (03/06/2019 10:34) Patient weight: 141 lb [63.96 kg] (01/13/2024 09:07) Patient BMI: BMI: 22.8 Patient pulse: 50 (01/13/2024 09:07) Patient respiration: 16 (01/13/2024 09:07) Patient Pulse Oximetry: 100% (01/13/2024 09:07) Pain Ratin (01/13/2024 09:07) Active [facility] Medications: Active Outpatient Medications (including Supplies): Active Outpatient Medications Status = 1) APIXABAN 5MG TAB TAKE ONE TABLET BY MOUTH EVERY 12 ACTIVE (S) HOURS FOR PREVENTION OF BLOOD CLOTS 2) METOPROLOL TARTRATE 25MG TAB TAKE ONE-HALF TABLET BY ACTIVE (S) MOUTH TWICE DAILY FOR BLOOD PRESSURE/HEART 3) SILDENAFIL CITRATE 100MG TAB TAKE ONE TABLET BY MOUTH ACTIVE NEEDED TAKE 1 HOUR PRIOR TO SEXUAL ACTIVITY Active Non-VA Medications Status = 1) Non-VA ROBERT CAP/TAB 1 CAPSULE BY MOUTH ONCE DAILY ACTIVE 2) Non-VA MULTIVITAMIN/MINERALS CAP/TAB 1 TABLET BY ACTIVE MOUTH ONCE DAILY 3) Non-VA OTHER CAP/TAB CREATINE POWDER (OTC) BY MOUTH ACTIVE 4) Non-VA OTHER CAP/TAB TESTOSTERONE SUPPLEMENT BY MOUTH ACTIVE 5) Non-VA RESOURCE BENEPROTEIN POWDER,ORAL OTC BY MOUTH ACTIVE 8 Total Medications Remote Medications: No Active 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 He feels well today with no complaints. He takes medication regularly. He stays active with activities. He is planning for fci. Review of systems No chest pain or dyspnea No abdominal pain No trouble urinating No fever or chills No cough Physical examination: Well developed well nourished in no apparent distress Vitals as above Heart: rrr, no m/r/g Lungs: clear to ausculatation Psychiatric: answers questions appropriately, normal/coherent speech HEENT: mucious membranes moist Ears and pharynx: no erythema, tympanic membranes normal Neck: supple Skin: warm, dry, no lesions Patient declined full examination today Assessment and plan: 1. Hypertension: Blood pressure satisfactory Plan continue present medication Fasting labs today Follow-up 6 months clinic visit and lab Medication Reconciliation: Outpatient: Has the patient been taking medications as documented in the EMLR? YES: The patient has been taking medications as documented in the EMLR. Essential Medication List for Review used to complete this medication reconciliation. INCLUDED IN THIS LIST: Alphabetical list of active outpatient prescriptions dispensed from this VA (local) and dispensed from another [place] or [facility] facility (remote) as well as inpatient orders [...] whether with a VA or non-VA provider. Sexual Orientation: The patient thinks of their sexual orientation as: Straight or Heterosexual Eye Care At-Risk Screen : Patient identified to be at risk for the following eye condition(s): MACULAR DEGENERATION: Macular Degeneration Risk Factors Information: Reminder Term: VA-AMD RISK FACTORS Encounter Diagnosis: 03/14/2020@17:36:32 Z72.0 (ICD-10-CM) Tobacco use rank: PRIMARY Prov. Narr. - Tobacco use GLAUCOMA: Glaucoma Risk Factors Information: Encounter Diagnosis: 12/10/2022@14:30 H40.013 (ICD-10-CM) Open Angle with Borderline Findings, low Risk, Bilateral rank: SECONDARY Prov. Narr. - Glaucoma Suspect,Low Risk,Bilateral Action: Patient has a future eye care appointment scheduled within the next 90 days. Date of Appointment: 01-29-2024 /marisa/ Hipolito Harding MD Staff Physician Signed: 01/13/2024 09:32 HIPOLITO HARDING [facility] [place] [facility] Jan 13, 2024 09:07 AM PREVENTIVE MEDICINE NURSING NOTE: LOCAL TITLE: CLINICAL REMINDERS/NURSING STANDARD TITLE: PREVENTIVE MEDICINE NURSING NOTE DATE OF NOTE: JAN 13, 2024@09:07 ENTRY DATE: JAN 13, 2024@09:07:54 AUTHOR: CHAKA SCOTT EXP COSIGNER: URGENCY: STATUS: COMPLETED CLINICAL REMINDERS/NURSING Has ADDENDA Suicide Screen: C-SSRS Screening [place] Suicide Severity Rating Scale (C-SSRS) screener 1. Over the past month, have you wished you were or wished you could go to sleep and not wake up? No 2. Over the past month, have you had any actual thoughts of killing yourself? No 3. Over the past month, have you been thinking about how you might do this? Response not required due to responses to other questions. 4. Over the past month, have you had these thoughts and had some intention of acting on them? Response not required due to responses to other questions. 5. Over the past month, have you started to work out or worked out the details of how to kill yourself? Response not required due to responses to other questions. 6. If yes, at any time in the past month did you intend to carry out this plan? Response not required due to responses to other questions. 7. In your lifetime, have you ever done anything, started to do anything, or prepared to do anything to end your life (for example, collected pills, obtained a gun, gave away valuables, went to the roof but didn't jump)? No 8. If YES, was this within the past 3 months? Response not required due to responses to other questions. Homelessness/Food Insecurity Screen: In the past 2 months, have you been living in stable housing that you own, rent, or stay in as part of a household? Yes - Living in stable housing. Are you worried or concerned that in the next 2 months you may NOT have stable housing that you own, rent, or stay in as part of a household? No - Not worried about housing near future The reports the following: Within the past 12 months, you worried whether your food would run out before you got money to buy more. Never true Within the past 12 months, the food you bought just didn't last and you didn't have money to get more. Never true /es/ CHAKA SCOTT LPN Signed: 01/13/2024 09:10 01/13/2024 ADDENDUM STATUS: COMPLETED Influenza Immunization: The patient was given the influenza VIS which lists the benefits and side effects of the vaccine and which reviews the risks of not receiving the flu vaccine. The VIS was reviewed with the patient and they were given an opportunity to ask questions. The patient was provided education on how to decrease the risk of influenza infection including social distancing and use of good hand hygiene. The patient denied any prior severe reaction to the flu vaccine or its components. The patient gave verbal consent to receive the vaccine. Influenza, High Dose, Quadrivalent (Fluzone - syringe) Administered: INFLUENZA, HIGH-DOSE, QUADRIVALENT Date Administered: Jan 13, 2024 09:00 Series: Booster Photographer Helper: SANOFI PASTEUR Lot: [id number] Exp Date: May 17, 2024 ND: [id number] Admin Route/Site: INTRAMUSCULAR/LEFT DELTOID Dosage: 0.7mL Vaccine Information Statement(s): INFLUENZA(FLU) VACC(INACTIVATED OR RECOMBINANT)VIS Jun 23, 2021 ([place]) Order By: Policy Administered By: Chaka Scott COVID-19 Immunization: Moderna Monovalent (Spikevax) Administered: COVID-19 (MODERNA), MRNA, LNP-S, PF, 50 MCG/0.5 ML (AGES 12+ YEARS) Date Administered: Jan 13, 2024 09:00 Series: Series 1 Photographer Helper: MODERNA [employer] Lot: [id number] Exp Date: April 02, 2024 NDC: [id number] Admin Route/Site: INTRAMUSCULAR/LEFT DELTOID Dosage: 0.3mL Vaccine Information Statement(s): COVID-19 MRNA VACCINE (12+ YRS) VACCINE VIS Sep 05, 2023 ([place]) Order By: Policy Administered By: Chaka Scott Vaccine administered without complications. The patient was advised to remain in the facility for 15 minutes post vaccination. /marisa/ CHAKA SCOTT LPN Signed: 01/13/2024 09:41 CHAKA SCOTT [facility]
--- OUTSIDE RECORDS SUMMARY | 2024-11-09 10:57 | XMS_ITS | Encounter Summary ---
Author Name [facility] [place] [facility] [facility] [place] Address [address] [place] [address] Care Team Providers Care Director Of Physical Education Name Role Phone LAVERN ETIENNE Primary Care [...] SELF + ONE Aug 13, 2020 106 [id number] [phone] SUGRUE,TO DD PATIENT ANTHEM BCBS CT FEDERAL PREFERRED PROVIDER ORGANIZAT ION (PPO) STAND CONSUELO SELF Nov 18, 2007 [id number] [phone] SUGRUE,TO DD PATIENT ANTHEM BCBS CT FEDERAL PREFERRED PROVIDER ORGANIZAT ION (PPO) STAND CONSUELO FAMIL Y Nov 30, 2000 105 [id number] [phone] SUGRUE,TO DD PATIENT BCBS [place] FEP PREFERRED PROVIDER ORGANIZAT ION (PPO) STAND CONSUELO SELF PLUS 1 Aug 13, 2020 106 [id number] SUGRUE,TO DD PATIENT [place]BS [place] PREFERRED PROVIDER ORGANIZAT ION (PPO) STAND CONSUELO FAMIL Y Nov 30, 2000 105 [id number] SUGRUE,TO DD PATIENT [place] PREFERRED PROVIDER ORGANIZAT ION (PPO) STAND CONSUELO SELF+ ONE Aug 13, 2020 106 [id number] SUGRUE,TO DD PATIENT [place] PREFERRED PROVIDER ORGANIZAT ION (PPO) STAND CONSUELO FAMIL Y Nov 30, 2000 105 [id number] SUGRUE,TO DD PATIENT [place] DENTAL DENTAL INSURANCE STAND CONSUELO Aug 13, 2020 DENTAL [id number] SUGRUE,TO DD PATIENT [place] FEP BCBS PRESCRIPT ION CAREM ARK FEPRX PLAN Aug 13, 2020 [id number] SUGRUE,TO DD PATIENT [place] FEPRX PLAN PRESCRIPT ION BCBS FEP Nov 18, 2010 [id number] SUGRUE,TO DD PATIENT [place]ARK FEPRX PLAN PRESCRIPT ION CAREM ARK FEPRX Nov 18, 2010 [id number] SUGRUE,TO DD PATIENT [place] FEPRX PLAN PRESCRIPT ION BCBS FEP Nov 18, 2007 [id number] SUGRUE,TO DD PATIENT CAREMARK-F EP BCBS PRESCRIPT ION FEP CAREM ARK Nov 18, 2010 [id number] SUGRUE,TO DD PATIENT MEDICARE (WNR) MEDICARE (M) PART A Sep 18, 2020 PART A [id number] SUGRUE,TO DD PATIENT MEDICARE (WNR) MEDICARE (M) PART A Sep 18, 2020 PART A [id number] SUGRUE,TO DD PATIENT MEDICARE (WNR) MEDICARE (M) PART A Sep 18, 2020 PART A [id number] SUGRUE,TO DD PATIENT [facility] DFEC WORKERS' COMPENSAT ION INSURANCE 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 Date/Time Encounter Type Encounter Description Reason Provider Source Feb 03, 2024 09:11 AM FIT SPECTACLES MONOFOCAL OPTOMETRY ICD-10-CM Z46.0 Encounter for fit/adjst of spectacles and contact lenses DAWOOD GRAY IHWilner Encounter Template Text not used by [place] Assessments - Encounter Diagnoses This section includes the primary and secondary diagnoses documented for the Encounter. Date/Time Primary/Secondary Diagnosis Diagnosis Name Provider Source Feb 03, 2024 09:11 AM PRIMARY Encounter for fit/adjst of spectacles and contact lenses NIHARIKA MURRIETA [facility] Plan of Treatment: Future Appointments (+ 6 months) and Future Tests (+/- 45 days) The Plan of Treatment section includes future care activities for the patient from all [place] treatmentfacilities. This section includes future appointments and [...] 26, 2024 02:00 PM AMBULATORY - MEDICINE [facility] Jun 25, 2024 09:30 AM AMBULATORY - MEDICINE [facility] Jul 01, 2024 08:30 AM AMBULATORY - NONE [facility] Lab Results: +/- 30 days of the encounter This section includes the Chemistry and Hematology Lab Results on record with [place] for the patient. Radiology Reports and Pathology Reports are provided separately, in subsequent sections. Lab Results This section contains the Chemistry/Hematology Results that were resulted 30 days before or 30 daysafter the date of the Encounter. Date/Time Source Result Type Result - Unit Interpretation Reference Range Comment Jan 13, 2024 07:54 AM [facility] TSH Specimen Type: SERUM No comment entered. Ordering Provider: LAVERN ETIENNE Report Released Date/Time: Jan 05, 2024 05:10 PM Reporting Lab: [place] [facility] [place] [facility] [address] [facility] [address] Performing Lab: [place] [facility] [place] [facility] [address] [facility] [facility] [address] TSH 1.19 u[IU]/mL 0.35-5.00 Jan 13, 2024 07:54 AM [facility] PSA Specimen Type: SERUM No comment entered. Ordering Provider: LAVERN ETIENNE Report Released Date/Time: Jan 05, 2024 05:10 PM Reporting Lab[facility] [address] [facility] [address] Performing Lab: [facility] [address] [facility] [address] PSA 1.21 ng/mL 0.00-4.00 Jan 13, 2024 07:54 AM [facility] LIVER FUNCTION Specimen Type: SERUM No comment entered. Ordering Provider: LAVERN ETIENNE Report Released Date/Time: Jan 05, 2024 05:10 PM Reporting Lab[facility] [address] [facility] [address] Performing Lab: [facility] [address] [facility] [address] PROTEIN,TOTAL 6.9 g/dL 6.0-8.3 ALBUMIN 3.8 g/dL 3.5-5.0 ALKALINE PHOSPHATASE 68 U/L 40-150 AST 22 U/L 5-34 ALT 20 U/L BILIRUBIN, TOTAL 0.7 mg/dL 0.2-1.2 Jan 13, 2024 07:54 AM [facility] LIPID PANEL FASTING Specimen Type: SERUM No comment entered. Ordering Provider: LAVERN ETIENNE Report Released Date/Time: Jan 05, 2024 05:10 PM Reporting Lab: [place] [facility] [address] [facility] [address] Performing Lab: [facility] [address] [address] CHOLESTEROL 191 mg/dL TRIGLYCERIDE 49 mg/dL 0-150 LDL calculated 96 mg/dL 0-129 CHOL/HDL 2.2 HDL CHOLESTEROL 85 mg/dL H 40-60 Jan 13, 2024 07:54 AM [facility] BASIC METABOLIC PANEL (fasting) Specimen Type: SERUM No comment entered. Ordering Provider: LAVERN ETIENNE Report Released Date/Time: Jan 05, 2024 05:10 PM Reporting Lab: [address] [address] Performing Lab: [address] [address] UREA NITROGEN 12 mg/dL 7-25 GLUCOSE 104 mg/dL H 65-100 SODIUM 139 mmol/L 135-145 POTASSIUM 4.1 mmol/L 3.5-5.0 CHLORIDE 104 mmol/L 100-110 CO2 27 meq/L 20-30 CREATININE, Serum 0.77 mg/dL 0.50-1.40 eGFR(CKD-EPI 2020) >90 mL/min >60 Jan 13, 2024 07:54 AM [facility] CBC AND DIFF (AUTO) Specimen Type: BLOOD No comment entered. Ordering Provider: LAVERN ETIENNE Report Released Date/Time: Jan 05, 2024 05:10 PM Reporting Lab: [address] [address] Performing Lab: [address] [address] WBC 3.71 10*3/uL L 4.50-11.00 RBC 4.24 10*6/uL 4.23-5.66 HGB 13.8 g/dL 12.8-17 HCT 39.9 39.2-50.4 MCV 94.1 fL 82-99 MCHC 34.6 g/dL 30.8-35.1 PLT 247 10*3/uL 140-360 RDW-CV 12.4 12.0-16.0 Montgomery, Abs 0.55 10*3/uL 0.30-1.10 MCH 32.5 pg 26.2-32.6 Neut % 45.6 43.7-75.8 Lymph % 35.6 14.0-42.3 Montgomery % 14.8 H 5.1-13.7 Eos % 2.7 0.4-6.8 Baso % 1.3 0.1-2.0 Neut, Abs 1.69 10*3/uL L 2.20-7.60 Lymph, Abs 1.32 10*3/uL 1.00-3.20 Eos, Abs 0.10 10*3/uL 0.03-0.44 Baso, Abs 0.05 10*3/uL 0.01-0.13 Immature Gran % 0.0 0.0-0.7 Immature Gran, Abs 0.00 10*3/uL 0.00-0.06 Jan 13, 2024 07:54 AM [facility] URINALYSIS CLEAN CATCH Specimen Type: URINE Comment: If Glucose = >500 and Ketones are positive, please alert the Physician. Ordering Provider: LAVERN ETIENNE Report Released Date/Time: Jan 05, 2024 05:10 PM Reporting Lab: [address] [address] Performing Lab: [address] [address] UA COLOR Yellow Yellow UA APPEARANCE Clear Clear UA GLUCOSE NEGATIVE mg/dL Negative UA KETONES NEGATIVE mg/dL Negative UA BLOOD NEGATIVE mg/dL Negative UA PROTEIN NEGATIVE mg/dL Negative UA NITRITE NEGATIVE mg/dL Negative UA BILIRUBIN NEGATIVE mg/dL Negative UA SPECIFIC GRAVITY 1.022 1.016-1.022 UA pH 6.5 5.0-9.0 UA UROBILINOGEN <2.0 mg/dL <2.0 UA LEUKOCYTE NEGATIVE Negative Social History: Smoking Status (Most current) and [...] 20, 2023 03:00 PM VA-TOBACCO FORMER USER [facility] Tobacco Use History This section includes a history of the smoking, or tobacco-related health factors, that were collected on or before the date of the Encounter. The data comes from the [place] facility where the Encounter took place. Date/Time Smoking Status/Tobac co Use Comment Facility March 20, 2023 03:00 PM VA-TOBACCO QUIT 5 TO < 15 YRS [place] [facility] [place] [facility] March 19, 2022 03:00 PM VA-TOBACCO FORMER USER [place] [facility] [place] [facility] March 19, 2022 03:00 PM VA-TOBACCO QUIT 5 TO < 15 YRS [place] [facility] [place] [facility] Feb 07, 2021 11:00 AM VA-TOBACCO FORMER USER [place] [facility] [place] [facility] Feb 07, 2021 11:00 AM VA-TOBACCO QUIT 5 TO < 15 YRS [place] [facility] [place] [facility] Feb 02, 2020 03:19 PM VA-TOBACCO FORMER USER [place] [facility] [place] [facility] Feb 02, 2020 03:19 PM VA-TOBACCO QUIT 5 TO < 15 YRS [place] [facility] [place] [facility] Sep 03, 2018 11:07 AM VA-TOBACCO NEVER USED [place] [facility] [place] [facility] Oct 24, 2017 02:40 PM QUIT TOBACCO USE 1-7 YEARS AGO PT QUIT 2 YRS AGO [place] [facility] [place] [facility] Nov 23, 2016 11:14 AM LIFETIME NON-TOBACCO USER [place] [facility] [place] [facility] Nov 23, 2016 11:14 AM QUIT TOBACCO USE 1-7 YEARS AGO [place] [facility] [place] [facility] May 11, 2016 04:46 PM QUIT TOBACCO USE 1-7 YEARS AGO [place] [facility] [place] [facility] Dec 09, 2015 09:56 AM V1-PT DECLINES REF TO TOBACCO CESS PRGM [place] [facility] [place] [facility] Dec 09, 2015 09:56 AM V1-PT THINKING ABOUT QUIT TOBACCO USE [place] [facility] [place] [facility] May 25, 2015 01:26 PM QUIT TOBACCO USE IN PAST YEAR [place] [facility] [place] [facility] Oct 05, 2014 01:34 PM V1-PT DECLINES TOBACCO CESSATION MEDS [place] [facility] [place] [facility] Oct 05, 2014 01:34 PM V1-PT THINKING ABOUT QUIT TOBACCO USE [place] [facility] [place] [facility] Aug 17, 2014 09:30 AM CURRENT SMOKER trys to reduce smoking [facility] [place] [facility] Aug 17, 2014 09:30 AM V1-PT DECLINES REF TO TOBACCO CESS PRGM [facility] Aug 17, 2014 09:30 AM V1-PT DECLINES TOBACCO CESSATION MEDS [facility] [place] [facility] Aug 17, 2014 09:30 AM V1-PT THINKING ABOUT QUIT TOBACCO USE [facility] [place] [facility] Oct 31, 2012 12:52 PM QUIT TOBACCO USE 1-7 YEARS AGO [facility] [place] Nov 30, 2011 11:15 AM QUIT TOBACCO USE 1-7 YEARS AGO [facility] [place] [facility] Nov 21, 2010 10:56 AM QUIT TOBACCO USE IN PAST YEAR [place] [facility] Feb 02, 2010 10:09 AM CURRENT SMOKER 3 per day [facility] [place] Jan 13, 2010 12:22 PM V1-PT DECLINES REF TO TOBACCO CESS PRGM [facility] Jan 13, 2010 12:22 PM V1-PT DECLINES TOBACCO CESSATION MEDS [facility] Jan 13, 2010 12:22 PM V1-PT THINKING ABOUT QUIT TOBACCO USE [facility] [place] [facility] Aug 02, 2009 12:04 PM V1-PT DECLINES REF TO TOBACCO CESS PRGM [facility] Aug 02, 2009 12:04 PM V1-PT DECLINES TOBACCO CESSATION MEDS [facility] [place] [facility] Aug 02, 2009 12:04 PM V1-PT THINKING ABOUT QUIT TOBACCO USE [facility] [place] [facility] Mar 04, 2009 09:03 AM CURRENT SMOKER 1 or 2 ppd [facility] [place] [facility] Feb 22, 2009 12:06 PM V1-PT DECLINES REF TO TOBACCO CESS PRGM [facility] [place] [facility] Feb 22, 2009 12:06 PM V1-PT READY TO QUIT TOBACCO USE [facility] [place] Sep 02, 2008 02:00 PM V1-PT DECLINES TOBACCO CESSATION MEDS [facility] Sep 02, 2008 02:00 PM V1-PT THINKING ABOUT QUIT TOBACCO USE [facility] April 01, 2008 11:27 AM QUIT TOBACCO USE IN PAST YEAR [facility] Feb 26, 2008 04:05 PM V1-PT DECLINES TOBACCO CESSATION MEDS [facility] Feb 26, 2008 04:05 PM V1-PT NOT INTERESTED IN QUIT TOBACCO USE [facility] Nov 14, 2007 02:46 PM CURRENT SMOKER 3 cigarrettes a week/30 years [facility] Encounter Notes: All associated encounter notes This section contains the clinical notes associated to the Encounter. Date/Time Encounter Note(s) Provider Source Feb 03, 2024 09:11 AM OPTOMETRY NOTE: LOCAL TITLE: OPTOMETRY NOTE STANDARD TITLE: OPTOMETRY NOTE DATE OF NOTE: FEB 03, 2024@09:11 ENTRY DATE: FEB 03, 2024@09:11:41 AUTHOR: DANIELA ALEGRIA EXP COSIGNER: URGENCY: STATUS: COMPLETED OPTOMETRY NOTE Has ADDENDA dvo clear The quote provided below is for informational purposes only. Please verify prior to the creation of a purchase order. [employer] 0662 RX INFORMATION OD -1.25 -0.50 X65 Add:0.00 Pzm:0.00 Dir: Prz2:0.00 Dir2: OS -1.25 -1.00 X105 Add:0.00 Pzm:0.00 Dir: Prz2:0.00 Dir2: FITTING INFORMATION FPD:62.5 NPD: Montgomery:R: L: SEG HT:R: L: Tint:None Shade:None [place] Billable Items FRAME: [id number] BROWN [place] [id number] Right Lens: POLY SINGLE VISION 1.586 POLY Left Lens: POLY SINGLE VISION 1.586 POLY KLEAR ANTI-REFLECTIVE COATING dvo yellow #2 The quote provided below is for informational purposes only. Please verify prior to the creation of a purchase order. [employer] 0662 RX INFORMATION OD -1.25 -0.50 X65 Add:0.00 Pzm:0.00 Dir: Prz2:0.00 Dir2: OS -1.25 -1.00 X105 Add:0.00 Pzm:0.00 Dir: Prz2:0.00 Dir2: FITTING INFORMATION FPD:62.5 NPD: [place]:R: L: SEG HT:R: L: Tint:YELLOW Shade:2 [place] Billable Items FRAME: cooala - your brandsK CRYSTAL [id number] Right Lens: POLY SINGLE VISION 1.586 POLY Left Lens: POLY SINGLE VISION 1.586 POLY KLEAR ANTI-REFLECTIVE COATING SOLID MORENA /marisa/ DANIELA ALEGRIA MORTGAGE LOAN COUNSELOR Signed: 02/03/2024 09:12 Receipt Acknowledged By: 02/03/2024 10:06 /marisa/ Niharika Murrieta [facility] Health Economic Analysis Director 02/03/2024 ADDENDUM STATUS: 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 OPT HT entered consult(s) as requested for provider signature. /marisa/ Niharika Murrieta [facility] Health Economic Analysis Director Signed: 02/03/2024 10:08 DANIELA ALEGRIA [facility]
--- OUTSIDE RECORDS SUMMARY | 2024-11-09 10:57 | XMS_ITS | Encounter Summary ---
Author Name [facility] Organization [facility] Address [address] [place] [address] Care Team Providers Care Main Galley Scullion Name Role Phone LAVERN ETIENNE Primary Care [...] SELF + ONE Aug 13, 2020 106 [id number] [phone] SUGRUE,TO DD PATIENT ANTHEM BCBS CT FEDERAL PREFERRED PROVIDER ORGANIZAT ION (PPO) STAND CONSUELO SELF Nov 18, 2007 104 [id number] [phone] SUGRUE,TO DD PATIENT ANTHEM BCBS CT FEDERAL PREFERRED PROVIDER ORGANIZAT ION (PPO) STAND CONSUELO FAMIL Y Nov 30, 2000 105 [id number] [phone] SUGRUE,TO DD PATIENT BCBS [place] FEP PREFERRED PROVIDER ORGANIZAT ION (PPO) STAND CONSUELO SELF PLUS 1 Aug 13, 2020 106 [id number] SUGRUE,TO DD PATIENT BCBS [place] FEP PREFERRED PROVIDER ORGANIZAT ION (PPO) STAND CONSUELO FAMIL Y Nov 30, 2000 105 [id number] SUGRUE,TO DD PATIENT [place] PREFERRED PROVIDER ORGANIZAT ION (PPO) STAND CONSUELO SELF+ ONE Aug 13, 2020 106 [id number] SUGRUE,TO DD PATIENT [place] PREFERRED PROVIDER ORGANIZAT ION (PPO) STAND CONSUELO FAMIL Y Nov 30, 2000 105 [id number] SUGRUE,TO DD PATIENT [place] DENTAL DENTAL INSURANCE STAND CONSUELO Aug 13, 2020 DENTAL [id number] SUGRUE,TO DD PATIENT CAREMARK FEP BCBS PRESCRIPT ION CAREM ARK FEPRX PLAN Aug 13, 2020 [id number] SUGRUE,TO DD PATIENT [place] FEPRX PLAN PRESCRIPT ION BCBS FEP Nov 18, 2010 [id number] SUGRUE,TO DD PATIENT CAREMARK FEPRX PLAN PRESCRIPT ION CAREM ARK FEPRX Nov 18, 2010 [id number] SUGRUE,TO DD PATIENT [place] FEPRX PLAN PRESCRIPT ION BCBS FEP Nov 18, 2007 [id number] SUGRUE,TO DD PATIENT CAREMARK-F EP BCBS PRESCRIPT ION FEP CAREM ARK Nov 18, 2010 [id number] SUGRUE,TO DD PATIENT MEDICARE (WNR) MEDICARE (M) PART A Sep 18, 2020 PART A [id number] SUGRUE,TO DD PATIENT MEDICARE (WNR) MEDICARE (M) PART A Sep 18, 2020 PART A [id number] SUGRUE,TO DD PATIENT MEDICARE (WNR) MEDICARE (M) PART A Sep 18, 2020 PART A [id number] SUGRUE,TO DD PATIENT US DEPART OF LABOR MED [facility] WORKERS' COMPENSAT ION INSURANCE WORKE R'S COMP April 01, 2018 WORKER' S COMP [id number] [phone] Topher JARETADAMA NAZ PATIENT Selected Encounter This section includes the information on record at ID for the Encounter. Date/Time Encounter Type Encounter Description Reason Provider Source Jan 29, 2024 09:30 AM COMPRE OPH EXAM EST PT 1/> OPTOMETRY ICD-10-CM H25.813 Combined forms of age-related cataract, bilateral MERHAR,DAWOOD B IHE Encounter Template Text not used by VA Assessments - Encounter Diagnoses This section includes the primary and secondary diagnoses documented for the Encounter. Date/Time Primary/Secondary Diagnosis Diagnosis Name Provider Source Feb 25, 2024 03:13 PM PRIMARY Combined forms of age-related cataract, bilateral MERHAR,DAWOOD B [facility] [place] [facility] Feb 25, 2024 03:13 PM SECONDARY Myopia, bilateral MERHAR,DAWOOD B [facility] [place] [facility] Feb 25, 2024 03:13 PM SECONDARY Open angle with borderline findings, low risk, bilateral MERHAR,DAWOOD B [facility] [place] [facility] Feb 25, 2024 03:13 PM SECONDARY Puckering of macula, bilateral MERHAR,DWAOOD B [facility] [place] [facility] Plan of Treatment: Future Appointments (+ 6 months) and Future Tests (+/- 45 days) The Plan of Treatment section includes future care activities for the patient from all ID treatmentfacilities. This section includes future appointments and future orders which are active, pending or scheduled. Future Appointments This section includes appointments that were scheduled to occur 6 months from the date of the Encounter, up to a maximum of 20 appointments. The data comes from all ID treatment facilities. Appointment Date/Time Appointment Type Appointme nt Facility Name May 26, 2024 02:00 PM [facility] Jun 25, 2024 09:30 AM AMBULATORY - MEDICINE [facility] [place] [facility] Jul 01, 2024 08:30 AM [facility] NONE [facility] Lab Results: +/- 30 days of the encounter This section includes the Chemistry and Hematology Lab Results on record with ID for the patient. Radiology Reports and Pathology Reports are provided separately, in subsequent sections. Lab Results This section contains the Chemistry/Hematology Results that were resulted 30 days before or 30 daysafter the date of the Encounter. Date/Time Source Result Type Result - Unit Interpretation Reference Range Comment Jan 13, 2024 07:54 AM [facility] TSH Specimen Type: SERUM No comment entered. Ordering Provider: LAVERN ETIENNE Report Released Date/Time: Jan 05, 2024 05:10 PM Reporting [facility]: [facility] [address] Performing Lab: [facility] [address] TSH 1.19 u[IU]/mL 0.35-5.00 Jan 13, 2024 07:54 AM [facility] PSA Specimen Type: SERUM No comment entered. Ordering Provider: LAVERN ETIENEN Report Released Date/Time: Jan 05, 2024 05:10 PM Reporting Lab: [facility] [address] Performing Lab: [facility] [address] PSA 1.21 ng/mL 0.00-4.00 Jan 13, 2024 07:54 AM [facility] LIVER FUNCTION Specimen Type: SERUM No comment entered. Ordering Provider: LAVERN ETIENNE Report Released Date/Time: Jan 05, 2024 05:10 PM Reporting Lab: [facility] [address] [address] Performing Lab: [facility] [address] [address] PROTEIN,TOTAL 6.9 g/dL 6.0-8.3 ALBUMIN 3.8 g/dL 3.5-5.0 ALKALINE PHOSPHATASE 68 U/L 40-150 AST 22 U/L 5-34 ALT 20 U/L BILIRUBIN, TOTAL 0.7 mg/dL 0.2-1.2 Jan 13, 2024 07:54 AM [facility] LIPID PANEL FASTING Specimen Type: SERUM No comment entered. Ordering Provider: LAVERN ETIENNE Report Released Date/Time: Jan 05, 2024 05:10 PM Reporting Lab: [facility] [address] [facility] [address] Performing Lab: [facility] [address] [facility] [address] CHOLESTEROL 191 mg/dL TRIGLYCERIDE 49 mg/dL 0-150 LDL calculated 96 mg/dL 0-129 CHOL/HDL 2.2 HDL CHOLESTEROL 85 mg/dL H 40-60 Jan 13, 2024 07:54 AM [facility] BASIC METABOLIC PANEL (fasting) Specimen Type: SERUM No comment entered. Ordering Provider: LAVERN ETIENNE Report Released Date/Time: Jan 05, 2024 05:10 PM Reporting Lab: [facility] [address] [facility] [address] Performing Lab: [address] [address] UREA NITROGEN 12 mg/dL 7-25 GLUCOSE 104 mg/dL H 65-100 SODIUM 139 mmol/L 135-145 POTASSIUM 4.1 mmol/L 3.5-5.0 CHLORIDE 104 mmol/L 100-110 CO2 27 meq/L 20-30 CREATININE, Serum 0.77 mg/dL 0.50-1.40 eGFR(CKD-EPI 2020) >90 mL/min >60 Jan 13, 2024 07:54 AM [facility] CBC AND DIFF (AUTO) Specimen Type: BLOOD No comment entered. Ordering Provider: LAVERN ETIENNE Report Released Date/Time: Jan 05, 2024 05:10 PM Reporting Lab: [facility] [address] [facility] [address] Performing Lab: [address] [address] WBC 3.71 10*3/uL L 4.50-11.00 RBC 4.24 10*6/uL 4.23-5.66 HGB 13.8 g/dL 12.8-17 HCT 39.9 39.2-50.4 MCV 94.1 fL 82-99 MCHC 34.6 g/dL 30.8-35.1 PLT 247 10*3/uL 140-360 RDW-CV 12.4 12.0-16.0 Turner, Abs 0.55 10*3/uL 0.30-1.10 MCH 32.5 pg 26.2-32.6 Neut % 45.6 43.7-75.8 Lymph % 35.6 14.0-42.3 Turner % 14.8 H 5.1-13.7 Eos % 2.7 0.4-6.8 Baso % 1.3 0.1-2.0 Neut, Abs 1.69 10*3/uL L 2.20-7.60 Lymph, Abs 1.32 10*3/uL 1.00-3.20 Eos, Abs 0.10 10*3/uL 0.03-0.44 Baso, Abs 0.05 10*3/uL 0.01-0.13 Immature Gran % 0.0 0.0-0.7 Immature Gran, Abs 0.00 10*3/uL 0.00-0.06 Jan 13, 2024 07:54 AM [facility] URINALYSIS CLEAN CATCH Specimen Type: URINE Comment: If Glucose = >500 and Ketones are positive, please alert the Physician. Ordering Provider: LAVERN ETIENNE Report Released Date/Time: Jan 05, 2024 05:10 PM Reporting Lab: [address] [address] Performing Lab: [address] [address] UA COLOR Yellow Yellow UA APPEARANCE Clear [...] 20, 2023 03:00 PM VA-TOBACCO FORMER USER [facility] [place] [facility] Tobacco Use History This section includes a history of the smoking, or tobacco-related health factors, that were collected on or before the date of the Encounter. The data comes from the ID facility where the Encounter took place. Date/Time Smoking Status/Tobac co Use Comment Facility March 20, 2023 03:00 PM VA-TOBACCO QUIT 5 TO < 15 YRS [facility] [place] [facility] March 19, 2022 03:00 PM VA-TOBACCO FORMER USER [facility] [place] [facility] March 19, 2022 03:00 PM VA-TOBACCO QUIT 5 TO < 15 YRS [facility] [place] [facility] Feb 07, 2021 11:00 AM VA-TOBACCO FORMER USER [facility] [place] [facility] Feb 07, 2021 11:00 AM VA-TOBACCO QUIT 5 TO < 15 YRS [facility] [place] [facility] Feb 02, 2020 03:19 PM VA-TOBACCO FORMER USER [facility] [place] [facility] Feb 02, 2020 03:19 PM VA-TOBACCO QUIT 5 TO < 15 YRS [facility] [place] [facility] Sep 03, 2018 11:07 AM VA-TOBACCO NEVER USED [facility] [place] [facility] Oct 24, 2017 02:40 PM QUIT TOBACCO USE 1-7 YEARS AGO PT QUIT 2 YRS AGO [facility] [place] [facility] Nov 23, 2016 11:14 AM LIFETIME NON-TOBACCO USER [facility] [place] [facility] Nov 23, 2016 11:14 AM QUIT TOBACCO USE 1-7 YEARS AGO [facility] [place] [facility] May 11, 2016 04:46 PM QUIT TOBACCO USE 1-7 YEARS AGO [facility] [place] [facility] Dec 09, 2015 09:56 AM V1-PT DECLINES REF TO TOBACCO CESS PRGM [facility] [place] [facility] Dec 09, 2015 09:56 AM V1-PT THINKING ABOUT QUIT TOBACCO USE [facility] [place] [facility] May 25, 2015 01:26 PM QUIT TOBACCO USE IN PAST YEAR [facility] [place] [facility] Oct 05, 2014 01:34 PM V1-PT DECLINES TOBACCO CESSATION MEDS [facility] [place] [facility] Oct 05, 2014 01:34 PM V1-PT THINKING ABOUT QUIT TOBACCO USE [facility] [place] [facility] Aug 17, 2014 09:30 AM CURRENT SMOKER trys to reduce smoking [facility] [place] [facility] Aug 17, 2014 09:30 AM V1-PT DECLINES REF TO TOBACCO CESS PRGM [facility] [place] [facility] Aug 17, 2014 09:30 AM V1-PT DECLINES TOBACCO CESSATION MEDS [facility] [place] [facility] Aug 17, 2014 09:30 AM V1-PT THINKING ABOUT QUIT TOBACCO USE [facility] [place] [facility] Oct 31, 2012 12:52 PM QUIT TOBACCO USE 1-7 YEARS AGO [facility] [place] [facility] Nov 30, 2011 11:15 AM QUIT TOBACCO USE 1-7 YEARS AGO [facility] [place] Nov 21, 2010 10:56 AM QUIT TOBACCO USE IN PAST YEAR [facility] [place] Feb 02, 2010 10:09 AM CURRENT SMOKER 3 per day [facility] [place] Jan 13, 2010 12:22 PM V1-PT DECLINES REF TO TOBACCO CESS PRGM [facility] [place] Jan 13, 2010 12:22 PM V1-PT DECLINES TOBACCO CESSATION MEDS [facility] [place] [facility] Jan 13, 2010 12:22 PM V1-PT THINKING ABOUT QUIT TOBACCO USE [facility] [place] [facility] Aug 02, 2009 12:04 PM V1-PT DECLINES REF TO TOBACCO CESS PRGM [facility] [place] [facility] Aug 02, 2009 12:04 PM V1-PT DECLINES TOBACCO CESSATION MEDS [facility] [place] [facility] Aug 02, 2009 12:04 PM V1-PT THINKING ABOUT QUIT TOBACCO USE [facility] [place] [facility] Mar 04, 2009 09:03 AM CURRENT SMOKER 1 or 2 ppd [facility] Feb 22, 2009 12:06 PM V1-PT DECLINES REF TO TOBACCO CESS PRGM [facility] Feb 22, 2009 12:06 PM V1-PT READY TO QUIT TOBACCO USE [facility] Sep 02, 2008 02:00 PM V1-PT DECLINES TOBACCO CESSATION MEDS [facility] Sep 02, 2008 02:00 PM V1-PT THINKING ABOUT QUIT TOBACCO USE [facility] April 01, 2008 11:27 AM QUIT TOBACCO USE IN PAST YEAR [facility] Feb 26, 2008 04:05 PM V1-PT DECLINES TOBACCO CESSATION MEDS [facility] Feb 26, 2008 04:05 PM V1-PT NOT INTERESTED IN QUIT TOBACCO USE [facility] Nov 14, 2007 02:46 PM CURRENT SMOKER 3 cigarrettes a week/30 years [facility] Encounter Notes: All associated encounter notes This section contains the clinical notes associated to the Encounter. Date/Time Encounter Note(s) Provider Source Jan 29, 2024 09:26 AM OPTOMETRY NOTE: LOCAL TITLE: OPTOMETRY NOTE STANDARD TITLE: OPTOMETRY NOTE DATE OF NOTE: JAN 29, 2024@09:26 ENTRY DATE: JAN 29, 2024@09:26:13 AUTHOR: DAWOOD GRAY EXP COSIGNER: URGENCY: STATUS: COMPLETED 68 DECLINED TO ANSWER MALE NOT OR Last eye exam: 12/10/22 Reason for Visit/CC: patient here for a comprehensive eye exam. Vision seems stable - still doesn't like bifocals but he can use them when working. Night vision isn't as good as he'd like OHx: 1. low risk open angle glaucoma suspect OU secondary to ocular hypertension and moderate cupping OU. Positive family history of glaucoma 2. Nuclear sclerosis cataracts OU 3. Epiretinal membrane OU 4. Posterior vitreous detachment OU 5. myopia OU, presbyopia OU (-) Pain: (-) CH: (-) Diplopia: (-) Flashes: (+) Floaters: longstanding, stable (-) Amaurosis Fugax/Tia's: (-) Eye Injury: (-) Eye Surgery: (-) TBI (+) FOHx: glaucoma mother and a maternal grandparent MHx: Code Description Z79.01 Long-term current use of anticoagulant ([facility] [id number]) I48.91 Atrial fibrillation ([facility] [id number]) Z63.0 Partner relationship problem ([facility] [id number]) E78.00 Hypercholesterolemia ([facility] [id number]) G47.09 Insomnia ([facility] [id number]) R69. Deviated nasal septum ([facility] [id number]) I10. HTN - Hypertension ([facility] [id number]) F10.10 Alcohol Abuse ([facility] [id number]) R41.9 Cognitive disorder ([facility] [id number]) F31.75 Bipolar disorder in remission ([facility] [id number]) 473.9 Chronic sinusitis (ICD-9-CM 473.9) 840.4 Rotator cuff (capsule) sprain or strain (ICD-9-CM 840.4) F43.20 Adjustment disorder ([facility] [id number]) 302.72 Erectile Dysfunction (ICD-9-CM 302.72) 305.1 TOBACCO USE DISORDER (ICD-9-CM 305.1) Other: SYSTEMIC MEDICATIONS/OCULAR MEDICATIONS: Active and Recently Outpatient Medications (excluding Supplies): Active Outpatient Medications Status 1) APIXABAN [...] OTC BY MOUTH ACTIVE 8 Total Medications ALLERGIES: Patient has answered NKA LAST BP: 132/80 (01/13/2024 09:28) PERTINENT LABS: No data for HEMOGLOBIN A1C Current Rx with last BCVA: OD -1.25 -0.50 x 065 20/20 OS -1.25 -0.50 x 105 20/20-2 Add: +2.50 20/20 OU DVA ( )sc ( x )cc OD 20/25-1 OS 20/25+1 Pupils: PERRL (-)APD EOM: Full all meridia OU, (-) pain/diplopia Confrontation Visual Lacy: Full all meridia OU Subjective: OD -1.25 -0.50 x 065 20/25-1 OS -1.25 -1.00 x 105 20/25+1 Add: +2.50 SLE: Lids/Lashes: clear OU Conjunctiva: white and quiet OU Corneas: clear OU Iris: flat and clear OU (-)TID OU Anterior Chamber: deep and quiet OU Angles: open OU Lens: 1+ NS/ACC OU (-)PXF OU TAP @ 9:37am Yoder OD 16 mm Hg OS 16 mm Hg Dilating Drops: 1 gtt 1% Tropicamide OU, 2.5% phenylephrine OU (Pt. ed. on side effects) Vitreous: Syneresis OU C/D (Size and Rim Description) OD 0.60 pink & healthy OS 0.55 pink & healthy (-)notching/hemorrhage OU Macula OD flat, moderate ERM (smaller than OS) OS flat, moderate diffuse ERM A/V: normal caliber OU Posterior Pole: clear OU Periphery: Flat and intact (-)holes, tears, detachments 360 OU Assessment/Plan: 1. combined cataracts OU, not visually significant. Pt ed. Monitor 2. epiretinal membrane OU, mildly visually significant. Pt ed on finding. Surgical evaluation not recommended at this point. Monitor 3. low risk open angle glaucoma suspect OU secondary to moderate cupping, history of ocular hypertension and family history. IOP is normotensive today OU. Cupping appears stable OU. Last visual field 05/2022 clear OU, RNFL OCT was thin superior OU which was stable. Concern for glaucoma remains low. Continue to monitor with RNFL OCT next visit. 4. myopia OU, regular astigmatism OU, presbyopia OU - order new DVO clear and yellow tint, continue current bifocals RTC 1 year or earlier PRN Patient Education: Glaucoma: Patient was educated regarding glaucoma/glaucoma suspect as well as the natural history of this diagnosis including prognosis. Stress importance of compliance and persistency with glaucoma medication when prescribed, timely follow up as well as the role of ancillary testing. Exclusion criteria for ancillary testing include significantly reduced acuity, mental status changes affecting the patient's ability to attend to the test or other physical limitations that would prohibit the patient's ability to participate in testing. patient offered and declined printed medication list Medication Reconciliation: Outpatient: Has the patient been taking medications as documented in the EMLR? YES: The patient has been taking medications as documented in the EMLR. Essential Medication List for Review used to complete this medication reconciliation. INCLUDED IN THIS LIST: Alphabetical list of active outpatient prescriptions dispensed from this [facility] (local) and dispensed from another ID or [facility] facility (remote) as well as inpatient orders [...] whether with a VA or non-VA provider. Medication List: JLV Link Data on this list may not be complete. Please check JLV. Allergies/ADRs (Tool #5) FACILITY ALLERGY/ADR -------- No Remote Allergy/ADR Data available for this patient [facility] No Known Allergies Med. Reconciliation (Tool #1) INCLUDED IN THIS LIST: Alphabetical list of active outpatient prescriptions dispensed from this ID (local) and dispensed from another ID or [facility] facility (remote) as well as inpatient orders (local pending and active), local clinic medications, locally documented non-VA medications, and local prescriptions that have or been discontinued in the past 90 days. Non-VA Meds Last Documented On: March 21, 2023 NOTE The display of VA prescriptions dispensed from another ID or [facility] facility (remote) is limited to active outpatient prescription entries matched to National Drug File at the originating site and may not include some items such as investigational drugs, compounds, etc. NOT INCLUDED IN THIS LIST: Medications self-entered by the patient into personal health records (i.e. Ygle) are NOT included in this list. Non-VA medications documented outside this ID, remote inpatient orders (regardless of status) and remote clinic medications are NOT included in this list. The patient and provider must always discuss medications the patient is taking, regardless of where the medication was dispensed or obtained. OUTPT APIXABAN 5MG TAB (Status = Active/Suspended) TAKE ONE TABLET BY MOUTH EVERY 12 HOURS FOR PREVENTION OF BLOOD CLOTS Rx# [id number] Last Released: 11/22/23 Qty/Days Supply: Rx Expiration Date: 08/21/24 Refills Remainin Indication: FOR PREVENTION OF BLOOD CLOTS Non-VA ROBERT CAP/TAB TAKE 1 CAPSULE BY MOUTH ONCE DAILY OUTPT METOPROLOL TARTRATE 25MG TAB (Status = Active/Suspended) TAKE ONE-HALF TABLET BY MOUTH TWICE DAILY FOR BLOOD PRESSURE/HEART Rx# [id number] Last Released: 11/06/23 Qty/Days Supply: 90 Rx Expiration Date: 08/21/24 Refills Remainin Indication: FOR HIGH BLOOD PRESSURE Non-VA MULTIVITAMIN/MINERALS CAP/TAB TAKE ONE TABLET BY MOUTH ONCE DAILY Non-VA OTHER CAP/TAB TAKE TESTOSTERONE SUPPLEMENT BY MOUTH Non-VA OTHER CAP/TAB TAKE CREATINE POWDER (OTC) BY MOUTH Non-VA RESOURCE BENEPROTEIN POWDER,ORAL TAKE OTC BY MOUTH OUTPT SILDENAFIL CITRATE 100MG TAB (Status = Active) TAKE ONE TABLET BY MOUTH NEEDED TAKE 1 HOUR PRIOR TO SEXUAL ACTIVITY Rx# [id number] Last Released: 01/22/24 Qty/Days Supply: 05/17 Rx Expiration Date: 09/11/24 Refills Remainin SUPPLIES PHARMACY TERMS AND POSSIBLE PATIENT ACTIONS INPT = ID inpatient order IV = ID intravenous medication OUTPT = ID outpatient prescription PHARMACY POSSIBLE PATIENT TERMS EXPLANATION ACTIONS -------- -- ACTIVE A prescription that can be If you have refills, filled at the local ID pharmacy. you may request a refill of this prescription from your ID pharmacy. CLINIC A medication you received during If you have questions a visit to a ID clinic or about this medication emergency department. contact your ID healthcare team. DISCONTINUED A prescription your provider has Contact your VA stopped. It is no longer healthcare team if you available to be sent to you or need more of this picked up at the VA pharmacy medication. window. A prescription which is too old Contact your VA to fill. This does not refer to healthcare team if you the expiration date of the need more of this medication in the container. medication. NON-VA A medication that came from If this medication someplace other than a VA information is pharmacy. This may be a incorrect or out of prescription from either the VA date, please tell your or non VA providers that was VA healthcare team. filled outside the VA. Or, it may be an wnpw-owy-[id number] (OTC), herbal, dietary supplements or sample medication. ON HOLD An active prescription that will Contact your VA not be filled until pharmacy pharmacy when you need resolves the issue. more of this medication. PARKED An active prescription that will Contact your VA not be filled until the patient pharmacy when you need requests it. this medication. PENDING This prescription order has been If you have been sent to the pharmacy for review instructed to start and is not ready yet. this medication now, contact your VA pharmacy. SUSPENDED An active prescription that is Contact your VA not scheduled to be filled yet. pharmacy if you need You should receive it before this medication now. you run out. ====== /marisa/ DAWOOD GRAY OD [employer] Signed: 01/29/2024 10:15 DAWOOD GRAY [facility]
--- OUTSIDE RECORDS SUMMARY | 2024-11-09 10:57 | XMS_ITS | Encounter Summary ---
Author Name [facility] [place] [facility] [place] Address [address] [place] [address] Care Team Providers Care Sales Service Technician Name Role Phone LAVERN ETIENNE Primary Care [...] SELF + ONE Aug 13, 2020 106 [id number] [phone] SUGRUE,TO DD PATIENT ANTHEM BCBS CT FEDERAL PREFERRED PROVIDER ORGANIZAT ION (PPO) STAND CONSUELO SELF Nov 18, 2007 [id number] [phone] SUGRUE,TO DD PATIENT ANTHEM BCBS CT FEDERAL PREFERRED PROVIDER ORGANIZAT ION (PPO) STAND CONSUELO FAMIL Y Nov 30, 2000 105 [id number] [phone] SUGRUE,TO DD PATIENT BCBS [place] FEP PREFERRED PROVIDER ORGANIZAT ION (PPO) STAND CONSUELO SELF PLUS 1 Aug 13, 2020 106 [id number] SUGRUE,TO DD PATIENT BCBS [place] FEP PREFERRED PROVIDER ORGANIZAT ION (PPO) STAND CONSUELO FAMIL Y Nov 30, 2000 105 [id number] [phone] SUGRUE,TO DD PATIENT [place] FEP PREFERRED PROVIDER ORGANIZAT ION (PPO) STAND CONSUELO SELF+ ONE Aug 13, 2020 106 [id number] SUGRUE,TO DD PATIENT [place] FEP PREFERRED PROVIDER ORGANIZAT ION (PPO) STAND CONSUELO FAMIL Y Nov 30, 2000 105 [id number] SUGRUE,TO DD PATIENT [place] FEP DENTAL DENTAL INSURANCE STAND CONSUELO Aug 13, 2020 [id number] SUGRUE,TO DD PATIENT [place] FEP BCBS PRESCRIPT ION CAREM ARK FEPRX PLAN Aug 13, 2020 [id number] [phone] SUGRUE,TO DD PATIENT [place] FEPRX PLAN PRESCRIPT ION BCBS FEP Nov 18, 2010 [id number] SUGRUE,TO DD PATIENT [place] FEPRX PLAN PRESCRIPT ION CAREM ARK FEPRX Nov 18, 2010 [id number] SUGRUE,TO DD PATIENT [place] FEPRX PLAN PRESCRIPT ION BCBS FEP Nov 18, 2007 [id number] SUGRUE,TO DD PATIENT CAREMARK-F EP BCBS PRESCRIPT ION FEP CAREM ARK Nov 18, 2010 [id number] [phone] SUGKATEE,TO DD PATIENT MEDICARE (WNR) MEDICARE (M) PART A Sep 18, 2020 PART A [id number] SUGRUE,TO DD PATIENT MEDICARE (WNR) MEDICARE (M) PART A Sep 18, 2020 PART A [id number] SUGRUE,TO DD PATIENT MEDICARE (WNR) MEDICARE (M) PART A Sep 18, 2020 PART A [id number] [phone] SUGKATEE,TO DD PATIENT [facility] DFEC WORKERS' COMPENSAT ION INSURANCE WORKE R'S COMP April 01, 2018 WORKER' S COMP [id number] ADAMA RAYGOZA DD PATIENT Selected Encounter This section includes the information on record at [place] for the Encounter. Date/Time Encounter Type Encounter Description Reason Pro vider Source April 17, 2024 05:59 PM Outpatient Encounter TELEPHONE TRIAGE IHE Encounter Template Text not used by [place] Plan of Treatment: Future Appointments (+ 6 months) and Future Tests (+/- 45 days) The Plan of Treatment section includes future care activities for the patient from all [facility]. This section includes future appointments and future [...] 26, 2024 02:00 PM AMBULATORY - MEDICINE [facility] Jun 25, 2024 09:30 AM AMBULATORY MEDICINE [facility] Jul 01, 2024 08:30 AM AMBULATORY - NONE [facility] Sep 10, 2024 04:30 PM AMBULATORY - NONE [facility] Active, Pending, and Scheduled Orders This section includes a listing of several types of active, pending, and scheduled orders, including clinic medications orders, diagnostic test orders, procedure orders and consult orders; where the start date of the order is 45 days before the date of the Encounter or 45 days after the date of theEncounter. The data comes from all [facility]. Test Date/Time Test Type Test Details Facility Name May 26, 2024 02:25 PM Consult Order [facility] Cons Furniture Technician[facility] Social History: Smoking Status (Most current) [...] Date/Time Current Smoking Status Comment Mariluz aguilera March 20, 2023 03:00 PM VA-TOBACCO FORMER USER [facility] Tobacco Use History This section includes a history of the smoking, or tobacco-related health factors, that were collected on or before the date of the Encounter. The data comes from the [place] facility where the Encounter took place. Date/Time Smoking Status/Tobac co Use Comment Facility March 20, 2023 03:00 PM VA-TOBACCO QUIT 5 TO < 15 YRS [facility] March 19, 2022 03:00 PM VA-TOBACCO FORMER USER [facility] March 19, 2022 03:00 PM VA-TOBACCO QUIT 5 TO < 15 YRS [facility] Feb 07, 2021 11:00 AM VA-TOBACCO FORMER USER [facility] Feb 07, 2021 11:00 AM VA-TOBACCO QUIT 5 TO < 15 YRS [facility] Feb 02, 2020 03:19 PM VA-TOBACCO FORMER USER [facility] Feb 02, 2020 03:19 PM VA-TOBACCO QUIT 5 TO < 15 YRS [facility] Sep 03, 2018 11:07 AM VA-TOBACCO NEVER USED [facility] Oct 24, 2017 02:40 PM QUIT TOBACCO USE 1-7 YEARS AGO PT QUIT 2 YRS AGO [facility] Nov 23, 2016 11:14 AM LIFETIME NON-TOBACCO USER [facility] Nov 23, 2016 11:14 AM QUIT TOBACCO USE 1-7 YEARS AGO [facility] May 11, 2016 04:46 PM QUIT TOBACCO USE 1-7 YEARS AGO [facility] Dec 09, 2015 09:56 AM V1-PT DECLINES REF TO TOBACCO CESS PRGM [facility] Dec 09, 2015 09:56 AM V1-PT THINKING ABOUT QUIT TOBACCO USE [facility] May 25, 2015 01:26 PM QUIT TOBACCO USE IN PAST YEAR [facility] Oct 05, 2014 01:34 PM V1-PT DECLINES TOBACCO CESSATION MEDS [facility] Oct 05, 2014 01:34 PM V1-PT THINKING ABOUT QUIT TOBACCO USE [facility] Aug 17, 2014 09:30 AM CURRENT SMOKER trys to reduce smoking [facility] Aug 17, 2014 09:30 AM V1-PT DECLINES REF TO TOBACCO CESS PRGM [facility] Aug 17, 2014 09:30 AM V1-PT DECLINES TOBACCO CESSATION MEDS [facility] Aug 17, 2014 09:30 AM V1-PT THINKING ABOUT QUIT TOBACCO USE [facility] Oct 31, 2012 12:52 PM QUIT TOBACCO USE 1-7 YEARS AGO [facility] Nov 30, 2011 11:15 AM QUIT TOBACCO USE 1-7 YEARS AGO [facility] Nov 21, 2010 10:56 AM QUIT TOBACCO USE IN PAST YEAR [facility] Feb 02, 2010 10:09 AM CURRENT SMOKER 3 per day [facility] Jan 13, 2010 12:22 PM V1-PT DECLINES REF TO TOBACCO CESS PRGM [facility] Jan 13, 2010 12:22 PM V1-PT DECLINES TOBACCO CESSATION MEDS [facility] Jan 13, 2010 12:22 PM V1-PT THINKING ABOUT QUIT TOBACCO USE [facility] Aug 02, 2009 12:04 PM V1-PT DECLINES REF TO TOBACCO CESS PRGM [facility] Aug 02, 2009 12:04 PM V1-PT DECLINES TOBACCO CESSATION MEDS [facility] Aug 02, 2009 12:04 PM V1-PT THINKING ABOUT QUIT TOBACCO USE [facility] Mar 04, 2009 09:03 AM CURRENT SMOKER 1 or 2 ppd [facility] Feb 22, 2009 12:06 PM V1-PT DECLINES REF TO TOBACCO CESS PRGM [facility] Feb 22, 2009 12:06 PM V1-PT READY TO QUIT TOBACCO USE [facility] Sep 02, 2008 02:00 PM V1-PT DECLINES TOBACCO CESSATION MEDS [facility] Sep 02, 2008 02:00 PM V1-PT THINKING ABOUT QUIT TOBACCO USE [facility] April 01, 2008 11:27 AM QUIT TOBACCO USE IN PAST YEAR [facility] Feb 26, 2008 04:05 PM V1-PT DECLINES TOBACCO CESSATION MEDS [facility] Feb 26, 2008 04:05 PM V1-PT NOT INTERESTED IN QUIT TOBACCO USE [facility] Nov 14, 2007 02:46 PM CURRENT SMOKER 3 cigarrettes a week/30 years [facility] Encounter Notes: All associated encounter notes This section contains the clinical notes associated to the Encounter. Date/Time Encounter Note(s) Provider Source April 17, 2024 05:59 PM RN PROGRESS NOTE: LOCAL TITLE: CCC: CLINICAL TRIAGE STANDARD TITLE: RN PROGRESS NOTE DATE OF NOTE: APRIL 17, 2024@17:59:37 ENTRY DATE: APRIL 17, 2024@17:59:37 AUTHOR: SHAE BOWEN COSIGNER: URGENCY: STATUS: COMPLETED Patient Demographics Patient Name: ELEAZAR RAYGOZA Patient Primary [address]: [address] [place] [id number] Patient Primary Phone: [phone] Patient : 1955 Patient Age: 68 Call Back Number: [phone] Caller/Recipient Relation to Patient: Self Emergency Contact: CATHERINE RAYGOZA Triage Summary Chief Complaint: Lump Under The Skin System WHEN: Within 3 Days Nurse's Recommendation / WHEN: Within 3 Days System WHERE: Clinic Nurse's Recommendation / WHERE: Clinic/[facility] Patient Disposition Patient/Caregiver agrees to plan of care: Yes Nursing Plan and Disposition Referred Patient for In-Person Appt Transferred patient to Sched & Admin-Apt Other course(s) of action Generated msg to PACT/Provider Provided guidance for worsening symptoms: *Caller/Patient* advised to call facilities [facility] Contact [facility] or seek immediate medical attention for new or worsening symptoms Nurse Summary Nurse Summary: [place] calls today with concern about a lump on his back that he noticed about one month ago, and would like it evaluated. He states it only hurts, when he lies on his back, or presses on it. He is not able to tell if it is red or swollen. He does not believe he has any drainage from the lump. Advised to be seen within 3 days with PCP. Home care measures provided per [facility]. Warm tfr to TERRIE Arzola [facility] scheduling. Advised vet to call [facility] Clinical Contact Center 10/06 with new or worsening symptoms and for questions or concerns. Advised to call 911 for any new worsening symptoms. Advised PCP will be made aware of these symptoms. Clinical Contact Center Codes Clinic/Location: V1 CWM PHONE CCC RN TXCC Triage Complete Triage Date: 04/17/2024, 05:52 PM Triage Note: Phone Triage 17 Apr 2024 21:44:38 +0000 [facility] Demographics 68 y/o Male Results CC: Lump Under The Skin Software suggested: Within 3 Days Software suggested follow-up location: Clinic, consider [facility] care Values and Measures Duration of CC: 1 Months Positive Responses HPI: erythema, around the lump or bump VS: temperature not taken Negative Responses Denies: HPI: red streaks, from a lump or bump Denies: HPI: skin lump or papule, swelling, worsening Denies: HPI: skin lump or papule, tenderness, worsening Denies: HPI: skin lump or papule, with purulent drainage Denies: HPI: skin lump, firm, on margin of eyelid Denies: HPI: wound, near lump or bump Education Verbal Education Provided for: Subcutaneous Nodules Home Care Lymphadenitis Home Care /marisa/ Shae FALCON [facility] RN Signed: 04/17/2024 17:59 Receipt Acknowledged By: 04/20/2024 08:20 /marisa/ Ange Ruiz RN, BSN Primary Care 04/20/2024 12:45 /marisa/ GREGORY MELO LPN, MARGOT [facility]
--- OUTSIDE RECORDS SUMMARY | 2024-11-09 10:57 | XMS_ITS | Encounter Summary ---
Author Name [facility] Address [address] [place] [address] Care Team Providers Care Institution Librarian Name Role Phone LAVERN ETIENNE Primary Care [...] SELF + ONE Aug 13, [phone] [id number] [phone] SUGRUE,TO DD PATIENT ANTHEM BCBS CT FEDERAL PREFERRED PROVIDER ORGANIZAT ION (PPO) STAND CONSUELO SELF Nov 18, 2007 [id number] [phone] SUGRUE,TO DD PATIENT ANTHEM BCBS CT FEDERAL PREFERRED PROVIDER ORGANIZAT ION (PPO) STAND CONSUELO FAMIL Y Nov 30, 2000 105 [id number] [phone] SUGRUE,TO DD PATIENT BCBS [place] FEP PREFERRED PROVIDER ORGANIZAT ION (PPO) STAND CONSUELO SELF PLUS 1 Aug 13, 2020 [id number] SUGRUE,TO DD PATIENT BCBS [place] FEP PREFERRED PROVIDER ORGANIZAT ION (PPO) STAND CONSUELO FAMIL Y Nov 30, 2000 105 [id number] SUGRUE,TO DD PATIENT [place] F[place] PREFERRED PROVIDER ORGANIZAT ION (PPO) STAND CONSUELO SELF+ ONE Aug 13, 2020 106 [id number] SUGRUE,TO DD PATIENT [place] F[place] PREFERRED PROVIDER ORGANIZAT ION (PPO) STAND CONSUELO FAMIL Y Nov 30, 2000 105 [id number] SUGRUE,TO DD PATIENT [place] F[place] DENTAL DENTAL INSURANCE STAND CONSUELO Aug 13, 2020 [id number] [phone] SUGRUE,TO DD PATIENT CAREMARK FEP BCBS PRESCRIPT ION CAREM ARK FEPRX PLAN Aug 13, 2020 [id number] SUGRUE,TO DD PATIENT CAREMARK FEPRX PLAN PRESCRIPT ION BCBS FEP Nov 18, 2010 [id number] SUGRUE,TO DD PATIENT CAREMARK FEPRX PLAN PRESCRIPT ION CAREM ARK FEPRX Nov 18, 2010 [id number] SUGRUE,TO DD PATIENT [place] FEPRX PLAN PRESCRIPT ION BCBS FEP Nov 18, 2007 [id number] [phone] SUGRUE,TO DD PATIENT CAREMARK-F EP BCBS PRESCRIPT ION FEP CAREM ARK Nov 18, 2010 [id number] SUGRUE,TO DD PATIENT MEDICARE (WNR) MEDICARE (M) PART A Sep 18, 2020 PART A [id number] SUGRUE,TO DD PATIENT MEDICARE (WNR) MEDICARE (M) PART A Sep 18, 2020 PART A [id number] [phone] SUGRUE,TO DD PATIENT MEDICARE (WNR) MEDICARE (M) PART A Sep 18, 2020 PART A [id number] SUGRUE,TO DD PATIENT US DEPART OF LABOR MED [facility] WORKERS' COMPENSAT ION INSURANCE WORKE R'S COMP April 01, 2018 WORKER' S COMP [id number] ADAMA RAYGOZA DD PATIENT Selected Encounter This section includes the information on record at [place] for the Encounter. Date/Time Encounter Type Encounter Description Reason Provider Source Jan 13, 2024 09:41 AM OFF/OP EST MARCH X REQ PHY/QHP PRIMARY CARE/MEDICINE ICD-10-CM Z23 Encounter for immunization LAVERN ETIENNE IHE Encounter Template Text not used by [place] Assessments - Encounter Diagnoses This section includes the primary and secondary diagnoses documented for the Encounter. Date/Time Primary/Secondary Diagnosis Diagnosis Name Provider Source Feb 05, 2024 02:30 PM PRIMARY Encounter for immunization MECHE GIBBS [facility] Plan of Treatment: Future Appointments (+ [...] The data comes from all [place] treatment facilities. Appointment Date/Time Appointment Type Appointme nt Facility Name Jan 29, 2024 09:30 AM AMBULATORY - MEDICINE [facility] May 26, 2024 02:00 PM AMBULATORY - MEDICINE [facility] Jun 25, 2024 09:30 [facility] Jul 01, 2024 08:30 AM AMBULATORY - NONE [facility] Lab Results: +/- 30 days of the encounter This section includes the Chemistry and Hematology Lab Results on record with [place] for the patient. Radiology Reports and Pathology Reports are provided separately, in subsequent sections. Lab Results This section contains the Chemistry/Hematology Results that were resulted 30 days before or 30 daysafter the date of the Encounter. Date/Time Source Result Type Result - Unit Interpretation Reference Range Comment Jan 13, 2024 07:54 AM [facility] PSA Specimen Type: SERUM No comment entered. Ordering Provider: LAVERN ETIENNE Report Released Date/Time: Jan 05, 2024 05:10 PM Reporting Lab: [facility] [place] [facility] [address] [facility] [address] Performing Lab: [place] [facility] [place] [facility] [address] [facility] [address] PSA 1.21 ng/mL 0.00-4.00 Jan 13, 2024 07:54 AM [facility] TSH Specimen Type: SERUM No comment entered. Ordering Provider: LAVERN ETIENNE Report Released Date/Time: Jan 05, 2024 05:10 PM Reporting Lab: [place] [facility] [place] [facility] [address] [address] Performing Lab: [facility] [address] [facility] [address] TSH 1.19 u[IU]/mL 0.35-5.00 Jan 13, 2024 07:54 AM [facility] LIVER FUNCTION Specimen Type: SERUM No comment entered. Ordering Provider: LAVERN ETIENNE Report Released Date/Time: Jan 05, 2024 05:10 PM Reporting Lab: [facility] [address] [facility] [address] Performing Lab: [facility] [address] [address] PROTEIN,TOTAL 6.9 g/dL 6.0-8.3 ALBUMIN 3.8 g/dL 3.5-5.0 ALKALINE PHOSPHATASE 68 U/L 40-150 AST 22 U/L 5-34 ALT 20 U/L BILIRUBIN, TOTAL 0.7 mg/dL 0.2-1.2 Jan 13, 2024 07:54 AM [facility] [employer] [facility] [facility] [employer] BASIC METABOLIC PANEL (fasting) Specimen Type: SERUM No comment entered. Ordering Provider: LAVERN TEIENNE Report Released Date/Time: Jan 05, 2024 05:10 PM Reporting Lab: [place] [facility] [place] [facility] [address] [facility] [address] Performing Lab: [facility] [address] [address] UREA NITROGEN 12 mg/dL 7-25 GLUCOSE 104 mg/dL H 65-100 SODIUM 139 mmol/L 135-145 POTASSIUM 4.1 mmol/L 3.5-5.0 CHLORIDE 104 mmol/L 100-110 CO2 27 meq/L 20-30 CREATININE, Serum 0.77 mg/dL 0.50-1.40 eGFR(CKD-EPI 2020) >90 mL/min >60 Jan 13, 2024 07:54 AM [facility] LIPID PANEL FASTING Specimen Type: SERUM No comment entered. Ordering Provider: LAVERN ETIENNE Report Released Date/Time: Jan 05, 2024 05:10 PM Reporting Lab: [address] [address] Performing Lab: [address] [address] CHOLESTEROL 191 mg/dL TRIGLYCERIDE 49 mg/dL 0-150 LDL calculated 96 mg/dL 0-129 CHOL/HDL 2.2 HDL CHOLESTEROL 85 mg/dL H 40-60 Jan 13, 2024 07:54 AM [facility] CBC AND DIFF (AUTO) Specimen Type: BLOOD No comment entered. Ordering Provider: LAVERN ETIENNE Report Released Date/Time: Jan 05, 2024 05:10 PM Reporting Lab: [facility] [address] [facility] [address] Performing Lab: [address] [address] WBC 3.71 10*3/uL L 4.50-11.00 RBC 4.24 10*6/uL 4.23-5.66 HGB 13.8 g/dL 12.8-17 HCT 39.9 39.2-50.4 MCV 94.1 fL 82-99 MCHC 34.6 g/dL 30.8-35.1 PLT 247 10*3/uL 140-360 RDW-CV 12.4 12.0-16.0 Mohave, Abs 0.55 10*3/uL 0.30-1.10 MCH 32.5 pg 26.2-32.6 Neut % 45.6 43.7-75.8 Lymph % 35.6 14.0-42.3 Mohave % 14.8 H 5.1-13.7 Eos % 2.7 0.4-6.8 Baso % 1.3 0.1-2.0 Neut, Abs 1.69 10*3/uL L 2.20-7.60 Lymph, Abs 1.32 10*3/uL 1.00-3.20 Eos, Abs 0.10 10*3/uL 0.03-0.44 Baso, Abs 0.05 10*3/uL 0.01-0.13 Immature Gran % 0.0 0.0-0.7 Immature Gran, Abs 0.00 10*3/uL 0.00-0.06 Jan 13, 2024 07:54 AM [facility] URINALYSIS CLEAN CATCH Specimen Type: URINE Comment: If Glucose = >500 and Ketones are positive, please alert the Physician. Ordering Provider: LAVERN ETIENNE Report Released Date/Time: Jan 05, 2024 05:10 PM Reporting Lab: [address] [address] Performing Lab: [address] [address] UA COLOR Yellow Yellow UA APPEARANCE Clear [...] Source Jan 13, 2024 09:28 AM 132/80 [facility] Jan 13, 2024 09:07 AM 97.7 50 146/100 16 100 0 141 23 [facility] Immunizations: All administered on the encounter date This section contains immunizations associated to the Encounter. Immunization Series Date Issued Reaction Comments RSV, BIVALENT, PROTEIN SUBUN IT RSVPREF, DILUENT RECONSTITUTED, 0.5 ML, PF 1 Jan 13, 2024 Social History: Smoking Status [...] 20, 2023 03:00 PM VA-TOBACCO FORMER USER [place] [facility] [place] [facility] Tobacco Use History This section includes a history of the smoking, or tobacco-related health factors, that were collected on or before the date of the Encounter. The data comes from the [place] facility where the Encounter took place. Date/Time Smoking Status/Tobac co Use Comment Facility March 20, 2023 03:00 PM VA-TOBACCO QUIT 5 TO < 15 YRS [facility] [place] [facility] March 19, 2022 03:00 PM VA-TOBACCO FORMER USER [facility] [place] [facility] March 19, 2022 03:00 PM VA-TOBACCO QUIT 5 TO < 15 YRS [facility] [place] [facility] Feb 07, 2021 11:00 AM VA-TOBACCO FORMER USER [facility] [place] [facility] Feb 07, 2021 11:00 AM VA-TOBACCO QUIT 5 TO < 15 YRS [facility] [place] [facility] Feb 02, 2020 03:19 PM VA-TOBACCO FORMER USER [facility] [place] [facility] Feb 02, 2020 03:19 PM VA-TOBACCO QUIT 5 TO < 15 YRS [facility] [place] [facility] Sep 03, 2018 11:07 AM VA-TOBACCO NEVER USED [facility] [place] [facility] Oct 24, 2017 02:40 PM QUIT TOBACCO USE 1-7 YEARS AGO PT QUIT 2 YRS AGO [facility] [place] [facility] Nov 23, 2016 11:14 AM LIFETIME NON-TOBACCO USER [facility] [place] [facility] Nov 23, 2016 11:14 AM QUIT TOBACCO USE 1-7 YEARS AGO [facility] [place] [facility] May 11, 2016 04:46 PM QUIT TOBACCO USE 1-7 YEARS AGO [facility] [place] [facility] Dec 09, 2015 09:56 AM V1-PT DECLINES REF TO TOBACCO CESS PRGM [facility] [place] [facility] Dec 09, 2015 09:56 AM V1-PT THINKING ABOUT QUIT TOBACCO USE [facility] [place] [facility] May 25, 2015 01:26 PM QUIT TOBACCO USE IN PAST YEAR [facility] [place] [facility] Oct 05, 2014 01:34 PM V1-PT DECLINES TOBACCO CESSATION MEDS [facility] [place] [facility] Oct 05, 2014 01:34 PM V1-PT THINKING ABOUT QUIT TOBACCO USE [facility] [place] [facility] Aug 17, 2014 09:30 AM CURRENT SMOKER trys to reduce smoking [facility] [place] [facility] Aug 17, 2014 09:30 AM V1-PT DECLINES REF TO TOBACCO CESS [facility] [place] [facility] Aug 17, 2014 09:30 AM V1-PT DECLINES TOBACCO CESSATION MEDS [facility] [place] [facility] Aug 17, 2014 09:30 AM V1-PT THINKING ABOUT QUIT TOBACCO USE [facility] [place] [facility] Oct 31, 2012 12:52 PM QUIT TOBACCO USE 1-7 YEARS AGO [facility] [place] [facility] Nov 30, 2011 11:15 AM QUIT TOBACCO USE 1-7 YEARS AGO [facility] [place] [facility] Nov 21, 2010 10:56 AM QUIT TOBACCO USE IN PAST YEAR [facility] [place] [facility] Feb 02, 2010 10:09 AM CURRENT SMOKER 3 per day [facility] [place] [facility] Jan 13, 2010 12:22 PM V1-PT DECLINES REF TO TOBACCO CESS PRGM [facility] [place] [facility] Jan 13, 2010 12:22 PM V1-PT DECLINES TOBACCO CESSATION MEDS [facility] [place] [facility] Jan 13, 2010 12:22 PM V1-PT THINKING ABOUT QUIT TOBACCO USE [facility] [place] [facility] Aug 02, 2009 12:04 PM V1-PT DECLINES REF TO TOBACCO CESS PRGM [facility] Aug 02, 2009 12:04 PM V1-[facility] Aug 02, 2009 12:04 PM V1-PT THINKING ABOUT QUIT TOBACCO USE [facility] Mar 04, 2009 09:03 AM CURRENT SMOKER 1 [facility] pp[facility] Feb 22, 2009 12:06 PM V1-PT DECLINES REF TO TOBACCO CESS PRGM [facility] Feb 22, 2009 12:06 PM V1-PT READY TO QUIT TOBACCO USE [facility] Sep 02, 2008 02:00 PM V1-PT DECLINES TOBACCO CESSATION MEDS [facility] Sep 02, 2008 02:00 PM V1-PT THINKING ABOUT QUIT TOBACCO USE [facility] April 01, 2008 11:27 AM QUIT TOBACCO USE IN PAST YEAR [facility] Feb 26, 2008 04:05 PM V1-PT DECLINES TOBACCO CESSATION MEDS [facility] Feb 26, 2008 04:05 PM V1-PT NOT INTERESTED IN QUIT TOBACCO USE [facility] Nov 14, 2007 02:46 PM CURRENT SMOKER 3 cigarrettes a week/30 years [facility] Encounter Notes: All associated encounter notes This section contains the clinical notes associated to the Encounter. Date/Time Encounter Note(s) Provider Source Jan 13, 2024 09:42 AM IMMUNIZATION NOTE: LOCAL TITLE: [place] IMMUNIZATION NOTE STANDARD TITLE: IMMUNIZATION NOTE DATE OF NOTE: JAN 13, 2024@09:42:44 ENTRY DATE: JAN 13, 2024@09:42:44 AUTHOR: CHAKA SCOTT EXP COSIGNER: URGENCY: STATUS: COMPLETED Administered: RSV, BIVALENT, PROTEIN SUBUNIT RSVPREF, DILUENT RECONSTITUTED, 0.5 ML, PF Date Administered: Jan 13, 2024 09:41 Series: Series 1 Potash Flaker: ReNew Power Lot: [id number] Exp Date: Feb 15, 2025 NDC: [id number] Admin Route/Site: INTRAMUSCULAR/RIGHT DELTOID Dosage: 0.5mL Vaccine Information Statement(s): RSV (RESPIRATORY SYNCYTIAL VIRUS) VACCINE VIS Sep 05, 2023 ([place]) Order By: Policy Administered By: Chaka Scott /marisa/ CHAKA SCOTT LPN Signed: 01/13/2024 09:43 CHAKA SCOTT [facility]
--- OUTSIDE RECORDS SUMMARY | 2024-11-09 10:57 | XMS_ITS | Encounter Summary ---
Author Name [facility] [place] [facility] [place] [facility] [place] [facility] [place] Address [address] [place] [address] Care Team Providers Care Counter Help Name Role Phone LAVERN ETIENNE Primary Care [...] SELF + ONE Aug 13, 2020 [id number] [phone] SUGRUE,TO DD PATIENT ANTHEM BCBS CT FEDERAL PREFERRED PROVIDER ORGANIZAT ION (PPO) STAND CONSUELO SELF Nov 18, 2007 104 [id number] [phone] SUGRUE,TO DD PATIENT ANTHEM BCBS CT FEDERAL PREFERRED PROVIDER ORGANIZAT ION (PPO) STAND CONSUELO FAMIL Y Nov 30, 2000 105 [id number] [phone] SUGRUE,TO DD PATIENT BCBS [place] FEP PREFERRED PROVIDER ORGANIZAT ION (PPO) STAND CONSUELO SELF PLUS 1 Aug 13, 2020 106 [id number] SUGRUE,TO DD PATIENT BCBS [place] PREFERRED PROVIDER ORGANIZAT ION (PPO) STAND CONSUELO FAMIL Y Nov 30, 2000 105 [id number] SUGRUE,TO DD PATIENT [place] PREFERRED PROVIDER ORGANIZAT ION (PPO) STAND CONSUELO SELF+ ONE Aug 13, 2020 106 [id number] SUGRUE,TO DD PATIENT [place] PREFERRED PROVIDER ORGANIZAT ION (PPO) STAND CONSUELO FAMIL Y Nov 30, 2000 105 [id number] [phone] SUGRUE,TO DD PATIENT [place] DENTAL DENTAL INSURANCE STAND CONSUELO Aug 13, 2020 DENTAL [id number] SUGRUE,TO DD PATIENT [place] FEP BCBS PRESCRIPT ION CAREM ARK FEPRX PLAN Aug 13, 2020 [id number] SUGRUE,TO DD PATIENT [place] FEPRX PLAN PRESCRIPT ION BCBS FEP Nov 18, 2010 [id number] SUGRUE,TO DD PATIENT [place] FEPRX PLAN PRESCRIPT ION CAREM ARK FEPRX Nov 18, 2010 [id number] SUGRUE,TO DD PATIENT [place] FEPRX PLAN PRESCRIPT ION BCBS FEP Nov 18, 2007 [id number] SUGRUE,TO DD PATIENT [place]ARK-F EP BCBS PRESCRIPT ION FEP CAREM ARK Nov 18, 2010 [id number] SUGKATEE,TO DD PATIENT MEDICARE (WNR) MEDICARE (M) PART A Sep 18, 2020 PART A [id number] SUGRUE,TO DD PATIENT MEDICARE (WNR) MEDICARE (M) PART A Sep 18, 2020 PART A [id number] SUGRUE,TO DD PATIENT MEDICARE (WNR) MEDICARE (M) PART A Sep 18, 2020 PART A [id number] SUGRUE,TO DD PATIENT [facility] DFEC WORKERS' COMPENSAT ION INSURANCE WORKE R'S COMP April 01, 2018 WORKER' S COMP [id number] ADAMA RAYGOZA DD PATIENT Selected Encounter This section includes the information on record at [place] for the Encounter. Date/Time Encounter Type Encounter Description Reason Pro vider Source Jan 09, 2024 08:45 AM Outpatient Encounter PRIMARY CARE/MEDICINE IHE Encounter [...] Appointment Type Appointme nt Facility Name Jan 13, 2024 09:00 AM [place]UL[place]IC[place] [facility] Jan 29, 2024 09:30 AM [place]IC[place] [facility] May 26, 2024 02:00 PM AMBULATORY [place]ICINE [place] [facility] Jun 25, 2024 09:30 AM [place]IC[place] [facility] Jul 01, 2024 08:30 AM AM[facility]UL[facility]ORY - NONE [facility] Lab Results: +/- 30 days of the encounter This section includes the Chemistry and Hematology Lab Results on record with [place] for the patient. Radiology Reports and Pathology Reports are provided separately, in subsequent sections. Lab Results This section contains the Chemistry/Hematology Results that were resulted 30 days before or 30 daysafter the date of the Encounter. Date/Time Source Result Type Result - Unit Interpretation Reference Range Comment Jan 13, 2024 07:54 AM [place] [facility] PSA Specimen Type: SERUM No comment entered. Ordering Provider: LAVERN ETIENNE Report Released Date/Time: Jan 05, 2024 05:10 PM Reporting Lab: [facility] [address] [facility] [address] Performing Lab: [address] [address] PSA 1.21 ng/mL 0.00-4.00 Jan 13, 2024 07:54 AM [facility] TSH Specimen Type: SERUM No comment entered. Ordering Provider: LAVERN ETIENNE Report Released Date/Time: Jan 05, 2024 05:10 PM Reporting Lab: [address] [address] Performing Lab: [address] [address] TSH 1.19 u[IU]/mL 0.35-5.00 Jan 13, 2024 07:54 AM [facility] LIVER FUNCTION Specimen Type: SERUM No comment entered. Ordering Provider: LAVERN ETIENNE Report Released Date/Time: Jan 05, 2024 05:10 PM Reporting Lab: [address] [address] Performing Lab: [address] [address] PROTEIN,TOTAL 6.9 g/dL 6.0-8.3 ALBUMIN 3.8 g/dL 3.5-5.0 ALKALINE PHOSPHATASE 68 U/L 40-150 AST 22 U/L 5-34 ALT 20 U/L BILIRUBIN, TOTAL 0.7 mg/dL 0.2-1.2 Jan 13, 2024 07:54 AM [facility] BASIC METABOLIC PANEL (fasting) Specimen Type: SERUM No comment entered. Ordering Provider: LAVERN ETIENNE Report Released Date/Time: Jan 05, 2024 05:10 PM Reporting Lab: [address] [address] Performing Lab: [address] [address] UREA NITROGEN 12 mg/dL 7-25 GLUCOSE 104 mg/dL H 65-100 SODIUM 139 mmol/L 135-145 POTASSIUM 4.1 mmol/L 3.5-5.0 CHLORIDE 104 mmol/L 100-110 CO2 27 meq/L 20-30 CREATININE, Serum 0.77 mg/dL 0.50-1.40 eGFR(CKD-EPI 2020) >90 mL/min >60 Jan 13, 2024 07:54 AM [facility] LIPID PANEL FASTING Specimen Type: SERUM No comment entered. Ordering Provider: LAVERN ETIENNE Report Released Date/Time: Jan 05, 2024 05:10 PM Reporting Lab: [facility] [address] [facility] [address] Performing Lab: [facility] [address] [facility] [address] CHOLESTEROL 191 mg/dL TRIGLYCERIDE 49 mg/dL 0-150 LDL calculated 96 mg/dL 0-129 CHOL/HDL 2.2 HDL CHOLESTEROL 85 mg/dL H 40-60 Jan 13, 2024 07:54 AM [facility] CBC AND DIFF (AUTO) Specimen Type: BLOOD No comment entered. Ordering Provider: LAVERN ETIENNE Report Released Date/Time: Jan 05, 2024 05:10 PM Reporting Lab: [facility] [address] [facility] [address] Performing Lab: [address] [address] WBC 3.71 10*3/uL L 4.50-11.00 RBC 4.24 10*6/uL 4.23-5.66 HGB 13.8 g/dL 12.8-17 HCT 39.9 39.2-50.4 MCV 94.1 fL 82-99 MCHC 34.6 g/dL 30.8-35.1 PLT 247 10*3/uL 140-360 RDW-CV 12.4 12.0-16.0 Phelps, Abs 0.55 10*3/uL 0.30-1.10 MCH 32.5 pg 26.2-32.6 Neut % 45.6 43.7-75.8 Lymph % 35.6 14.0-42.3 Phelps % 14.8 H 5.1-13.7 Eos % 2.7 0.4-6.8 Baso % 1.3 0.1-2.0 Neut, Abs 1.69 10*3/uL L 2.20-7.60 Lymph, Abs 1.32 10*3/uL 1.00-3.20 Eos, Abs 0.10 10*3/uL 0.03-0.44 Baso, Abs 0.05 10*3/uL 0.01-0.13 Immature Gran % 0.0 0.0-0.7 Immature Gran, Abs 0.00 10*3/uL 0.00-0.06 Jan 13, 2024 07:54 AM [facility] URINALYSIS CLEAN CATCH Specimen Type: URINE Comment: If Glucose = >500 and Ketones are positive, please alert the Physician. Ordering Provider: LAVERN ETIENNE Report Released Date/Time: Jan 05, 2024 05:10 PM Reporting Lab: [facility] [address] [facility] [address] Performing Lab: [address] [address] UA COLOR Yellow Yellow UA APPEARANCE Clear [...] took place. Date/Time Current Smoking Status Comment [facility] March 20, 2023 03:00 PM VA-TOBACCO FORMER USER [facility] Tobacco Use History This section includes a history of the smoking, or tobacco-related health factors, that were collected on or before the date of the Encounter. The data comes from the [place] facility where the Encounter took place. Date/Time Smoking Status/Tobac co Use Comment [facility] March 20, 2023 03:00 PM [place]-TO[place] QUIT 5 TO < 15 YRS [facility] March 19, 2022 03:00 PM VA-TOBACCO FORMER USER [facility] March 19, 2022 03:00 PM VA-TOBACCO QUIT 5 TO < 15 YRS [facility] Feb 07, 2021 11:00 AM VA-TOBACCO FORMER USER [facility] Feb 07, 2021 11:00 AM VA-TOBACCO QUIT 5 TO < 15 YRS [facility] Feb 02, 2020 03:19 PM VA-TOBACCO FORMER USER [facility] Feb 02, 2020 03:19 PM VA-TOBACCO QUIT 5 TO < 15 YRS [facility] Sep 03, 2018 11:07 AM VA-TOBACCO NEVER USED [facility] Oct 24, 2017 02:40 PM QUIT TOBACCO USE 1-7 YEARS AGO PT QUIT 2 YRS AGO [facility] Nov 23, 2016 11:14 AM LIFETIME NON-TOBACCO USER [facility] Nov 23, 2016 11:14 AM QUIT TOBACCO USE 1-7 YEARS AGO [facility] May 11, 2016 04:46 PM QUIT TOBACCO USE 1-7 YEARS AGO [facility] Dec 09, 2015 09:56 AM V1-PT DECLINES REF TO TOBACCO CESS PRGM [place] [facility] Dec 09, 2015 09:56 AM V1-PT THINKING ABOUT QUIT TOBACCO USE [facility] May 25, 2015 01:26 PM QUIT TOBACCO USE IN PAST YEAR [facility] Oct 05, 2014 01:34 PM V1-PT DECLINES TOBACCO CESSATION MEDS [facility] Oct 05, 2014 01:34 PM V1-PT THINKING ABOUT QUIT TOBACCO USE [facility] Aug 17, 2014 09:30 AM CURRENT SMOKER trys to reduce smoking [facility] Aug 17, 2014 09:30 AM V1-PT DECLINES REF TO TOBACCO CESS PRGM [facility] Aug 17, 2014 09:30 AM V1-PT DECLINES TOBACCO CESSATION MEDS [facility] Aug 17, 2014 09:30 AM V1-PT THINKING ABOUT QUIT TOBACCO USE [facility] Oct 31, 2012 12:52 PM QUIT TOBACCO USE 1-7 YEARS AGO [facility] Nov 30, 2011 11:15 AM QUIT TOBACCO USE 1-7 YEARS AGO [facility] Nov 21, 2010 10:56 AM QUIT TOBACCO USE IN PAST YEAR [place] [facility] Feb 02, 2010 10:09 AM CURRENT SMOKER 3 per day [facility] Jan 13, 2010 12:22 PM V1-PT DECLINES REF TO TOBACCO CESS PRGM [facility] Jan 13, 2010 12:22 PM V1-PT DECLINES TOBACCO CESSATION MEDS [facility] Jan 13, 2010 12:22 PM V1-PT THINKING ABOUT QUIT TOBACCO USE [facility] Aug 02, 2009 12:04 PM V1-PT DECLINES REF TO TOBACCO CESS PRGM [facility] Aug 02, 2009 12:04 PM V1-PT DECLINES TOBACCO CESSATION MEDS [facility] Aug 02, 2009 12:04 PM V1-PT THINKING ABOUT QUIT TOBACCO USE [facility] Mar 04, 2009 09:03 AM CURRENT SMOKER 1 or 2 ppd [facility] Feb 22, 2009 12:06 PM V1-PT DECLINES REF TO TOBACCO CESS PRGM [facility] Feb 22, 2009 12:06 PM V1-PT READY TO QUIT TOBACCO USE [facility] Sep 02, 2008 02:00 PM V1-PT DECLINES TOBACCO CESSATION MEDS [facility] Sep 02, 2008 02:00 PM V1-PT THINKING ABOUT QUIT TOBACCO USE [facility] April 01, 2008 11:27 AM QUIT TOBACCO USE IN PAST YEAR [facility] Feb 26, 2008 04:05 PM V1[facility] Feb 26, 2008 04:05 PM V1-PT NOT INTERESTED IN QUIT TOBACCO USE [facility] Nov 14, 2007 02:46 PM CURRENT SMOKER 3 cigarrettes a week/30 years [facility] Encounter Notes: All associated encounter notes This section contains the clinical notes associated to the Encounter. Date/Time Encounter Note(s) Provider Source Jan 09, 2024 08:45 AM ADMINISTRATIVE NOTE: LOCAL TITLE: ADMINISTRATIVE NOTE STANDARD TITLE: ADMINISTRATIVE NOTE DATE OF NOTE: JAN 09, 2024@08:45 ENTRY DATE: JAN 09, 2024@08:45:50 AUTHOR: MONIKA ENRIQUEZ EXP COSIGNER: URGENCY: STATUS: COMPLETED Reminder call for your upcoming Primary Care Appointment and the need for preparations prior to your upcoming appt. [ ] Location in [address] [X] Fasting labs [ ] Lab work within 30 days [ ] Urine [ ] No Preparation Action taken: [ ] Called , left voice message [ ] Called , unable to leave voice mail [X] Spoke to /care worker to remind them of upcoming appt/preparations Upcoming Appointments: 01/13/2024 09:00 CWM/NO/PACT 2 01/29/2024 09:30 CWM/NO/OPTOMETRY 1 AM /marisa/ MONIKA ENRIQUEZ AMSA Signed: 01/09/2024 08:45 MONIKA ENRIQUEZ [facility]
== END 2024-11-09 12:34 | disposition home or self-care (01) ==
PROVIDERS: PCP Internal Medicine; Visit Provider Nurse Practitioner Family
DX: Z01.818 Encounter for other preprocedural examination (principal); Z12.11 Encounter for screening for malignant neoplasm of colon; Z86.0100 Personal history of colon polyps, unspecified; K57.30 Diverticulosis of large intestine without perforation or abscess without bleeding
CPT/HCPCS: S0285

== ENCOUNTER → 2024-11-09 10:52 | Outpatient (BNVA) | payer OTHER, BC, SELFPAY | PROVIDERS: PCP Internal Medicine; Visit Provider Nurse Practitioner Family ==

== ENCOUNTER 2025-02-04 10:00 | Day surgery (SDC) | payer OTHER, SELFPAY ==
[2025-02-02 13:33] VITALS: BMI 22.3
--- NOTE | 2025-02-03 09:40 | P.CONAN_ITS ---
Documented by User: Alissa Gagnon NP 02/03/25 09:43 HPI - Anesthesia Eval Consult details Narrative: 69yo M for Colonoscopy Eliquis for PAF PMFSH Active Problems Active Problems: All Active Problems Chest discomfort (Acute) Alcohol use disorder (Acute) Essential hypertension (Acute) PAF (paroxysmal atrial fibrillation) (Acute) Hemorrhoids (Acute) Diverticulosis of colon (Acute) Hyperplastic colon polyp (Acute) Encounter for screening colonoscopy (Acute) Adenomatous colon polyp (Acute) Past Medical History Medical History Alcohol use disorder Essential hypertension COVID-19 vaccine series completed Adenomatous colon polyp Family History Family History Mother Colon cancer Family history of problems with anesthesia: No Surgical History Surgical History Hx of rotator cuff surgery H/O colonoscopy History of Problems with Anesthesia: No Social History Social History Household Members Other:: lives with Are you a primary healthcare administration intern to a significant other at home: No Do you presently have visiting nurse or other home services: No Alcohol intake: current Alcohol intake frequency: holidays/special occasions only Patient Tobacco Use Status: Never used Tobacco Have you been hit, kicked, punched, or otherwise hurt by someone within the past year? If so, by whom?: No Are you DNR?: No Advance Directives: No Advance Directives Information Provided: Yes Recently lost weight without trying: No Nutrition Risks: No Nutritional Risk Current occupational status: employed Meds Allergies Allergy/AdvReac Type Severity Reaction Status Date / Time No Known Allergies Allergy Verified 02/04/25 10:10 [No Known Allergies*] Home Medications ?Medication ?Instructions ?Recorded ?Confirmed ?Last Taken ?Type apixaban 5 mg tablet (Eliquis) 5 mg PO BID 03/28/23 02/04/25 02/01/25 History metoprolol tartrate 25 mg tablet 12.5 mg PO BID 03/28/23 02/04/25 Unknown History sildenafil 25 mg tablet 25 mg PO DAILY PRN Erectile 11/09/24 02/04/25 Unknown History Dysfunction Exam Height,Weight and Vital Signs: Height 5 ft 6 in Weight 62.596 kg Pertinent Lab Results Pertinent Lab Results: Laboratory Tests 08/28/24 11:06 WBC 8.1 Hgb 14.5 Hct 40.6 L Plt Count 262 Sodium 135 Potassium 3.8 Chloride 101 Carbon Dioxide 27 BUN 9 Creatinine 0.86 Narrative Narrative: ECHO 2022 Conclusions: - 1. Normal LV systolic function with grade 1 diastolic dysfunction 2. Mildly dilated left atrium 3. Normal cardiac valvular Dopplers 4. Normal RV systolic pressure 5. No gross pericardial effusion Assessment and Plan Assessment Anesthesia Assessment: Chart Reviewed Final Anesthetic Review Family History of Problems with Anesthesia: No History of Problems with Anesthesia: No Documented by User: Shabana Erwin MD 02/04/25 11:33 [facility] Past Medical History Medical History Alcohol use disorder Essential hypertension COVID-19 vaccine series completed Adenomatous colon polyp Family History Family History Mother Colon cancer Surgical History Surgical History Hx of rotator cuff surgery H/O colonoscopy Social History Social History Household Members Other:: lives with Are you a primary healthcare administration intern to a significant other at home: No Do you presently have visiting nurse or other home services: No Alcohol intake: current Alcohol intake frequency: holidays/special occasions only Patient Tobacco Use Status: Never used Tobacco Have you been hit, kicked, punched, or otherwise hurt by someone within the past year? If so, by whom?: No Are you DNR?: No Advance Directives: No Advance Directives Information Provided: Yes Recently lost weight without trying: No Nutrition Risks: No Nutritional Risk Current occupational status: employed Meds Allergies Allergy/AdvReac Type Severity Reaction Status Date / Time No Known Allergies Allergy Verified 02/04/25 10:10 [No Known Allergies*] Home Medications ?Medication ?Instructions ?Recorded ?Confirmed ?Last Taken ?Type apixaban 5 mg tablet (Eliquis) 5 mg PO BID 03/28/23 02/04/25 02/01/25 History metoprolol tartrate 25 mg tablet 12.5 mg PO BID 03/28/23 02/04/25 Unknown History sildenafil 25 mg tablet 25 mg PO DAILY PRN Erectile 11/09/24 02/04/25 Unknown History Dysfunction Exam Airway Mallampati Class: II TM Dist: >3cm Neck ROM: Full Loose/Missing/Broken Teeth: No Heart: RRR Lungs: CTA Assessment and Plan Assessment Anesthesia Assessment: Anesthesia Plan Discussed Final Anesthetic Review NPO: Yes ASA Class: III Final Preanesthetic Review: Meds/Allgs Chart Reviewed, Consent Obtained/Reviewed and Anes Risks/Benef Reviewed Patient Risk: Intermediate Procedure Risk: Low Anesthetic Plan Anesthetic Plan: MAC: Disposition: Standard PACU
[2025-02-04 10:08] VITALS: BMI 22.3
[2025-02-04] MEDS: Lactated Ringers 1,000 ML 100 ML IVCONT (10:15)
[2025-02-04 10:21] VITALS: BP 107/67; PULSE 76; RESP 18; TEMP 36.7; O2SAT 98
--- NOTE | 2025-02-04 11:22 | P.HPSUR_ITS ---
Pre-Procedural Eval Section A - 24 Hr Update-Section A only Date of Service: 02/04/25 Section B - Complete if H&P > 30 days Chief Complaint: Hx of polyps, fam hx of crc Details of Present Illness: Alcohol use disorder Essential hypertension COVID-19 vaccine series completed Adenomatous colon polyp Surgical History Hx of rotator cuff surgery H/O colonoscopy Present Medications: see Short Stay Collaborative assessment Allergies: Allergies Allergy/AdvReac Type Severity Reaction Status Date / Time No Known Allergies Allergy Verified 02/04/25 10:10 [No Known Allergies*] Review of Systems Review of Systems Comment: Ten point ROS negative Exam Exam Comment: Gen appear: No acute distress HEENT: no icterus Chest: No overt resp distress Abd: soft, nontender, nondistended Psych: Stable affect, answering questions appropriately Neuro: A/Ox3 noted to move all extremities spontaneously Ext: no peripheral edema Plan Diagnosis/Plan: Unchanged I have reviewed the history and physical and performed a pertinent physical examination on my patient. No changes have occurred unless specified. Time Spent With Patient Time: Total time managing care of this patient today ____ minutes.
--- NOTE | 2025-02-04 11:40 | P.OPN-COLO_ITS ---
Colonoscopy Operative Note Operative Note Date of Service: 02/04/25 Narrative: Procedure: Colonoscopy Indication: Personal history of polyps, family history of colon cancer Endoscopist: Flor Mcadams MD Anesthesia Provider: Dr Shabana Erwin Anesthesia type: MAC Instrument: Olympus PCF-H190L Consent: Indication, risks vs benefits, and alternatives were discussed with the patient who gave written informed consent to proceed. EKG, pulse, pulse oximetry and blood pressure were monitored throughout the procedure. Please see anesthesia flowsheet. Procedure: The patient was brought to the procedure room and placed in the left lateral decubitus position. IV medications were administered by the anesthesia provider in attendance. A digital rectal exam was performed which was normal. A distal attachment cap was affixed to the tip of the colonoscope which was then inserted through the anus and advanced through the colon to the cecum at 75 cm,and terminal ileum. Appendiceal orifice and ileocecal valve were identified. Mucosa was carefully examined under high definition white light as the instrument was slowly withdrawn in a retrograde panoramic fashion. Retroflexion was performed in ascending colon and rectum. The procedure was not difficult. There were no immediate obvious complications. The quality of the prep was BBPS: 3+8+3 = adequate Withdrawal time 7 minutes. Limitations: No limitations. Findings: Mucosa: Normal to cecum and terminal ileum. Protruding lesions: * 1 sessile polyp of size 3 mm in transverse colon. Cold snare polypectomy was performed. The polyp was completely removed and retrieved. * Medium internal hemorrhoids without stigmata of recent bleeding. Excavated lesions: * Mild diverticulosis of sigmoid colon with one diverticulum in cecal pouch. Impression: 1. Normal colon and terminal ileum mucosa 2. Total of 1 polyp removed 3. Diverticulosis 4. Internal hemorrhoids Recommendations: - Follow path results. - Repeat colonoscopy in 5 years due to family history.
[2025-02-04 11:47] VITALS: BP 116/68; PULSE 73; RESP 18; TEMP 36.8; O2SAT 99
[2025-02-04 12:02] VITALS: BP 112/62; PULSE 62; RESP 18; TEMP 36.9; O2SAT 97
== END 2025-02-04 13:07 | disposition home or self-care (01) ==
PROVIDERS: PCP Internal Medicine; Visit Provider Internal Medicine
PROC: 0DJD8ZZ Inspection of Lower Intestinal Tract, Via Natural or Artificial Opening Endoscopic (ICD-10-PCS; CPT 45378; principal; 2025-02-04 12:10)
DX: Z12.11 Encounter for screening for malignant neoplasm of colon (principal); Z86.0101 Personal history of adenomatous and serrated colon polyps; Z80.0 Family history of malignant neoplasm of digestive organs; D12.3 Benign neoplasm of transverse colon; K57.30 Diverticulosis of large intestine without perforation or abscess without bleeding; K64.8 Other hemorrhoids; I10 Essential (primary) hypertension; F10.90 Alcohol use, unspecified, uncomplicated; Z79.01 Long term (current) use of anticoagulants; Z79.899 Other long term (current) drug therapy; Z98.890 Other specified postprocedural states
CPT/HCPCS: 45385; 88305; J2003; J2704

== ENCOUNTER → 2025-02-04 10:00 | Outpatient (BNV) | payer OTHER, SELFPAY | PROVIDERS: PCP Internal Medicine; Visit Provider Internal Medicine | DX: Z12.11 Encounter for screening for malignant neoplasm of colon (principal); Z80.0 Family history of malignant neoplasm of digestive organs; Z86.0100 Personal history of colon polyps, unspecified; D12.3 Benign neoplasm of transverse colon | CPT/HCPCS: 45385 ==